=== PATIENT | male | born 1975 | race Caucasian/White ===

== ENCOUNTER 2020-01-14 08:35 | Outpatient (REF) | payer OTHER, SELFPAY ==
[2020-01-14 09:04] LABS: MANUAL DIFF FLAG NO
[2020-01-14 09:06] LABS: Basophils Absolute Auto 0.1 X10*3/uL (0.0-0.2); Basophils Percent Auto 0.6 % (0-2); Eosinophils Absolute Auto 0.1 X10*3/uL (0.0-0.4); Eosinophils Percent Auto 0.8 % (0-4); Hematocrit 46.6 % (42-52); Hemoglobin 15.7 g/dl (14.0-18.0); Imm Gran Pct Auto 0.8 % (0.0-0.4); Lymphocytes Absolute Auto 3.2 X10*3/uL (1.2-4.9); Lymphocytes Percent Auto 26.7 % (20-40); Mean Corpuscular HGB Conc 33.7 g/dl (31.0-36.0); Mean Corpuscular Hemoglobin 30.6 pg (27.0-33.0); Mean Corpuscular Volume 90.8 fL (80-98); Mean Platelet Volume 10.2 fL (9.4-12.4); Monocytes Absolute Auto 1.3 X10*3/uL (0.1-1.2); Monocytes Percent Auto 10.3 % (2-11); Neutrophils Absolute Auto 7.4 X10*3/uL (2.0-8.3); Neutrophils Percent Auto 60.8 % (45-73); Platelet Count 240 X10*3/uL (160-400); Red Blood Count 5.13 X10*6/uL (4.60-5.80); Red Cell Distribution Width 12.5 % (11.0-16.0); White Blood Count 12.1 X10*3/uL (4.8-10.8)
[2020-01-14 09:35] LABS: Alanine Aminotransferase 36 U/L (0-40); Albumin Level 4.4 g/dL (3.5-5.0); Alkaline Phosphatase 62 U/L (39-117); Anion Gap 13 (12-20); Aspartate Amino Transferase 23 U/L (5-37); Bilirubin Total 0.3 mg/dL (0.0-1.0); Blood Urea Nitrogen 17 mg/dL (9-16); C Reactive Protein 0.19 mg/dL (< or = 0.50); Calcium 9.4 mg/dL (8.4-10.2); Carbon Dioxide 29 mmol/L (22-29); Chloride 102 mmol/L (96-108); Estimated Glomerular Filt Rate > 60; Glucose Random 78 mg/dL (60-115); Potassium 3.6 mmol/l (3.3-5.1); Sodium 140 mmol/L (135-145); Total Protein 6.9 g/dL (6.5-8.0)
[2020-01-14 10:57] LABS: Erythrocyte Sedimentation Rate 2 MM/HR (0-15)
== END 2020-01-14 08:36 | disposition home or self-care (01) ==
LOC: HO.LAB 08:35
PROVIDERS: Visit Provider Internal Medicine
DX: L23.9 Allergic contact dermatitis, unspecified cause (principal); L73.9 Follicular disorder, unspecified
CPT/HCPCS: 36415; 80053; 85025; 85652; 86140

== ENCOUNTER 2020-11-22 09:45 | Outpatient (REF) | payer OTHER, SELFPAY ==
--- NOTE | ~2020-11-22 | XR_ITS ---
EXAMINATION: XR WRIST, RIGHT INDICATION: Pain. COMPARISON: 04/01/2018 TECHNIQUE: 4 images submitted including a detailed view of the wrist. FINDINGS: There are cystic changes in the carpal bones and likely at the base of the 4th metacarpal. There is irregularity also at the base of the 4th or 5th metacarpal dorsally. This may be degenerative in nature. There is no acute bony erosion. There is no acute fracture or dislocation. Alignment is within normal limits. On the lateral study, there is irregularity along the ventral surface of the carpal bones. This may indicate dystrophic calcification; of course, acute fracture cannot be excluded if there has been a history of trauma. Otherwise, likely degeneration in the carpal region with again some likely cystic degenerative changes. XR/XR hand wrist RT IMPRESSION: Findings as described above. Degenerative changes and irregularity along the ventral carpal bones may be degenerative in nature, however, I cannot exclude acute bony injury in the appropriate clinical setting. This finding is new from 2019 study. Otherwise likely ongoing Degenerative cystic formation in multiple carpal bones and base of fourth metacarpal described. If further evaluation is warranted, I would recommend MR of the wrist for full evaluation.
== END 2020-11-22 09:46 | disposition home or self-care (01) ==
LOC: HO.XRAY 09:45
PROVIDERS: PCP Internal Medicine; Visit Provider Internal Medicine
DX: M25.531 Pain in right wrist (principal)
CPT/HCPCS: 73110; 73130

== ENCOUNTER → 2020-11-27 09:46 | Outpatient (BNVA) | payer OTHER, SELFPAY | PROVIDERS: Visit Provider Orthopaedic Surgery | DX: M77.8 Other enthesopathies, not elsewhere classified (principal); M79.631 Pain in right forearm | CPT/HCPCS: 99202 ==

== ENCOUNTER → 2020-12-11 09:16 | Outpatient (BNVA) | payer OTHER, SELFPAY | PROVIDERS: PCP Internal Medicine; Visit Provider Internal Medicine Pulmonary Disease | DX: J45.40 Moderate persistent asthma, uncomplicated (principal); Z91.09 Other allergy status, other than to drugs and biological substances | CPT/HCPCS: 99202 ==

== ENCOUNTER 2020-12-21 07:53 | Outpatient (REF) | payer OTHER, SELFPAY ==
--- NOTE | 2020-12-21 10:27 | PFT_ITS ---
FLOWS: FEV1 92% of predicted at 3.61 L. FVC 97% of predicted at 4.83 L. FEV1 to FVC ratio of 0.75. No bronchodilator response except in small to medium airways. LUNG VOLUMES: Total lung capacity 109% of predicted at 7.41 L. Residual volume 147% of predicted at 2.83 L. Slow vital capacity 94% of predicted at 4.58 L. Expiratory reserve volume 31% of predicted at 0.47 L. Diffusion capacity is normal. IMPRESSION: No obstructive or restrictive ventilatory defect. No bronchodilator response except in small to medium airways. Increased residual volume suggests air trapping. MD MOLLY Kim/MODL / [id number]
== END 2020-12-21 07:54 | disposition home or self-care (01) ==
LOC: HO.RESP 07:53
PROVIDERS: PCP Internal Medicine; Visit Provider Internal Medicine Pulmonary Disease
DX: J45.40 Moderate persistent asthma, uncomplicated (principal)
CPT/HCPCS: 94060; 94727; 94729

== ENCOUNTER 2021-02-14 08:33 | Outpatient (REF) | payer OTHER, SELFPAY ==
[2021-02-14 08:57] LABS: MANUAL DIFF FLAG NO
[2021-02-14 09:16] LABS: Basophils Absolute Auto 0.1 X10*3/uL (0.0-0.2); Basophils Percent Auto 1.7 % (0-2); Eosinophils Absolute Auto 1.1 X10*3/uL (0.0-0.4); Eosinophils Percent Auto 13.9 % (0-4); Hematocrit 49.6 % (42.0-52.0); Imm Gran Abs Auto 0.02 X10*3/uL (0.00-0.03); Imm Gran Pct Auto 0.3 % (0.0-0.4); Lymphocytes Percent Auto 26.6 % (20-40); Mean Corpuscular HGB Conc 34.3 g/dl (31.0-36.0); Mean Corpuscular Hemoglobin 29.2 pg (27.0-33.0); Mean Corpuscular Volume 85.1 fL (80.0-98.0); Mean Platelet Volume 10.3 fL (9.4-12.4); Monocytes Absolute Auto 0.8 X10*3/uL (0.1-1.2); Monocytes Percent Auto 10.3 % (2-11); Neutrophils Absolute Auto 3.6 x10*3/uL (2.0-8.3); Neutrophils Percent Auto 47.2 % (45-73); Platelet Count 252 X10*3/uL (160-400); Red Blood Count 5.83 X10*6/uL (4.60-5.80); Red Cell Distribution Width 12.2 % (11.0-16.0); White Blood Count 7.6 X10*3/uL (4.8-10.8)
[2021-02-14 09:57] LABS: TSH reflex Free T4 2.07 uIU/mL (0.32-4.0)
[2021-02-18 22:12] LABS: Immunoglobulin E 670 kU/L (<OR=114)
== END 2021-02-14 08:34 | disposition home or self-care (01) ==
LOC: HO.LAB 08:33
PROVIDERS: Nurse Practitioner Family; PCP Internal Medicine; Visit Provider Internal Medicine Pulmonary Disease
DX: E03.9 Hypothyroidism, unspecified (principal); Z91.09 Other allergy status, other than to drugs and biological substances
CPT/HCPCS: 36415; 82785; 84443; 85025; 86003

== ENCOUNTER → 2021-02-26 09:41 | Outpatient (BNVA) | payer OTHER, SELFPAY | PROVIDERS: PCP Internal Medicine; Visit Provider Internal Medicine Pulmonary Disease | DX: Z91.09 Other allergy status, other than to drugs and biological substances (principal); J45.40 Moderate persistent asthma, uncomplicated | CPT/HCPCS: 99212 ==

== ENCOUNTER 2021-03-20 08:34 | Outpatient (REF) | payer OTHER, SELFPAY ==
--- NOTE | 2021-03-20 08:37 | EMG_ITS ---
This is a 45-year-old man with a 10 months history of right upper extremity pain and numbness. He has a history of hypothyroidism and is on levothyroxine. 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 Neurological examination: Cranial nerves normal. Muscle tone and strength are normal in all 4 extremities. Normal sensory examination. No Tinel or Phalen sign. IMPRESSION: Carpal tunnel syndrome. Nerve conduction EMG study: Normal electrodiagnostic study of the right upper extremity with no evidence of carpal tunnel syndrome or nerve entrapment. Normal EMG of the right C5-T1 innervated muscles. MD RAMEZ Spain/JHOAN / [id number]
== END 2021-03-20 08:35 | disposition home or self-care (01) ==
LOC: HO.NEURO 08:34
PROVIDERS: Visit Provider Nurse Practitioner Family
DX: M25.531 Pain in right wrist (principal)
CPT/HCPCS: 95885; 95910

== ENCOUNTER 2021-04-05 08:31 | Outpatient (REF) | payer OTHER, SELFPAY | END 2021-04-05 08:32 | disposition home or self-care (01) | LOC: HO.MDS 08:31 | PROVIDERS: PCP Internal Medicine; Visit Provider Internal Medicine Pulmonary Disease | DX: J45.50 Severe persistent asthma, uncomplicated (principal); Z86.73 Personal history of transient ischemic attack (TIA), and cerebral infarction without residual deficits | CPT/HCPCS: 96372; J0517 ==

== ENCOUNTER → 2021-05-02 09:18 | Outpatient (BNVA) | payer OTHER, SELFPAY | PROVIDERS: PCP Internal Medicine; Visit Provider Internal Medicine Pulmonary Disease | DX: J45.40 Moderate persistent asthma, uncomplicated (principal); Z91.09 Other allergy status, other than to drugs and biological substances | CPT/HCPCS: 99212 ==

== ENCOUNTER 2021-05-10 09:32 | Outpatient (REF) | payer OTHER, SELFPAY | END 2021-05-10 09:33 | disposition home or self-care (01) | LOC: HO.MDS 09:32 | PROVIDERS: PCP Internal Medicine; Visit Provider Internal Medicine Pulmonary Disease | DX: J45.50 Severe persistent asthma, uncomplicated (principal) | CPT/HCPCS: 96372; J0517 ==

== ENCOUNTER 2021-06-14 08:32 | Outpatient (REF) | payer OTHER, SELFPAY | END 2021-06-14 08:33 | disposition home or self-care (01) | LOC: HO.MDS 08:32 | PROVIDERS: PCP Internal Medicine; Visit Provider Internal Medicine Pulmonary Disease | DX: J45.50 Severe persistent asthma, uncomplicated (principal) | CPT/HCPCS: 96372; J0517 ==

== ENCOUNTER → 2021-07-11 08:55 | Outpatient (BNVA) | payer OTHER, SELFPAY | PROVIDERS: PCP Internal Medicine; Visit Provider Internal Medicine Pulmonary Disease | DX: J45.40 Moderate persistent asthma, uncomplicated (principal); Z91.09 Other allergy status, other than to drugs and biological substances | CPT/HCPCS: 99212 ==

== ENCOUNTER 2021-08-09 09:45 | Outpatient (REF) | payer OTHER, SELFPAY | END 2021-08-09 09:46 | disposition home or self-care (01) | LOC: HO.MDS 09:45 | PROVIDERS: PCP Internal Medicine; Visit Provider Internal Medicine Pulmonary Disease | DX: J45.50 Severe persistent asthma, uncomplicated (principal) | CPT/HCPCS: 96372; J0517 ==

== ENCOUNTER 2021-10-04 09:47 | Outpatient (REF) | payer OTHER, SELFPAY | END 2021-10-04 09:48 | disposition home or self-care (01) | LOC: HO.MDS 09:47 | PROVIDERS: Visit Provider Internal Medicine Pulmonary Disease | DX: J45.50 Severe persistent asthma, uncomplicated (principal) | CPT/HCPCS: 96372; J0517 ==

== ENCOUNTER → 2021-10-21 14:06 | Outpatient (BNVA) | payer OTHER, SELFPAY | PROVIDERS: PCP Internal Medicine; Visit Provider Internal Medicine Pulmonary Disease | DX: J45.40 Moderate persistent asthma, uncomplicated (principal); Q28.2 Arteriovenous malformation of cerebral vessels; Z91.09 Other allergy status, other than to drugs and biological substances | CPT/HCPCS: 99212 ==

== ENCOUNTER 2021-12-05 09:34 | Outpatient (REF) | payer OTHER, SELFPAY | END 2021-12-05 09:35 | disposition home or self-care (01) | LOC: HO.MDS 09:34 | PROVIDERS: Visit Provider Internal Medicine Pulmonary Disease | DX: J45.50 Severe persistent asthma, uncomplicated (principal) | CPT/HCPCS: 96372; J0517 ==

== ENCOUNTER → 2021-12-26 09:32 | Outpatient (BNVA) | payer OTHER, SELFPAY | PROVIDERS: PCP Internal Medicine; Visit Provider Internal Medicine Pulmonary Disease | DX: J45.40 Moderate persistent asthma, uncomplicated (principal); Z91.09 Other allergy status, other than to drugs and biological substances | CPT/HCPCS: 99212 ==

== ENCOUNTER 2022-01-03 09:34 | Outpatient (REF) | payer OTHER, SELFPAY | END 2022-01-03 09:35 | disposition home or self-care (01) | LOC: HO.MDS 09:34 | PROVIDERS: Visit Provider Internal Medicine Pulmonary Disease | DX: J45.50 Severe persistent asthma, uncomplicated (principal) | CPT/HCPCS: 96372; J0517 ==

== ENCOUNTER 2022-01-09 12:42 | Outpatient (REF) | payer OTHER, SELFPAY ==
[2022-01-09 13:16] LABS: Basophils Percent Auto 0.1 % (0-2); Hematocrit 52.5 % (42.0-52.0); Hemoglobin 17.3 g/dl (14.0-18.0); Imm Gran Abs Auto 0.13 X10*3/uL (0.00-0.03); Imm Gran Pct Auto 0.8 % (0.0-0.4); Lymphocytes Absolute Auto 3.4 X10*3/uL (1.2-4.9); Lymphocytes Percent Auto 19.6 % (20-40); MANUAL DIFF FLAG SCAN; Mean Corpuscular Hemoglobin 29.1 pg (27.0-33.0); Mean Corpuscular Volume 88.4 fL (80.0-98.0); Mean Platelet Volume 10.1 fL (9.4-12.4); Monocytes Absolute Auto 1.6 X10*3/uL (0.1-1.2); Monocytes Percent Auto 9.2 % (2-11); Neutrophils Absolute Auto 12.1 x10*3/uL (2.0-8.3); Neutrophils Percent Auto 70.3 % (45-73); Platelet Count 305 X10*3/uL (160-400); Red Blood Count 5.94 X10*6/uL (4.60-5.80); Red Cell Distribution Width 12.9 % (11.0-16.0); SCAN SMEAR FLAG 1; White Blood Count 17.3 X10*3/uL (4.8-10.8)
[2022-01-09 13:53] LABS: SLIDE REVIEW VERIFIED
[2022-01-09 13:59] LABS: Alanine Aminotransferase 36 U/L (0-40); Albumin Level 4.6 g/dL (3.5-5.0); Alkaline Phosphatase 70 U/L (39-117); Anion Gap 12 (12-20); Aspartate Amino Transferase 31 U/L (5-37); Bilirubin Total 0.5 mg/dL (0.0-1.0); Blood Urea Nitrogen 13 mg/dL (9-16); Carbon Dioxide 32 mmol/L (22-29); Chloride 101 mmol/L (96-108); Cholesterol 220 mg/dL; Estimated Glomerular Filt Rate > 60; Glucose Random 88 mg/dL (60-115); HDL Cholesterol 48 mg/dL; LDL Cholesterol Calculated 133 mg/dl; Potassium 4.1 mmol/L (3.3-5.1); Sodium 141 mmol/L (135-145); Total Protein 7.3 g/dL (6.5-8.0); Triglycerides 198 mg/dL
[2022-01-09 16:39] LABS: Free T4 (Free Thyroxine) 1.04 ng/dL (0.71-1.85); Prostate Specific Antigen Scr 0.58 ng/mL (<0.05-4.0); Thyroid Stimulating Hormone 1.69 uIU/mL (0.32-4.0); Vitamin D 25-OH Total 56.8 ng/mL (>30)
== END 2022-01-09 12:43 | disposition home or self-care (01) ==
LOC: HO.LAB 12:42
PROVIDERS: PCP Internal Medicine; Visit Provider Internal Medicine
DX: Z12.5 Encounter for screening for malignant neoplasm of prostate (principal); Q28.2 Arteriovenous malformation of cerebral vessels; E55.9 Vitamin D deficiency, unspecified; E03.9 Hypothyroidism, unspecified; E78.00 Pure hypercholesterolemia, unspecified; R35.0 Frequency of micturition; I10 Essential (primary) hypertension
CPT/HCPCS: 36415; 80053; 80061; 82306; 84153; 84439; 84443; 85025

== ENCOUNTER 2022-01-15 10:47 | Outpatient (REF) | payer OTHER, SELFPAY ==
[2022-01-15 10:59] LABS: Appearance Urine Clear; Color Urine Yellow; Glucose Urine UA 100 mg/dL (Negative); Leukocyte Esterase Urine Negative (Negative); Nitrite Urine Negative (Negative); PH 6.5 (5.0-9.0); Specific Gravity - Urine 1.025 (1.005-1.025); Urine Blood Negative (Negative); Urine Ketones Trace mg/dL (Negative); Urine Protein Trace mg/dL (Neg-Trace)
== END 2022-01-15 10:48 | disposition home or self-care (01) ==
LOC: HO.LNP 10:47
PROVIDERS: Visit Provider Internal Medicine
DX: Q28.2 Arteriovenous malformation of cerebral vessels (principal); R30.0 Dysuria
CPT/HCPCS: 81003

== ENCOUNTER 2022-01-27 07:40 | Outpatient (REF) | payer OTHER, SELFPAY ==
--- NOTE | ~2022-01-27 | CT_ITS ---
EXAMINATION: CT ANGIOGRAM BRAIN WITH CONTRAST CLINICAL INFORMATION: Arteriovenous malformation of cerebral vessels. COMPARISON: Brain MRI 02/11/2008. TECHNIQUE: Test bolus sequences followed by intravenous administration 75 mL of Omnipaque 350. Helical imaging was performed in the axial plane from the skull base to the skull vertex. Delayed postcontrast imaging of the head was also performed. The data was processed at the fiber technologist workstation for generation of MIP sequences. Angled MIPs and volume rendered reformatted images were also generated at an offline 3D workstation. This CT examination was performed using dose optimization techniques as appropriate, variously including the following: *Automated exposure control *Adjustment of mA and/or kV according to patient size (this includes techniques or standardized protocols for targeted exams where dose is matched to indication/reason for exam; i.e. extremities or head) *Use of iterative reconstruction technique DLP: 2497 mGy-cm FINDINGS: Brain: There is no intracranial hemorrhage, extra-axial collection, mass effect, or territorial infarction. Embolization changes are noted within the suprasellar cistern region. 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 The ventricles are normal in size without hydrocephalus. On the postcontrast images, no abnormal enhancement is seen. Mild to moderate polypoid mucosal thickening within the ethmoids. The mastoid air cells are clear. Head CTA: The intradural vertebral arteries and basilar artery appear normal. There is a right BALL MAKER. There is a small left posterior communicating artery. Both legal editor appear patent. The distal left BALL MAKER collaterals are asymmetrically enlarged compared with the right. Mildly prominent enhancement is seen within the region of the embolization changes in the supravermian cistern region. The ICAs appear normal. The ACAs and MCAs appear normal. No aneurysm is seen. The dural venous sinuses appear patent. A mildly enlarged vein is seen in the left occipital lobe draining into the inferior aspect of the superior sagittal sinus best seen on series 13 image 142/322. CT/CT angio head IMPRESSION: No acute intracranial abnormality identified. Postoperative findings related to embolization of presumed AVM seen in the supravermian cistern region. Asymmetrically prominent distal left BALL MAKER branches and prominent left occipital draining vein are demonstrated, which could represent some residual AV shunting for which neurointerventional follow-up is recommended.
[2022-01-27] MEDS: iohexoL 350 MG/ML 100 ML INFUS..BTL IV (08:17)
== END 2022-01-27 07:41 | disposition home or self-care (01) ==
LOC: HO.CT 07:40
PROVIDERS: PCP Internal Medicine; Visit Provider Internal Medicine
DX: Q28.2 Arteriovenous malformation of cerebral vessels (principal)
CPT/HCPCS: 70496; Q9967

== ENCOUNTER → 2022-02-19 09:33 | Outpatient (BNVA) | payer OTHER, SELFPAY | PROVIDERS: PCP Internal Medicine; Visit Provider Internal Medicine Pulmonary Disease | DX: J45.40 Moderate persistent asthma, uncomplicated (principal) | CPT/HCPCS: 99211 ==

== ENCOUNTER 2022-04-14 09:28 | Outpatient (REF) | payer OTHER, SELFPAY ==
[2022-04-14 09:42] LABS: MANUAL DIFF FLAG NO
[2022-04-14 09:56] LABS: Basophils Percent Auto 0.1 % (0-2); Hematocrit 49.9 % (42.0-52.0); Imm Gran Abs Auto 0.09 X10*3/uL (0.00-0.03); Lymphocytes Absolute Auto 1.9 X10*3/uL (1.2-4.9); Lymphocytes Percent Auto 20.9 % (20-40); Mean Corpuscular HGB Conc 34.1 g/dl (31.0-36.0); Mean Corpuscular Hemoglobin 29.1 pg (27.0-33.0); Mean Corpuscular Volume 85.4 fL (80.0-98.0); Monocytes Absolute Auto 1.1 X10*3/uL (0.1-1.2); Monocytes Percent Auto 12.2 % (2-11); Neutrophils Absolute Auto 5.8 x10*3/uL (2.0-8.3); Neutrophils Percent Auto 65.8 % (45-73); Platelet Count 223 X10*3/uL (160-400); Red Blood Count 5.84 X10*6/uL (4.60-5.80); Red Cell Distribution Width 13.7 % (11.0-16.0); White Blood Count 8.8 X10*3/uL (4.8-10.8)
[2022-04-14 10:19] LABS: Alanine Aminotransferase 68 U/L (0-40); Albumin Level 4.2 g/dL (3.5-5.0); Alkaline Phosphatase 65 U/L (39-117); Anion Gap 14 (12-20); Aspartate Amino Transferase 41 U/L (5-37); Bilirubin Total 0.4 mg/dL (0.0-1.0); Blood Urea Nitrogen 10 mg/dL (9-16); Calcium 9.4 mg/dL (8.4-10.2); Carbon Dioxide 29 mmol/L (22-29); Chloride 102 mmol/L (96-108); Estimated Glomerular Filt Rate > 60; Glucose Random 63 mg/dL (60-115); Potassium 4.3 mmol/L (3.3-5.1); Sodium 141 mmol/L (135-145); Total Protein 6.7 g/dL (6.5-8.0)
[2022-04-14 10:34] LABS: Erythrocyte Sedimentation Rate 8 MM/HR (0-15)
== END 2022-04-14 09:29 | disposition home or self-care (01) ==
LOC: HO.LAB 09:28
PROVIDERS: PCP Internal Medicine; Visit Provider Internal Medicine
DX: D72.829 Elevated white blood cell count, unspecified (principal); M79.7 Fibromyalgia; I10 Essential (primary) hypertension
CPT/HCPCS: 36415; 80053; 85025; 85652

== ENCOUNTER → 2022-04-29 09:47 | Outpatient (BNVA) | payer OTHER, SELFPAY | PROVIDERS: PCP Internal Medicine; Visit Provider Internal Medicine Pulmonary Disease | DX: J45.40 Moderate persistent asthma, uncomplicated (principal); Z91.09 Other allergy status, other than to drugs and biological substances; J20.8 Acute bronchitis due to other specified organisms | CPT/HCPCS: 99212 ==

== ENCOUNTER 2022-06-04 08:34 | Outpatient (REF) | payer OTHER, SELFPAY | END 2022-06-04 08:35 | disposition home or self-care (01) | LOC: HO.MDS 08:34 | PROVIDERS: Visit Provider Internal Medicine Pulmonary Disease | DX: J45.50 Severe persistent asthma, uncomplicated (principal) | CPT/HCPCS: 96372 ==

== ENCOUNTER 2022-07-02 09:49 | Outpatient (REF) | payer OTHER, SELFPAY | END 2022-07-02 09:50 | disposition home or self-care (01) | LOC: HO.MDS 09:49 | PROVIDERS: Visit Provider Internal Medicine Pulmonary Disease | DX: J45.50 Severe persistent asthma, uncomplicated (principal) | CPT/HCPCS: 96372 ==

== ENCOUNTER → 2022-07-08 09:34 | Outpatient (BNVA) | payer OTHER, SELFPAY | PROVIDERS: PCP Internal Medicine; Visit Provider Nurse Practitioner Family | DX: J45.40 Moderate persistent asthma, uncomplicated (principal); J40 Bronchitis, not specified as acute or chronic; Z91.09 Other allergy status, other than to drugs and biological substances | CPT/HCPCS: 99212 ==

== ENCOUNTER 2022-07-30 09:42 | Outpatient (REF) | payer OTHER, SELFPAY | END 2022-07-30 09:43 | disposition home or self-care (01) | LOC: HO.MDS 09:42 | PROVIDERS: Visit Provider Internal Medicine Pulmonary Disease | DX: J45.50 Severe persistent asthma, uncomplicated (principal) | CPT/HCPCS: 96372 ==

== ENCOUNTER 2022-09-10 10:04 | Outpatient (REF) | payer OTHER, SELFPAY | END 2022-09-10 10:05 | disposition home or self-care (01) | LOC: HO.MDS 10:04 | PROVIDERS: Visit Provider Internal Medicine Pulmonary Disease | DX: J45.50 Severe persistent asthma, uncomplicated (principal) | CPT/HCPCS: 96372; J0517 ==

== ENCOUNTER 2022-10-07 08:21 | Outpatient (AMB) | payer OTHER, SELFPAY ==
--- NOTE | 2022-10-07 08:23 | MHC.OFFVIS ---
Intake Vital Signs 10/07/22 08:24 Height 5 ft 9 in Weight 219 lb 5.759 oz BMI 32.4 BP 136/78 Blood Pressure Location Lt brachial Position Sitting Pulse 102 H Pulse Source Pulse Oximeter Intake Visit Reasons: Prod cough, exp wheezing Supervisor Tubing Required: No Psychologist Military Personnel: Psychologist Military Personnel offered & declined Accompanied by: Self / Same As Patient Allergies No Known Allergies Allergy (Verified 10/07/22 08:30) Medication List - Last Reconciled 10/07/22 by Sophia Danielson LPN albuterol sulfate 90 mcg/actuation 2 puffs inhalation 6XD PRN 30 days azithromycin For 250 mg dose pack: take 500 mg today (day 1), then 250 mg for 4 days (days 2-5) PO benralizumab (Fasenra) 30 mg subcut Q8W 28 days budesonide-formoterol 160-4.5 mcg/actuation (Symbicort) 2 puffs inhalation BID 30 days dextroamphetamine-amphetamine 20 mg ER (Adderall XR) 1 cap PO QAM levothyroxine 150 mcg PO QAM 90 days oxycodone 10 mg PO Q6-8H PRN 28 days prednisone 40 mg (2 x 20 mg) PO DAILY 7 days HPI Prod cough, exp wheezing HPI Details Van is a 46 year old male, former 20+pack-year smoker, quit 2018 , who is followed for moderate to severe asthma. He is moderately controlled on Fasenra, Symbicort, Zyrtec and albuterol PRN. Since the last visit, he has switched back to Fasenra, as he did not feel he had much benefit with Nucala. He has currently received two doses of Fasenra. Today he is here for a sick visit. He reports wheezing, chest tightness and increasing productive cough, with brown sputum for the last two days. Denies any fever, chills or sick contacts. [facility] [place] Medical History Acquired hypothyroidism Asthma Cerebral arteriovenous malformation (AVM) Lumbar degenerative disc disease Obesity (BMI 30-39.9) Pityriasis lichenoides Poorly controlled persistent asthma Pure hypercholesterolemia Surgical History History of lumbar discectomy Status post coil embolization of cerebral aneurysm (~11/03/12) Family History Father Diabetes Mother No problems noted. 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 Cognitive needs: No Hearing needs: No Vision needs: No Review of Systems Const Denies chills, Denies excessive sweating, Denies fever(s) and Denies night sweats Eyes Denies dry eyes ENT Reports Normal hearing present Card Denies chest pain, Denies chest pain at rest, Denies chest pain with activity, Denies claudication, Denies leg edema, Denies orthopnea and Denies paroxysmal nocturnal dyspnea Resp Reports change in phlegm color, Denies chest congestion, Reports cough, Denies excessive phlegm production, Denies pain on inspiration, Denies pain with cough, Denies stridor and Reports wheezing Neuro Reports Normal hearing present Endo Denies excessive sweating Dom/Lymph Denies lymphadenopathy Aller/Immun Reports wheezing Physical Exam Vital Signs: Last Vital Signs Pulse 102 H 10/07/22 08:24 BP 136/78 10/07/22 08:24 BMI result Body Mass Index 32.4 Const General: cooperative, healthy appearing, comfortable, no acute distress, well developed and alert Orientation/consciousness: patient oriented x3 Limitations: no limitations HEENT Head: Yes normal to inspection, Yes normocephalic and Yes atraumatic Ears: hearing grossly normal bilaterally and external ears normal Eyes General: appearance normal, both eyes and all related structures Eyelids: Yes eyelids normal Sclerae: sclerae normal EOM: EOMs intact bilaterally Neck Neck: Yes normal visual inspection and Yes no lymphadenopathy Lymphatic: no lymphadenopathy noted Chest Chest palpation & inspection: normal inspection of the chest Resp Effort & Inspection: normal respiratory effort, able to speak in complete sentences, no audible wheezes, no stridor, not tachypneic, no tripod positioning and no use of accessory muscles Auscultation: wheezes expiratory wheezes and throughout Cardio Jugular venous distension: no JVD Rate: regular rate Rhythm: regular rhythm Skin Other: warm, dry General skin exam: no rashes or lesions noted Neuro General: patient oriented x3 Cranial nerves: Yes Normal hearing present Cognition (Neuro): normal cognition Gait exam (Neuro): Normal gait present Extrem General: Yes normal to inspection, Yes capillary refill normal, Yes no clubbing, cyanosis or edema and Yes no pedal edema Psych Appearance: grossly normal and well kempt Speech and movement: Normal speech and movement present and Clear speech present Affect: normal affect Attitude: cooperative Thought process: Normal thought process present Thought content: Normal thought content present Insight: Good insight present (Psych) Judgement: Good judgement present (Psych) Assessment & Plan Assessment & Plan (1) Asthma: Code(s): J45.909 - Unspecified asthma, uncomplicated Qualifiers: Asthma severity: moderate Asthma persistence: persistent Asthma complication type: unspecified Qualified Code(s): J45.40 - Moderate persistent asthma, uncomplicated (2) Environmental allergies: Code(s): Z91.09 - Other allergy status, other than to drugs and biological substances (3) Bronchitis: Code(s): J40 - Bronchitis, not specified as acute or chronic Plan Van presents with two day history of worsening shortness of breath, wheezing and productive cough. Will treat bronchitic symptoms with azithromycin as well as prednisone. He is aware if his symptoms do not improve or worsen to contact the office. All questions were answered and patient is in agreement of plan. He will follow up for his regularly scheduled appointment at the end September with Dr. Ceballos or sooner if needed. Medications: Changed From prednisone 40 mg (2 x 20 mg) PO DAILY 7 days 14 tabs 0RF To prednisone 40 mg (2 x 20 mg) PO DAILY 5 days 10 tabs 0RF Refilled azithromycin For 250 mg dose pack: take 500 mg today (day 1), then 250 mg for 4 days (days 2-5) PO 6 tabs 0RF Coding Level of Care Code Est Pt Level 3 (54536) Diagnoses Asthma J45.40 Asthma severity: moderate Asthma persistence: persistent Asthma complication type: unspecified Environmental allergies Z91.09 Bronchitis J40
[2022-10-07 08:24] VITALS: BP 136/78; PULSE 102; BMI 32.4
== END 2022-10-07 09:05 | disposition home or self-care (01) ==
PROVIDERS: PCP Internal Medicine; Visit Provider Nurse Practitioner Family
DX: J45.40 Moderate persistent asthma, uncomplicated (principal); Z91.09 Other allergy status, other than to drugs and biological substances; J40 Bronchitis, not specified as acute or chronic
CPT/HCPCS: 99213

== ENCOUNTER → 2022-10-07 08:21 | Outpatient (BNVA) | payer OTHER, SELFPAY | PROVIDERS: PCP Internal Medicine; Visit Provider Nurse Practitioner Family | DX: J45.40 Moderate persistent asthma, uncomplicated (principal); J40 Bronchitis, not specified as acute or chronic; Z79.899 Other long term (current) drug therapy; Z91.09 Other allergy status, other than to drugs and biological substances | CPT/HCPCS: 99212 ==

== ENCOUNTER 2022-10-21 10:13 | Outpatient (AMB) | payer OTHER, SELFPAY ==
--- NOTE | 2022-10-21 10:14 | MHC.OFFVIS ---
Intake Vital Signs 10/21/22 10:15 Height 5 ft 9 in Weight 218 lb 4.122 oz BMI 32.2 BP 132/82 Blood Pressure Location Lt brachial Position Sitting Pulse 109 H Pulse Source Doppler Pulse Oximetry (%) 96 Oxygen Delivery Method Room Air Intake Visit Reasons: asthma Allergies No Known Allergies Allergy (Verified 10/21/22 10:16) HPI asthma HPI Details 47-year-old gentleman, former 20+pack-year smoker, quit 2018, followed for moderate persistent asthma.? Previously controlled on Fasenra, Symbicort, albuterol MDI/nebs. Also with several recent exacerbations, most recent only partially treated as patient has left his medication into hospital where he was stain, and thus continues to complain of an acute exacerbation at this time. [facility] Medical History Acquired hypothyroidism Asthma Cerebral arteriovenous malformation (AVM) Lumbar degenerative disc disease Obesity (BMI 30-39.9) Pityriasis lichenoides Poorly controlled persistent asthma Pure hypercholesterolemia Surgical History History of lumbar discectomy Status post coil embolization of cerebral aneurysm (~11/03/12) Family History Father Diabetes Mother No problems noted. 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 Cognitive needs: No Hearing needs: No Vision needs: No Review of Systems Const Denies daytime sleepiness, Denies excessive sweating, Denies fatigue, Denies fever(s), Denies lethargy, Denies malaise, Denies night sweats, Denies snoring and Denies weight loss Eyes Denies blurry vision and Denies itchy eyes ENT Denies nasal congestion, Denies post nasal drip, Denies sinus pain, Denies sinus pressure and Denies other ( Thrush) Card Denies chest pain, Denies pedal edema, Denies dyspnea, Denies orthopnea and Denies paroxysmal nocturnal dyspnea Resp Reports cough, Denies hemoptysis, Reports excessive phlegm production, Denies dyspnea, Denies snoring and Denies wheezing GI Denies abdominal pain and Denies heartburn Musc Denies myalgias, Denies arthralgias and Denies joint swelling Skin/Breast Denies rash Neuro Denies memory loss and Denies seizure-like activity Psych Denies abnormal sleep pattern, Denies anxiety and Denies memory loss Endo Denies excessive sweating, Denies fatigue and Denies heat intolerance Dom/Lymph Denies easy bruising Aller/Immun Denies itchy eyes, Denies seasonal rhinorrhea and Denies wheezing Physical Exam Vital Signs: Last Vital Signs Pulse 109 H 10/21/22 10:15 BP 132/82 10/21/22 10:15 Pulse Ox 96 10/21/22 10:15 Oxygen Delivery Method Room Air 10/21/22 10:15 BMI result Body Mass Index 32.2 Const General: no acute distress and alert Nutritional Appearance: not obese Orientation/consciousness: Other orientation findings ( oriented) HEENT Head: Yes atraumatic Eyes General: appearance normal, both eyes and all related structures Sclerae: sclerae normal EOM: EOMs intact bilaterally Neck Neck: Yes supple Lymphatic: no lymphadenopathy noted Resp Effort & Inspection: normal respiratory effort and no use of accessory muscles Auscultation: wheezes expiratory wheezes (Mild bilateral) Cardio Rate: regular rate Rhythm: regular rhythm Heart sounds: no gallops, no murmurs and no rubs Skin General skin exam: other ( warm) Extrem General: No clubbing, No cyanosis and No edema Assessment & Plan Assessment & Plan (1) Asthma: Code(s): J45.909 - Unspecified asthma, uncomplicated Qualifiers: Asthma severity: moderate Asthma persistence: persistent Asthma complication type: unspecified Qualified Code(s): J45.40 - Moderate persistent asthma, uncomplicated Plan: Suboptimally controlled as patient has left his medication heart all on vacation. Restart Symbicort and albuterol MDI. Continue Fasenra. Will treat acute exacerbation with a course of prednisone and azithromycin. (2) Environmental allergies: Code(s): Z91.09 - Other allergy status, other than to drugs and biological substances Plan: Concern for possible allergies to tattoo dye, will recheck RAST and CBC with differential. Patient has been advised to wear an N95 mask while at work. Orders: Orders Rast Allergen Today Z91.09 - Other allergy status, other than to drugs and biological substances Complete Blood Count Auto Diff Today Z91.09 - Other allergy status, other than to drugs and biological substances Medications: New azithromycin For 250 mg dose pack: take 500 mg today (day 1), then 250 mg for 4 days (days 2-5) PO 6 tabs 0RF Refilled albuterol sulfate 90 mcg/actuation 2 puffs inhalation 6XD PRN 1 ea 6RF shortness of breath or wheezing 30 days budesonide-formoterol 160-4.5 mcg/actuation (Symbicort) 2 puffs inhalation BID 10.2 grams 5RF 30 days prednisone 40 mg (2 x 20 mg) PO DAILY 10 tabs 0RF 5 days Coding Level of Care Code Est Pt Level 4 (00364) Diagnoses Asthma J45.40 Asthma severity: moderate Asthma persistence: persistent Asthma complication type: unspecified Environmental allergies Z91.
[2022-10-21 10:15] VITALS: BP 132/82; PULSE 109; O2SAT 96; BMI 32.2
== END 2022-10-21 10:32 | disposition home or self-care (01) ==
PROVIDERS: PCP Internal Medicine; Visit Provider Internal Medicine Pulmonary Disease
DX: J45.40 Moderate persistent asthma, uncomplicated (principal); Z91.09 Other allergy status, other than to drugs and biological substances
CPT/HCPCS: 99214

== ENCOUNTER → 2022-10-21 10:13 | Outpatient (BNVA) | payer OTHER, SELFPAY | PROVIDERS: PCP Internal Medicine; Visit Provider Internal Medicine Pulmonary Disease | DX: J45.40 Moderate persistent asthma, uncomplicated (principal); Z91.09 Other allergy status, other than to drugs and biological substances; Z79.899 Other long term (current) drug therapy | CPT/HCPCS: 99212 ==

== ENCOUNTER 2022-10-22 10:04 | Outpatient (REF) | payer OTHER, SELFPAY | END 2022-10-22 10:05 | disposition home or self-care (01) | LOC: HO.MDS 10:04 | PROVIDERS: Visit Provider Internal Medicine Pulmonary Disease | DX: J45.50 Severe persistent asthma, uncomplicated (principal) | CPT/HCPCS: 96372; J0517 ==

== ENCOUNTER 2022-10-22 10:25 | Outpatient (REF) | payer OTHER, SELFPAY ==
[2022-10-22 10:40] LABS: MANUAL DIFF FLAG NO
[2022-10-22 11:01] LABS: Basophils Percent Auto 0.1 % (0-2); Hematocrit 49.9 % (42.0-52.0); Hemoglobin 16.8 g/dl (14.0-18.0); Imm Gran Pct Auto 0.7 % (0.0-0.4); Lymphocytes Absolute Auto 2.2 X10*3/uL (1.2-4.9); Mean Corpuscular HGB Conc 33.7 g/dl (31.0-36.0); Mean Corpuscular Hemoglobin 30.2 pg (27.0-33.0); Mean Corpuscular Volume 89.6 fL (80.0-98.0); Mean Platelet Volume 10.6 fL (9.4-12.4); Monocytes Absolute Auto 1.3 X10*3/uL (0.1-1.2); Monocytes Percent Auto 9.2 % (2-11); Neutrophils Absolute Auto 10.3 x10*3/uL (2.0-8.3); Platelet Count 227 X10*3/uL (160-400); Red Blood Count 5.57 X10*6/uL (4.60-5.80); Red Cell Distribution Width 13.3 % (11.0-16.0)
== END 2022-10-22 10:26 | disposition home or self-care (01) ==
LOC: HO.LAB 10:25
PROVIDERS: PCP Internal Medicine; Visit Provider Internal Medicine Pulmonary Disease
DX: Z91.09 Other allergy status, other than to drugs and biological substances (principal)
CPT/HCPCS: 36415; 82785; 85025; 86003

== ENCOUNTER 2022-11-18 09:33 | Outpatient (AMB) | payer OTHER, SELFPAY ==
[2022-11-18 09:34] VITALS: BP 124/76; PULSE 104; O2SAT 96; BMI 32.1
--- NOTE | 2022-11-18 09:34 | MHC.OFFVIS ---
Intake Vital Signs 11/18/22 09:34 Height 5 ft 9 in Weight 217 lb 2.485 oz BMI 32.1 BP 124/76 Blood Pressure Location Lt brachial Position Sitting Pulse 104 H Pulse Source Doppler Pulse Oximetry (%) 96 Oxygen Delivery Method Room Air Intake Visit Reasons: asthma Allergies No Known Allergies Allergy (Verified 11/18/22 09:36) HPI asthma HPI Details 47-year-old gentleman, former 20+pack-year smoker, quit 2018, followed for moderate persistent asthma.? Previously controlled on Fasenra, Symbicort, albuterol MDI/nebs. Also with several recent exacerbations, and with ongoing exacerbation at this time. He has been switched from Fasenra to Xolair, however he has not started Xolair yet. He has significant allergies to cats and he does have a cat at home. [facility]END[facility] SALE TO [facility] Medical History Acquired hypothyroidism Asthma Cerebral arteriovenous malformation (AVM) Lumbar degenerative disc disease Obesity (BMI 30-39.9) Pityriasis lichenoides Poorly controlled persistent asthma Pure hypercholesterolemia Surgical History History of lumbar discectomy Status post coil embolization of cerebral aneurysm (~11/03/12) Family History Father Diabetes Mother No problems noted. 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 Cognitive needs: No Hearing needs: No Vision needs: No Review of Systems Const Denies daytime sleepiness, Denies excessive sweating, Denies fatigue, Denies fever(s), Denies lethargy, Denies malaise, Denies night sweats, Denies snoring and Denies weight loss Eyes Denies blurry vision and Denies itchy eyes ENT Denies nasal congestion, Denies post nasal drip, Denies sinus pain, Denies sinus pressure and Denies other ( Thrush) Card Denies chest pain, Denies pedal edema, Denies dyspnea, Denies orthopnea and Denies paroxysmal nocturnal dyspnea Resp Reports cough, Denies hemoptysis, Denies excessive phlegm production, Denies dyspnea, Denies snoring and Reports wheezing GI Denies abdominal pain and Denies heartburn Musc Denies myalgias, Denies arthralgias and Denies joint swelling Skin/Breast Denies rash Neuro Denies memory loss and Denies seizure-like activity Psych Denies abnormal sleep pattern, Denies anxiety and Denies memory loss Endo Denies excessive sweating, Denies fatigue and Denies heat intolerance Dom/Lymph Denies easy bruising Aller/Immun Denies itchy eyes, Denies seasonal rhinorrhea and Reports wheezing Physical Exam Vital Signs: Last Vital Signs Pulse 104 H 11/18/22 09:34 BP 124/76 11/18/22 09:34 Pulse Ox 96 11/18/22 09:34 Oxygen Delivery Method Room Air 11/18/22 09:34 BMI result Body Mass Index 32.1 Const General: no acute distress and alert Nutritional Appearance: not obese Orientation/consciousness: Other orientation findings ( oriented) HEENT Head: Yes atraumatic Eyes General: appearance normal, both eyes and all related structures Sclerae: sclerae normal EOM: EOMs intact bilaterally Neck Neck: Yes supple Lymphatic: no lymphadenopathy noted Resp Effort & Inspection: normal respiratory effort and no use of accessory muscles Auscultation: wheezes expiratory wheezes Cardio Rate: regular rate Rhythm: regular rhythm Heart sounds: no gallops, no murmurs and no rubs Skin General skin exam: other ( warm) Extrem General: No clubbing, No cyanosis and No edema Assessment & Plan Assessment & Plan (1) Asthma: Code(s): J45.909 - Unspecified asthma, uncomplicated Qualifiers: Asthma complication type: unspecified Asthma persistence: persistent Asthma severity: moderate Qualified Code(s): J45.40 - Moderate persistent asthma, uncomplicated Plan: Severe persistent with significant allergic component. Still suboptimal control on Symbicort and albuterol MDI. Now with poor response to Fasenra, being switched to Xolair. Also, with an ongoing exacerbation, will extend prednisone taper. (2) Environmental allergies: Code(s): Z91.09 - Other allergy status, other than to drugs and biological substances Plan: Expect to improve on Xolair. Medications: New Mucinex ER (guaifenesin) 1,200 mg PO BID 28 tabs 0RF 14 days NS Refilled prednisone Take four tabs daily for 7 days, then go down by 1 tab every 7 days. 10 mg PO DIRECTED 70 tabs 0RF Coding Level of Care Code Est Pt Level 4 (66817) Diagnoses Moderate persistent asthma, unspecified whether complicated J45.40 Asthma complication type: unspecified Asthma persistence: persistent Asthma severity: moderate Environmental allergies Z91.09
== END 2022-11-18 09:55 | disposition home or self-care (01) ==
PROVIDERS: PCP Internal Medicine; Visit Provider Internal Medicine Pulmonary Disease
DX: J45.40 Moderate persistent asthma, uncomplicated (principal); Z91.09 Other allergy status, other than to drugs and biological substances
CPT/HCPCS: 99214

== ENCOUNTER → 2022-11-18 09:33 | Outpatient (BNVA) | payer OTHER, SELFPAY | PROVIDERS: PCP Internal Medicine; Visit Provider Internal Medicine Pulmonary Disease | DX: J45.40 Moderate persistent asthma, uncomplicated (principal); Z91.09 Other allergy status, other than to drugs and biological substances | CPT/HCPCS: 99212 ==

== ENCOUNTER 2022-11-21 09:58 | Outpatient (AMB) | payer OTHER, SELFPAY ==
[2022-11-21 10:00] VITALS: BP 140/90; PULSE 106; O2SAT 97; BMI 31.6
--- NOTE | 2022-11-21 10:00 | A.OFFPC_ITS ---
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: No Accompanied by: Self / Same As Patient Allergies No Known Allergies Allergy (Verified 11/21/22 10:55) Medication List - Last Reconciled 11/21/22 by Rambo Qureshi MD albuterol sulfate 90 mcg/actuation 2 puffs inhalation 6XD PRN 30 days budesonide-formoterol 160-4.5 mcg/actuation (Symbicort) 2 puffs inhalation BID 30 days dextroamphetamine-amphetamine 20 mg ER (Adderall XR) 1 cap PO QAM levothyroxine 150 mcg PO QAM 90 days Mucinex ER (guaifenesin) 1,200 mg PO BID 14 days NS oxycodone 10 mg PO Q6-8H PRN 28 days prednisone 10 mg PO DIRECTED Tobacco use date assessed: 11/21/22 Dental Screening Dental Screen Date: 11/21/22 Did you have a dental visit in the last 12 months?: Yes Did you have a dental problem in the last 6 months where you did not have access to dental care?: No Was dental information given to patient?: Patient has dentist HPI 3 Month F/Up HPI Details Patient comes in today for his follow up visit States that he has been experiencing increased pain and recurrent swelling of his left knee lately, especially over the medial aspect of the knee Relates that his knee swelled up again more recently after he went to the [place] and spent a good part of the day there walking around Notes that his knee feels exactly the same as when he tore his meniscus on his other knee in the past and would like to see about getting an MRI done for further evaluation Also has a raised skin lesion just under his left eye that he's had for a while now and feels that it has gotten bigger lately and is now starting to bother him a lot - would like to know if it is something we can just cut out in the office States that his asthma seems like it is better controlled lately Relates that he had some labs and allergy testing done for Dr. Ceballos recently and he was informed that he is primarily allergic to ragweed and cat dander - states that his children has a pet cat at home that has been with them for about [address] Ceballos will be starting him on Xolair injections for his allergies next week He denies any headaches or dizziness Denies any chest pains, no increased SOB No nausea/vomiting, no abdominal pain No change in bowel habits noted States that his chronic low back pain remains adequately controlled on his current Rx and he presently does not need any Rx refilled [facility] Medical History (Updated 11/21/22 @ 11:19 by Rambo Qureshi MD) Pure hypercholesterolemia Pityriasis lichenoides Poorly controlled persistent asthma Obesity (BMI 30-39.9) Cerebral arteriovenous malformation (AVM) Lumbar degenerative disc disease Acquired hypothyroidism Asthma Surgical History Status post coil embolization of cerebral aneurysm (~11/03/12) History of lumbar discectomy Family History Father Diabetes Mother No problems noted. 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 1. Little interest or pleasure in doing things: not at all 2. Feeling down, depressed, or hopeless: not at all 3. Trouble falling or staying asleep, or sleeping too much: not at all 4. Feeling tired or having little energy: not at all 5. Poor appetite or overeating: not at all 6. Feeling bad about yourself - or that you are a failure or have let yourself or your family down: not at all 7. Trouble concentrating on things, such as reading the newspaper or watching television: not at all 8. Moving or speaking so slowly that other people could have noticed. Or the opposite - being so fidgety or restless that you have been moving around a lot more than usual: not at all 9. Thoughts that you would be better off or of hurting yourself in some way: not at all Total score: 0 Depression Screening Interpretation: Negative [id number] - PHQ-9 Billing: Yes Source: Developed by Drs. Santos Onofre, Britt Soares, Errol Manzanares and colleagues, with an educational antoinette from [employer]. Thrive Questionnaire Date Thrive assessed: 11/21/22 I am a: Patient What is your living situation today?: I have a steady place to live Within the past 12 months, did the food you bought not last and you didn't have the money to get more?: Never true Within the past 12 months, did you worry whether your food would run out before you got money to buy more?: Never true Do you have trouble paying for medicines?: No Do you have trouble getting transportation to medical appointments?: No Do you have trouble paying your heating and electricity bill?: No Do you have trouble taking care of your child, family member or friend?: No Do you have trouble with day-to-day activities such as bathing, preparing meals, shopping, managing finances, etc.?: No Are you currently unemployed and looking for a job?: No Are you interested in more education?: No Please select the resources that you would like help with: None Currently or been in a relationship where the following occur: no concerns reported AUDIT C Alcohol Use Questionnaire (AUDIT-C) 1. How often do you have a drink containing alcohol?: Never 3. How often do you have six or more drinks on one occasion?: Never Total Score: 0 Score Reviewed/Action Taken: Yes MARIA DEL CARMEN-7 AMB Questionnaire MARIA DEL CARMEN-7 Date MARIA DEL CARMEN - 7 assessed: 11/21/22 Feeling nervous, anxious, or on edge: 0 = Not at all Not being able to stop or control worryin = Not at all Worrying too much about different things: 0 = Not at all Trouble relaxin = Not at all Being so restless that it is hard to sit still: 0 = Not at all Becoming easily annoyed or irritable: 0 = Not at all Feeling afraid as if something awful might happen: 0 = Not at all Total MARIA DEL CARMEN-7 score (0-4 normal; 5-9 mild; 10-14 moderate; 15-21 severe): 0 Source: Developed by Drs. Santos Onofre, Britt Soares, Errol Manzanares and colleagues, with an educational antoinette from [employer]. Review of Systems Const Denies chills, Reports fatigue, Denies fever(s) and Denies headache(s) ENT Denies dysphagia, Denies dizziness, Denies otalgia, Denies headache(s), Reports nasal congestion (on and off), Denies neck pain, Denies odynophagia and Denies sore throat Card Denies chest pain, Denies palpitations and Reports dyspnea (on and off, depending on his asthma flare ups) Resp Reports cough (on and off, when his asthma flares up) and Reports dyspnea (on and off, depending on his asthma flare ups) GI Denies abdominal pain, Denies constipation, Denies dysphagia, Denies heartburn, Denies diarrhea, Denies nausea, Denies odynophagia and Denies vomiting Denies dysuria, Denies nocturia and Denies urinary frequency Musc Reports back pain (over the lower back - chronic), Reports arthralgias (left knee, especially over the medial aspect), Reports joint swelling (on and off over the left knee) and Denies neck pain Skin/Breast Details: (+) raised skin lesion on the left side of the face just under the left eye Reports rash (on and off) Neuro Denies dizziness and Denies headache(s) Endo Reports fatigue and Denies palpitations Physical exam (Primary Care) Vital Signs: Last Vital Signs Pulse 106 H 11/21/22 10:00 BP 140/90 H 11/21/22 10:00 Pulse Ox 97 11/21/22 10:00 Oxygen Delivery Method Room Air 11/21/22 10:00 BMI result Body Mass Index 31.6 Tobacco/Smoking Status: Tobacco use Status Tobacco use date assessed 11/21/22 11/21/22 10:13 Patient Tobacco Use Status Former Tobacco user 11/21/22 10:13 e-Cigarette/Vaping Use Never Used 11/21/22 10:13 PHQ-9: PHQ-9 Score PHQ-9: Total score 0 11/21/22 10:47 Depression Screening Interpretation: Negative Thrive Assessment: Date of Thrive Assessment Date Thrive assessed 11/21/22 11/21/22 10:13 Currently or been in a relationship where the following occur: no concerns reported Const General: no acute distress and alert HENMT Ears: TM's normal bilaterally and EAC's normal Throat: Yes posterior oropharynx normal and Yes tonsils normal (no TP congestion) Neck Neck: Yes no lymphadenopathy and Yes supple Resp Auscultation: clear to auscultation bilaterally, no rales, no wheezes and diminished lung sounds (slightly) bilateral Cardio Rate: regular rate Rhythm: regular rhythm Heart sounds: no murmurs GI Palpation (GI): Soft to palpation and nontender Auscultation: normal bowel sounds Back/Spine/Pelvis Thoracic/Lumbar Spine: lumbar spinal tenderness Skin Other: (+) scattered clusters of erythematous papular lesions/rash, more commonly over the extremities Lesions: lesion noted ((+) raised keratotic lesion under the left eye) Rashes: rashes noted (scattered clusters of erythematous papular rash/lesions) Extrem General: Yes no clubbing, cyanosis or edema Left lower extremity: knee Details: tenderness Location: of the medial joint line; no swelling (at present) Assessment and Plan Assessment & Plan (1) Pain and swelling of right knee: Code(s): M25.561 - Pain in right knee; M25.461 - Effusion, right knee Plan: Patient feels certain that he tore his right knee MCL based on how his knee feel and is requesting an MRI of the knee ordered for further evaluation Is advised that insurance will typically NOT approve an MRI to start with and per insurance protocol, he has to at least get an MRI done first even though we are aware that x-rays will not show any damage or injury to anything other than bone Advised that if his x-rays show some abnormality, then we may be able to get an MRI approved so he should try to get this done first EFREN (2) Skin lesion of face: Code(s): L98.9 - Disorder of the skin and subcutaneous tissue, unspecified Plan: Advised that because the lesion is on the face and really close to the eye (just under the left eye), it would not be advisable for us to just cut it out here in the office Will recommend he see dermatology for this especially since they should also rule out any potential skin malignancy here - referral to dermatology done (3) Asthma: Code(s): J45.909 - Unspecified asthma, uncomplicated Qualifiers: Asthma complication type: unspecified Asthma persistence: persistent Asthma severity: moderate Qualified Code(s): J45.40 - Moderate persistent asthma, uncomplicated Plan: Continue Symbicort 160-4.5 mcg 2 inhalations BID, Montelukast 10 mg QD and Albuterol HFA 2 inhalations every 6 hours PRN, as well as Fasenra injections 30 mg every 4 weeks States that he did not do as well when he was switched over to Nucala a few months ago Recently tested positive for allergies to ragweed and cat dander and states that will be starting him on Xolair injections next week Follow up with pulmonary as scheduled (4) Cerebral arteriovenous malformation (AVM): Code(s): Q28.2 - Arteriovenous malformation of cerebral vessels Plan: Repeat CT angiogram of the head done back in January 2022 came out negative - report read as No acute intracranial abnormality identified.? Postoperative findings related to embolization of presumed AVM seen in the supravermian cistern region. Asymmetrically prominent distal left PET TRAINING IN[employer]CTOR branches and prominent left occipital draining vein are demonstrated, which could represent some residual AV shunting for which neurointerventional follow-up is recommended [place]ow up with neurosurgery as scheduled (5) Pure hypercholesterolemia: Code(s): E78.00 - Pure hypercholesterolemia, unspecified Plan: Reminded that his cholesterol levels done earlier this year were still elevated Reinforced low cholesterol diet Will recheck his fasting lipids and labs in 3 months for follow up (6) Elevated blood pressure reading without diagnosis of hypertension: Code(s): R03.0 - Elevated blood-pressure reading, without diagnosis of hypertension Plan: Advised that his systolic blood pressure today in the office is still elevated - normal is systolic BP of 120 mm or less Reinforced low sodium diet; is also urged to cut back on his daily coffee consumption - admits that he drinks a lot of coffee regularly Patient is reminded to continue monitoring his BP regularly and advised that we are going to reassess whether he will need to be started on BP meds at his next appointment (7) Leukocytosis (leucocytosis): Code(s): D72.829 - Elevated white blood cell count, unspecified Qualifiers: Leukocytosis type: unspecified Qualified Code(s): D72.829 - Elevated white blood cell count, unspecified Plan: Was most likely due to the effects of oral prednisone WBC count was normal when last checked a few months ago Will have patient recheck his CBC and WBC count in 3 months for follow up (8) Lumbar degenerative disc disease: Code(s): M51.36 - Other intervertebral disc degeneration, lumbar region Plan: Reinforced activity and weight lifting restrictions States that his chronic pain has remained adequately controlled on Oxycodone 10 mg every 6 hours as needed over the years and he would like to continue on this for now and start coming down on his dosage slowly - dose was lowered from 15 to 10 mg last year (9) Acquired hypothyroidism: Code(s): E03.9 - Hypothyroidism, unspecified Plan: Continue Levothyroxine 150 mcg QD Will recheck his TFTs in 3 months for follow up (10) Allergic dermatitis: Code(s): L23.9 - Allergic contact dermatitis, unspecified cause Plan: Follow up with dermatology as scheduled (11) Primary osteoarthritis, right wrist: Code(s): M19.031 - Primary osteoarthritis, right wrist Plan: Right wrist x-rays done back in October 2020 revealed (+) degenerative changes in the carpal bones; wrist pain have subsided since Will consider referral to orthopedics if his wrist pain gets worse (12) ADD (attention deficit disorder): Code(s): F98.8 - Other specified behavioral and emotional disorders with onset usually occurring in childhood and adolescence Qualifiers: Hyperactivity presence: unspecified Qualified Code(s): F98.8 - Other specified behavioral and emotional disorders with onset usually occurring in childhood and adolescence Plan: Continue Adderall XR 20 mg QD Follow up with psychiatry as scheduled (13) Obesity (BMI 30-39.9): Code(s): E66.9 - Obesity, unspecified Plan: Reinforced diet/exercise as tolerated/lose weight Plan Follow up in 3 months Orders: Orders XR knee RT 4V Today M25.461 - Effusion, right knee, M25.561 - Pain in right knee Comprehensive [place]. Panel Fast 3 Months E78.00 - Pure hypercholesterolemia, unspecified Thyroid Stimulating Hormone 3 Months E03.9 - Hypothyroidism, unspecified Free T4 (Free Thyroxine) 3 Months E03.9 - Hypothyroidism, unspecified Complete Blood Count Auto Diff 3 Months I10 - Essential (primary) hypertension Lipid Panel 3 Months E78.00 - Pure hypercholesterolemia, unspecified Referrals Dermatology Referral L98.9 - Disorder of the skin and subcutaneous tissue, unspecified Coding Level of Care Code Est Pt Level 4 (19426) Diagnoses Pain and swelling of right knee M25.561; M25.461 Skin lesion of face L98.9 Moderate persistent asthma, unspecified whether complicated J45.40 Asthma complication type: unspecified Asthma persistence: persistent Asthma severity: moderate Cerebral arteriovenous malformation (AVM) Q28.2 Pure hypercholesterolemia E78.00 Elevated blood pressure reading without diagnosis of hypertension R03.0 Leukocytosis, unspecified type D72.829 Leukocytosis type: unspecified Lumbar degenerative disc disease M51.36 Acquired hypothyroidism E03.9 Allergic dermatitis L23.9 Primary osteoarthritis, right wrist M19.031 Attention deficit disorder, unspecified hyperactivity presence F98.8 Hyperactivity presence: unspecified Obesity (BMI 30-39.9) E66.9
== END 2022-11-21 10:48 | disposition home or self-care (01) ==
PROVIDERS: PCP Internal Medicine; Visit Provider Internal Medicine
DX: M25.561 Pain in right knee (principal); M25.461 Effusion, right knee; L98.9 Disorder of the skin and subcutaneous tissue, unspecified; E78.00 Pure hypercholesterolemia, unspecified
CPT/HCPCS: 99214

== ENCOUNTER 2022-11-27 08:09 | Outpatient (REF) | payer OTHER, SELFPAY | END 2022-11-27 08:10 | disposition home or self-care (01) | LOC: HO.MDS 08:09 | PROVIDERS: Visit Provider Internal Medicine Pulmonary Disease | DX: J45.50 Severe persistent asthma, uncomplicated (principal) | CPT/HCPCS: 96372 ==

== ENCOUNTER 2022-12-10 09:52 | Outpatient (REF) | payer OTHER, SELFPAY | END 2022-12-10 09:53 | disposition home or self-care (01) | LOC: HO.MDS 09:52 | PROVIDERS: Visit Provider Internal Medicine Pulmonary Disease | DX: J45.50 Severe persistent asthma, uncomplicated (principal) | CPT/HCPCS: 96372; J2357 ==

== ENCOUNTER 2022-12-24 10:03 | Outpatient (REF) | payer OTHER, SELFPAY | END 2022-12-24 10:04 | disposition home or self-care (01) | LOC: HO.MDS 10:03 | PROVIDERS: Visit Provider Internal Medicine Pulmonary Disease | DX: J45.50 Severe persistent asthma, uncomplicated (principal) | CPT/HCPCS: 96372 ==

== ENCOUNTER 2023-01-02 09:32 | Outpatient (AMB) | payer OTHER, SELFPAY ==
[2023-01-02 09:35] VITALS: BP 138/82; PULSE 120; O2SAT 96; BMI 32.2
--- NOTE | 2023-01-02 09:35 | A.OFFVIS_ITS ---
Intake Vital Signs 01/02/23 09:35 Height 5 ft 9 in Weight 218 lb 4.122 oz BMI 32.2 BP 138/82 Blood Pressure Location Rt brachial Position Sitting Pulse 120 H Pulse Source Doppler Pulse Oximetry (%) 96 Oxygen Delivery Method Room Air Intake Visit Reasons: asthma Allergies No Known Allergies Allergy (Verified 01/02/23 09:36) HPI asthma HPI Details 47-year-old gentleman, former 20+pack-ye ar smoker, quit 2018, followed for moderate persistent asthma.? After the last office visit Fasenra has been switched to Xolair with improvement in symptom control. However the last 2 weeks he has developed bronchitic symptoms symptomatic with cough productive of yellowish sputum. He continues to use Symbicort and albuterol MDI. [facility] Medical History (Updated 11/21/22 @ 11:19 by Rambo Qureshi MD) Pure hypercholesterolemia Pityriasis lichenoides Poorly controlled persistent asthma Obesity (BMI 30-39.9) Cerebral arteriovenous malformation (AVM) Lumbar degenerative disc disease Acquired hypothyroidism Asthma Surgical History Status post coil embolization of cerebral aneurysm (~11/03/12) History of lumbar discectomy Family History Father Diabetes Mother No problems noted. 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 Cognitive needs: No Hearing needs: No Vision needs: No Review of Systems Const Denies daytime sleepiness, Denies excessive sweating, Denies fatigue, Denies fever(s), Denies lethargy, Denies malaise, Denies night sweats, Denies snoring and Denies weight loss Eyes Denies blurry vision and Denies itchy eyes ENT Denies nasal congestion, Denies post nasal drip, Denies sinus pain, Denies sinus pressure and Denies other ( Thrush) Card Denies chest pain, Denies pedal edema, Denies dyspnea, Denies orthopnea and Denies paroxysmal nocturnal dyspnea Resp Reports cough, Denies hemoptysis, Reports excessive phlegm production, Denies dyspnea, Denies snoring and Denies wheezing GI Denies abdominal pain and Denies heartburn Musc Denies myalgias, Denies arthralgias and Denies joint swelling Skin/Breast Denies rash Neuro Denies memory loss and Denies seizure-like activity Psych Denies abnormal sleep pattern, Denies anxiety and Denies memory loss Endo Denies excessive sweating, Denies fatigue and Denies heat intolerance Dom/Lymph Denies easy bruising Aller/Immun Denies itchy eyes, Denies seasonal rhinorrhea and Denies wheezing Physical Exam Vital Signs: Last Vital Signs Pulse 120 H 01/02/23 09:35 BP 138/82 01/02/23 09:35 Pulse Ox 96 01/02/23 09:35 Oxygen Delivery Method Room Air 01/02/23 09:35 BMI result Body Mass Index 32.2 Const General: no acute distress and alert Nutritional Appearance: not obese Orientation/consciousness: Other orientation findings ( oriented) HEENT Head: Yes atraumatic Eyes General: appearance normal, both eyes and all related structures Sclerae: sclerae normal EOM: EOMs intact bilaterally Neck Neck: Yes supple Lymphatic: no lymphadenopathy noted Resp Effort & Inspection: normal respiratory effort and no use of accessory muscles Auscultation: clear to auscultation bilaterally Cardio Rate: regular rate Rhythm: regular rhythm Heart sounds: no gallops, no murmurs and no rubs Skin General skin exam: other ( warm) Extrem General: No clubbing, No cyanosis and No edema Assessment & Plan Assessment & Plan (1) Asthma: Code(s): J45.909 - Unspecified asthma, uncomplicated Qualifiers: Asthma severity: moderate Asthma persistence: persistent Asthma complication type: unspecified Qualified Code(s): J45.40 - Moderate persistent asthma, uncomplicated Plan: Improving control on Xolair. Continue Xolair, Symbicort, and albuterol MDI. Now with bronchitic symptoms, will treat course of Levaquin. (2) Environmental allergies: Code(s): Z91.09 - Other allergy status, other than to drugs and biological substances Plan: Improving after switching from Fasenra to Xolair. Continue current regimen. Medications: New ProAir RespiClick 90 mcg/actuation (albuterol sulfate) 2 inhalations inhalation Q4-6H PRN 1 ea 6RF shortness of breath or wheezing 30 days NS levofloxacin 750 mg PO DAILY 7 tabs 0RF Discontinued albuterol sulfate 90 mcg/actuation Discontinued Reason: Doctor's Order 2 puffs inhalation 6XD 30 days PRN 1 ea 6RF shortness of breath or wheezing Coding Level of Care Code Est Pt Level 4 (38234) Diagnoses Moderate persistent asthma, unspecified whether complicated J45.40 Asthma severity: moderate Asthma persistence: persistent Asthma complication type: unspecified Environmental allergies Z91.09
== END 2023-01-02 09:50 | disposition home or self-care (01) ==
PROVIDERS: PCP Internal Medicine; Visit Provider Internal Medicine Pulmonary Disease
DX: J45.40 Moderate persistent asthma, uncomplicated (principal); Z91.09 Other allergy status, other than to drugs and biological substances
CPT/HCPCS: 99214

== ENCOUNTER → 2023-01-02 09:32 | Outpatient (BNVA) | payer OTHER, SELFPAY | PROVIDERS: PCP Internal Medicine; Visit Provider Internal Medicine Pulmonary Disease | DX: J45.40 Moderate persistent asthma, uncomplicated (principal); Z91.09 Other allergy status, other than to drugs and biological substances | CPT/HCPCS: 99212 ==

== ENCOUNTER 2023-01-08 10:07 | Outpatient (REF) | payer OTHER, SELFPAY | END 2023-01-08 10:08 | disposition home or self-care (01) | LOC: HO.MDS 10:07 | PROVIDERS: Visit Provider Internal Medicine Pulmonary Disease | DX: J45.50 Severe persistent asthma, uncomplicated (principal) | CPT/HCPCS: 96372 ==

== ENCOUNTER 2023-01-26 10:06 | Outpatient (REF) | payer OTHER, SELFPAY | END 2023-01-26 10:07 | disposition home or self-care (01) | LOC: HO.MDS 10:06 | PROVIDERS: PCP Internal Medicine; Visit Provider Internal Medicine Pulmonary Disease | DX: J45.50 Severe persistent asthma, uncomplicated (principal) | CPT/HCPCS: 96372 ==

== ENCOUNTER 2023-02-10 10:04 | Outpatient (REF) | payer OTHER, SELFPAY | END 2023-02-10 10:05 | disposition home or self-care (01) | LOC: HO.MDS 10:04 | PROVIDERS: Visit Provider Internal Medicine Pulmonary Disease | DX: J45.50 Severe persistent asthma, uncomplicated (principal) | CPT/HCPCS: 96372; J2357 ==

== ENCOUNTER 2023-03-05 10:11 | Outpatient (REF) | payer OTHER, SELFPAY | END 2023-03-05 10:12 | disposition home or self-care (01) | LOC: HO.MDS 10:11 | PROVIDERS: PCP Internal Medicine; Visit Provider Internal Medicine Pulmonary Disease | DX: J45.50 Severe persistent asthma, uncomplicated (principal) | CPT/HCPCS: 96372 ==

== ENCOUNTER 2023-03-06 09:56 | Outpatient (AMB) | payer OTHER, SELFPAY ==
[2023-03-06 09:58] VITALS: BP 126/87; PULSE 116; O2SAT 96; BMI 32.9
--- NOTE | 2023-03-06 09:58 | A.OFFVIS_ITS ---
Intake Vital Signs 03/06/23 09:58 Height 5 ft 9 in Weight 222 lb 10.67 oz BMI 32.9 BP 126/87 Blood Pressure Location Rt brachial Position Sitting Pulse 116 H Pulse Source Doppler Pulse Oximetry (%) 96 Oxygen Delivery Method Room Air Intake Visit Reasons: asthma Allergies No Known Allergies Allergy (Verified 01/02/23 09:36) HPI asthma HPI Details 47-year-old gentleman, former 20+pack-ye ar smoker, quit 2018, followed for moderate persistent asthma.? He continues on Xolair, Symbicort, and albuterol MDI with reasonable control of his symptoms. He does complain of cough productive of chunky sputum. [facility] Medical History (Updated 11/21/22 @ 11:19 by Rambo Qureshi MD) Pure hypercholesterolemia Pityriasis lichenoides Poorly controlled persistent asthma Obesity (BMI 30-39.9) Cerebral arteriovenous malformation (AVM) Lumbar degenerative disc disease Acquired hypothyroidism Asthma Surgical History Status post coil embolization of cerebral aneurysm (~11/03/12) History of lumbar discectomy Family History Father Diabetes Mother No problems noted. 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 Cognitive needs: No Hearing needs: No Vision needs: No Review of Systems Const Denies daytime sleepiness, Denies excessive sweating, Denies fatigue, Denies fever(s), Denies lethargy, Denies malaise, Denies night sweats, Denies snoring and Denies weight loss Eyes Denies blurry vision and Denies itchy eyes ENT Denies nasal congestion, Denies post nasal drip, Denies sinus pain, Denies sinus pressure and Denies other ( Thrush) Card Denies chest pain, Denies pedal edema, Denies dyspnea, Denies orthopnea and Denies paroxysmal nocturnal dyspnea Resp Reports cough, Denies hemoptysis, Reports excessive phlegm production, Denies dyspnea, Denies snoring and Denies wheezing GI Denies abdominal pain and Denies heartburn Musc Denies myalgias, Denies arthralgias and Denies joint swelling Neuro Denies memory loss and Denies seizure-like activity Psych Denies abnormal sleep pattern, Denies anxiety and Denies memory loss Endo Denies excessive sweating, Denies fatigue and Denies heat intolerance Dom/Lymph Denies easy bruising Aller/Immun Denies itchy eyes, Denies seasonal rhinorrhea and Denies wheezing Physical Exam Vital Signs: Last Vital Signs Pulse 116 H 03/06/23 09:58 BP 126/87 03/06/23 09:58 Pulse Ox 96 03/06/23 09:58 Oxygen Delivery Method Room Air 03/06/23 09:58 BMI result Body Mass Index 32.9 Const General: no acute distress and alert Nutritional Appearance: not obese Orientation/consciousness: Other orientation findings ( oriented) HEENT Head: Yes atraumatic Eyes General: appearance normal, both eyes and all related structures Sclerae: sclerae normal EOM: EOMs intact bilaterally Neck Neck: Yes supple Lymphatic: no lymphadenopathy noted Resp Effort & Inspection: normal respiratory effort and no use of accessory muscles Auscultation: clear to auscultation bilaterally Cardio Rate: regular rate Rhythm: regular rhythm Heart sounds: no gallops, no murmurs and no rubs Skin General skin exam: other ( warm) Extrem General: No clubbing, No cyanosis and No edema Assessment & Plan Assessment & Plan (1) Asthma: Code(s): J45.909 - Unspecified asthma, uncomplicated Qualifiers: Asthma severity: moderate Asthma persistence: persistent Asthma complication type: unspecified Qualified Code(s): J45.40 - Moderate persistent asthma, uncomplicated Plan: Well controlled on Xolair, Symbicort, and albuterol MDI. Continue current regimen. (2) Bronchitis: Code(s): J40 - Bronchitis, not specified as acute or chronic Plan: Recurrent. Will obtain sputum sample (3) Environmental allergies: Code(s): Z91.09 - Other allergy status, other than to drugs and biological substances Plan: Well controlled on Xolair. Continue current regimen. Orders: Orders Sputum Cult + Gram stain Today J40 - Bronchitis, not specified as acute or chronic Coding Level of Care Code Est Pt Level 4 (39480) Diagnoses Moderate persistent asthma, unspecified whether complicated J45.40 Asthma severity: moderate Asthma persistence: persistent Asthma complication type: unspecified Bronchitis J40 Environmental allergies Z91.09
== END 2023-03-06 10:11 | disposition home or self-care (01) ==
PROVIDERS: PCP Internal Medicine; Visit Provider Internal Medicine Pulmonary Disease
DX: J45.40 Moderate persistent asthma, uncomplicated (principal); J40 Bronchitis, not specified as acute or chronic; Z91.09 Other allergy status, other than to drugs and biological substances
CPT/HCPCS: 99214

== ENCOUNTER → 2023-03-06 09:56 | Outpatient (BNVA) | payer OTHER, SELFPAY | PROVIDERS: PCP Internal Medicine; Visit Provider Internal Medicine Pulmonary Disease | DX: J45.40 Moderate persistent asthma, uncomplicated (principal); J40 Bronchitis, not specified as acute or chronic; Z79.899 Other long term (current) drug therapy; Z91.09 Other allergy status, other than to drugs and biological substances | CPT/HCPCS: 99212 ==

== ENCOUNTER 2023-03-25 11:36 | Outpatient (REF) | payer OTHER, SELFPAY | END 2023-03-25 11:37 | disposition home or self-care (01) | LOC: HO.MDS 11:36 | PROVIDERS: Visit Provider Internal Medicine Pulmonary Disease | DX: J45.50 Severe persistent asthma, uncomplicated (principal) | CPT/HCPCS: 96372; J2357 ==

== ENCOUNTER 2023-03-27 | Outpatient (REF) | payer OTHER, SELFPAY | END 2023-03-27 00:01 | disposition home or self-care (01) | LOC: HO.LNP | PROVIDERS: Visit Provider Internal Medicine Pulmonary Disease | DX: Z13.89 Encounter for screening for other disorder (principal) ==

== ENCOUNTER 2023-03-30 09:38 | Outpatient (REF) | payer OTHER, SELFPAY ==
[2023-03-30 10:12] LABS: MANUAL DIFF FLAG NO
[2023-03-30 10:34] LABS: Appearance Urine Clear; Color Urine Yellow; Glucose Urine UA 100 mg/dL (Negative); Leukocyte Esterase Urine Negative (Negative); Nitrite Urine Negative (Negative); PH 6.5 (5.0-9.0); Urine Blood Negative (Negative); Urine Ketones Negative (Negative); Urine Protein Negative (Neg-Trace)
[2023-03-30 10:36] LABS: Basophils Absolute Auto 0.1 X10*3/uL (0.0-0.2); Basophils Percent Auto 0.7 % (0-2); Eosinophils Absolute Auto 0.1 X10*3/uL (0.0-0.4); Eosinophils Percent Auto 0.6 % (0-4); Hematocrit 45.7 % (42.0-52.0); Hemoglobin 15.6 g/dl (14.0-18.0); Imm Gran Abs Auto 0.09 X10*3/uL (0.00-0.03); Imm Gran Pct Auto 0.7 % (0.0-0.4); Lymphocytes Absolute Auto 2.1 X10*3/uL (1.2-4.9); Lymphocytes Percent Auto 16.8 % (20-40); Mean Corpuscular HGB Conc 34.1 g/dl (31.0-36.0); Mean Corpuscular Hemoglobin 30.2 pg (27.0-33.0); Mean Corpuscular Volume 88.6 fL (80.0-98.0); Mean Platelet Volume 9.9 fL (9.4-12.4); Monocytes Percent Auto 8.1 % (2-11); Neutrophils Absolute Auto 9.2 x10*3/uL (2.0-8.3); Neutrophils Percent Auto 73.1 % (45-73); Platelet Count 225 X10*3/uL (160-400); Red Blood Count 5.16 X10*6/uL (4.60-5.80); Red Cell Distribution Width 12.4 % (11.0-16.0); White Blood Count 12.5 X10*3/uL (4.8-10.8)
[2023-03-30 11:09] LABS: Estimated Average Glucose 134 mg/dL; Hemoglobin A1c % 6.3 % (<6.0)
[2023-03-30 11:19] LABS: Alanine Aminotransferase 58 U/L (0-40); Albumin Level 4.2 g/dL (3.5-5.0); Alkaline Phosphatase 64 U/L (39-117); Anion Gap 16 (12-20); Aspartate Amino Transferase 28 U/L (5-37); Bilirubin Total 0.3 mg/dL (0.0-1.0); Blood Urea Nitrogen 15 mg/dL (9-16); Calcium 9.8 mg/dL (8.4-10.2); Carbon Dioxide 28 mmol/L (22-29); Chloride 103 mmol/L (96-108); Cholesterol 222 mg/dL (<200); Estimated Glomerular Filt Rate 59; Glucose Fasting 135 mg/dL (60-99); HDL Cholesterol 66 mg/dL (>40); LDL Cholesterol Calculated 140 mg/dL (<100); Potassium 3.9 mmol/L (3.3-5.1); Sodium 143 mmol/L (135-145); Total Protein 7.1 g/dL (6.5-8.0); Triglycerides 80 mg/dL (<150)
[2023-03-30 11:39] LABS: Free T4 (Free Thyroxine) 0.99 ng/dL (0.71-1.85); Thyroid Stimulating Hormone 0.71 uIU/mL (0.32-4.0); Vitamin D 25-OH Total 55.5 ng/mL (>30)
== END 2023-03-30 09:39 | disposition home or self-care (01) ==
LOC: HO.LAB 09:38
PROVIDERS: PCP Internal Medicine; Visit Provider Internal Medicine
DX: Z13.89 Encounter for screening for other disorder (principal)
CPT/HCPCS: 36415; 80053; 80061; 81003; 82306; 83036; 84439; 84443; 85025

== ENCOUNTER 2023-04-08 10:08 | Outpatient (REF) | payer OTHER, SELFPAY | END 2023-04-08 10:09 | disposition home or self-care (01) | LOC: HO.MDS 10:08 | PROVIDERS: Visit Provider Internal Medicine Pulmonary Disease | DX: J45.50 Severe persistent asthma, uncomplicated (principal); J40 Bronchitis, not specified as acute or chronic | CPT/HCPCS: 87070; 87205; 96372 ==

== ENCOUNTER 2023-07-03 11:06 | Outpatient (REF) | payer OTHER, SELFPAY ==
[2023-07-03 12:03] LABS: Appearance Urine Clear; Color Urine Yellow; Glucose Urine UA Negative (Negative); Leukocyte Esterase Urine Negative (Negative); Nitrite Urine Negative (Negative); PH 6.5 (5.0-9.0); Urine Blood Negative (Negative); Urine Ketones Negative (Negative); Urine Protein Negative (Neg-Trace)
[2023-07-03 12:20] LABS: Estimated Average Glucose 131 mg/dL; Hemoglobin A1c % 6.2 % (<6.0)
[2023-07-03 12:55] LABS: Alanine Aminotransferase 78 U/L (0-40); Albumin Level 4.3 g/dL (3.5-5.0); Alkaline Phosphatase 65 U/L (39-117); Anion Gap 14 (12-20); Aspartate Amino Transferase 38 U/L (5-37); Bilirubin Total 0.4 mg/dL (0.0-1.0); Blood Urea Nitrogen 10 mg/dL (9-16); Calcium 9.9 mg/dL (8.4-10.2); Carbon Dioxide 29 mmol/L (22-29); Chloride 103 mmol/L (96-108); Cholesterol 211 mg/dL (<200); Estimated Glomerular Filt Rate 57; Free T4 (Free Thyroxine) 1.19 ng/dL (0.71-1.85); Glucose Fasting 128 mg/dL (60-99); HDL Cholesterol 46 mg/dL (>40); LDL Cholesterol Calculated 136 mg/dL (<100); Sodium 142 mmol/L (135-145); Thyroid Stimulating Hormone 0.38 uIU/mL (0.32-4.0); Total Protein 7.4 g/dL (6.5-8.0); Triglycerides 145 mg/dL (<150)
[2023-07-03 13:16] LABS: Creatinine Urine 206.34 mg/dL; Microalbum/Creatinine Ratio Ur 6.3 ug/mg cr (<30)
[2023-07-06 13:54] LABS: IgA 277 mg/dL (47-310); IgG 942 mg/dL (600-1640); IgM 63 mg/dL (50-300)
[2023-07-06 15:48] LABS: Immunoglobulin G Subclass 1 363 mg/dL (382-929); Immunoglobulin G Subclass 2 326 mg/dL (241-700); Immunoglobulin G Subclass 3 63 mg/dL (22-178); Immunoglobulin G Subclass 4 76.8 mg/dL (4-86); Immunoglobulin G Total 888 mg/dL (600-1640)
== END 2023-07-03 11:07 | disposition home or self-care (01) ==
LOC: HO.LAB 11:06
PROVIDERS: PCP Internal Medicine; Visit Provider Internal Medicine Pulmonary Disease
DX: E11.9 Type 2 diabetes mellitus without complications (principal); E55.9 Vitamin D deficiency, unspecified; R30.0 Dysuria; E03.9 Hypothyroidism, unspecified; E78.00 Pure hypercholesterolemia, unspecified; J40 Bronchitis, not specified as acute or chronic; J45.41 Moderate persistent asthma with (acute) exacerbation
CPT/HCPCS: 36415; 80053; 80061; 81003; 82043; 82306; 82570; 82784; 83036; 84439; 84443; 87070; 87205

== ENCOUNTER 2023-07-10 10:23 | Outpatient (AMB) | payer OTHER, SELFPAY ==
[2023-07-10 10:32] VITALS: BP 158/86; PULSE 109; O2SAT 97; BMI 33.0
--- NOTE | 2023-07-10 10:32 | A.OFFVIS_ITS ---
Vital Signs 07/10/23 10:32 Height 5 ft 9 in Weight 223 lb 12.307 oz BMI 33.0 BP 158/86 H Blood Pressure Location Lt brachial Position Sitting Pulse 109 H Pulse Source Doppler Pulse Oximetry (%) 97 Oxygen Delivery Method Room Air Intake Visit Reasons: Asthma Allergies No Known Allergies Allergy (Verified 03/30/23 18:20) HPI HPI Asthma: Details: 47-year-old gentleman, former 20+pack-year smoker, quit 2018, followed for moderate persistent asthma.? He was tried on Xolair with some, but still suboptimal improvement of his asthma symptoms. He continues on Symbicort albuterol MDI. He does have an ongoing exacerbation currently being treated with prednisone taper. He also continues to complain of intermittently productive cough, but so far was not able to provide a good sputum sample. [facility] Medical History (Updated 07/10/23 @ 11:08 by Bello Ceballos MD) Impaired fasting glucose Pure hypercholesterolemia Pityriasis lichenoides Poorly controlled persistent asthma Obesity (BMI 30-39.9) Cerebral arteriovenous malformation (AVM) Lumbar degenerative disc disease Acquired hypothyroidism Asthma Surgical History Status post coil embolization of cerebral aneurysm (~11/03/12) History of lumbar discectomy Family History Father Diabetes Mother No problems noted. 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 Cognitive needs: No Hearing needs: No Vision needs: No Review of Systems Const Denies daytime sleepiness, Denies excessive sweating, Denies fatigue, Denies fever(s), Denies lethargy, Denies malaise, Denies night sweats, Denies snoring and Denies weight loss Eyes Denies blurry vision and Denies itchy eyes ENT Denies nasal congestion, Denies post nasal drip, Denies sinus pain, Denies sinus pressure and Denies other ( Thrush) Card Denies chest pain, Denies pedal edema, Denies dyspnea, Denies orthopnea and Denies paroxysmal nocturnal dyspnea Resp Reports cough, Denies hemoptysis, Reports excessive phlegm production, Denies dyspnea, Denies snoring and Denies wheezing GI Denies abdominal pain and Denies heartburn Musc Denies myalgias, Denies arthralgias and Denies joint swelling Skin/Breast Denies rash Neuro Denies memory loss and Denies seizure-like activity Psych Denies abnormal sleep pattern, Denies anxiety and Denies memory loss Endo Denies excessive sweating, Denies fatigue and Denies heat intolerance Dom/Lymph Denies easy bruising Aller/Immun Denies itchy eyes, Denies seasonal rhinorrhea and Denies wheezing Physical Exam Vital Signs: Last Vital Signs Pulse 109 H 07/10/23 10:32 BP 158/86 H 07/10/23 10:32 Pulse Ox 97 07/10/23 10:32 Oxygen Delivery Method Room Air 07/10/23 10:32 BMI result Body Mass Index 33.0 Const General: no acute distress and alert Nutritional Appearance: not obese Orientation/consciousness: Other orientation findings ( oriented) HEENT Head: Yes atraumatic Eyes General: appearance normal, both eyes and all related structures Sclerae: sclerae normal EOM: EOMs intact bilaterally Neck Neck: Yes supple Lymphatic: no lymphadenopathy noted Resp Effort & Inspection: normal respiratory effort and no use of accessory muscles Auscultation: clear to auscultation bilaterally Cardio Rate: regular rate Rhythm: regular rhythm Heart sounds: no gallops, no murmurs and no rubs Skin General skin exam: other ( warm) Extrem General: No clubbing, No cyanosis and No edema Assessment & Plan Assessment & Plan (1) Cough: Code(s): R05.9 - Cough, unspecified Category: Medical Plan: Will attempt to obtain another sputum culture, if unsuccessful, will consider bronchoscopic approach. (2) Environmental allergies: Code(s): Z91.09 - Other allergy status, other than to drugs and biological substances Category: Medical Plan: Suboptimal control on Xolair, expect to improve on Tezspire. (3) Severe persistent asthma: Code(s): J45.50 - Severe persistent asthma, uncomplicated Category: Medical Plan: Improved, but still suboptimal control on Xolair, Symbicort, and albuterol MDI. Expect to improve after switching Xolair to Tezspire. Orders: Orders Sputum Cult + Gram stain Today R05.9 - Cough, unspecified Coding Level of Care Code Est Pt Level 4 (87480) Diagnoses Cough R05.9 Environmental allergies Z91.09 Severe persistent asthma J45.50
== END 2023-07-10 11:00 | disposition home or self-care (01) ==
PROVIDERS: PCP Internal Medicine; Visit Provider Internal Medicine Pulmonary Disease
DX: R05.9 Cough, unspecified (principal); Z91.09 Other allergy status, other than to drugs and biological substances; J45.50 Severe persistent asthma, uncomplicated
CPT/HCPCS: 99214

== ENCOUNTER → 2023-07-10 10:23 | Outpatient (BNVA) | payer OTHER, SELFPAY | PROVIDERS: PCP Internal Medicine; Visit Provider Internal Medicine Pulmonary Disease | DX: J45.50 Severe persistent asthma, uncomplicated (principal); R05.9 Cough, unspecified; Z91.09 Other allergy status, other than to drugs and biological substances | CPT/HCPCS: 99212 ==

== ENCOUNTER 2023-11-02 12:46 | Outpatient (AMB) | payer OTHER, SELFPAY ==
--- NOTE | 2023-11-02 12:48 | MHC.OFFWIV ---
Intake Vital Signs 11/02/23 12:49 Height 5 ft 9 in Weight 224 lb BMI 33.1 BP 158/102 H Blood Pressure Location Rt brachial Position Sitting Pulse 108 H Pulse Source Pulse Oximeter Temp 98.3 F Temp Source Oral Pulse Oximetry (%) 97 Oxygen Delivery Method Room Air Intake Visit Reasons: EP Pain in lower back/lt leg numb Intake Note: pt c/o lower back pain/ numbness in LT leg. Started 4 days ago Patient Tobacco Use Status: Former Tobacco user Allergies No Known Allergies Allergy (Verified 11/02/23 12:48) Do you need a note to return to daycare/school/sports/work: No HPI HPI Comments History of Present Illness Details Patient is a 48-year-old male complaining of left leg numbness and tingling that starts in his left buttock and goes down the front/side of his leg for the past 4 days. He has not tried any medication to make it better. He denies any loss of control of his bladder or bowels. [facility] Medical History (Updated 11/02/23 @ 13:22 by Farida Farrell PA-C) Impaired fasting glucose Pure hypercholesterolemia Pityriasis lichenoides Poorly controlled persistent asthma Obesity (BMI 30-39.9) Cerebral arteriovenous malformation (AVM) Lumbar degenerative disc disease Acquired hypothyroidism Asthma Surgical History Status post coil embolization of cerebral aneurysm (~11/03/12) History of lumbar discectomy Family History Father Diabetes Mother No problems noted. 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 Cognitive needs: No Hearing needs: No Vision needs: No Review of Systems Const All systems reviewed & are unremarkable except as noted in HPI and below Physical Exam Vital Signs: Last Vital Signs Temp 98.3 F 11/02/23 12:49 Pulse 108 H 11/02/23 12:49 BP 158/102 H 11/02/23 12:49 Pulse Ox 97 11/02/23 12:49 Oxygen Delivery Method Room Air 11/02/23 12:49 BMI result Body Mass Index 33.1 Const General: cooperative, healthy appearing and comfortable Orientation/consciousness: patient oriented x3 HEENT Head: Yes normal to inspection and Yes normocephalic General nose exam: Normal external nose present Face and sinus: Yes normal facial exam Eyes General: appearance normal, both eyes and all related structures Resp Effort & Inspection: normal respiratory effort and able to speak in complete sentences Back/Spine/Pelvis Cervical Spine: cervical ROM normal and No Cervical spine tenderness Thoracic/Lumbar Spine: thoracic and lumbar spine normal to inspection, thoraco-lumbar ROM limited, thoraco-lumbar spasm on the left, No thoracic spinal tenderness and No lumbar spinal tenderness Neuro General: patient oriented x3 Extrem Other: Straight leg raise test negative on right; Straight leg raise test negative on left; Reflexes normal ankle and knee bilaterally; motor strength normal bilaterally Assessment & Plan Assessment & Plan (1) Lumbar back pain with radiculopathy affecting left lower extremity: Code(s): M54.16 - Radiculopathy, lumbar region Plan: Sent prednisone to pharmacy, gave red flag warning signs and when to go to the emergency department (2) Muscle spasm: Code(s): M62.838 - Other muscle spasm Plan: Sent muscle relaxer to pharmacy also explained how to break up the muscle spasm by pushing on it or using a lacrosse ball. Also can use heat. Did give patient instructions on not drinking alcohol, driving a car or operating heavy machinery while using this medication. Plan See above Medications: New prednisone 40 mg (2 x 20 mg) PO DAILY 10 tabs 0RF cyclobenzaprine 5 mg PO TID PRN 10 tabs 0RF muscle spasm Coding Level of Care Code Est Pt Level 3 (00832) Diagnoses Lumbar back pain with radiculopathy affecting left lower extremity M54.16 Muscle spasm M62.838
[2023-11-02 12:49] VITALS: BP 158/102; PULSE 108; TEMP 36.8; O2SAT 97; BMI 33.1
== END 2023-11-02 13:28 | disposition home or self-care (01) ==
PROVIDERS: PCP Internal Medicine; Visit Provider Physician Assistant
DX: M54.16 Radiculopathy, lumbar region (principal); M62.838 Other muscle spasm
CPT/HCPCS: 99213

== ENCOUNTER 2023-11-17 08:44 | Outpatient (AMB) | payer OTHER, SELFPAY ==
--- NOTE | 2023-11-17 09:02 | MHC.OFFWIV ---
Intake Vital Signs 11/17/23 09:04 Height 5 ft 9 in Weight 222 lb BMI 32.8 BP 170/98 H Blood Pressure Location Rt brachial Position Sitting Pulse 113 H Pulse Source Pulse Oximeter Temp 98.2 F Temp Source Oral Pulse Oximetry (%) 98 Oxygen Delivery Method Room Air Intake Visit Reasons: Back injury Intake Note: pt c/o back pain. Started about 3 weeks ago Patient Tobacco Use Status: Former Tobacco user Allergies No Known Allergies Allergy (Verified 11/17/23 09:24) Medication List - Last Reconciled 11/17/23 by Judah Elmore MD albuterol sulfate 90 mcg/actuation 2 puffs inhalation 6XD PRN 30 days budesonide-formoterol 160-4.5 mcg/actuation (Symbicort) 2 puffs inhalation BID 30 days dextroamphetamine-amphetamine 15 mg (Adderall) 15 mg PO DAILY inhalational spacing device (Space Chamber) As directed levothyroxine 150 mcg PO QAM 90 days oxycodone 10 mg PO Q6-8H PRN 28 days Do you need a note to return to daycare/school/sports/work: No HPI Back injury HPI Details Patient presents to the office for a sick visit. Complaining of lower back pain for the past week. No history of fall or trauma prior to the onset of symptoms. No urinary incontinence. No fevers or chills. Pain is worse on bending forwards or sideways. Relieve done sitting down. Pain is radiating into the gluteal area. [facility] Medical History (Updated 11/02/23 @ 13:22 by Farida Farrell PA-C) Impaired fasting glucose Pure hypercholesterolemia Pityriasis lichenoides Poorly controlled persistent asthma Obesity (BMI 30-39.9) Cerebral arteriovenous malformation (AVM) Lumbar degenerative disc disease Acquired hypothyroidism Asthma Surgical History Status post coil embolization of cerebral aneurysm (~11/03/12) History of lumbar discectomy Family History Father Diabetes Mother No problems noted. 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 Patient does not want that to be treated today. Assessment & Plan Assessment & Plan (1) Lumbar back pain with radiculopathy affecting left lower extremity: Code(s): M54.16 - Radiculopathy, lumbar region Plan: Meloxicam and cyclobenzaprine called in. . Patient was advised rest. . Once pain symptoms subside, patient should start physical therapy. If symptoms worsen to follow-up here. Coding Level of Care Code Est Pt Level 3 (61660) Diagnoses Lumbar back pain with radiculopathy affecting left lower extremity M54.16
[2023-11-17 09:04] VITALS: BP 170/98; PULSE 113; TEMP 36.8; O2SAT 98; BMI 32.8
== END 2023-11-17 11:34 | disposition home or self-care (01) ==
PROVIDERS: PCP Internal Medicine; Visit Provider Internal Medicine
DX: M54.16 Radiculopathy, lumbar region (principal)

== ENCOUNTER → 2023-11-17 08:44 | Outpatient (BNVA) | payer OTHER, SELFPAY | PROVIDERS: PCP Internal Medicine | DX: M54.16 Radiculopathy, lumbar region (principal) | CPT/HCPCS: 99212 ==

== ENCOUNTER 2023-11-19 14:30 | Outpatient (AMB) | payer OTHER, SELFPAY ==
[2023-11-19 14:33] VITALS: BP 162/92; PULSE 115; O2SAT 99; BMI 33.1
--- NOTE | 2023-11-19 14:33 | A.OFFVIS_ITS ---
Vital Signs 11/19/23 14:33 Height 5 ft 9 in Weight 224 lb BMI 33.1 BP 162/92 H Blood Pressure Location Lt brachial Position Sitting Pulse 115 H Pulse Source Doppler Pulse Oximetry (%) 99 Oxygen Delivery Method Room Air Intake Visit Reasons: asthma Allergies No Known Allergies Allergy (Verified 11/17/23 09:24) HPI HPI asthma: Details: 47-year-old gentleman, former 20+pack-year smoker, quit 2018, followed for moderate persistent asthma.? He was tried on Xolair with some, but still suboptimal improvement of his asthma symptoms. He continues on Symbicort albuterol MDI. He does have an ongoing exacerbation currently being treated with prednisone taper. He also continues to complain of intermittently productive cough, but so far was not able to provide a good sputum sample and is interested in bronchoscopic procedure to obtain the sample. He was started on test prior, but he is not sure how much benefit he derives from it. [facility] Medical History (Updated 11/20/23 @ 08:56 by Bello Ceballos MD) Impaired fasting glucose Pure hypercholesterolemia Pityriasis lichenoides Poorly controlled persistent asthma Obesity (BMI 30-39.9) Cerebral arteriovenous malformation (AVM) Lumbar degenerative disc disease Acquired hypothyroidism Asthma Surgical History Status post coil embolization of cerebral aneurysm (~11/03/12) History of lumbar discectomy Family History Father Diabetes Mother No problems noted. 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 Cognitive needs: No Hearing needs: No Vision needs: No Review of Systems Const Denies daytime sleepiness, Denies excessive sweating, Denies fatigue, Denies fever(s), Denies lethargy, Denies malaise, Denies night sweats, Denies snoring a nd Denies weight loss Eyes Denies blurry vision and Denies itchy eyes ENT Denies nasal congestion, Denies post nasal drip, Denies sinus pain, Denies sinus pressure and Denies other ( Thrush) Card Denies chest pain, Denies pedal edema, Denies dyspnea, Denies orthopnea and Denies paroxysmal nocturnal dyspnea Resp Denies cough, Denies hemoptysis, Denies excessive phlegm production, Denies dyspnea, Denies snoring and Reports wheezing GI Denies abdominal pain and Denies heartburn Neuro Denies memory loss and Denies seizure-like activity Psych Denies abnormal sleep pattern, Denies anxiety and Denies memory loss Endo Denies excessive sweating, Denies fatigue and Denies heat intolerance Dom/Lymph Denies easy bruising Aller/Immun Denies itchy eyes, Denies seasonal rhinorrhea and Reports wheezing Physical Exam Vital Signs: Last Vital Signs Pulse 115 H 11/19/23 14:33 BP 162/92 H 11/19/23 14:33 Pulse Ox 99 11/19/23 14:33 Oxygen Delivery Method Room Air 11/19/23 14:33 BMI result Body Mass Index 33.1 Const General: no acute distress and alert Nutritional Appearance: not obese Orientation/consciousness: Other orientation findings ( oriented) HEENT Head: Yes atraumatic Eyes General: appearance normal, both eyes and all related structures Sclerae: sclerae normal EOM: EOMs intact bilaterally Neck Neck: Yes supple Lymphatic: no lymphadenopathy noted Resp Effort & Inspection: normal respiratory effort and no use of accessory muscles Auscultation: clear to auscultation bilaterally Cardio Rate: regular rate Rhythm: regular rhythm Heart sounds: no gallops, no murmurs and no rubs Skin General skin exam: other ( warm) Extrem General: No clubbing, No cyanosis and No edema Assessment & Plan Assessment & Plan (1) Severe persistent asthma: Code(s): J45.50 - Severe persistent asthma, uncomplicated Category: Medical Plan: Improved control on Tezspire, Symbicort, and albuterol MDI. Continue current regimen. (2) Environmental allergies: Code(s): Z91.09 - Other allergy status, other than to drugs and biological substances Category: Medical Plan: Improved, but still suboptimal control on Tezspire. Patient wants to reassess his symptoms over the next few months and decide if he wants to continue with current regimen. (3) Chronic bronchitis: Code(s): J42 - Unspecified chronic bronchitis Category: Medical Plan: Unable to obtain entry level account representative sputum culture, will plan for bronchoscopic lavage. Coding Level of Care Code Est Pt Level 4 (73640) Complex EM visit Add On G2211 Diagnoses Severe persistent asthma J45.50 Environmental allergies Z91.09 Chronic bronchitis J42
== END 2023-11-19 14:57 | disposition home or self-care (01) ==
PROVIDERS: PCP Internal Medicine; Visit Provider Internal Medicine Pulmonary Disease
DX: J45.50 Severe persistent asthma, uncomplicated (principal); Z91.09 Other allergy status, other than to drugs and biological substances; J42 Unspecified chronic bronchitis
CPT/HCPCS: 99214; G2211

== ENCOUNTER → 2023-11-19 14:30 | Outpatient (BNVA) | payer OTHER, SELFPAY | PROVIDERS: PCP Internal Medicine; Visit Provider Internal Medicine Pulmonary Disease | DX: J45.50 Severe persistent asthma, uncomplicated (principal); J42 Unspecified chronic bronchitis; Z91.09 Other allergy status, other than to drugs and biological substances | CPT/HCPCS: 99212 ==

== ENCOUNTER 2023-12-18 12:08 | Outpatient (REF) | payer OTHER, SELFPAY ==
[2023-12-18 14:13] LABS: Basophils Absolute Auto 0.1 X10*3/uL (0.0-0.2); Basophils Percent Auto 0.7 % (0-2); Eosinophils Absolute Auto 0.2 X10*3/uL (0.0-0.4); Hematocrit 47.1 % (42.0-52.0); Hemoglobin 15.8 g/dl (14.0-18.0); Imm Gran Abs Auto 0.22 X10*3/uL (0.00-0.03); Imm Gran Pct Auto 1.4 % (0.0-0.4); Lymphocytes Absolute Auto 2.1 X10*3/uL (1.2-4.9); Lymphocytes Percent Auto 13.7 % (20-40); MANUAL DIFF FLAG NO; Mean Corpuscular HGB Conc 33.5 g/dl (31.0-36.0); Mean Corpuscular Hemoglobin 30.4 pg (27.0-33.0); Mean Corpuscular Volume 90.6 fL (80.0-98.0); Mean Platelet Volume 10.1 fL (9.4-12.4); Monocytes Absolute Auto 1.2 X10*3/uL (0.1-1.2); Monocytes Percent Auto 8.1 % (2-11); Neutrophils Absolute Auto 11.5 x10*3/uL (2.0-8.3); Neutrophils Percent Auto 75.1 % (45-73); Platelet Count 250 X10*3/uL (160-400); Red Cell Distribution Width 13.2 % (11.0-16.0); White Blood Count 15.3 X10*3/uL (4.8-10.8)
[2023-12-18 14:38] LABS: Estimated Average Glucose 146 mg/dL; Hemoglobin A1C 203.4753 umol/L; Hemoglobin A1c % 6.7 % (<6.0); Total Hemoglobin (HGBA1C) 4080.0774 umol/L
[2023-12-18 15:19] LABS: Alanine Aminotransferase 53 U/L (0-40); Albumin Level 3.9 g/dL (3.5-5.0); Alkaline Phosphatase 70 U/L (39-117); Anion Gap 11 (12-20); Aspartate Amino Transferase 35 U/L (5-37); Bilirubin Total 0.6 mg/dL (0.0-1.0); Blood Urea Nitrogen 15 mg/dL (9-16); Carbon Dioxide 31 mmol/L (22-29); Chloride 103 mmol/L (96-108); Cholesterol 217 mg/dL (<200); Estimated Glomerular Filt Rate > 60; Glucose Fasting 105 mg/dL (60-99); HDL Cholesterol 57 mg/dL (>40); LDL Cholesterol Calculated 143 mg/dL (<100); Potassium 3.5 mmol/L (3.3-5.1); Sodium 141 mmol/L (135-145); Total Protein 6.8 g/dL (6.5-8.0); Triglycerides 88 mg/dL (<150)
[2023-12-18 15:24] LABS: Free T4 (Free Thyroxine) 0.98 ng/dL (0.71-1.85); Thyroid Stimulating Hormone 1.26 uIU/mL (0.32-4.0)
== END 2023-12-18 12:09 | disposition home or self-care (01) ==
LOC: HO.LAB 12:08
PROVIDERS: PCP Internal Medicine; Visit Provider Internal Medicine
DX: E03.9 Hypothyroidism, unspecified (principal); E55.9 Vitamin D deficiency, unspecified; R73.9 Hyperglycemia, unspecified; D64.9 Anemia, unspecified; E78.00 Pure hypercholesterolemia, unspecified
CPT/HCPCS: 36415; 80053; 80061; 82306; 83036; 84439; 84443; 85025

== ENCOUNTER 2023-12-18 12:30 | Day surgery (SDC) | payer OTHER, SELFPAY ==
[2023-12-03 15:15] VITALS: BMI 33.1
--- NOTE | 2023-12-17 12:03 | P.CONAN_ITS ---
Documented by User: June Bruno NP 12/17/23 12:08 HPI - Anesthesia Eval Consult details Narrative: 48yo M for Bronchoscopy Fiberoptic Cerebral AVM s/p coil emoblization 2012 [facility] Active Problems Active Problems: All Active Problems Chronic bronchitis (Acute) Muscle spasm (Acute) Lumbar back pain with radiculopathy affecting left lower extremity (Acute) Severe persistent asthma (Acute) Impaired fasting glucose (Acute) Elevated blood pressure reading without diagnosis of hypertension (Acute) Pain and swelling of right knee (Acute) Right medial knee pain (Acute) Skin lesion of face (Acute) Primary osteoarthritis, right wrist (Acute) Hyperglycemia (Acute) Bronchitis (Acute) Pure hypercholesterolemia (Acute) Asthma exacerbation (Acute) Viral bronchitis (Acute) Leukocytosis (leucocytosis) (Acute) Cerebral arteriovenous malformation (AVM) (Acute) Rash and nonspecific skin eruption (Acute) Folliculitis (Acute) Allergic dermatitis (Acute) Asthma (Acute) Acquired hypothyroidism (Acute) Lumbar degenerative disc disease (Acute) Obesity (BMI 30-39.9) (Acute) ADD (attention deficit disorder) (Acute) Poorly controlled persistent asthma (Acute) Right wrist pain (Acute) Pityriasis lichenoides (Acute) Right wrist tendinitis (Acute) Right forearm pain (Acute) Environmental allergies (Acute) Cough (Acute) Past Medical History Medical History Stroke Impaired fasting glucose Pure hypercholesterolemia Pityriasis lichenoides Poorly controlled persistent asthma Obesity (BMI 30-39.9) Cerebral arteriovenous malformation (AVM) Lumbar degenerative disc disease Acquired hypothyroidism Asthma Family History Family History Father Diabetes Mother No problems noted. Paternal Grandmother Lung cancer Surgical History Surgical History Status post coil embolization of cerebral aneurysm (~11/03/12) History of lumbar discectomy Social History Social History Housing: Apartment Are you a primary critical care clinical nurse specialist to a significant other at home: No Do you presently have visiting nurse or other home services: No Alcohol intake: current Alcohol intake frequency: a few times a month Alcohol type: beer Patient Tobacco Use Status: Current everyday Tobacco user Tobacco use type: Cigarette Cigarettes Per Day: 3 Years Smoked: 5 Smoked in Last 30 Days: Yes e-Cigarette/Vaping Use: Never Used Second Hand Smoke Exposure: Yes Use of substances other than those prescribed or required for medical reasons: No Have you been hit, kicked, punched, or otherwise hurt by someone within the past year? 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 Cognitive needs: No Hearing needs: No Vision needs: No Meds Allergies Allergy/AdvReac Type Severity Reaction Status Date / Time No Known Allergies Allergy Verified 12/18/23 12:56 Home Medications ?Medication ?Instructions ?Recorded ?Confirmed ?Last Taken ?Type dextroamphetamine-amphetamine 15 15 mg PO DAILY 11/02/23 12/18/23 12/18/23 History mg tablet (Adderall) Exam Height,Weight and Vital Signs: Height 5 ft 9 in Weight 101.605 kg Pertinent Lab Results Pertinent Lab Results: Laboratory Tests 03/30/23 07/03/23 10:10 11:16 WBC 12.5 H Hgb 15.6 Hct 45.7 Plt Count 225 Sodium 142 Potassium 4.0 Chloride 103 Carbon Dioxide 29 BUN 10 Creatinine 1.33 Assessment and Plan Assessment Anesthesia Assessment: Chart Reviewed Documented by User: Rosey Gómez MD 12/18/23 13:42 PMFSH Past Medical History Medical History Stroke Impaired fasting glucose Pure hypercholesterolemia Pityriasis lichenoides Poorly controlled persistent asthma Obesity (BMI 30-39.9) Cerebral arteriovenous malformation (AVM) Lumbar degenerative disc disease Acquired hypothyroidism Asthma Family History Family History Father Diabetes Mother No problems noted. Paternal Grandmother Lung cancer Family history of problems with anesthesia: No Surgical History Surgical History Status post coil embolization of cerebral aneurysm (~11/03/12) History of lumbar discectomy History of Problems with Anesthesia: No Social History Social History Housing: Apartment Are you a primary critical care clinical nurse specialist to a significant other at home: No Do you presently have visiting nurse or other home services: No Alcohol intake: current Alcohol intake frequency: a few times a month Alcohol type: beer Patient Tobacco Use Status: Current everyday Tobacco user Tobacco use type: Cigarette Cigarettes Per Day: 3 Years Smoked: 5 Smoked in Last 30 Days: Yes e-Cigarette/Vaping Use: Never Used Second Hand Smoke Exposure: Yes Use of substances other than those prescribed or required for medical reasons: No Have you been hit, kicked, punched, or otherwise hurt by someone within the past year? 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 Cognitive needs: No Hearing needs: No Vision needs: No Meds Allergies Allergy/AdvReac Type Severity Reaction Status Date / Time No Known Allergies Allergy Verified 12/18/23 12:56 Home Medications ?Medication ?Instructions ?Recorded ?Confirmed ?Last Taken ?Type dextroamphetamine-amphetamine 15 15 mg PO DAILY 11/02/23 12/18/23 12/18/23 History mg tablet (Adderall) Exam Airway Mallampati Class: III TM Dist: <=3cm Neck ROM: Limited Heart: rrr Lungs: cta Assessment and Plan Assessment Anesthesia Assessment: Anesthesia Plan Discussed Final Anesthetic Review Family History of Problems with Anesthesia: No History of Problems with Anesthesia: No NPO: Yes ASA Class: III (b.p diastolic 107) Final Preanesthetic Review: No Changes in Pt Med Stat, Meds/Allgs Chart Reviewed, Consent Obtained/Reviewed and Anes Risks/Benef Reviewed Patient Risk: Intermediate Procedure Risk: Intermediate Anesthetic Plan Anesthetic Plan: GA Disposition: Standard PACU
[2023-12-18] VITALS (8 sets, daily range): BP systolic 110–180; BP diastolic 59–108; PULSE 86–95; RESP 16–20; TEMP 36.4–36.9; O2SAT 96–100; BMI 33.6
--- NOTE | 2023-12-18 12:55 | MHC.SHP ---
Pre-Procedural Eval Section A - 24 Hr Update-Section A only Date of Service: 12/18/23 The patient is an INPATIENT: No Changes since office visit: Yes Patient answered all questions; No Cold of Flu in the past 2 weeks, No New Medical Problems and No Changes in Medication The patient has been examined within 24 hours of the surgical procedure. The History & Physical has been completed within 30 days and I have reviewed it.: Yes Section B - Complete if H&P > 30 days Chief Complaint: Severe persistent asthma, uncomplicated Allergies: Allergies Allergy/AdvReac Type Severity Reaction Status Date / Time No Known Allergies Allergy Verified 11/17/23 09:24 Exam Surgical H&P Exam: Normal: HEENT, Normal: Heart, Normal: Lungs, Normal: Extremities, Normal: Abdomen, Normal: Skin and Normal: Neurological Plan Diagnosis/Plan: Unchanged I have reviewed the history and physical and performed a pertinent physical examination on my patient. No changes have occurred unless specified. Time Spent With Patient Time: Total time managing care of this patient today ____ minutes.
[2023-12-18] MEDS: Albuterol Sulfate (0.083%) 2.5 MG/3 ML VIAL.NEB INHALE (13:47)
--- NOTE | 2023-12-18 13:58 | PC.NURSE ---
Patient drank a little under a full bottle of water this morning at about 0830. Dr. Gómez made aware. Okay to proceed, no new orders at this time.
[2023-12-18] MEDS: Lactated Ringers 1,000 ML 100 ML IVCONT (14:00)
--- NOTE | 2023-12-18 14:02 | PC.NURSE ---
Addendum entered by Raven Wiseman RN 12/18/23 14:22: Patient educated and aware of the risks associated with elevated BPs. Original Note: Patients BP very elevated in preop. Anesthesia made aware. Dr. Gómez at bedside. Medication administered by ROXY Paul. BP rechecked and cleared for surgery. See vital signs.
--- NOTE | 2023-12-18 14:38 | P.BOP_ITS ---
Brief Operative Note Date of Service: 12/18/23 Pre-op diagnosis: Chronic cough Post-op diagnosis: same Procedure: Flexible bronchoscope advanced through the ET tube with patient intubated for the procedure and through the tracheobronchial tree. Moderate amount of sick whitish mucus noted throughout and suctioned out with normal bronchial mucosa noted underneath. Bronchoalveolar lavage performed in the right middle lobe with sample sent for microbiologic testing. Patient tolerated procedure well and was returned to PACU in stable condition. Surgeon: Bello Ceballos MD Anesthesia: GETA Was an Medical Coordinator Pesticide Use used for this Procedure?: No Estimated blood loss (mL): 0 Condition: stable Disposition: PACU
== END 2023-12-18 15:27 | disposition home or self-care (01) ==
PROVIDERS: PCP Internal Medicine; Visit Provider Internal Medicine Pulmonary Disease
PROC: 0BJ08ZZ Inspection of Tracheobronchial Tree, Via Natural or Artificial Opening Endoscopic (ICD-10-PCS; CPT 31622; principal; 2023-12-18 14:00)
DX: J45.50 Severe persistent asthma, uncomplicated (principal); J42 Unspecified chronic bronchitis; R73.01 Impaired fasting glucose; E78.00 Pure hypercholesterolemia, unspecified; L41.0 Pityriasis lichenoides et varioliformis acuta; E03.9 Hypothyroidism, unspecified; Z79.51 Long term (current) use of inhaled steroids; E66.9 Obesity, unspecified; Z68.30 Body mass index [BMI] 30.0-30.9, adult; Z98.890 Other specified postprocedural states; Q28.2 Arteriovenous malformation of cerebral vessels; Z79.899 Other long term (current) drug therapy; Z91.09 Other allergy status, other than to drugs and biological substances; Z87.891 Personal history of nicotine dependence
CPT/HCPCS: 31624; 87070; 87102; 87107; 87116; 87205; 87206; 88112; 88305; J0171; J1100; J2003; J2250; J2405; J2704; J3010

== ENCOUNTER → 2023-12-18 12:30 | Outpatient (BNV) | payer OTHER, SELFPAY | PROVIDERS: PCP Internal Medicine; Visit Provider Internal Medicine Pulmonary Disease | DX: J45.50 Severe persistent asthma, uncomplicated (principal) | CPT/HCPCS: 31624 ==

== ENCOUNTER 2024-01-14 10:17 | Outpatient (AMB) | payer OTHER, SELFPAY ==
--- NOTE | 2024-01-14 10:19 | MHC.OFFVIS ---
Vital Signs 01/14/24 10:20 Height 5 ft 9 in Weight 218 lb BMI 32.2 BP 154/88 H Blood Pressure Location Lt brachial Position Sitting Pulse 108 H Pulse Source Doppler Pulse Oximetry (%) 98 Oxygen Delivery Method Room Air Intake Visit Reasons: Asthma Allergies No Known Allergies Allergy (Verified 12/18/23 12:56) HPI HPI Asthma: Details: 48-year-old gentleman, former 20+pack-year smoker, quit 2018, followed for moderate persistent asthma.? He was tried on Xolair with some, but still suboptimal improvement of his asthma symptoms, he was switched to Tezspire. He continues on Symbicort albuterol MDI. He does have an ongoing exacerbation currently being treated with prednisone taper. After the last office visit he had bronchoscopy with lavage that is growing fungal elements with identification still pending. [facility] Medical History Stroke Impaired fasting glucose Pure hypercholesterolemia Pityriasis lichenoides Poorly controlled persistent asthma Obesity (BMI 30-39.9) Cerebral arteriovenous malformation (AVM) Lumbar degenerative disc disease Acquired hypothyroidism Asthma Surgical History Status post coil embolization of cerebral aneurysm (~11/03/12) History of lumbar discectomy Family History Father Diabetes Mother No problems noted. 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 Cognitive needs: No Hearing needs: No Vision needs: No Review of Systems Const Denies daytime sleepiness, Denies excessive sweating, Denies fatigue, Denies fever(s), Denies lethargy, Denies malaise, Denies night sweats, Denies snoring and Denies weight loss Eyes Denies blurry vision and Denies itchy eyes ENT Denies nasal congestion, Denies post nasal drip, Denies sinus pain, Denies sinus pressure and Denies other ( Thrush) Card Denies chest pain, Denies pedal edema, Denies dyspnea, Denies orthopnea and Denies paroxysmal nocturnal dyspnea Resp Reports cough, Denies hemoptysis, Denies excessive phlegm production, Denies dyspnea, Denies snoring and Reports wheezing GI Denies abdominal pain and Denies heartburn Musc Denies myalgias, Denies arthralgias and Denies joint swelling Neuro Denies memory loss and Denies seizure-like activity Psych Denies abnormal sleep pattern, Denies anxiety and Denies memory loss Endo Denies excessive sweating, Denies fatigue and Denies heat intolerance Dom/Lymph Denies easy bruising Aller/Immun Denies itchy eyes, Denies seasonal rhinorrhea and Reports wheezing Physical Exam Vital Signs: Last Vital Signs Pulse 108 H 01/14/24 10:20 BP 154/88 H 01/14/24 10:20 Pulse Ox 98 01/14/24 10:20 Oxygen Delivery Method Room Air 01/14/24 10:20 BMI result Body Mass Index 32.2 Const General: no acute distress and alert Nutritional Appearance: not obese Orientation/consciousness: Other orientation findings ( oriented) HEENT Head: Yes atraumatic Eyes General: appearance normal, both eyes and all related structures Sclerae: sclerae normal EOM: EOMs intact bilaterally Neck Neck: Yes supple Lymphatic: no lymphadenopathy noted Resp Effort & Inspection: normal respiratory effort and no use of accessory muscles Auscultation: clear to auscultation bilaterally Cardio Rate: regular rate Rhythm: regular rhythm Heart sounds: no gallops, no murmurs and no rubs Skin General skin exam: other ( warm) Extrem General: No clubbing, No cyanosis and No edema Assessment & Plan Assessment & Plan (1) Environmental allergies: Code(s): Z91.09 - Other allergy status, other than to drugs and biological substances Category: Medical Plan: Now on Tezspire, but with possible arthralgia side effects. Patient advised on pausing therapy for several months and reassessing his symptoms. (2) Asthma: Code(s): J45.909 - Unspecified asthma, uncomplicated Category: Medical Qualifiers: Asthma severity: moderate Asthma persistence: persistent Asthma complication type: unspecified Qualified Code(s): J45.40 - Moderate persistent asthma, uncomplicated Plan: Now with an acute exacerbation. Patient is finishing prednisone taper. Continue baseline regimen of Symbicort and albuterol MDI. (3) Cough: Code(s): R05.9 - Cough, unspecified Category: Medical Plan: Status post bronchoscopy with bronchoalveolar lavage growing fungal elements identification is pending. Will start on antifungal when identification is available. Coding Level of Care Code Est Pt Level 4 (85232) Complex EM visit Add On G2211 Diagnoses Environmental allergies Z91.09 Moderate persistent asthma, unspecified whether complicated J45.40 Asthma severity: moderate Asthma persistence: persistent Asthma complication type: unspecified Cough R05.9
[2024-01-14 10:20] VITALS: BP 154/88; PULSE 108; O2SAT 98; BMI 32.2
== END 2024-01-14 10:43 | disposition home or self-care (01) ==
PROVIDERS: PCP Internal Medicine; Visit Provider Internal Medicine Pulmonary Disease
DX: Z91.09 Other allergy status, other than to drugs and biological substances (principal); J45.40 Moderate persistent asthma, uncomplicated; R05.9 Cough, unspecified
CPT/HCPCS: 99214; G2211

== ENCOUNTER → 2024-01-14 10:17 | Outpatient (BNVA) | payer OTHER, SELFPAY | PROVIDERS: PCP Internal Medicine; Visit Provider Internal Medicine Pulmonary Disease | DX: J45.40 Moderate persistent asthma, uncomplicated (principal); R05.9 Cough, unspecified; Z91.09 Other allergy status, other than to drugs and biological substances | CPT/HCPCS: 99212 ==

== ENCOUNTER 2024-01-19 14:42 | Outpatient (AMB) | payer OTHER, SELFPAY ==
[2024-01-19 14:44] VITALS: BP 136/88; PULSE 78; O2SAT 97; BMI 32.2
--- NOTE | 2024-01-19 14:44 | A.OFFPC_ITS ---
Vital Signs 01/19/24 14:44 Height 5 ft 9 in Weight 218 lb 4 oz BMI 32.2 BP 136/88 Blood Pressure Location Lt brachial Position Sitting Pulse 78 Pulse Source Pulse Oximeter Pulse Oximetry (%) 97 Oxygen Delivery Method Room Air Intake Visit Reasons: hyperlipidemia, asthma, IFG, elevated BP, Woods Overseer Required: No Accompanied by: Self / Same As Patient Allergies tezepelumab-ekko [From Tezspire] Adverse Reaction (Severe, Verified 01/19/24 15:24) severe joint pains and weakness Medication List - Last Reconciled 01/19/24 by Rambo Qureshi MD albuterol sulfate 90 mcg/actuation 2 puffs inhalation 6XD PRN 30 days budesonide-formoterol 160-4.5 mcg/actuation (Symbicort) 2 puffs inhalation BID 30 days dextroamphetamine-amphetamine 15 mg (Adderall) 15 mg PO DAILY levothyroxine 150 mcg PO QAM 90 days oxycodone 10 mg PO Q6-8H PRN 28 days prednisone 10 mg PO DIRECTED Tobacco use date assessed: 01/19/24 Dental Screening Dental Screen Date: 01/19/24 Did you have a dental visit in the last 12 months?: Yes Did you have a dental problem in the last 6 months where you did not have access to dental care?: No Was dental information given to patient?: Patient has dentist HPI hyperlipidemia, asthma, IFG, elevated BP, HPI Details Patient comes in today for his follow up visit States that he still experiences recurrent/frequent cough and congestion that require the use of oral Prednisone taper often to help control his symptoms He has been tried on biologics by Pulmonary, first with Xolair and more recently with Tezspire, but he could not tolerate these due to significant side effects, especially severe joint pains and weakness with Tezspire He also underwent bronchoscopy with lavage last month His specimen was supposedly growing fungal elements but identification is still pending at this time He is also now wondering if the recurrent rash that he has had over the past year or two is related to the fungal infection that he supposedly has at present He denies any headaches or dizziness; denies any fever Denies any chest pain; currently has no increased shortness of breath or chest congestion No nausea/vomiting, no abdominal pain No change in bowel habits noted States that he continues to experience increased low back pain and still takes his Oxycodone for pain He is hoping that once his asthma that is under better control and he can start working out regularly at the gym and lose some weight, he can start coming off his pain med as he states that he really wants to come off his meds as much as he can He had his follow-up labs done last month - to discuss his results [facility] Medical History Stroke Impaired fasting glucose Pure hypercholesterolemia Pityriasis lichenoides Poorly controlled persistent asthma Obesity (BMI 30-39.9) Cerebral arteriovenous malformation (AVM) Lumbar degenerative disc disease Acquired hypothyroidism Asthma Surgical History Status post coil embolization of cerebral aneurysm (~11/03/12) History of lumbar discectomy Family History Father Diabetes Mother No problems noted. 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 1. Little interest or pleasure in doing things: not at all 2. Feeling down, depressed, or hopeless: not at all 3. Trouble falling or staying asleep, or sleeping too much: not at all 4. Feeling tired or having little energy: not at all 5. Poor appetite or overeating: not at all 6. Feeling bad about yourself - or that you are a failure or have let yourself or your family down: not at all 7. Trouble concentrating on things, such as reading the newspaper or watching television: not at all 8. Moving or speaking so slowly that other people could have noticed. Or the opposite - being so fidgety or restless that you have been moving around a lot more than usual: not at all 9. Thoughts that you would be better off or of hurting yourself in some way: not at all Total score: 0 Depression Screening Interpretation: Negative Depression Screening Done: Yes 76309 - PHQ-9 Billing: Yes Source: Developed by Drs. Santos Onofre, Britt Soares, Errol Manzanares and colleagues, with an educational antoinette from [employer]. Thrive Questionnaire Date Thrive assessed: 01/19/24 I am a: Patient What is your living situation today?: I have a steady place to live Within the past 12 months, did the food you bought not last and you didn't have the money to get more?: Never true Within the past 12 months, did you worry whether your food would run out before you got money to buy more?: Never true Do you have trouble paying for medicines?: No Do you have trouble getting transportation to medical appointments?: No Do you have trouble paying your heating and electricity bill?: No Do you have trouble taking care of your child, family member or friend?: No Do you have trouble with day-to-day activities such as bathing, preparing meals, shopping, managing finances, etc.?: No Are you currently unemployed and looking for a job?: No Are you interested in more education?: No Please select the resources that you would like help with: None Currently or been in a relationship where the following occur: No concerns reported THRIVE Score: 0 AUDIT C Alcohol Use Questionnaire (AUDIT-C) 1. How often do you have a drink containing alcohol?: Never 3. How often do you have six or more drinks on one occasion?: Never Total Score: 0 Score Reviewed/Action Taken: Yes MARIA DEL CARMEN-7 AMB Questionnaire MARIA DEL CARMEN-7 Date MARIA DEL CARMEN - 7 assessed: 01/19/24 Feeling nervous, anxious, or on edge: 0 = Not at all Not being able to stop or control worryin = Not at all Worrying too much about different things: 0 = Not at all Trouble relaxin = Not at all Being so restless that it is hard to sit still: 0 = Not at all Becoming easily annoyed or irritable: 0 = Not at all Feeling afraid as if something awful might happen: 0 = Not at all Total MARIA DEL CARMEN-7 score (0-4 normal; 5-9 mild; 10-14 moderate; 15-21 severe): 0 Source: Developed by Drs. Santos Onofre, Britt Soares, Errol Manzanares and colleagues, with an educational antoinette from [employer]. Review of Systems Const Denies chills, Reports fatigue, Denies fever(s) and Denies headache(s) ENT Denies dysphagia, Denies dizziness, Denies otalgia, Denies headache(s), Reports nasal congestion (on and off), Denies neck pain, Denies odynophagia and Denies sore throat Card Denies chest pain, Denies palpitations and Reports dyspnea (recurrent, often during asthma flare ups) Resp Reports chest congestion (chest feels tight at times), Reports cough (on and off, during asthma flares up), Reports dyspnea (recurrent, often during asthma flare ups) and Reports wheezing (occasionally) GI Denies abdominal pain, Denies constipation, Denies dysphagia, Denies heartburn, Denies diarrhea, Denies nausea, Denies odynophagia and Denies vomiting Denies dysuria, Denies nocturia and Denies urinary frequency Musc Reports back pain (over the lower back - chronic), Reports arthralgias (left knee, especially over the medial aspect, on and off), Denies joint swelling and Denies neck pain Skin/Breast Reports rash (on and off) Neuro Denies dizziness and Denies headache(s) Endo Reports fatigue and Denies palpitations Aller/Immun Reports wheezing (occasionally) Physical exam (Primary Care) Vital Signs: Last Vital Signs Pulse 78 01/19/24 14:44 BP 136/88 01/19/24 14:44 Pulse Ox 97 01/19/24 14:44 Oxygen Delivery Method Room Air 01/19/24 14:44 BMI result Body Mass Index 32.2 Tobacco/Smoking Status: Tobacco use Status Tobacco use date assessed 01/19/24 01/19/24 14:50 Patient Tobacco Use Status Current everyday Tobacco 01/19/24 14:50 Tobacco use type Cigarette 01/19/24 14:50 e-Cigarette/Vaping Use Never Used 01/19/24 14:50 PHQ-9: PHQ-9 Score PHQ-9: Total score 0 01/19/24 15:36 Depression Screening Interpretation: Negative Thrive Assessment: Date of Thrive Assessment Date Thrive assessed 04/29/23 01/19/24 14:50 Currently or been in a relationship where the following occur: No concerns reported Const General: no acute distress and alert HENMT Ears: TM's normal bilaterally and EAC's normal Throat: Yes posterior oropharynx normal and Yes tonsils normal (no TP congestion) Neck Neck: Yes no lymphadenopathy and Yes supple Thyroid: Thyroid normal Resp Auscultation: clear to auscultation bilaterally, no crackles, no rales, no wheezes and diminished lung sounds (slightly) bilateral Cardio Rate: regular rate Rhythm: regular rhythm Heart sounds: no murmurs GI Palpation (GI): Soft to palpation and nontender Auscultation: normal bowel sounds General: Yes no CVA tenderness Back/Spine/Pelvis Back: no CVA tenderness Thoracic/Lumbar Spine: lumbar spinal tenderness Skin Other: (+) scattered clusters of erythematous papular lesions/rash, more commonly over the extremities Rashes: rashes noted (scattered clusters of erythematous papular rash/lesions) Extrem General: Yes no clubbing, cyanosis or edema Left lower extremity: knee Details: tenderness Location: of the medial joint line; no swelling (at present) Results Reviewed Results Reviewed: Laboratory Tests 12/18/23 12:13 WBC 15.3 H Hgb 15.8 Hct 47.1 Plt Count 250 Sodium 141 Potassium 3.5 Creatinine 1.15 Estimated GFR > 60 Fasting Glucose 105 H Hemoglobin A1c % 6.7 H Calcium 9.0 D AST 35 ALT 53 H Triglycerides 88 Cholesterol 217 H LDL Cholesterol, Calc 143 H HDL Cholesterol 57 25-OH Vitamin D Total 75.0 TSH 1.26 Free T4 0.98 Coding Level of Care Code Est Pt Level 4 (40434) Diagnoses Moderate persistent asthma, unspecified whether complicated J45.40 Asthma severity: moderate Asthma persistence: persistent Asthma complication type: unspecified Leukocytosis, unspecified type D72.829 Leukocytosis type: unspecified Cerebral arteriovenous malformation (AVM) Q28.2 Pure hypercholesterolemia E78.00 Impaired fasting glucose R73.01 Elevated blood pressure reading without diagnosis of hypertension R03.0 Acquired hypothyroidism E03.9 Degeneration of intervertebral disc of lumbar region with discogenic back pain M51.360 Disc-related pain type: discogenic back pain only Allergic dermatitis L23.9 Primary osteoarthritis, right wrist M19.031 Attention deficit disorder, unspecified hyperactivity presence F98.8 Hyperactivity presence: unspecified Obesity (BMI 30-39.9) E66.9 Additional Codes PHQ-9 - 59979 - PHQ-9 Billing: Yes ([id number]) Assessment & Plan Assessment & Plan (1) Asthma: Code(s): J45.909 - Unspecified asthma, uncomplicated Category: Medical Qualifiers: Asthma severity: moderate Asthma persistence: persistent Asthma complication type: unspecified Qualified Code(s): J45.40 - Moderate persistent asthma, uncomplicated Plan: His asthma has been proving difficult to control and he continues to require frequent oral Prednisone taper for recurrent flare ups He tested positive for allergies to ragweed and cat dander on allergy testing He has so far failed to respond to biologic treatments with Xolair, Nucala and Fasenra and could not tolerate Tezspire Continue Symbicort 160-4.5 mcg 2 inhalations BID, Montelukast 10 mg QD and Albuterol HFA 2 inhalations every 6 hours PRN Follow up with pulmonary as scheduled (2) Leukocytosis (leucocytosis): Code(s): D72.829 - Elevated white blood cell count, unspecified Category: Medical Qualifiers: Leukocytosis type: unspecified Qualified Code(s): D72.829 - Elevated white blood cell count, unspecified Plan: Patient's WBC count was elevated on his recent labs done last month - he recalls that he was still on oral prednisone taper at the time when he went for his labs, so his leukocytosis is likely due to the effects of oral prednisone Will recheck his CBC in a few months for follow-up (3) Cerebral arteriovenous malformation (AVM): Code(s): Q28.2 - Arteriovenous malformation of cerebral vessels Category: Medical Plan: Repeat CT angiogram of the head done back in January 2022 came out negative - report read as No acute intracranial abnormality identified.? Postoperative findings related to embolization of presumed AVM seen in the supravermian cistern region. Asymmetrically prominent distal left SENIOR PLANNER branches and prominent left occipital draining vein are demonstrated, which could represent some residual AV shunting for which neurointerventional follow-up is recommended [place] up with neurosurgery as scheduled (4) Pure hypercholesterolemia: Code(s): E78.00 - Pure hypercholesterolemia, unspecified Category: Medical Plan: Results of his labs done last month reviewed and discussed with patient - he is advised that his cholesterol levels are still elevated Reinforce low-cholesterol diet He continues to decline starting on Rx for his cholesterol and would like to continue with diet modification for now Will have him recheck his labs and fasting lipids in 4 months for follow up (5) Impaired fasting glucose: Code(s): R73.01 - Impaired fasting glucose Category: Medical Plan: His FBS was elevated at 105 mg/dl and his HgbA1c was at 6.7% when checked last month - he is advised that this puts him in the diabetic category and he is no longer just a borderline diabetic He declines offer to start him on diabetic medications at this time as he feels that his numbers have gone up mostly because of his frequent need to take Prednisone lately and will try working on getting his blood sugar readings i mproved without Rx for now Will recheck his labs and HgbA1c and FBS in a few months for follow up (6) Elevated blood pressure reading without diagnosis of hypertension: Code(s): R03.0 - Elevated blood-pressure reading, without diagnosis of hypertension Category: Medical Plan: He is advised that his blood pressure is still elevated but is better than it was previously - normal is systolic BP of 120 mm or less Reinforced low sodium diet; he is again urged to cut back on his daily coffee consumption, as he admits to drinking a lot of coffee regularly Patient is reminded to continue monitoring his BP regularly (7) Acquired hypothyroidism: Code(s): E03.9 - Hypothyroidism, unspecified Category: Medical Plan: Continue Levothyroxine 150 mcg QD Will recheck his TFTs in 4 months for follow up (8) Lumbar degenerative disc disease: Code(s): M51.36 - Other intervertebral disc degeneration, lumbar region Category: Medical Qualifiers: Disc-related pain type: discogenic back pain only Qualified Code(s): M51.360 - Other intervertebral disc degeneration, lumbar region with discogenic back pain only Plan: Reinforced activity and weight lifting restrictions States that his chronic pain has remained adequately controlled on Oxycodone 10 mg every 6 hours as needed over the years and he would like to continue on this for now and start coming down on his dosage slowly - dose was lowered from 15 to 10 mg last year (9) Allergic dermatitis: Code(s): L23.9 - Allergic contact dermatitis, unspecified cause Category: Medical Plan: Follow up with dermatology as scheduled He is now wondering if the recurrent rash that he has had over the past couple of years may actually be related to his fungal infection, which is still pending identification (10) Primary osteoarthritis, right wrist: Code(s): M19.031 - Primary osteoarthritis, right wrist Category: Medical Plan: Right wrist x-rays done back in October 2020 revealed (+) degenerative changes in the carpal bones; wrist pain have subsided since Will consider referral to orthopedics if his wrist pain gets worse (11) ADD (attention deficit disorder): Code(s): F98.8 - Other specified behavioral and emotional disorders with onset usually occurring in childhood and adolescence Category: Medical Qualifiers: Hyperactivity presence: unspecified Qualified Code(s): F98.8 - Other specified behavioral and emotional disorders with onset usually occurring in childhood and adolescence Plan: Continue Adderall XR 20 mg QD Follow up with psychiatry as scheduled Have discussed with patient that he should start considering alternative options for his ADD as staying on stimulant Rx as he gets older can raise his CV risks (12) Obesity (BMI 30-39.9): Code(s): E66.9 - Obesity, unspecified Category: Medical Plan: Reinforced diet/exercise as tolerated/lose weight Plan Follow up in 4 months Orders: Orders Comprehensive [place]. Panel Fast 4 Months E78.00 - Pure hypercholesterolemia, unspecified Hemoglobin A1c 4 Months E11.9 - Type 2 diabetes mellitus without complications Complete Blood Count Auto Diff 4 Months D64.9 - Anemia, unspecified Lipid Panel 4 Months E78.00 - Pure hypercholesterolemia, unspecified UA CC w/rflx Micro + Cult 4 Months R30.0 - Dysuria
== END 2024-01-19 15:41 | disposition home or self-care (01) ==
PROVIDERS: PCP Internal Medicine; Visit Provider Internal Medicine
DX: J45.40 Moderate persistent asthma, uncomplicated (principal); D72.829 Elevated white blood cell count, unspecified; E66.9 Obesity, unspecified; Z68.32 Body mass index [BMI] 32.0-32.9, adult; Q28.2 Arteriovenous malformation of cerebral vessels; E78.00 Pure hypercholesterolemia, unspecified; R73.01 Impaired fasting glucose; R03.0 Elevated blood-pressure reading, without diagnosis of hypertension; E03.9 Hypothyroidism, unspecified; M51.360 Other intervertebral disc degeneration, lumbar region with discogenic back pain only; L23.9 Allergic contact dermatitis, unspecified cause; M19.031 Primary osteoarthritis, right wrist

== ENCOUNTER → 2024-01-19 14:42 | Outpatient (BNVA) | payer OTHER, SELFPAY | PROVIDERS: PCP Internal Medicine; Visit Provider Internal Medicine | DX: J45.40 Moderate persistent asthma, uncomplicated (principal); D72.829 Elevated white blood cell count, unspecified; Q28.2 Arteriovenous malformation of cerebral vessels; E78.00 Pure hypercholesterolemia, unspecified; R73.01 Impaired fasting glucose; R03.0 Elevated blood-pressure reading, without diagnosis of hypertension; E03.9 Hypothyroidism, unspecified; L23.9 Allergic contact dermatitis, unspecified cause; M19.031 Primary osteoarthritis, right wrist; F98.8 Other specified behavioral and emotional disorders with onset usually occurring in childhood and adolescence; E66.9 Obesity, unspecified | CPT/HCPCS: 96127; 99212 ==

== ENCOUNTER 2024-03-24 11:16 | Outpatient (AMB) | payer OTHER, SELFPAY ==
--- NOTE | 2024-03-24 11:19 | A.OFFVIS_ITS ---
Vital Signs 03/24/24 11:20 Height 5 ft 9 in Weight 213 lb 13.574 oz BMI 31.6 BP 162/98 H Blood Pressure Location Rt brachial Position Sitting Pulse 111 H Pulse Source Pulse Oximeter Pulse Oximetry (%) 96 Oxygen Delivery Method Room Air Intake Visit Reasons: Asthma Allergies tezepelumab-ekko [From Tezspire] Adverse Reaction (Severe, Verified 03/24/24 11:22) severe joint pains and weakness HPI HPI Asthma: Details: 48-year-old gentleman, former 20+pack-year smoker, quit 2018, followed for mod erate persistent asthma.? He was tried on Xolair with some, but still suboptimal improvement of his asthma symptoms, he was switched to Tezspire. He continues on Symbicort albuterol MDI. He does have an ongoing exacerbation currently being treated with prednisone taper. After the last office visit he had bronchoscopy with lavage growing sporotrichos. He was started on itraconazole with slow improvement in his symptoms. [facility] Medical History Stroke Impaired fasting glucose Pure hypercholesterolemia Pityriasis lichenoides Poorly controlled persistent asthma Obesity (BMI 30-39.9) Cerebral arteriovenous malformation (AVM) Lumbar degenerative disc disease Acquired hypothyroidism Asthma Surgical History Status post coil embolization of cerebral aneurysm (~11/03/12) History of lumbar discectomy Family History Father Diabetes Mother No problems noted. 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 Cognitive needs: No Hearing needs: No Vision needs: No Review of Systems Const Denies daytime sleepiness, Denies excessive sweating, Denies fatigue, Denies fever(s), Denies lethargy, Denies malaise, Denies night sweats, Denies snoring and Denies weight loss Eyes Denies blurry vision and Denies itchy eyes ENT Denies nasal congestion, Denies post nasal drip, Denies sinus pain, Denies sinus pressure and Denies other ( Thrush) Card Denies chest pain, Denies pedal edema, Denies dyspnea, Denies orthopnea and Denies paroxysmal nocturnal dyspnea Resp Denies cough, Denies hemoptysis, Denies excessive phlegm production, Denies dyspnea, Denies snoring and Denies wheezing GI Denies abdominal pain and Denies heartburn Musc Denies myalgias, Denies arthralgias and Denies joint swelling Skin/Breast Denies rash Neuro Denies memory loss and Denies seizure-like activity Psych Denies abnormal sleep pattern, Denies anxiety and Denies memory loss Endo Denies excessive sweating, Denies fatigue and Denies heat intolerance Dom/Lymph Denies easy bruising Aller/Immun Denies itchy eyes, Denies seasonal rhinorrhea and Denies wheezing Physical Exam Vital Signs: Last Vital Signs Pulse 111 H 03/24/24 11:20 BP 162/98 H 03/24/24 11:20 Pulse Ox 96 03/24/24 11:20 Oxygen Delivery Method Room Air 03/24/24 11:20 BMI result Body Mass Index 31.6 Const General: no acute distress and alert Nutritional Appearance: not obese Orientation/consciousness: Other orientation findings ( oriented) HEENT Head: Yes atraumatic Eyes General: appearance normal, both eyes and all related structures Sclerae: sclerae normal EOM: EOMs intact bilaterally Neck Neck: Yes supple Lymphatic: no lymphadenopathy noted Resp Effort & Inspection: normal respiratory effort and no use of accessory muscles Auscultation: clear to auscultation bilaterally Cardio Rate: regular rate Rhythm: regular rhythm Heart sounds: no gallops, no murmurs and no rubs Skin General skin exam: other ( warm) Extrem General: No clubbing, No cyanosis and No edema Assessment & Plan Assessment & Plan (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 Will check CMP. (2) Severe persistent asthma: Code(s): J45.50 - Severe persistent asthma, uncomplicated Category: Medical Plan: Continue baseline regimen of Symbicort albuterol MDI. Orders: Orders Basic Metabolic Panel Today B49 - Unspecified mycosis, J16.8 - Pneumonia due to other specified infectious organisms Liver Panel Today B49 - Unspecified mycosis, J16.8 - Pneumonia due to other spe cified infectious organisms Medications: Refilled prednisone take 4 tabs daily for 7 days, then go down by 1 tab every 7 days 10 mg PO DIRECTED 70 tabs 0RF Coding Level of Care Code Est Pt Level 4 (56014) Diagnoses 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 Severe persistent asthma J45.50
[2024-03-24 11:20] VITALS: BP 162/98; PULSE 111; O2SAT 96; BMI 31.6
== END 2024-03-24 11:52 | disposition home or self-care (01) ==
PROVIDERS: PCP Internal Medicine; Visit Provider Internal Medicine Pulmonary Disease
DX: A00-B99 Certain infectious and parasitic diseases (principal); J45.50 Severe persistent asthma, uncomplicated
CPT/HCPCS: 99214

== ENCOUNTER → 2024-03-24 11:16 | Outpatient (BNVA) | payer OTHER, SELFPAY | PROVIDERS: PCP Internal Medicine; Visit Provider Internal Medicine Pulmonary Disease | DX: J45.50 Severe persistent asthma, uncomplicated (principal); J16.8 Pneumonia due to other specified infectious organisms; A00-B99 Certain infectious and parasitic diseases; B49 Unspecified mycosis; F17.210 Nicotine dependence, cigarettes, uncomplicated | CPT/HCPCS: 99212 ==

== ENCOUNTER 2024-05-18 09:45 | Outpatient (AMB) | payer OTHER, SELFPAY ==
[2024-05-18 09:52] VITALS: BP 154/90; PULSE 103; O2SAT 96; BMI 30.6
--- NOTE | 2024-05-18 09:52 | MHC.PC.OV ---
Vital Signs 05/18/24 09:52 Height 5 ft 9 in Weight 207 lb 6 oz BMI 30.6 BP 154/90 H Blood Pressure Location Lt brachial Position Sitting Pulse 103 H Pulse Source Pulse Oximeter Pulse Oximetry (%) 96 Oxygen Delivery Method Room Air Intake Visit Reasons: [facility] Blockers Skiver Required: No Accompanied by: Self / Same As Patient Allergies tezepelumab-ekko [From Tezspire] Adverse Reaction (Severe, Verified 05/18/24 10:14) severe joint pains and weakness Medication List - Last Reconciled 05/18/24 by Rambo Qureshi MD albuterol sulfate 90 mcg/actuation 2 puffs inhalation 6XD PRN 30 days budesonide-formoterol 160-4.5 mcg/actuation (Symbicort) 2 puffs inhalation BID 30 days dextroamphetamine-amphetamine 15 mg (Adderall) 15 mg PO DAILY inhalational spacing device ([employer] Laura C spacer) USE DIRECTED itraconazole (Sporanox) 200 mg (2 x 100 mg) PO BID 30 days levothyroxine 150 mcg PO QAM 90 days oxycodone 10 mg PO Q6-8H PRN 28 days prednisone 10 mg PO DIRECTED Tobacco use date assessed: 05/18/24 Dental Screening Dental Screen Date: 05/18/24 Did you have a dental visit in the last 12 months?: Yes Did you have a dental problem in the last 6 months where you did not have access to dental care?: No Was dental information given to patient?: Patient has dentist HPI [facility] HPI Details Patient comes in today for his follow up visit States that he is currently dealing with a lot of issues and was was not able to get his follow up labs done prior to his appointment today He presently has a torn meniscus supposedly in his right knee and still has a few other joint issues - has appt with [facility] later this afternoon He was also diagnosed with pulmonary sporotrichosis by Dr. Ceballos a couple of months ago and was supposedly started on an antifungal Rx that he is supposed to take for a whole year but his insurance initially declined to continue covering his Rx after a month of Tx States that Dr. Ceballos was finally able to get his Rx approved by his insurance company but they will approve the branded Rx and not the generic version (?) and he now has to start back on the Rx from the beginning Adds that he is also still working on cutting back on his Oxycodone and is hoping to be able to get off this medication soon States that he feels okay otherwise and that his asthma appears to be a lot better controlled now (with Tx of his pulmonary sporotrichosis) compared to last year He denies any headaches sor dizziness Denies any chest pains, no increased SOB No nausea/vomiting, no abdominal pain No change in bowel habits noted Adds that he went to a local urgent care center about a week or so ago for increased swelling and pain of his left hand He was diagnosed supposedly with cellulitis of the hand and started on some oral Abx, which he just finished and states that the swelling and pain in his hand has gotten a lot better and he can now at least make a fist with his hand (he could not even make a fist or close his hand last week) [facility] Medical History Stroke Impaired fasting glucose Pure hypercholesterolemia Pityriasis lichenoides Poorly controlled persistent asthma Obesity (BMI 30-39.9) Cerebral arteriovenous malformation (AVM) Lumbar degenerative disc disease Acquired hypothyroidism Asthma Surgical History Status post coil embolization of cerebral aneurysm (~11/03/12) History of lumbar discectomy Family History Father Diabetes Mother No problems noted. 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 1. Little interest or pleasure in doing things: not at all 2. Feeling down, depressed, or hopeless: not at all 3. Trouble falling or staying asleep, or sleeping too much: not at all 4. Feeling tired or having little energy: not at all 5. Poor appetite or overeating: not at all 6. Feeling bad about yourself - or that you are a failure or have let yourself or your family down: not at all 7. Trouble concentrating on things, such as reading the newspaper or watching television: not at all 8. Moving or speaking so slowly that other people could have noticed. Or the opposite - being so fidgety or restless that you have been moving around a lot more than usual: not at all 9. Thoughts that you would be better off or of hurting yourself in some way: not at all Total score: 0 Depression Screening Interpretation: Negative Depression Screening Done: Yes 58870 - PHQ-9 Billing: Yes Source: Developed by Drs. Santos Onofre, Britt Soares, Errol Manzanares and colleagues, with an educational antoinette from [employer]. Thrive Questionnaire Date Thrive assessed: 05/18/24 I am a: Patient What is your living situation today?: I have a steady place to live Within the past 12 months, did the food you bought not last and you didn't have the money to get more?: Never true Within the past 12 months, did you worry whether your food would run out before you got money to buy more?: Never true Do you have trouble paying for medicines?: No Do you have trouble getting transportation to medical appointments?: No Do you have trouble paying your heating and electricity bill?: No Do you have trouble taking care of your child, family member or friend?: No Do you have trouble with day-to-day activities such as bathing, preparing meals, shopping, managing finances, etc.?: No Are you currently unemployed and looking for a job?: No Are you interested in more education?: No Please select the resources that you would like help with: None Currently or been in a relationship where the following occur: No concerns reported THRIVE Score: 0 AUDIT C Alcohol Use Questionnaire (AUDIT-C) 1. How often do you have a drink containing alcohol?: Never 3. How often do you have six or more drinks on one occasion?: Never Total Score: 0 Score Reviewed/Action Taken: Yes MARIA DEL CARMEN-7 AMB Questionnaire MARIA DEL CARMEN-7 Date MARIA DEL CARMEN - 7 assessed: 05/18/24 Feeling nervous, anxious, or on edge: 0 = Not at all Not being able to stop or control worryin = Not at all Worrying too much about different things: 0 = Not at all Trouble relaxin = Not at all Being so restless that it is hard to sit still: 0 = Not at all Becoming easily annoyed or irritable: 0 = Not at all Feeling afraid as if something awful might happen: 0 = Not at all Total MARIA DEL CARMEN-7 score (0-4 normal; 5-9 mild; 10-14 moderate; 15-21 severe): 0 Source: Developed by Drs. Santos Onofre, Britt Soares, Errol Manzanares and colleagues, with an educational antoinette from [employer]. Review of Systems Const Denies chills, Reports fatigue, Denies fever(s) and Denies headache(s) ENT Denies dysphagia, Denies dizziness, Denies otalgia, Denies headache(s), Denies neck pain, Denies odynophagia and Denies sore throat Card Denies chest pain, Denies palpitations and Reports dyspnea on exertion (mild) Resp Denies chest congestion, Denies cough, Reports dyspnea on exertion (mild) and Denies wheezing GI Denies abdominal pain, Denies constipation, Denies dysphagia, Denies heartburn, Denies diarrhea, Denies nausea, Denies odynophagia and Denies vomiting Denies difficulty urinating, Denies dysuria, Denies nocturia and Denies urinary frequency Musc Reports back pain (over the lower back - chronic), Reports arthralgias (left knee, more recently on right knee (has torn meniscus)), Denies joint swelling and Denies neck pain Skin/Breast Details: (+) mild swelling of the left hand Denies rash Neuro Denies dizziness and Denies headache(s) Endo Reports fatigue and Denies palpitations Aller/Immun Denies wheezing Physical exam (Primary Care) Vital Signs: Last Vital Signs Pulse 103 H 05/18/24 09:52 BP 154/90 H 05/18/24 09:52 Pulse Ox 96 05/18/24 09:52 Oxygen Delivery Method Room Air 05/18/24 09:52 BMI result Body Mass Index 30.6 Tobacco/Smoking Status: Tobacco use Status Tobacco use date assessed 05/18/24 05/18/24 09:58 Patient Tobacco Use Status Current someday Tobacco 05/18/24 09:58 Tobacco use type Cigarette 05/18/24 09:58 e-Cigarette/Vaping Use Never Used 05/18/24 09:58 PHQ-9: PHQ-9 Score PHQ-9: Total score 0 05/18/24 12:36 Depression Screening Interpretation: Negative Thrive Assessment: Date of Thrive Assessment Date Thrive assessed 05/18/24 05/18/24 09:58 Currently or been in a relationship where the following occur: No concerns reported Const General: no acute distress and alert HENMT Ears: TM's normal bilaterally and EAC's normal Throat: Yes posterior oropharynx normal and Yes tonsils normal (no TP congestion) Neck Neck: Yes supple and No lymphadenopathy Thyroid: Thyroid normal Resp Auscultation: clear to auscultation bilaterally, no crackles, no rales and no wheezes Cardio Rate: regular rate Rhythm: regular rhythm Heart sounds: no murmurs GI Palpation (GI): Soft to palpation and nontender Auscultation: normal bowel sounds General: Yes no CVA tenderness Back/Spine/Pelvis Back: no CVA tenderness Thoracic/Lumbar Spine: lumbar spinal tenderness Skin Rashes: no rashes Extrem General: Yes no clubbing, cyanosis or edema Right lower extremity: knee Details: tenderness Location: of the medial joint line; no swelling Left lower extremity: knee Details: tenderness Location: of the medial joint line; no swelling (at present) Coding Level of Care Code Est Pt Level 4 (47722) Complex EM visit Add On G2211 Diagnoses Moderate persistent asthma, unspecified whether complicated J45.40 Asthma complication type: unspecified Asthma persistence: persistent Asthma severity: moderate 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 Leukocytosis, unspecified type D72.829 Leukocytosis type: unspecified Cerebral arteriovenous malformation (AVM) Q28.2 Pure hypercholesterolemia E78.00 Impaired fasting glucose R73.01 Elevated blood pressure reading without diagnosis of hypertension R03.0 Acquired hypothyroidism E03.9 Degeneration of intervertebral disc of lumbar region with discogenic back pain M51.360 Disc-related pain type: discogenic back pain only Allergic dermatitis L23.9 Swelling of left hand M79.89 Primary osteoarthritis, right wrist M19.031 Attention deficit disorder, unspecified hyperactivity presence F98.8 Hyperactivity presence: unspecified Obesity (BMI 30-39.9) E66.9 Additional Codes PHQ-9 - 06061 - PHQ-9 Billing: Yes ([id number]) Assessment & Plan Assessment & Plan (1) Asthma: Code(s): J45.909 - Unspecified asthma, uncomplicated Category: Medical Qualifiers: Asthma complication type: unspecified Asthma persistence: persistent Asthma severity: moderate Qualified Code(s): J45.40 - Moderate persistent asthma, uncomplicated Plan: His asthma has been difficult to control for the past couple of years, requiring frequent oral Prednisone tapers for recurrent flare ups although this appears much better controlled now with the ongoing treatment of his recently diagnosed pulmonary sporotrichosis He also tested positive for allergies to ragweed and cat dander on allergy testing previously He has failed to respond to biologic treatments with Xolair, Nucala and Fasenra and he could not tolerate Tezspire Continue Symbicort 160-4.5 mcg 2 inhalations BID, Montelukast 10 mg QD and Albuterol HFA 2 inhalations every 6 hours PRN Follow up with pulmonary as scheduled (2) Pulmonary sporotrichosis: Code(s): B42.0 - Pulmonary sporotrichosis Category: Medical Plan: Continue Itraconazole 200 mg BID - will need to continue for 12 months total therapy Follow up with pulmonary as scheduled (3) Leukocytosis (leucocytosis): Code(s): D72.829 - Elevated white blood cell count, unspecified Category: Medical Qualifiers: Leukocytosis type: unspecified Qualified Code(s): D72.829 - Elevated white blood cell count, unspecified Plan: Patient's WBC count was elevated on his most recent labs done back in November 2023 He recalls that he was still on oral prednisone taper at the time when he went for his labs, so his leukocytosis is likely due to the effects of oral prednisone Will recheck his CBC now for follow-up (4) Cerebral arteriovenous malformation (AVM): Code(s): Q28.2 - Arteriovenous malformation of cerebral vessels Category: Medical Plan: Repeat CT angiogram of the head done back in January 2022 came out negative - report read as No acute intracranial abnormality identified.? Postoperative findings related to embolization of presumed AVM seen in the supravermian cistern region. Asymmetrically prominent distal left [employer] branches and prominent left occipital draining vein are demonstrated, which could represent some residual AV shunting for which neurointerventional follow-up is recommended [place]ow up with neurosurgery as scheduled (5) Pure hypercholesterolemia: Code(s): E78.00 - Pure hypercholesterolemia, unspecified Category: Medical Plan: Patient was not able to get his follow up labs done prior to his appointment today He is reminded that his cholesterol levels are still elevated so he should go and get his follow up labs done EFREN Reinforced low-cholesterol diet He continues to decline starting on Rx for his cholesterol and would like to continue with diet modification for now Will have him recheck his labs and fasting lipids again in 4 months for follow up (6) Impaired fasting glucose: Code(s): R73.01 - Impaired fasting glucose Category: Medical Plan: His FBS was elevated at 105 mg/dl and his HgbA1c was at 6.7% when they were last checked a few months ago in November 2023 - he has been advised that this places him in the diabetic category and he is no longer just a borderline diabetic He declined offer then to start him on diabetic medications as he felt that his numbers have gone up mostly because of his frequent need to take Prednisone over the past year and will try working on getting his blood sugar readings improved without Rx for now Will recheck his labs and HgbA1c and FBS EFREN for follow up (7) Elevated blood pressure reading without diagnosis of hypertension: Code(s): R03.0 - Elevated blood-pressure reading, without diagnosis of hypertension Category: Medical Plan: He is advised that his blood pressure is still presently elevated - normal is systolic BP of 120 mm or less Reinforced low sodium diet; he is again urged to cut back on his daily coffee consumption, as he admits to drinking a lot of coffee regularly Patient is reminded to continue monitoring his BP regularly (8) Acquired hypothyroidism: Code(s): E03.9 - Hypothyroidism, unspecified Category: Medical Plan: Continue Levothyroxine 150 mcg QD Will recheck his TFTs for follow up (9) Lumbar degenerative disc disease: Code(s): M51.36 - Other intervertebral disc degeneration, lumbar region Category: Medical Qualifiers: Disc-related pain type: discogenic back pain only Qualified Code(s): M51.360 - Other intervertebral disc degeneration, lumbar region with discogenic back pain only Plan: Reinforced activity and weight lifting restrictions States that his chronic pain has remained adequately controlled on Oxycodone 10 mg every 6 hours as needed over the years and he is now looking to try to start cutting back further gradually on his dose - states that he will call with updates and requests for new dosing when needed (10) Allergic dermatitis: Code(s): L23.9 - Allergic contact dermatitis, unspecified cause Category: Medical Plan: In hindsight, we are now wondering if the recurrent rash that he has had over the past couple of years may actually have been related to his pulmonary sporotrichosis Follow up with dermatology and with pulmonary as scheduled (11) Swelling of left hand: Code(s): M79.89 - Other specified soft tissue disorders Category: Medical Plan: Patient states that his left hand swelling and pain have improved with his recent Abx Tx but there is still some swelling noted on his hand Will send him for x-rays of the left hand EFREN for further evaluation (12) Primary osteoarthritis, right wrist: Code(s): M19.031 - Primary osteoarthritis, right wrist Category: Medical Plan: Right wrist x-rays done back in October 2020 revealed (+) degenerative changes in the carpal bones; wrist pain have subsided since Will consider referral to orthopedics if his wrist pain gets worse (13) ADD (attention deficit disorder): Code(s): F98.8 - Other specified behavioral and emotional disorders with onset usually occurring in childhood and adolescence Category: Medical Qualifiers: Hyperactivity presence: unspecified Qualified Code(s): F98.8 - Other specified behavioral and emotional disorders with onset usually occurring in childhood and adolescence Plan: Continue Adderall XR 20 mg QD Follow up with psychiatry as scheduled Have discussed again with patient that he should start considering alternative options for his ADD as staying on stimulant Rx as he gets older can raise his CV risks (14) Obesity (BMI 30-39.9): Code(s): E66.9 - Obesity, unspecified Category: Medical Plan: Reinforced diet/exercise as tolerated/lose weight Plan Follow up in 4 months Orders: Orders XR hand LT min 3V Today M79.642 - Pain in left hand, M79.89 - Other specified soft tissue disorders Lipid Panel 4 Months E78.00 - Pure hypercholesterolemia, unspecified UA CC w/rflx Micro + Cult 4 Months R30.0 - Dysuria Vitamin D 25-OH Total 4 Months E55.9 - Vitamin D deficiency, unspecified Complete Blood Count Auto Diff 4 Months D64.9 - Anemia, unspecified Comprehensive Rodney. Panel Fast 4 Months E78.00 - Pure hypercholesterolemia, unspecified Thyroid Stimulating Hormone 4 Months E03.9 - Hypothyroidism, unspecified Free T4 (Free Thyroxine) 4 Months E03.9 - Hypothyroidism, unspecified Microalbumin, Random (w Creat) 4 Months E11.9 - Type 2 diabetes mellitus without complications Hemoglobin A1c 4 Months E11.9 - Type 2 diabetes mellitus without complications
== END 2024-05-18 10:31 | disposition home or self-care (01) ==
LOC: HO.HMCH 09:46
PROVIDERS: PCP Internal Medicine; Visit Provider Internal Medicine
DX: J45.40 Moderate persistent asthma, uncomplicated (principal); A00-B99 Certain infectious and parasitic diseases; D72.829 Elevated white blood cell count, unspecified; Q28.2 Arteriovenous malformation of cerebral vessels; E78.00 Pure hypercholesterolemia, unspecified; R73.01 Impaired fasting glucose; R03.0 Elevated blood-pressure reading, without diagnosis of hypertension; E03.9 Hypothyroidism, unspecified; M51.360 Other intervertebral disc degeneration, lumbar region with discogenic back pain only; L23.9 Allergic contact dermatitis, unspecified cause; M79.89 Other specified soft tissue disorders; M19.031 Primary osteoarthritis, right wrist

== ENCOUNTER → 2024-05-18 09:45 | Outpatient (BNVA) | payer OTHER, SELFPAY | PROVIDERS: PCP Internal Medicine; Visit Provider Internal Medicine | DX: J45.40 Moderate persistent asthma, uncomplicated (principal); A00-B99 Certain infectious and parasitic diseases; D72.829 Elevated white blood cell count, unspecified; Q28.2 Arteriovenous malformation of cerebral vessels; E78.00 Pure hypercholesterolemia, unspecified; R73.01 Impaired fasting glucose; R03.0 Elevated blood-pressure reading, without diagnosis of hypertension; E03.9 Hypothyroidism, unspecified; M51.360 Other intervertebral disc degeneration, lumbar region with discogenic back pain only; L23.9 Allergic contact dermatitis, unspecified cause; M79.89 Other specified soft tissue disorders; M19.031 Primary osteoarthritis, right wrist; F98.8 Other specified behavioral and emotional disorders with onset usually occurring in childhood and adolescence; E66.9 Obesity, unspecified | CPT/HCPCS: 96127; 99212 ==

== ENCOUNTER 2024-09-09 11:05 | Emergency (ER) | payer OTHER, SELFPAY ==
[2024-09-09] VITALS (7 sets, daily range): BP systolic 144–176; BP diastolic 86–105; PULSE 94–106; RESP 16–20; TEMP 36.3–36.8; O2SAT 96–98; BMI 30.4
--- NOTE | ~2024-09-09 | CT_ITS ---
EXAMINATION: CT ANGIOGRAM CHEST CLINICAL INFORMATION: SOB, leg swelling, recent road trip DLP: 182 mGY*cm COMPARISON: None available. TECHNIQUE: Multiple axial images were obtained through the chest after the administration of 50 mL of Omnipaque 350 intravenous contrast. Extensive vascular post-processing including two-dimensional and three-dimensional reformatted images were created and reviewed on an independent workstation. This CT examination was performed using dose optimization techniques as appropriate, variously including the following: *Automated exposure control *Adjustment of mA and/or kV according to patient size (this includes techniques or standardized protocols for targeted exams where dose is matched to indication/reason for exam; i.e. extremities or head) *Use of iterative reconstruction technique FINDINGS: QUALITY OF STUDY/CONTRAST BOLUS: Adequate PULMONARY ARTERIES: No filling defects were evident. THORACIC AORTA: Within normal limits LUNGS AND PLEURA: Lungs are clear. There is no pleural effusion. MEDIASTINUM: Unremarkable CORONARY ARTERY CALCIFICATION: Not well-demonstrated CHEST WALL/AXILLA: No axillary or internal mammary lymphadenopathy. UPPER ABDOMEN: The spleen measures 14 cm anterior to posterior. BONES: Anterior osteophytes are present in the thoracic spine CT/CT angio chest PE protocol IMPRESSION: No pulmonary embolus is identified. Borderline splenomegaly. Fleischner guidelines were followed. Electronically signed by: Artem De Los Santos MD 09/09/2024 02:56 PM EDT
--- NOTE | ~2024-09-09 | US_ITS ---
EXAMINATION: US TRIPLEX LOWER EXTREMITY, BILATERAL CLINICAL INFORMATION: Bilateral calf swelling, recent road trip. COMPARISON: None available. TECHNIQUE: Color-flow triplex imaging with spectral analysis and compression Doppler were performed on the bilateral lower extremities. FINDINGS: Respiratory variation, normal compression and augmented flow are noted throughout the bilateral lower extremities. The visualized common femoral vein, superficial femoral vein, profunda femoral vein, popliteal vein and midcalf peroneal and posterior tibial venous segments show no evidence of deep venous thrombosis bilaterally. There is no Benitez's cyst. Reactive appearing lymph node in the right groin with large fatty hilum measuring 3.0 x 0.6 x 1.4 cm. US/US venous duplex LE BI IMPRESSION: No evidence of deep venous thrombosis involving the bilateral lower extremities. Electronically signed by: Vance Shi MD 09/09/2024 01:39 PM EDT
--- NOTE | 2024-09-09 11:23 | ED.EXTPRO ---
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 Patient reports he has been in [place] over the last week, was at a baseball game Thursday (09/02) and began noticing swelling of his right calf and foot. Went to urgent care in [place] and was given 7 day course of Keflex for suspected cellulitis. Patient does have a total-body sunburn from being out on the [place] in [place]. Patient states he has not seen any improvement in the swelling or redness, now has noticed swelling and weakness of the left leg. Patient states yesterday he was walking up the stairs and felt his left leg was heavy, tripped and fell up the stairs. Patient reports drinks a progressive weakness of his legs and increased shortness of breath over the last 2 months. Patient also reports increased urinary frequency, and excessive thirst over the past ?few months?. Patient smokes approximately half a pack of cigarettes daily. Recent road trip from [place]. Denies chest pain, recent alcohol use, recent drug use, nausea, vomiting, black/tarry stool, dysuria. Related Data Home Medications ?Medication ?Instructions ?Recorded ?Confirmed dextroamphetamine-amphetamine 15 15 mg PO DAILY 11/02/23 05/18/24 mg tablet (Adderall) Previous Rx's ?Medication ?Instructions ?Recorded albuterol sulfate 90 mcg/actuation 2 puff inhalation 6XD PRN 05/01/23 aerosol inhaler shortness of breath or wheezing 30 days #1 ea levothyroxine 150 mcg tablet 150 mcg PO QAM 90 days #90 tabs 10/12/23 itraconazole 100 mg capsule 200 mg (2 x 100 mg) PO BID 30 days 04/19/24 (Sporanox) #120 caps budesonide-formoterol HFA 160 2 puff inhalation BID 30 days 04/27/24 mcg-4.5 mcg/actuation aerosol #10.2 grams inhaler (Symbicort) inhalational spacing device #1 ea 05/09/24 (Kaylynn Sanchez [facility] spacer) oxycodone 10 mg tablet 10 mg PO Q6-8H PRN pain 28 days 08/23/24 #112 tabs prednisone 10 mg tablet 10 mg PO DIRECTED #70 tabs 09/08/24 cephalexin 500 mg capsule 500 mg PO BID 7 days #14 caps 09/09/24 doxycycline hyclate 100 mg capsule 100 mg PO BID 7 days #14 caps 09/09/24 Allergies Allergy/AdvReac Type Severity Reaction Status Date / Time tezepelumab-ekko (From AdvReac Severe severe Verified 09/09/24 11:36 Tezspire) joint pains and weakness Review of Systems Review of Systems: CONST: Negative for fever, body aches and chills. HENT: Negative for neck pain/stiffness, headache, congestion, sore throat, swelling. EYES: Negative for discharge/pain or vision changes. RESP: Negative for cough/hemoptysis. POS SOB CV: Negative chest pain, difficulty breathing, palpitations. ABD: Negative pain, nausea, vomiting. : Negative increase frequency, dysuria, blood in urine or stool. MUSC: POS B/L LE edema, LE heaviness SKIN: Negative rash, lesions/sores. POS sunburn NEURO: Negative headache, dizziness, weakness. Yes all other systems are reviewed and are negative [facility] Past Medical History Attestation statement: The following information was validated with the patient. Source: old records reviewed and nursing notes reviewed Medical History Stroke Impaired fasting glucose Pure hypercholesterolemia Pityriasis lichenoides Poorly controlled persistent asthma Obesity (BMI 30-39.9) Cerebral arteriovenous malformation (AVM) Lumbar degenerative disc disease Acquired hypothyroidism Asthma Surgical History Status post coil embolization of cerebral aneurysm (~11/03/12) History of lumbar discectomy Family History Family History Father Diabetes Mother No problems noted. 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 HEENT: ?NC, AT. MMM. EOMI, clear conjunctiva, oropharynx clear. NECK: ?Supple without lymphadenopathy.? No stiffness or restricted ROM. HEART:? Tachycardic rate and regular rhythm, normal S1/S2, no m/r/g LUNGS:? CTAB, moving air well. No crackles or wheezes are heard. ABDOMEN: ?Soft, nontender, nondistended with good bowel sounds heard. BACK: No CVAT, no obvious deformity. EXTREMITIES: B/L 2+ pitting edema of feet and anterior tibialis. Mild TTP of B/L calves. Approximately 4 second capillary refill time of B/L feet. DP pulses 2+ bilaterally intact NEUROLOGICAL: ?Grossly nonfocal. Alert and oriented, moving all 4 extremities. Observed to ambulate with normal gait. Skin: ?Warm and dry without any rash. Total body sunburn noted, no blistering or weeping. See attached photos Vital Signs: Vital Signs: Last Vital Signs Temp 98.3 F 09/09/24 16:27 Pulse 94 09/09/24 16:27 Resp 20 09/09/24 16:27 BP 153/86 H 09/09/24 16:27 Pulse Ox 97 09/09/24 16:27 O2 Del Method Room Air 09/09/24 16:27 BMI result Body Mass Index 30.4 Medications Administered Discontinued Medications Generic Name Dose Route Start Last Admin Trade Name Freq PRN Reason Stop Dose Admin Ceftriaxone Sodium 1 gm 09/09/24 12:28 09/09/24 12:53 Ceftriaxone Sodium 1 Gm Vial IVPUSH 09/09/24 12:29 1 gm ONCE ONE Administration Lactated Ringer's 1,000 mls @ 999 mls/hr 09/09/24 12:18 09/09/24 14:23 Lr IV 09/09/24 13:18 Infused .Q1H1M ONE Infusion Sodium Chloride 1,000 mls @ 999 mls/hr 09/09/24 14:38 09/09/24 15:46 Ns IV 09/09/24 15:38 Infused .Q1H1M ONE Infusion Iohexol 65 ml 09/09/24 14:39 09/09/24 14:40 Iohexol 350 Mg/Ml 100 Ml Infus..Btl IV 09/09/24 14:40 65 ml ONCE ONE Administration Medical Decision Making Medical Decision Making MDM Narrative: 48-year-old male with medical history of HLD, asthma, AVM, hypothyroidism, 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 Patient reports he has been in [place] over the last week, was at a baseball game Thursday (09/02) and began noticing swelling of his right calf and foot. Went to urgent care in [place] and was given 7 day course of Keflex for suspected cellulitis. Patient does have a total-body sunburn from being out on the [place] in [place]. Patient states he has not seen any improvement in the swelling or redness, now has noticed swelling and weakness of the left leg. Patient states yesterday he was walking up the stairs and felt his left leg was heavy, tripped and fell up the stairs. Patient reports drinks a progressive weakness of his legs and increased shortness of breath over the last 2 months. Patient also reports increased urinary frequency, and excessive thirst over the past ?few months?. Patient smokes approximately half a pack of cigarettes daily. Vital signs reveal the patient is hypertensive 175/96, tachycardic rate at 105 beats per minute, 18 breaths per minute, afebrile with oral temperature of 98.1?, 98% on room air. Physical exam reveals total body sunburn, otherwise benign. EKG with normal sinus rhythm, no ST elevation/depression/T-wave abnormalities to suggest ischemia. Initial troponin 18.4 we will obtain 2nd to evaluate for delta changes. Labs revealed leukocytosis at 14.3, lactic acid 2.6, random glucose 621, hemoglobin A1c greater than 14- 2L IV fluids for correction, 1g ceftriaxone for cellulitis. ESR,CRP elevated at 38/2.2. No evidence of anion gap. U/S venous duplex of bilateral lower extremities without evidence of DVT. We will further evaluate with CTA chest due to recent travel, cigarette smoking status, symptomatic with shortness of breath, bilateral lower extremity swelling. Patient currently receiving 2 L of fluid, we will reassess CMP after administration of fluids. Course 16:07- U/S venous duplex of bilateral lower extremities without evidence of DVT. CTA chest without evidence of pulmonary embolism. Reassessment of CMP reveals glucose at 455, this has decreased from 621. At this time I believe that patient should stay inpatient for further treatment with IV antibiotics, possible insulin, and more IV fluids. Patient is adamant about leaving, as he has family arrangements that need to be made. He states he is planning to present again to the ED tomorrow for treatment. I discussed with the patient that this means possible or losing his legs if he does not come back and get treatment. Patient is aware and understanding, still wants to leave AMA. I counseled patient on his needs, and strict return precautions to the ED. he isn't understanding. Differential Diagnosis Differential Diagnoses: The differential diagnosis associated with the presentation includes Cellulitis CHF Electrolyte abnormality DKA Elevated glucose Dependent edema Admission/Observation Consideration of admission/observation: Escalation of care including admission/observation considered Considered admission for management of possible cellulitis needing IV antibiotics, insulin, fluids, patient wants to leave AMA Lab Data MDM Lab Attestation statement: I reviewed the patient's lab results. 09/09/24 12:34 09/09/24 14:57 Labs: Lab Results 09/09/24 09/09/24 09/09/24 Range/Units 12:34 12:46 12:47 WBC 14.3 H (4.8-10.8) X10*3/uL RBC 5.36 (4.60-5.80) X10*6/uL Hgb 15.9 (14.0-18.0) g/dl Hct 45.8 (42.0-52.0) % MCV 85.4 (80.0-98.0) fL MCH 29.7 (27.0-33.0) pg MCHC 34.7 (31.0-36.0) g/dl RDW 13.3 (11.0-16.0) % Plt Count 268 (160-400) X10*3/uL MPV 9.8 (9.4-12.4) fL Immature Gran % (Auto) 4.5 H (0.0-0.4) % Neut % (Auto) 82.2 H (45-73) % Lymph % (Auto) 6.6 L (20-40) % [place] % (Auto) 6.0 (2-11) % Eos % (Auto) 0.1 (0-4) % Baso % (Auto) 0.6 (0-2) % Lymph # (Auto) 0.9 L (1.2-4.9) X10*3/uL [place] # (Auto) 0.9 (0.1-1.2) X10*3/uL Eos # (Auto) 0.0 (0.0-0.4) X10*3/uL Baso # (Auto) 0.1 (0.0-0.2) X10*3/uL Abs Immat Gran (auto) 0.64 H (0.00-0.03) X10*3/uL Absolute Neuts (auto) 11.8 H (2.0-8.3) x10*3/uL Absolute Nucleated RBC 0.000 (0.0-0.012) X10*3/uL Nucleated RBC % (auto) 0.0 (0.0-0.2) /100WBC ESR 38 H (0-15) MM/HR PT 10.2 L (10.9-12.4) SEC INR 0.9 (0.9-1.1) VBG pH 7.38 (7.32-7.43) VBG pCO2 59 mmHg VBG pO2 26 mmHg VBG HCO3 35 H (22-26) mmol/L VBG O2 Saturation 36.0 % VBG Base Excess 8.2 mmol/L Sodium 135 (135-145) mmol/L Potassium 4.1 (3.3-5.1) mmol/L Chloride 95 L (96-108) mmol/L Carbon Dioxide 30 H (22-29) mmol/L Anion Gap 14 (12-20) BUN 14 (9-16) mg/dL Creatinine 1.04 (0.5-1.4) mg/dL Estim Creat Clear Calc 92.8 Estimated GFR > 60 Random Glucose 621 H* (60-115) mg/dL Estimat Average Glucose TNP Hemoglobin A1c % > 14.0 H (<6.0) % Lactic Acid 2.6 H* (0.5-2.0) mmol/L Lactic Acid F/U @ 2Hr (0.5-2.0) mmol/L Calcium 9.4 (8.4-10.2) mg/dL Magnesium 2.1 (1.6-2.6) mg/dL Total Bilirubin 0.3 (0.0-1.0) mg/dL AST 30 (5-37) U/L ALT 57 H (0-40) U/L Alkaline Phosphatase 166 H (39-117) U/L Total Creatine Kinase 40 (38-174) U/L Troponin I High Sens 18.4 (<3.5-35.0) ng/L C-Reactive Protein 2.20 H (< or = 0.50) mg/dL B-Natriuretic Peptide 46 (<100) pg/mL Total Protein 7.5 (6.5-8.0) g/dL Albumin 4.3 (3.5-5.0) g/dL Beta-Hydroxybutyrate 0.12 (0.02-0.27) mmol/L Urine Color Urine Appearance Urine pH (5.0-9.0) Ur Specific [place] (1.005-1.025) Urine Protein (Neg-Trace) mg/dL Urine Glucose (UA) (Negative) mg/dL Urine Ketones (Negative) mg/dL Urine Blood (Negative) Urine Nitrite (Negative) Ur Leukocyte Esterase (Negative) Urine RBC (0-2) /HPF Urine WBC (0-5) /HPF Ur Squamous Epith Cells (0-2) /HPF Urine Bacteria (None Seen) Hyaline Casts (0-2) /LPF 09/09/24 09/09/24 Range/Units 14:36 14:57 WBC (4.8-10.8) X10*3/uL RBC (4.60-5.80) X10*6/uL Hgb (14.0-18.0) g/dl Hct (42.0-52.0) % MCV (80.0-98.0) fL MCH (27.0-33.0) pg MCHC (31.0-36.0) g/dl RDW (11.0-16.0) % Plt Count (160-400) X10*3/uL MPV (9.4-12.4) fL Immature Gran % (Auto) (0.0-0.4) % Neut % (Auto) (45-73) % Lymph % (Auto) (20-40) % [place] % (Auto) (2-11) % Eos % (Auto) (0-4) % Baso % (Auto) (0-2) % Lymph # (Auto) (1.2-4.9) X10*3/uL [place] # (Auto) (0.1-1.2) X10*3/uL Eos # (Auto) (0.0-0.4) X10*3/uL Baso # (Auto) (0.0-0.2) X10*3/uL Abs Immat Gran (auto) (0.00-0.03) X10*3/uL Absolute Neuts (auto) (2.0-8.3) x10*3/uL Absolute Nucleated RBC (0.0-0.012) X10*3/uL Nucleated RBC % (auto) (0.0-0.2) /100WBC ESR (0-15) MM/HR PT (10.9-12.4) SEC INR (0.9-1.1) VBG pH (7.32-7.43) VBG pCO2 mmHg VBG pO2 mmHg VBG HCO3 (22-26) mmol/L VBG O2 Saturation % VBG Base Excess mmol/L Sodium 137 (135-145) mmol/L Potassium 4.3 (3.3-5.1) mmol/L Chloride 100 (96-108) mmol/L Carbon Dioxide 30 H (22-29) mmol/L Anion Gap 11 L (12-20) BUN 13 (9-16) mg/dL Creatinine 0.95 (0.5-1.4) mg/dL Estim Creat Clear Calc 101.6 Estimated GFR > 60 Random Glucose 455 H* (60-115) mg/dL Estimat Average Glucose Hemoglobin A1c % (<6.0) % Lactic Acid (0.5-2.0) mmol/L Lactic Acid F/U @ 2Hr 1.1 (0.5-2.0) mmol/L Calcium 8.6 D (8.4-10.2) mg/dL Magnesium (1.6-2.6) mg/dL Total Bilirubin 0.2 (0.0-1.0) mg/dL AST 24 (5-37) U/L ALT 43 H (0-40) U/L Alkaline Phosphatase 135 H (39-117) U/L Total Creatine Kinase (38-174) U/L Troponin I High Sens 17.1 (<3.5-35.0) ng/L C-Reactive Protein (< or = 0.50) mg/dL B-Natriuretic Peptide (<100) pg/mL Total Protein 6.0 L (6.5-8.0) g/dL Albumin 3.4 L (3.5-5.0) g/dL Beta-Hydroxybutyrate (0.02-0.27) mmol/L Urine Color Yellow Urine Appearance Clear Urine pH 7.5 (5.0-9.0) Ur Specific [place] 1.025 (1.005-1.025) Urine Protein Negative (Neg-Trace) mg/dL Urine Glucose (UA) >=1000 H (Negative) mg/dL Urine Ketones Negative (Negative) mg/dL Urine Blood Negative (Negative) Urine Nitrite Negative (Negative) Ur Leukocyte Esterase Negative (Negative) Urine RBC 0-2 (0-2) /HPF Urine WBC 0-5 (0-5) /HPF Ur Squamous Epith Cells 0-2 (0-2) /HPF Urine Bacteria None Seen (None Seen) Hyaline Casts 0-2 (0-2) /LPF Independent Interpretation I performed an independent interpretation of an: EKG and Ultrasound Interpretation: I personally interpreted the EKG: Normal sinus rhythm, No ST elevation/depression Vent. Rate : 99 BPM Atrial Rate : 99 BPM P-R Int : 130 ms QRS Dur : 86 ms QT Int : 358 ms P-R-T Axes : 33 -22 21 degrees QTcB Int : 459 ms Normal sinus rhythm Minimal voltage criteria for LVH, may be normal variant ( R in aVL ) Borderline ECG I independently interpreted the ultrasound of bilateral lower extremities, no evidence of DVT, I agree with the radiologist's impression. Radiology Impression Discussion of test interpretation with radiology: I have reviewed the radiologist's reading. Radiologist Impression: US ultrasound B/L LE FINDINGS: Respiratory variation, normal compression and augmented flow are noted throughout the bilateral lower extremities. The visualized common femoral vein, superficial femoral vein, profunda femoral vein, popliteal vein and midcalf peroneal and posterior tibial venous segments show no evidence of deep venous thrombosis bilaterally. There is no Benitez's cyst. Reactive appearing lymph node in the right groin with large fatty hilum measuring 3.0 x 0.6 x 1.4 cm. US/US venous duplex LE BI IMPRESSION: No evidence of deep venous thrombosis involving the bilateral lower extremities. Electronically signed by: Vance Shi MD 09/09/2024 01:39 PM EDT RP Dictated By: Vance Shi MD Signed By: <Electronically signed by Vance Shi MD in [place]> 09/09/24 1339 CTA chest PE protocol FINDINGS: QUALITY OF STUDY/CONTRAST BOLUS: Adequate PULMONARY ARTERIES: No filling defects were evident. THORACIC AORTA: Within normal limits LUNGS AND PLEURA: Lungs are clear. There is no pleural effusion. MEDIASTINUM: Unremarkable CORONARY ARTERY CALCIFICATION: Not well-demonstrated CHEST WALL/AXILLA: No axillary or internal mammary lymphadenopathy. UPPER ABDOMEN: The spleen measures 14 cm anterior to posterior. BONES: Anterior osteophytes are present in the thoracic spine CT/CT angio chest PE protocol IMPRESSION: No pulmonary embolus is identified. Borderline splenomegaly. Fleischner guidelines were followed. Electronically signed by: Artem De Los Santos MD 09/09/2024 02:56 PM EDT RP Dictated By: Artem De Los Santos MD Signed By: <Electronically signed by Artem De Los Santos MD in [place]> 09/09/24 2885 External Record Review External record reviewed: Inpatient record, Office record and Outpatient record Prescription Management I considered prescription management with: Antibiotic (Patient prescribed antibiotics for possible cellulitis infection, will give 7 days of doxy and Keflex) Critical Care Time Critical Care Time Critical Care Time: Yes Total Critical Care Time: 48 Attestation: I personally provided critical care services for 48 minutes exclusive of separately billable procedures, for the evaluation management of this critically ill patient. Including IV antibiotics, IV fluids. The patient had conditions requiring continuous attention, high complexity decision making and interventions department further clinical deterioration. Discharge Plan Discharge Clinical Impression: Cellulitis, Blood glucose elevated, Lower extremity edema Patient Disposition: Left Against Medical Advice Instructions: Cellulitis (ED), Diabetic Hyperglycemia (ED), Edema (ED) Additional Instructions: You were evaluated in the ED today due to lower extremity swelling, redness, and pain. Your an elevated white blood cell count of 14.3, elevated inflammatory markers called ESR/CRP- 38/2.2, this indicates that you were fighting an infection. Your random glucose was 621, with a hemoglobin A1c of greater than 14 which is extremely elevated and indicative of type 2 diabetes. Your vital signs indicated that you have a possible septic infection. You were treated with 2 L IV fluids, IV ceftriaxone which is an antibiotic to cover you for possible infection. Your CT chest did not show evidence of pulmonary embolism, the ultrasound of your legs did not show indication of any clot. However because of your lab findings indicative of infection and needing additional IV antibiotics and fluids, possible insulin due to your elevated glucose, you were urged to stay and be admitted as inpatient to the medicine floor. You declined to this, and signed out of the hospital against medical advice. I discussed with you the importance of staying in the hospital and receiving care as this could lead to possible . I do believe that you needed to be admitted inpatient for monitoring, IV fluids, insulin, and additional antibiotics, but you declined and left AMA. I prescribed you an additional 7 days of an antibiotic Keflex, and doxycycline to cover for your possible cellulitic infection. Please return to the emergency department, you need additional treatment. Prescriptions: New doxycycline hyclate 100 mg capsule 100 mg PO BID 7 Days Qty: 14 0RF cephalexin 500 mg capsule 500 mg PO BID 7 Days Qty: 14 0RF No Action albuterol sulfate 90 mcg/actuation HFA aerosol inhaler 2 puff inhalation 6XD PRN (Reason: shortness of breath or wheezing) 30 Days Qty: 1 6RF levothyroxine 150 mcg tablet 150 mcg PO QAM 90 Days Qty: 90 3RF itraconazole [Sporanox] 100 mg capsule 200 mg PO BID 30 Days Qty: 120 12RF Rx Instructions: must administer with a meal/food budesonide-formoterol [Symbicort] 160-4.5 mcg/actuation HFA aerosol inhaler 2 puff inhalation BID 30 Days Qty: 10.2 5RF (DME) Kaylynn Laura [facility] Spacer See Rx Instructions .ROUTE .COMPLEX Qty: 1 0RF Dose Instruction: USE DIRECTED Rx Instructions: USE DIRECTED oxycodone 10 mg tablet 10 mg PO Q6-8H PRN (Reason: pain) 28 Days Qty: 112 0RF Rx Instructions: Partial Fill upon patient request prednisone 10 mg tablet 10 mg PO DIRECTED Qty: 70 0RF Rx Instructions: take 4 tabs daily for 7 days, then go down by 1 tab every 7 days dextroamphetamine-amphetamine [Adderall] 15 mg tablet 15 mg PO DAILY Interventions: ED Discharge Assessment Last Done: 09/09/24 16:27 Discharge Date/Time: 09/09/24 16:27 Print Language: Portuguese
--- OUTSIDE RECORDS SUMMARY | 2024-09-09 12:07 | XMS_ITS | Data Portability ---
Author Organization [facility], [facility] [address] [place] [address] Care Team Providers Care Still Runner Name Role Phone IRMA PEPPER Primary Care Provider Assessment No assessment recorded. Plan of Treatment Reminders Order Date Submit Date Provider Last Modified By Organization Details Last Modified Time Details Appointments None recorded . Lab None recorded . Referral None recorded . Procedures None recorded . Surgeries repair tricep/b icep muscle/t endon (SURG) 2024 025 [email or web address] [facility], [address], [place], [address], 5 13:24:55 Imaging XR, knee, 4 or more view - 217 2024 025 [email or web address] [facility], [address], [place], [address], 5 10:18:24 XR, elbow, 3 or more view - RM 111 3V L ELBOW 2024 025 [email or web address] [facility], [address], [place], [address], 5 14:23:43 Medication Orders None recorded . Patient TargetsNo targets recorded. Patient InstructionsNo instructions recorded. Reason for Referral None Reported. Results Created Date Observation Date Name Description Value Unit Range Abnormal Flag Note LastModifiedBy Organization Detail LastModifiedTime 05/05/19 25 05/04/2024 XR, elbow , 3 or more view [email or web address]:/ [email or web address] ?Encry pted=s hAaTro YD8dLq bEUv6g %2BXZw aYqtaq 0bqfl% 2Fg9IQ a4ajBk vP9nXo QUaueC m3YtLR FvZlgJ JJ8mAn HZtai3 8d7814 AC0KqY nyHUaK lKiQtr MwF INTERFACE [facility] [address], [place], [address], 05/04/2024 14:14:40 05/05/19 25 05/04/2024 XR, elbow , 3 or more view http:/ [email or web address] ?Encry pted=s hAaTro YD8dLq bEUv6g %2BXZw aYqtaq 0bqfl% 2Fg9IQ a4ajBk vP9nXo QUaueC m3YtLR FvZlgJ JJ8mAn HZtai3 8t6824 AC0KqY nyHUaK lKiQtr MwF INTERFACE [facility] [address], [place], [address], 05/04/2024 14:14:42 05/14/19 25 05/13/2024 MRI, elbow , w/o contr ast No observ ation record ed. [email or web address] [facility] [place] [address] [facility] [address], [place], [address], 05/13/2024 14:10:11 05/24/19 25 05/23/2024 XR, knee, 4 or more view http:/ [email or web address] ?Encry pted=s hAaTro YD8dLq bEUv6g %2BXZw aYqtaq 0bqfl% 2Fg9IQ a4ajBk vP9nXo QUaueC m3YtLR FvZlgJ JJ8mAn HZtai3 8z6402 AC0KqY nSNUKG lKiQtr MwF INTERFACE [facility] [address], [place], [address], 05/23/2024 14:54:39 05/24/19 25 05/23/2024 XR, knee, 4 or more view http:/ [email or web address] ?Encry pted=s hAaTro YD8dLq bEUv6g %2BXZw aYqtaq 0bqfl% 2Fg9IQ a4ajBk vP9nXo QUaueC m3YtLR FvZlgJ JJ8mAn HZtai3 7x4744 AC0KqY nSNUKG lKiQtr MwF INTERFACE [facility] [address] [facility] [address], [place], [address], 05/23/2024 14:54:41 Result Notes Documentation Provider Name and Address Organization Details Recorded Time Xr, Elbow, 3 Or More View : [email or web address]? Encrypted=gmEgGiqXF4gZsqH Uv6g%0ESOkaFczuc4mxib%2Fg 4ZWc6pzTpiT8lXwYNqefXq4Xd BSUuEoqKQK2kStGNaql52p195 2ZC9LoCkyIVpQdVvPogVnJ Not Available [facility] 05/04/2024 14:14: 40 Xr, Elbow, 3 Or More View : [email or web address]? Encrypted=scPcFdiXZ3dWnjQ Uv6g%9BRXqkLnizl3uqzq%2Fg 3VVm2ctImfJ8mPsOIjirOj4Lr WTRgHodPJM2zUfCSumh48y449 1SK3JiOtxEOrOnEaLrkHlR Not Available [facility] 05/04/2024 14:14: 42 Xr, Knee, 4 Or More View : [email or web address]? Encrypted=mwFcPfpUY9uRjaE Uv6g%0UKMguFfgim6heti%2Fg 1GQw7fbSitJ1tNvGIcabIr8Uz MOEkBomNIV5kOaPVfqu29g186 7CE4LcLcZSUDUvVaUprZpQ Not Available [facility] 05/23/2024 14:54: 40 Xr, Knee, 4 Or More View : [email or web address] Encrypted=qhZpDduBA3gEyuS Uv6g%3PNBaiHgzfo4cxpw%2Fg 5VWw6xpAwqK6gTjIJdtgPt6Tq KRStPisZWC2wVcLPoii14v125 8SQ8HiIvXKCFKjBfCkvKfJ Not Available [facility] 05/23/2024 14:54: 42 Problems Name Problem SNOMED Code Status Onset Date Resolution Date Notes Provider Name and Address Organization Details Recorded Time Pain of right knee joint 8642609722638 00 Active 2024 Edgar Wharton PA-C [address], [place], [address], [facility] 14:38:41 Osteoarthri tis of right knee joint 6406983338796 00 Active 2024 Edgar Wharton PA-C [address], [place], [address], [facility] 15:35:01 Problem Notes None recorded. Procedures Surgical History Date Name Laterality Status Provider Name and Address Organization Details Recorded Time 5 Sports Knee 4&1 completed Edgar Wharton PA-C [address], [place], [address], [facility] 08/16/2024 06:13:00 5 Sports Knee 4&1 completed Edgar Wharton PA-C [address], [place], [address], [facility] 05/23/2024 15:34:50 5 Head or Neck Surgery completed JOVAN PEDROZA [facility] 06/29/2024 15:01:52 5 Knee Surgery completed [facility] 06/29/2024 15:01:51 Imaging Results None recorded. Procedure Notes None recorded. Medical Equipment None Reported. Allergies No known drug allergies Medications Name Sig Start Date Stop Date Status Note LastModified by Organization Details LastModified Time prednisone 10 mg tablet TAKE 4 TABLETS ONCE DAILY FOR 7 DAYS. DECREASE BY 1 TABLET EVERY 7 DAYS active Not Available Not Available No t Available doxycycline hyclate 100 mg capsule PLEASE SEE ATTACHED FOR DETAILED DIRECTION S active Not Available Not Available No t Available meloxicam 15 mg tablet TAKE 1 TABLET BY MOUTH EVERY DAY 05/04 completed Not Available Not Available Not Available prednisone 20 mg tablet TAKE 2 TABLETS BY MOUTH EVERY DAY 05/04 completed Not Available Not Available Not Available Sporanox 100 mg capsule TAKE 2 CAPSULES BY MOUTH TWICE DAILY WITH FOOD active Not Available Not Available No t Available doxycycline monohydrate 100 mg capsule TAKE 1 CAPSULE BY MOUTH TWICE A DAY FOR 10 DAYS active Not Available Not Available No t Available levothyroxi ne 150 mcg tablet TAKE 1 TABLET BY MOUTH EVERY MORNING active Not Available Not Available No t Available amoxicillin 875 mg-potassiu m clavulanate 125 mg tablet TAKE 1 TABLET BY MOUTH TWICE A DAY 05/04 completed Not Available Not Available Not Available Ventolin HFA 90 mcg/actuati on aerosol inhaler INHALE 2 PUFFS 6 TIMES A DAY NEEDED FOR SHORTNESS OF BREATH OR WHEEZING 05/04 completed Not Available Not Available Not Available Adderall XR 15 mg capsule,ext ended release TAKE 1 CAPSULE BY MOUTH TWICE A DAY (MORNING AND AFTERNOON ) active Not Available Not Available No t Available cyclobenzap rine 5 mg tablet TAKE 1 TABLET BY MOUTH 3 TIMES A DAY NEEDED FOR MUSCLE SPASM 05/04 completed Not Available Not Available Not Available varenicline tartrate 0.5 mg (11)-1 mg (42) tablets in a dose pack TAKE 0.5MG BY MOUTH DAILY ON DAYS 1-3, THEN 0.5MG TWICE A DAY ON DAYS 4-7, THEN 1MG TWICE A DAY 05/04 completed Not Available Not Available Not Available Symbicort 160 mcg-4.5 mcg/actuati on HFA aerosol inhaler INHALE 2 PUFFS BY MOUTH TWICE A DAY active Not Available Not Available No t Available oxycodone 10 mg tablet TAKE 1 TABLET BY MOUTH EVERY 6 TO 8 HOURS NEEDED FOR PAIN active Not Available Not Available No t Available [facility] spacer USE DIRECTED active Not Available Not Available No t Available Vitals Date Recorded Body height Body mass index (BMI) Body weight Provider Name and Address Organization Details Last Updated DateTime 05/04/2024 172.72 cm 32.4 kg/m2 77380.17 santosh WILSON [facility] 05/04/2024 14:09:03 Date Recorded Body height Body mass index (BMI) Body weight Provider Name and Address Organization Details Last Updated DateTime 05/18/2024 172.72 cm 31.6 kg/m2 27646.21 santosh WILSON [facility] 05/18/2024 13:51:22 Date Recorded Body height Body mass index (BMI) Body weight Provider Name and Address Organization Details Last Updated DateTime 05/23/2024 172.72 cm 31.5 kg/m2 62577.62 g Edgar Wharton PA-C [address] [facility], [place], [address], [facility] 05/23/2024 14:37:50 Date Recorded Body height Body mass index (BMI) Body weight Provider Name and Address Organization Details Last Updated DateTime 06/29/2024 172.72 cm 31.5 kg/m2 07403.62 g JOVAN PEDROZA [facility] 06/29/2024 15:01:58 Date Recorded Body height Body mass index (BMI) Body weight Provider Name and Address Organization Details Last Updated DateTime 08/16/2024 172.72 cm 31.5 kg/m2 06818.62 g Edgar Wharton PA-C [address], [place], [address], [facility] 08/16/2024 10:41:03 Social History Question Answer Notes LastModified by Organizat ion Details LastModified Time Tobacco Smoking Status Never Smoker Edgar Wharton PA-C [address], [place], [address], [facility] 08/16/2024 10:41:46 What Is Your Relationship Status? Single [place] [address] Information not available 08/16/2024 Sex: Unknown Functional Status Question Answer Note LastModified by Organizat ion Details LastModified Time Do you use any illicit or recreational drugs? No [place] [address] Information not available 08/16/2024 What is your level of alcohol consumption? None [place] [address] Information not available 08/16/2024 Mental Status None recorded. Family History Nothing Reported. Medical History Condition Response Stroke Y Thyroid Problems Y Asthma Y Past Encounters Encounter ID Performer Location Encounter Start Date Encounter Closed Date Diagnosis/Indication Diagnosis SNOMED-CT Code Diagnosis ICD10 Code Diagnosis Note [id number] ZACHARY Juarez [address] [place] [address] 05/04/2024 13:49:28 05/12/2024 16:03:35 Pain of elbow region 40054691 M25.206 [id number] ZACHARY Juarez [address] [place] [address] 05/18/2024 13:47:31 06/05/2024 13:52:04 [id number] ZACHARY Galo [address] [place] [address] 05/23/2024 14:29:27 06/03/2024 10:18:24 Pain of right knee joint 5156640000 63900 M25.561 Osteoarthr itis of right knee joint 0835327279 61308 M17.11 [id number] MD MARILYNN Cantrell [address] [place] [address] 06/29/2024 14:55:52 07/12/2024 12:27:08 Left triceps tendon tear 0941206472 1816669 S46.312D [id number] ZACHARY Galo [facility] [place] [address] 08/16/2024 10:25:02 08/19/2024 08:28:48 Pain of right knee joint 8216215394 62950 M25.561 Osteoarthr itis of right knee joint 2177061954 33787 M17.11 Health Concerns Section Related Observation LastModified by Organization Detai ls LastModified Time None Recorded Concern Status LastModified by Organization Details LastModified Time None Recorded Advance Directives Directive None Recorded Payers Insurance Date Sequence Insurance Name Policy Number Policy Hines Covered Member ID Hines Member ID Guarantor Name 09/08/2024 1 [facility] (MEDICAID HMO) LEDY [id number] Van Ashia Notes Date Note Type Note Provider Name and Address Organization Details Recorded Time 05/04/2024 text/html I am seeing the patient today under the supervision of dr Heaton who was available but who did not see the patient. DX: Rule out left tricep tendon injury HPI: 48-year-old male here for orthopedic consultation. He reports approximately 1 month ago he was lifting weights and felt a pop to the posterior left elbow. Pain has gradually improved. No numbness tingling. He still has weakness with tricep extension. Past family, medical, social history and review of systems has been reviewed, updated and is located in the patient s chart. Examination: Alert and oriented 3. No acute distress. Nonantalgic gait. Examination left elbow reveals no soft tissue swelling edema ecchymosis. No obvious defect to the posterior elbow however the body the tricep muscle is not as pronounced as the contralateral side. Mild tenderness over the olecranon process. No tenderness over the medial lateral epicondyles. Radial median and ulnar motor and sensory function are intact. Right elbow reveals no soft tissue swelling, erythema, or ecchymosis. Range of motion is full. Neurovascular intact. X-rays ordered, obtained and reviewed at [facility] 3 views left elbow reveals no fracture or dislocation. Impression/Plan:Find ings and situation discussed. I am concerned that he may have a partial versus complete tricep tendon. Will obtain an MRI. He will follow-up after the study. Moises Cross PA-C [address] [facility] [address], [place], [address], [facility] 05/04/2024 14:23:39 05/18/2024 text/html I am seeing the patient today under the supervision of dr Heaton who was available but who did not see the patient. DX: left tricep tendon injury HPI: 48-year-old male here for reevaluation. His follow-up MRI scan a high-grade tear. Tendon is retracted 2.8 cm. He continues to have weakness with resisted extension. No numbness or tingling. Past family, medical, social history and review of systems has been reviewed, updated and is located in the patient s chart. Examination: Alert and oriented 3. No acute distress. Nonantalgic gait. Examination left elbow reveals no soft tissue swelling edema ecchymosis.. Now appears to have a mild defect at the insertion of the tricep. Still has some weakness with resisted elbow extension. No tenderness over the medial lateral epicondyles. Radial median and ulnar motor and sensory function are intact. Right elbow reveals no soft tissue swelling, erythema, or ecchymosis. Range of motion is full. Neurovascular intact. MRI of the left elbow was reviewed with Dr. Heaton. This confirms retraction of the tricep tendon Impression/Plan:Find ings and situation discussed. Recommended operative management. Risks benefits complication of the procedure were discussed including but not limited to infection injury of blood vessels tendons nerves incomplete relief of symptoms and stiffness patient would like to think about his options. He will call Dr. Heaton's office secretary if he decides to proceed with surgery. Patient examined discussed with Dr. Sudarshan Cross PA-C [address] [place] [address] [address] [facility], [place], [address], [facility] 05/18/2024 14:30:58 05/23/2024 text/html I am seeing the patient today under the supervision of Dr. Gee who was available but who did not see the patient. HPI: Patient is a 48-year-old male who comes as a for evaluation chief complaint of right knee pain. He reports 30 years ago underwent knee arthroscopy in both knees. He reports intermittent pain and discomfort in the right knee which is exacerbated with prolonged standing. Within the last 3 months he is reported progressive difficulty in that right knee, symptoms are exacerbated with stairs or exercising walking on the treadmill. Frustrated by this he comes in today for orthopedic evaluation. PMH/PSH/MEDS/ALL/FMH /SOC HX/ ROS: All reviewed in detail per my medical intake sheet General Exam: Vitals signs as noted below, antalgic gait noted. Mental Status: Alert and oriented x3. Normal insight, affect, and grooming. 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 No spasticity or clonus noted. Extremities: Calves are soft and nontender. Skin on lower extremities is intact. Palpable pedal pulses bilaterally. Orthopedic Exam: Examination of the right knee demonstrates restricted range of motion good anterior-posterior stability no laxity valgus or varus stressing. Exquisite medial and the lateral joint line tenderness with patellofemoral crepitus noted, 1+ effusion, 4/5 strength. X-rays report: 4 views ordered and independently reviewed previously at [facility] of the 4 views of the right knee demonstrate advanced medial apartment osteoarthritis with varus deformity, patellofemoral joint lateral compartment otherwise well-preserved. 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 The patient is interested in receiving an injection with corticosteroid, reviewed safety risks of temporary elevation of glycemic control, cortisol flushing, small risk of elevated blood pressure as potential side effects after an injection today. Additionally reemphasized the benefits of physical therapy, stressed the importance of compliance regarding home exercises moving forward. [facility] speech recognition patient navigator software was used to create portions of this document. An attempt at proofreading has been made to minimize errors. Please call for corrections Edgar Wharton PA-C [address] [place] [address] [address] [facility], [place], [address], [facility] 05/23/2024 15:35:21 06/29/2024 text/html Diagnosis: Left distal triceps rupture The patient presents at his request. He would like to proceed with surgical repair of his triceps. Past family, medical, social history and review of systems has been reviewed, updated and is located in the patient s chart. Examination: Healthy appearing patient in no apparent distress. Alert and oriented. HEENT: Normocephalic and atraumatic. Heart: Regular rate and rhythm. Lungs: Clear to auscultation bilaterally. Abdomen: Soft and nontender. Neurovascular exam: Intact bilateral upper extremities Extremities: Palpable defect at the insertion site of left triceps. Very weak in elbow extension strength. No atrophy in either upper extremity. Brisk capillary refill in all digits Plan: I reviewed with the patient the nature of the surgery and its potential risks including infection, injury to blood vessels, tendons, nerves, failure of the procedure and stiffness of his elbow. All his questions were answered. He has consented to the procedure. Gurwinder Heaton MD [address], [place], [address], [facility] 06/30/2024 10:16:59 08/16/2024 text/html I am seeing the patient today under the supervision of Dr. Gee who was available but who did not see the patient. HPI: Patient is a 48-year-old male who comes as a for evaluation chief complaint of right knee pain. He reports 30 years ago underwent knee arthroscopy in both knees. He reports intermittent pain and discomfort in the right knee which is exacerbated with prolonged standing. Within the last 3 months he is reported progressive difficulty in that right knee, symptoms are exacerbated with stairs or exercising walking on the treadmill. Frustrated by this he comes in today for orthopedic evaluation. Examination of the right knee demonstrates restricted range of motion good anterior-posterior stability no laxity valgus or varus stressing. Exquisite medial and the lateral joint line tenderness with patellofemoral crepitus noted, 1+ effusion, 4/5 strength. X-rays report: 4 views ordered and independently reviewed previously at [facility] of the 4 views of the right knee demonstrate advanced medial apartment osteoarthritis with varus deformity, patellofemoral joint lateral compartment otherwise well-preserved. 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 The patient is interested in receiving an injection with corticosteroid, reviewed safety risks of temporary elevation of glycemic control, cortisol flushing, small risk of elevated blood pressure as potential side effects after an injection today. Additionally reemphasized the benefits of physical therapy, stressed the importance of compliance regarding home exercises moving forward. [employer] speech recognition patient navigator software was used to create portions of this document. An attempt at proofreading has been made to minimize errors. Please call for corrections Edgar Wharton PA-C [address], [place], [address], [facility] 08/16/2024 11:04:17
--- NOTE | 2024-09-09 12:17 | ECG_ITS ---
Test Reason : TACHY Blood Pressure : */* mmHG Vent. Rate : 99 BPM Atrial Rate : 99 BPM P-R Int : 130 ms QRS Dur : 86 ms QT Int : 358 ms P-R-T Axes : 33 -22 21 degrees QTcB Int : 459 ms Normal sinus rhythm Minimal voltage criteria for LVH, may be normal variant ( R in aVL ) Borderline ECG No previous ECGs available Referred By: Best Arnold Electronically Signed By: SHERICE NOEL
[2024-09-09 12:42] LABS: MANUAL DIFF FLAG NO
[2024-09-09 12:48] LABS: Hematocrit 45.8 % (42.0-52.0); Hemoglobin 15.9 g/dl (14.0-18.0); Imm Gran Abs Auto 0.64 X10*3/uL (0.00-0.03); Imm Gran Pct Auto 4.5 % (0.0-0.4); Lymphocytes Absolute Auto 0.9 X10*3/uL (1.2-4.9); Mean Corpuscular HGB Conc 34.7 g/dl (31.0-36.0); Mean Corpuscular Hemoglobin 29.7 pg (27.0-33.0); Mean Corpuscular Volume 85.4 fL (80.0-98.0); NRBC Abs Auto 0.000 X10*3/uL (0.0-0.012); NRBC Pct Auto 0.0 /100WBC (0.0-0.2); Platelet Count 268 X10*3/uL (160-400); Red Blood Count 5.36 X10*6/uL (4.60-5.80); White Blood Count 14.3 X10*3/uL (4.8-10.8)
[2024-09-09] MEDS: Lactated Ringers 1,000 ML 999 ML IV (13:00)
[2024-09-09 13:02] LABS: INTERNATIONAL NORM RATIO 0.9 (0.9-1.1); Prothrombin Time 10.2 SEC (10.9-12.4)
[2024-09-09 13:06] LABS: B Type Natriuretic Peptide 46 pg/mL (<100)
[2024-09-09 13:13] LABS: Alanine Aminotransferase 57 U/L (0-40); Albumin Level 4.3 g/dL (3.5-5.0); Alkaline Phosphatase 166 U/L (39-117); Anion Gap 14 (12-20); Aspartate Amino Transferase 30 U/L (5-37); Blood Urea Nitrogen 14 mg/dL (9-16); Calcium 9.4 mg/dL (8.4-10.2); Carbon Dioxide 30 mmol/L (22-29); Chloride 95 mmol/L (96-108); Creatinine Clr Calc Pharmacy 92.8; Estimated Glomerular Filt Rate > 60; Magnesium 2.1 mg/dL (1.6-2.6); Potassium 4.1 mmol/L (3.3-5.1); Sodium 135 mmol/L (135-145); Total Protein 7.5 g/dL (6.5-8.0)
[2024-09-09 13:16] LABS: Troponin-I High Sensitivity 18.4 ng/L (<3.5-35.0)
[2024-09-09 13:18] LABS: VBG HCO3 35 mmol/L (22-26); VBG O2 % Saturation 36.0 %
[2024-09-09 13:19] LABS: Venous Blood Gas Refer to POC result
[2024-09-09 14:09] LABS: Hemoglobin A1C 582.5149 umol/L; Total Hemoglobin (HGBA1C) 4038.5018 umol/L
[2024-09-09] MEDS: iohexoL 350 MG/ML 100 ML INFUS..BTL 65 ML IV (14:40)
[2024-09-09 14:41] LABS: Reflex Lactate? Lactic Acid Added
[2024-09-09 14:42] LABS: Appearance Urine Clear; Glucose Urine UA >=1000 mg/dL (Negative); PH 7.5 (5.0-9.0); Specific Gravity - Urine 1.025 (1.005-1.025); UMIC TRIGGER UACC YES
[2024-09-09 15:18] LABS: ~Lactic Acid-LAB USE ONLY 1.1 mmol/L (0.5-2.0)
[2024-09-09 15:24] LABS: Troponin-I High Sensitivity 17.1 ng/L (<3.5-35.0)
[2024-09-09 15:53] LABS: Alanine Aminotransferase 43 U/L (0-40); Albumin Level 3.4 g/dL (3.5-5.0); Alkaline Phosphatase 135 U/L (39-117); Anion Gap 11 (12-20); Aspartate Amino Transferase 24 U/L (5-37); Blood Urea Nitrogen 13 mg/dL (9-16); Calcium 8.6 mg/dL (8.4-10.2); Carbon Dioxide 30 mmol/L (22-29); Chloride 100 mmol/L (96-108); Creatinine Clr Calc Pharmacy 101.6; Estimated Glomerular Filt Rate > 60; Potassium 4.3 mmol/L (3.3-5.1); Sodium 137 mmol/L (135-145); Total Protein 6.0 g/dL (6.5-8.0)
== END 2024-09-09 16:27 | disposition left against medical advice (07) ==
PROVIDERS: Emergency Provider Emergency Medicine; PCP Internal Medicine
DX: L03.115 Cellulitis of right lower limb (principal); L03.116 Cellulitis of left lower limb; R60.0 Localized edema; R73.09 Other abnormal glucose; L56.8 Other specified acute skin changes due to ultraviolet radiation; X32.XXXA Exposure to sunlight, initial encounter; R00.0 Tachycardia, unspecified; I10 Essential (primary) hypertension; E78.00 Pure hypercholesterolemia, unspecified; R06.02 Shortness of breath; J45.909 Unspecified asthma, uncomplicated; F17.210 Nicotine dependence, cigarettes, uncomplicated; Y93.19 Activity, other involving water and watercraft; Y92.838 Other recreation area as the place of occurrence of the external cause; Y99.9 Unspecified external cause status
CPT/HCPCS: 36415; 71275; 80053; 81001; 82010; 82550; 82803; 83036; 83605; 83735; 83880; 84484; 85025; 85610; 85652; 86140; 87040; 93005; 93970; 96361; 96374; 99284; 99291; J0696; J7120; Q9967

== ENCOUNTER → 2024-09-09 12:17 | Outpatient (BNV) | payer OTHER, SELFPAY | PROVIDERS: Emergency Provider Emergency Medicine; PCP Internal Medicine; Visit Provider Internal Medicine | DX: R00.0 Tachycardia, unspecified (principal) | CPT/HCPCS: 93010 ==

== ENCOUNTER → 2024-09-09 12:18 | Outpatient (BNV) | payer OTHER, SELFPAY | PROVIDERS: Emergency Provider Emergency Medicine; PCP Internal Medicine; Visit Provider Radiology Diagnostic Radiology | DX: R06.02 Shortness of breath (principal); R22.43 Localized swelling, mass and lump, lower limb, bilateral | CPT/HCPCS: 93970 ==

== ENCOUNTER 2024-09-19 10:02 | Outpatient (REF) | payer OTHER, SELFPAY ==
[2024-09-19 10:35] LABS: MANUAL DIFF FLAG NO
[2024-09-19 10:46] LABS: Hematocrit 46.9 % (42.0-52.0); Hemoglobin 15.8 g/dl (14.0-18.0); Imm Gran Abs Auto 0.39 X10*3/uL (0.00-0.03); Imm Gran Pct Auto 2.8 % (0.0-0.4); Lymphocytes Absolute Auto 1.9 X10*3/uL (1.2-4.9); Mean Corpuscular HGB Conc 33.7 g/dl (31.0-36.0); Mean Corpuscular Hemoglobin 29.3 pg (27.0-33.0); Mean Corpuscular Volume 87.0 fL (80.0-98.0); NRBC Abs Auto 0.000 X10*3/uL (0.0-0.012); NRBC Pct Auto 0.0 /100WBC (0.0-0.2); Platelet Count 276 X10*3/uL (160-400); Red Blood Count 5.39 X10*6/uL (4.60-5.80); White Blood Count 14.0 X10*3/uL (4.8-10.8)
--- OUTSIDE RECORDS SUMMARY | 2024-09-19 11:03 | XMS_ITS | Data Portability ---
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 Plan of Treatment Reminders Order Date Submit Date Provider Last Modified By Organization Details Last Modified Time Details Appointments None recorded . Lab None recorded . Referral None recorded . Procedures None recorded . Surgeries repair tricep/b icep muscle/t endon (SURG) 2024 025 [email or web address] [facility], [address], [place], [address], 5 13:24:55 Imaging XR, knee, 4 or more view - 217 2024 025 [email or web address] [facility], [address], [place], [address], 5 10:18:24 XR, elbow, 3 or more view - RM 111 3V L ELBOW 2024 025 [email or web address] [facility], [address], [place], [address], 5 14:23:43 Medication Orders None recorded . [...] a4ajBk vP9nXo QUaueC m3YtLR FvZlgJ JJ8mAn HZtai3 3p9627 AC0KqY nyHUaK lKiQtr MwF INTERFACE [facility] [address], [place], [address], 05/04/2024 14:14:40 05/05/19 25 05/04/2024 XR, elbow , 3 or more view http:/ [email or web address] ?Encry pted=s hAaTro YD8dLq bEUv6g %2BXZw aYqtaq 0bqfl% 2Fg9IQ a4ajBk vP9nXo QUaueC m3YtLR FvZlgJ JJ8mAn HZtai3 0r3141 AC0KqY nyHUaK lKiQtr MwF INTERFACE [facility] [address], [place], [address], 05/04/2024 14:14:42 05/14/19 25 05/13/2024 MRI, elbow , w/o contr ast No observ ation record ed. [email or web address] [facility] [place] [address] [facility] [address], [place], [address], 05/13/2024 14:10:11 05/24/19 25 05/23/2024 XR, knee, 4 or more view http:/ [email or web address] ?Encry pted=s hAaTro YD8dLq bEUv6g %2BXZw aYqtaq 0bqfl% 2Fg9IQ a4ajBk vP9nXo QUaueC m3YtLR FvZlgJ JJ8mAn HZtai3 7x1672 AC0KqY nSNUKG lKiQtr MwF INTERFACE [facility] [address], [place], [address], 05/23/2024 14:54:39 05/24/19 25 05/23/2024 XR, knee, 4 or more view http:/ [email or web address] ?Encry pted=s hAaTro YD8dLq bEUv6g %2BXZw aYqtaq 0bqfl% 2Fg9IQ a4ajBk vP9nXo QUaueC m3YtLR FvZlgJ JJ8mAn HZtai3 5o7327 AC0KqY nSNUKG lKiQtr MwF INTERFACE [facility] [address] [facility] [address], [place], [address], 05/23/2024 14:54:41 Result Notes Documentation Provider Name and Address Organization Details Recorded Time Xr, Elbow, 3 Or More View : [email or web address]? Encrypted=xiZfIswAJ6qXxrA Uv6g%5PAQowLcjqr2ufbn%2Fg 8LDa4snTqiG8oGsFZmzeUa2Fz MUCwDnoVZQ0zHiCXqyu53r660 1DW9KhEsjTStBsIgOiiWpQ Not Available [facility] 05/04/2024 14:14: 40 Xr, Elbow, 3 Or More View : [email or web address]? Encrypted=tqNqJydHH7vLkpK Uv6g%0LYYzhEymba0zhrv%2Fg 2GAo1irXbuL0aHsNXenvBt1Wf RJFwDpiTVK4nAgKPdej83v579 9PE2GcTylNXcUhSfChaYlK Not Available [facility] 05/04/2024 14:14: 42 Xr, Knee, 4 Or More View : [email or web address]? Encrypted=qwEvZgoQF1tYsxD Uv6g%6IRFbaIgyek2kurc%2Fg 8XOj9rxJffT3uCnCPmicLs0Ca UMDzBjeARD5nUoHWuxh67o723 9HB1UrIjAROSMiEnArrAtK Not Available [facility] 05/23/2024 14:54: 40 Xr, Knee, 4 Or More View : [email or web address]? Encrypted=ogHgNlvCT3qJjeD Uv6g%6OPFtqTfjdl4nbje%2Fg 5MBs4trSfxT9yNfBKnjuFx5Fu DPPtOkrQPG9qIgRWdim45e067 5FK9HuCtTRCLJuRfRtvCzU Not Available [facility] 05/23/2024 14:54: 42 Problems Name Problem SNOMED Code Status Onset Date Resolution Date Notes Provider Name and Address Organization Details Recorded Time Pain of right knee joint 6814436509084 00 Active 2024 Edgar Wharton PA-C [address], [place], [address], [facility] 14:38:41 Osteoarthri tis of right knee joint 2688175457800 00 Active 2024 Edgar Wharton PA-C [address], [place], [address], [facility] 15:35:01 Problem Notes None recorded. Procedures Surgical History Date Name Laterality Status Provider Name and Address Organization Details Recorded Time 5 Sports Knee 4&1 completed Edgar Wharton PA-C [address], [place], [address], [facility] 08/16/2024 06:13:00 5 Sports Knee 4&1 completed Edgar Wharton PA-C [address], [place], [address], [facility] 05/23/2024 15:34:50 5 Head or Neck Surgery completed JOVAN PEDROZA [facility] 06/29/2024 15:01:52 5 Knee [...] Not Available Not Available No t Available [facility] spacer USE DIRECTED active Not Available Not Available No t Available Vitals Date Recorded Body height Body mass index (BMI) Body weight Provider Name and Address Organization Details Last Updated DateTime 05/04/2024 172.72 cm 32.4 kg/m2 87008.17 santosh WILSON [facility] 05/04/2024 14:09:03 Date Recorded Body height Body mass index (BMI) Body weight Provider Name and Address Organization Details Last Updated DateTime 05/18/2024 172.72 cm 31.6 kg/m2 43515.21 santosh WILSON [facility] 05/18/2024 13:51:22 Date Recorded Body height Body mass index (BMI) Body weight Provider Name and Address Organization Details Last Updated DateTime 05/23/2024 172.72 cm 31.5 kg/m2 00342.62 g Edgar Wharton PA-C [address] [facility], [place], [address], [facility] 05/23/2024 14:37:50 Date Recorded Body height Body mass index (BMI) Body weight Provider Name and Address Organization Details Last Updated DateTime 06/29/2024 172.72 cm 31.5 kg/m2 45632.62 g JOVAN PEDROZA [facility] 06/29/2024 15:01:58 Date Recorded Body height Body mass index (BMI) Body weight Provider Name and Address Organization Details Last Updated DateTime 08/16/2024 172.72 cm 31.5 kg/m2 15760.62 g Edgar Wharton PA-C [address], [place], [address], [facility] 08/16/2024 10:41:03 Social History Question Answer Notes LastModified by Organizat ion Details LastModified Time Tobacco Smoking Status Never Smoker Edgar Wharton PA-C [address], [place], [address], [facility] 08/16/2024 10:41:46 What Is Your Relationship Status? Single [place] [address] Information not available 08/16/2024 Sex: Unknown Functional Status Question Answer Note LastModified by Organizat ion Details LastModified Time Do you use any illicit or recreational drugs? No [place] [address] Information not available 08/16/2024 What is your level of alcohol consumption? None [place] [address] Information not available 08/16/2024 Mental Status None recorded. Family History Nothing Reported. Medical History Condition Response Thyroid Problems Y Stroke Y Asthma Y Past Encounters Encounter ID Performer Location Encounter Start Date Encounter Closed Date Diagnosis/Indication Diagnosis SNOMED-CT Code Diagnosis ICD10 Code Diagnosis Note [id number] ZACHARY Juarez [address] [place] [address] 05/04/2024 13:49:28 05/12/2024 16:03:35 Pain of elbow region 07580987 M25.223 [id number] ZACHARY Juarez [address] [place] [address] 05/18/2024 13:47:31 06/05/2024 13:52:04 [id number] ZACHARY Galo [address] [place] [address] 05/23/2024 14:29:27 06/03/2024 10:18:24 Pain of right knee joint 8756471371 67791 M25.561 Osteoarthr itis of right knee joint 4045657496 73933 M17.11 [id number] MD MARILYNN Cantrell [address] [place] [address] 06/29/2024 14:55:52 07/12/2024 12:27:08 Left triceps tendon tear 0296916048 6577869 S46.312D [id number] [place] [address] 08/16/2024 10:25:02 08/19/2024 08:28:48 Pain of right knee joint 8921072080 99656 M25.561 Osteoarthr itis of right knee joint 5029123613 25862 M17.11 Health Concerns Section Related Observation LastModified by Organization Detai ls LastModified Time None Recorded Concern Status LastModified by Organization Details LastModified Time None Recorded Advance Directives Directive None Recorded Payers Insurance Date Sequence Insurance Name Policy Number Policy Hines Covered Member ID Hines Member ID Guarantor Name 09/08/2024 1 [facility] NET PLAN (MEDICAID HMO) [facility] [place] [id number] [place]
[2024-09-19 11:08] LABS: Hemoglobin A1C 576.2225 umol/L; Total Hemoglobin (HGBA1C) 4172.6598 umol/L
[2024-09-19 11:16] LABS: Appearance Urine Clear; Glucose Urine UA >=1000 mg/dL (Negative); PH 7.0 (5.0-9.0); Specific Gravity - Urine >= 1.030 (1.005-1.025); UMIC TRIGGER UACC YES
[2024-09-19 11:54] LABS: Alanine Aminotransferase 49 U/L (0-40); Albumin Level 4.2 g/dL (3.5-5.0); Alkaline Phosphatase 112 U/L (39-117); Anion Gap 10 (12-20); Aspartate Amino Transferase 33 U/L (5-37); Blood Urea Nitrogen 15 mg/dL (9-16); Calcium 9.0 mg/dL (8.4-10.2); Carbon Dioxide 31 mmol/L (22-29); Chloride 101 mmol/L (96-108); Cholesterol 219 mg/dL (<200); Estimated Glomerular Filt Rate > 60; HDL Cholesterol 56 mg/dL (>40); Potassium 4.0 mmol/L (3.3-5.1); Sodium 138 mmol/L (135-145); Total Protein 7.0 g/dL (6.5-8.0); Triglycerides 131 mg/dL (<150)
[2024-09-19 12:10] LABS: Free T4 (Free Thyroxine) 1.14 ng/dL (0.71-1.85); Thyroid Stimulating Hormone 1.03 uIU/mL (0.32-4.0)
[2024-09-19 12:43] LABS: Microalbum/Creatinine Ratio Ur 20.8 ug/mg cr (<30)
== END 2024-09-19 10:03 | disposition home or self-care (01) ==
LOC: HO.LAB 10:02
PROVIDERS: PCP Internal Medicine; Visit Provider Internal Medicine
DX: E78.00 Pure hypercholesterolemia, unspecified (principal); D64.9 Anemia, unspecified; E03.9 Hypothyroidism, unspecified; E55.9 Vitamin D deficiency, unspecified; E11.65 Type 2 diabetes mellitus with hyperglycemia; R03.0 Elevated blood-pressure reading, without diagnosis of hypertension; J45.40 Moderate persistent asthma, uncomplicated; A00-B99 Certain infectious and parasitic diseases; Q28.2 Arteriovenous malformation of cerebral vessels; M51.360 Other intervertebral disc degeneration, lumbar region with discogenic back pain only; M19.031 Primary osteoarthritis, right wrist; F98.8 Other specified behavioral and emotional disorders with onset usually occurring in childhood and adolescence; E66.3 Overweight
CPT/HCPCS: 36415; 80053; 80061; 81001; 81003; 82043; 82306; 82570; 83036; 84439; 84443; 85025; 96127; 99212

== ENCOUNTER 2024-09-19 16:40 | Outpatient (AMB) | payer OTHER, SELFPAY ==
--- NOTE | 2024-09-19 17:00 | MHC.PC.OV ---
Vital Signs 09/19/24 17:06 Height 5 ft 9 in Weight 190 lb BMI 28.1 BP 140/76 H Blood Pressure Location Lt brachial Position Sitting Respiration 18 Pulse 100 Pulse Source Pulse Oximeter Temp 97.7 F Temp Source Temporal Artery Scan Pulse Oximetry (%) 98 Oxygen Delivery Method Room Air Intake Visit Reasons: 4mth f/u Director Of Program Management Required: No Accompanied by: Self / Same As Patient Allergies [facility] Adverse Reaction (Severe, Verified 09/20/24 03:29) severe joint pains and weakness Medication List - Last Reconciled 09/20/24 by Rambo Qureshi MD albuterol sulfate 90 mcg/actuation 2 puffs inhalation 6XD PRN 30 days budesonide-formoterol 160-4.5 mcg/actuation (Symbicort) 2 puffs inhalation BID 30 days dextroamphetamine-amphetamine 15 mg (Adderall) 15 mg PO DAILY doxycycline hyclate 100 mg PO BID 7 days inhalational spacing device [facility] spacer) USE DIRECTED insulin glargine (Lantus Solostar U-100 Insulin) 10 units (0.1 mL) subcut QPM 30 days insulin lispro protamin-lispro 100 unit/mL (75-25) (Humalog Mix 75-25 KwikPen) 10 units (0.1 mL) subcut BID 30 days itraconazole (Sporanox) 200 mg (2 x 100 mg) PO BID 30 days levothyroxine 150 mcg PO QAM 90 days oxycodone 10 mg PO Q6-8H PRN 28 days pen needle, diabetic As directed 3 times a day Tobacco use date assessed: 09/19/24 Dental Screening Dental Screen Date: 09/19/24 Did you have a dental visit in the last 12 months?: No Did you have a dental problem in the last 6 months where you did not have access to dental care?: No Was dental information given to patient?: No HPI 4mth f/u HPI Details Patient comes in today for his follow-up visit 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 He recently went to the ER a couple of weeks ago for redness, swelling and some pain in his right calf He underwent a venous doppler of the lower extremity, which ruled out DVT He also had a chest CTA done to help rule out pulmonary embolism He was eventually started on cephalexin and doxycycline for 7 days for presumptive cellulitis of the right leg Patient states that he recently finished both of his antibiotics and has noticed some improvement in his leg symptoms although he does not think that they have cleared up completely He also reports experiencing increased fatigued often over the past few weeks and has noticed some weight loss even though he is not intentionally trying to lose weight He also reports feeling thirsty often and tries to drink a lot of water to stay hydrated He denies any headaches or dizziness Denies any chest pains, no increased shortness of breath No nausea/vomiting, no abdominal pain No change in bowel habits noted He had his follow-up labs done earlier today - to discuss his results [facility] Medical History (Updated 09/20/24 @ 04:30 by Rambo Qureshi MD) Overweight (BMI 25.0-29.9) Stroke Impaired fasting glucose Pure hypercholesterolemia Pityriasis lichenoides Poorly controlled persistent asthma Obesity (BMI 30-39.9) Cerebral arteriovenous malformation (AVM) Lumbar degenerative disc disease Acquired hypothyroidism Asthma Surgical History Status post coil embolization of cerebral aneurysm (~11/03/12) History of lumbar discectomy Family History Father Diabetes Mother No problems noted. 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 1. Little interest or pleasure in doing things: not at all 2. Feeling down, depressed, or hopeless: not at all 3. Trouble falling or staying asleep, or sleeping too much: not at all 4. Feeling tired or having little energy: not at all 5. Poor appetite or overeating: not at all 6. Feeling bad about yourself - or that you are a failure or have let yourself or your family down: not at all 7. Trouble concentrating on things, such as reading the newspaper or watching television: not at all 8. Moving or speaking so slowly that other people could have noticed. Or the opposite - being so fidgety or restless that you have been moving around a lot more than usual: not at all 9. Thoughts that you would be better off or of hurting yourself in some way: not at all Total score: 0 Depression Screening Interpretation: Negative Depression Screening Done: Yes 16136 - PHQ-9 Billing: Yes Source: Developed by Drs. Santos Onofre, Britt Soares, Errol Manzanares and colleagues, with an educational antoinette from [employer]. Thrive Questionnaire Date Thrive assessed: 09/19/24 I am a: Patient What is your living situation today?: I have a steady place to live Within the past 12 months, did the food you bought not last and you didn't have the money to get more?: Sometimes True Within the past 12 months, did you worry whether your food would run out before you got money to buy more?: Never true Do you have trouble paying for medicines?: No Do you have trouble getting transportation to medical appointments?: No Do you have trouble paying your heating and electricity bill?: No Do you have trouble taking care of your child, family member or friend?: No Do you have trouble with day-to-day activities such as bathing, preparing meals, shopping, managing finances, etc.?: No Are you currently unemployed and looking for a job?: No Are you interested in more education?: No Please select the resources that you would like help with: None Currently or been in a relationship where the following occur: No concerns reported THRIVE Score: 1 AUDIT C Alcohol Use Questionnaire (AUDIT-C) 1. How often do you have a drink containing alcohol?: Monthly or less 2. How many drinks containing alcohol do you have on a typical day when you are drinking?: 1 or 2 3. How often do you have six or more drinks on one occasion?: Never Total Score: 1 Score Reviewed/Action Taken: Yes MARIA DEL CARMEN-7 AMB Questionnaire MARIA DEL CARMEN-7 Date MARIA DEL CARMEN - 7 assessed: 09/19/24 Feeling nervous, anxious, or on edge: 0 = Not at all Not being able to stop or control worryin = Not at all Worrying too much about different things: 0 = Not at all Trouble relaxin = Several days Being so restless that it is hard to sit still: 0 = Not at all Becoming easily annoyed or irritable: 1 = Several days Feeling afraid as if something awful might happen: 0 = Not at all Total MARIA DEL CARMEN-7 score (0-4 normal; 5-9 mild; 10-14 moderate; 15-21 severe): 2 Source: Developed by Drs. Santos Onofre, Britt Soares, Errol Manzanares and colleagues, with an educational antoinette from [employer]. MARIA DEL CARMEN-7 Assessment Billing MARIA DEL CARMEN-7 Assessment Tool: MARIA DEL CARMEN-7 Assessment 88059 Review of Systems Const Denies chills, Reports fatigue, Denies fever(s), Denies headache(s) and Reports weight loss ENT Denies dysphagia, Denies dizziness, Reports dry mouth, Denies otalgia, Denies headache(s), Denies neck pain, Denies odynophagia and Denies sore throat Card Denies chest pain, Denies palpitations and Reports dyspnea on exertion (mild) Resp Denies chest congestion, Denies cough, Reports dyspnea on exertion (mild) and Denies wheezing GI Denies abdominal pain, Denies constipation, Denies dysphagia, Denies heartburn, Denies diarrhea, Denies nausea, Denies odynophagia and Denies vomiting Denies difficulty urinating, Denies dysuria, Reports nocturia and Reports urinary frequency Musc Reports back pain (over the lower back - chronic), Reports arthralgias (left knee, more recently on right knee (has torn meniscus)) and Denies neck pain Skin/Breast Details: (+) mild swelling and redness of the right lower leg Denies rash Neuro Denies dizziness and Denies headache(s) Endo Reports fatigue, Reports polyphagia, Reports polydipsia and Denies palpitations Aller/Immun Denies wheezing Physical exam (Primary Care) Vital Signs: Last Vital Signs Temp 97.7 F 09/19/24 17:06 Pulse 100 09/19/24 17:06 Resp 18 09/19/24 17:06 BP 140/76 H 09/19/24 17:06 Pulse Ox 98 09/19/24 17:06 Oxygen Delivery Method Room Air 09/19/24 17:06 BMI result Body Mass Index 28.1 Tobacco/Smoking Status: Tobacco use Status Tobacco use date assessed 09/19/24 09/19/24 17:05 Patient Tobacco Use Status Former Tobacco user 09/19/24 17:15 Tobacco use type Cigarette 09/19/24 17:05 e-Cigarette/Vaping Use Never Used 09/19/24 17:05 PHQ-9: PHQ-9 Score PHQ-9: Total score 0 09/19/24 17:36 Depression Screening Interpretation: Negative Thrive Assessment: Date of Thrive Assessment Date Thrive assessed 09/19/24 09/19/24 17:05 Currently or been in a relationship where the following occur: No concerns reported Const General: no acute distress and alert HENMT Throat: Yes posterior oropharynx normal and Yes tonsils normal (no TP congestion) Neck Neck: Yes supple and No lymphadenopathy Thyroid: Thyroid normal Resp Auscultation: clear to auscultation bilaterally, no crackles, no rales and no wheezes Cardio Rate: regular rate Rhythm: regular rhythm Heart sounds: no murmurs GI Palpation (GI): Soft to palpation and nontender Auscultation: normal bowel sounds General: Yes no CVA tenderness Back/Spine/Pelvis Back: no CVA tenderness Thoracic/Lumbar Spine: lumbar spinal tenderness Extrem Other: (+) erythema with 2+ edema noted over the right lower extremity Right lower extremity: knee Details: tenderness Location: of the medial joint line; no swelling Left lower extremity: knee Details: tenderness Location: of the medial joint line; no swelling (at present) Results Reviewed Results Reviewed: Laboratory Tests 09/09/24 09/19/24 09/19/24 12:34 10:25 10:35 WBC 14.0 H Hgb 15.8 Hct 46.9 Plt Count 276 ESR 38 H Sodium 138 Potassium 4.0 Creatinine 0.98 Estimated GFR > 60 Fasting Glucose 272 H Hemoglobin A1c % > 14.0 H Calcium 9.0 Magnesium 2.1 AST 33 ALT 49 H B-Natriuretic Peptide 46 Triglycerides 131 Cholesterol 219 H LDL Cholesterol, Calc 137 H HDL Cholesterol 56 25-OH Vitamin D Total 57.9 TSH 1.03 Free T4 1.14 Ur Specific [place] >= 1.030 H Urine Protein Negative Urine Glucose (UA) >=1000 H Urine Blood Negative Urine Nitrite Negative Ur Leukocyte Esterase Negative Microalb/Creat Ratio 20.8 Coding Level of Care Code Est Pt Level 4 (12772) Complex EM visit Add On G2211 Diagnoses Uncontrolled type 2 diabetes mellitus with hyperglycemia E11.65 Diabetes mellitus type: type 2 Elevated blood pressure reading without diagnosis of hypertension R03.0 Pure hypercholesterolemia E78.00 Moderate persistent asthma, unspecified whether complicated J45.40 Asthma severity: moderate Asthma persistence: persistent Asthma complication type: unspecified 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 Cerebral arteriovenous malformation (AVM) Q28.2 Acquired hypothyroidism E03.9 Degeneration of intervertebral disc of lumbar region with discogenic back pain M51.360 Disc-related pain type: discogenic back pain only Primary osteoarthritis, right wrist M19.031 Attention deficit disorder, unspecified hyperactivity presence F98.8 Hyperactivity presence: unspecified Overweight (BMI 25.0-29.9) E66.3 Additional Codes MARIA DEL CARMEN-7 Assessment Billing - MARIA DEL CARMEN-7 Assessment Tool: MARIA DEL CARMEN-7 Assessment 15183 ([id number]) PHQ-9 - 29088 - PHQ-9 Billing: Yes ([id number]) Assessment & Plan Assessment & Plan (1) Uncontrolled diabetes mellitus with hyperglycemia: Code(s): E11.65 - Type 2 diabetes mellitus with hyperglycemia Category: Medical Qualifiers: Diabetes mellitus type: type 2 Qualified Code(s): E11.65 - Type 2 diabetes mellitus with hyperglycemia Plan: His HgbA1c done earlier today is >14.0% Have advised patient that his having to take oral Prednisone so often over the past couple of years or so for his asthma flare ups as well as his recurrent pruritic skin rash has likely finally taken its toll on him, as he is now presenting with uncontrolled diabetes, and that his recent symptoms of frequent fatigue, increased thirst, polydipsia, polyphagia and unintentional weight loss, are all symptoms of uncontrolled DM Discussed diabetic diet Will send patient for some additional labs EFREN for further evaluation, including C-peptide level and MARIA DEL CARMEN Ab, which can help determine his treatment options, although he most likely is a type 2 diabetic Will start him for now on Lantus 10 units Q HS and Humalog Mix 75/25 10 units BID Will refer him as well to endocrinology for further evaluation and management (2) Elevated blood pressure reading without diagnosis of hypertension: Code(s): R03.0 - Elevated blood-pressure reading, without diagnosis of hypertension Category: Medical Plan: His blood pressure is still presently elevated Reinforced low sodium diet Patient is reminded to continue monitoring his BP regularly but advised that we will likely start him on an meghna inhibitor or ARB for his blood pressure soon as he is a diabetic (3) Pure hypercholesterolemia: Code(s): E78.00 - Pure hypercholesterolemia, unspecified Category: Medical Plan: Results of his labs done earlier today reviewed and discussed with patient - he is advised that his cholesterol levels are still elevated on his recent labs Reinforced low-cholesterol diet Patient has declined offer to start him on Rx for his cholesterol in the past Have advised him that current guidelines recommend statin therapy for diabetics regardless of cholesterol levels so we will likely also start him on a statin Rx soon (4) Asthma: Code(s): J45.909 - Unspecified asthma, uncomplicated Category: Medical Qualifiers: Asthma severity: moderate Asthma persistence: persistent Asthma complication type: unspecified Qualified Code(s): J45.40 - Moderate persistent asthma, uncomplicated Plan: His asthma has been difficult to control for the past couple of years, requiring frequent oral Prednisone tapers for recurrent flare ups although this appears much better controlled now with the ongoing treatment of his recently diagnosed pulmonary sporotrichosis He also tested positive for allergies to ragweed and cat dander on allergy testing previously He has failed to respond to biologic treatments with Xolair, Nucala and Fasenra and he could not tolerate Tezspire Continue Symbicort 160-4.5 mcg 2 inhalations BID, Montelukast 10 mg QD and Albuterol HFA 2 inhalations every 6 hours PRN Follow up with pulmonary as scheduled (5) Pulmonary sporotrichosis: Code(s): B42.0 - Pulmonary sporotrichosis Category: Medical Plan: Continue Itraconazole 200 mg BID - will need to continue for 12 months total therapy Follow up with pulmonary as scheduled (6) Cerebral arteriovenous malformation (AVM): Code(s): Q28.2 - Arteriovenous malformation of cerebral vessels Category: Medical Plan: Repeat CT angiogram of the head done back in January 2022 came out negative - report read as no acute intracranial abnormality identified.? Postoperative findings related to embolization of presumed AVM seen in the supravermian cistern region. Asymmetrically prominent distal left [employer] branches and prominent left occipital draining vein are demonstrated, which could represent some residual AV shunting for which neurointerventional follow-up is recommended [place] up with neurosurgery as scheduled (7) Acquired hypothyroidism: Code(s): E03.9 - Hypothyroidism, unspecified Category: Medical Plan: His TFTs were normal on his labs done earlier today Continue Levothyroxine 150 mcg QD (8) Lumbar degenerative disc disease: Code(s): M51.36 - Other intervertebral disc degeneration, lumbar region Category: Medical Qualifiers: Disc-related pain type: discogenic back pain only Qualified Code(s): M51.360 - Other intervertebral disc degeneration, lumbar region with discogenic back pain only Plan: Reinforced activity and weight lifting restrictions Patient states that his chronic pain has remained adequately controlled on Oxycodone 10 mg every 6 hours as needed over the years and he is now looking to try to start cutting back further gradually on his dose - states that he will call with updates and requests for new dosing when needed (9) Primary osteoarthritis, right wrist: Code(s): M19.031 - Primary osteoarthritis, right wrist Category: Medical Plan: Right wrist x-rays done back in October 2020 revealed (+) degenerative changes in the carpal bones; wrist pain have subsided since Will consider referral to orthopedics if his wrist pain gets worse (10) ADD (attention deficit disorder): Code(s): F98.8 - Other specified behavioral and emotional disorders with onset usually occurring in childhood and adolescence Category: Medical Qualifiers: Hyperactivity presence: unspecified Qualified Code(s): F98.8 - Other specified behavioral and emotional disorders with onset usually occurring in childhood and adolescence Plan: Continue Adderall XR 20 mg QD Follow up with psychiatry as scheduled Have discussed again with patient that he should start considering alternative options for his ADD as staying on stimulant Rx as he gets older can raise his CV risks (11) Overweight (BMI 25.0-29.9): Code(s): E66.3 - Overweight Category: Medical Plan: Reinforced diet/exercise as tolerated/lose weight - he has lost a lot of weight lately, likely due to his uncontrolled diabetes Plan Follow up in 1 month Orders: Orders Glutamic acid decarboxylase Ab 09/19/24 E11.9 - Type 2 diabetes mellitus without complications C Peptide 09/19/24 E11.9 - Type 2 diabetes mellitus without complications Microalbumin, Random (w Creat) 09/19/24 E11.9 - Type 2 diabetes mellitus without complications Referrals Endocrinology Referral E11.65 - Type 2 diabetes mellitus with hyperglycemia Medications: New insulin glargine (Lantus Solostar U-100 Insulin) 10 units (0.1 mL) subcut QPM 3 mL 1RF 30 days insulin lispro protamin-lispro 100 unit/mL (75-25) (Humalog Mix 75-25 KwikPen) 10 units (0.1 mL) subcut BID 6 mL 1RF 30 days pen needle, diabetic As directed 3 times a day 100 ea 5RF E11.9 - Type 2 diabetes mellitus without complications doxycycline hyclate 100 mg PO BID 14 caps 0RF 7 days
[2024-09-19 17:06] VITALS: BP 140/76; PULSE 100; RESP 18; TEMP 36.5; O2SAT 98; BMI 28.1
== END 2024-09-19 17:41 | disposition home or self-care (01) ==
LOC: HO.HMCH 16:41
PROVIDERS: PCP Internal Medicine; Visit Provider Internal Medicine
DX: E11.65 Type 2 diabetes mellitus with hyperglycemia (principal); R03.0 Elevated blood-pressure reading, without diagnosis of hypertension; E78.00 Pure hypercholesterolemia, unspecified; J45.40 Moderate persistent asthma, uncomplicated; A00-B99 Certain infectious and parasitic diseases; Q28.2 Arteriovenous malformation of cerebral vessels; E03.9 Hypothyroidism, unspecified; M51.360 Other intervertebral disc degeneration, lumbar region with discogenic back pain only; M19.031 Primary osteoarthritis, right wrist; F98.8 Other specified behavioral and emotional disorders with onset usually occurring in childhood and adolescence; E66.3 Overweight

== ENCOUNTER 2024-09-30 08:49 | Outpatient (REF) | payer OTHER, SELFPAY ==
[2024-09-30 09:39] LABS: Alanine Aminotransferase 78 U/L (0-40); Albumin Level 4.0 g/dL (3.5-5.0); Alkaline Phosphatase 95 U/L (39-117); Anion Gap 13 (12-20); Aspartate Amino Transferase 40 U/L (5-37); Blood Urea Nitrogen 14 mg/dL (9-16); Calcium 9.0 mg/dL (8.4-10.2); Carbon Dioxide 33 mmol/L (22-29); Chloride 99 mmol/L (96-108); Estimated Glomerular Filt Rate > 60; Potassium 4.5 mmol/L (3.3-5.1); Sodium 140 mmol/L (135-145); Total Protein 6.3 g/dL (6.5-8.0)
[2024-09-30 09:53] LABS: Appearance Urine Clear; Glucose Urine UA >=1000 mg/dL (Negative); PH 7.5 (5.0-9.0); Specific Gravity - Urine 1.020 (1.005-1.025); UMIC TRIGGER UACC YES
== END 2024-09-30 08:50 | disposition home or self-care (01) ==
LOC: HO.LAB 08:49
PROVIDERS: Internal Medicine Pulmonary Disease; PCP Internal Medicine; Visit Provider Internal Medicine
DX: Z01.84 Encounter for antibody response examination (principal); E11.9 Type 2 diabetes mellitus without complications; J16.8 Pneumonia due to other specified infectious organisms; B49 Unspecified mycosis; R30.0 Dysuria
CPT/HCPCS: 36415; 80048; 80076; 81001; 82043; 82570; 84681; 86341

== ENCOUNTER 2024-10-21 14:15 | Outpatient (AMB) | payer OTHER, SELFPAY ==
[2024-10-21 14:23] VITALS: BP 180/94; PULSE 94; O2SAT 98; BMI 30.3
--- NOTE | 2024-10-21 14:23 | A.OFFVIS_ITS ---
Vital Signs 10/21/24 14:23 Height 5 ft 9 in Weight 205 lb BMI 30.3 BP 180/94 H Blood Pressure Location Lt brachial Position Sitting Pulse 94 Pulse Source Pulse Oximeter Pulse Oximetry (%) 98 Oxygen Delivery Method Room Air Intake Visit Reasons: Asthma Allergies tezepelumab-ekko (From [facility]) Adverse Reaction (Severe, Verified 10/21/24 14:27) severe joint pains and weakness HPI HPI Asthma: Details: 49-year-old gentleman, former 20+pack-year smoker, quit 2017, followed for moderate persistent asthma.? He was tried on Xolair with some, but still suboptimal improvement of his asthma symptoms, he was switched to Tezspire with no significant changes. He continues on Symbicort albuterol MDI. Patient had bronchoscopy with lavage growing sporotrichos. He continues itraconazole with slow improvement in his symptoms. [facility] Medical History (Updated 09/20/24 @ 04:30 by Rambo Qureshi MD) Overweight (BMI 25.0-29.9) Stroke Impaired fasting glucose Pure hypercholesterolemia Pityriasis lichenoides Poorly controlled persistent asthma Obesity (BMI 30-39.9) Cerebral arteriovenous malformation (AVM) Lumbar degenerative disc disease Acquired hypothyroidism Asthma Surgical History Status post coil embolization of cerebral aneurysm (~11/03/12) History of lumbar discectomy Family History Father Diabetes Mother No problems noted. 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 Cognitive needs: No Hearing needs: No Vision needs: No Review of Systems Const Denies daytime sleepiness, Denies excessive sweating, Denies fatigue, Denies fever(s), Denies lethargy, Denies malaise, Denies night sweats, Denies snoring and Denies weight loss Eyes Denies blurry vision and Denies itchy eyes ENT Denies nasal congestion, Denies post nasal drip, Denies sinus pain, Denies sinus pressure and Denies other ( Thrush) Card Denies chest pain, Denies pedal edema, Denies dyspnea, Denies orthopnea and Denies paroxysmal nocturnal dyspnea Resp Reports cough, Denies hemoptysis, Reports excessive phlegm production, Denies dyspnea, Denies snoring and Denies wheezing GI Denies abdominal pain and Denies heartburn Musc Denies myalgias, Denies arthralgias and Denies joint swelling Skin/Breast Denies rash Neuro Denies memory loss and Denies seizure-like activity Psych Denies abnormal sleep pattern, Denies anxiety and Denies memory loss Endo Denies excessive sweating, Denies fatigue and Denies heat intolerance Dom/Lymph Denies easy bruising Aller/Immun Denies itchy eyes, Denies seasonal rhinorrhea and Denies wheezing Physical Exam Vital Signs: Last Vital Signs Pulse 94 10/21/24 14:23 BP 180/94 H 10/21/24 14:23 Pulse Ox 98 10/21/24 14:23 Oxygen Delivery Method Room Air 10/21/24 14:23 BMI result Body Mass Index 30.3 Const General: no acute distress and alert Nutritional Appearance: not obese Orientation/consciousness: Other orientation findings ( oriented) HEENT Head: Yes atraumatic Eyes General: appearance normal, both eyes and all related structures Sclerae: sclerae normal EOM: EOMs intact bilaterally Neck Neck: Yes supple Lymphatic: no lymphadenopathy noted Resp Effort & Inspection: normal respiratory effort and no use of accessory muscles Auscultation: clear to auscultation bilaterally Cardio Rate: regular rate Rhythm: regular rhythm Heart sounds: no gallops, no murmurs and no rubs Skin General skin exam: other ( warm) Extrem General: No clubbing, No cyanosis and No edema Assessment & Plan Assessment & Plan (1) Pulmonary sporotrichosis: Code(s): B42.0 - Pulmonary sporotrichosis Category: Medical Plan: Slowly improving, continue on itraconazole for total of 15 month therapy. Will repeat sputum culture. (2) Severe persistent asthma: Code(s): J45.50 - Severe persistent asthma, uncomplicated Category: Medical Plan: Continue on current regimen of Symbicort and albuterol MDI. 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
== END 2024-10-21 14:54 | disposition home or self-care (01) ==
LOC: HO.HPS 14:16
PROVIDERS: PCP Internal Medicine; Visit Provider Internal Medicine Pulmonary Disease
DX: A00-B99 Certain infectious and parasitic diseases (principal); J45.50 Severe persistent asthma, uncomplicated
CPT/HCPCS: 99214

== ENCOUNTER → 2024-10-21 14:15 | Outpatient (BNVA) | payer OTHER, SELFPAY | PROVIDERS: PCP Internal Medicine; Visit Provider Internal Medicine Pulmonary Disease | DX: A00-B99 Certain infectious and parasitic diseases (principal); J45.40 Moderate persistent asthma, uncomplicated | CPT/HCPCS: 99212 ==

== ENCOUNTER 2024-10-27 11:55 | Outpatient (AMB) | payer OTHER, SELFPAY ==
[2024-10-27 11:58] VITALS: BP 126/80; PULSE 100; O2SAT 95
--- NOTE | 2024-10-27 11:58 | A.OFFPC_ITS ---
Vital Signs 10/27/24 11:58 Height 5 ft 9 in Weight 203 lb BMI 30.0 BP 126/80 Blood Pressure Location Lt brachial Position Sitting Pulse 100 Pulse Source Pulse Oximeter Pulse Oximetry (%) 95 Oxygen Delivery Method Room Air Intake Visit Reasons: 3 month f/u Automobile Rental Agent Required: No Accompanied by: Self / Same As Patient Allergies tezepelumab-ekko (From Tezspire) Adverse Reaction (Severe, Verified 10/27/24 12:16) severe joint pains and weakness Medication List - Last Reconciled 10/27/24 by Rambo Qureshi MD albuterol sulfate 90 mcg/actuation 2 puffs inhalation 6XD PRN 30 days budesonide-formoterol 160-4.5 mcg/actuation (Symbicort) 2 puffs inhalation BID 30 days dextroamphetamine-amphetamine 15 mg (Adderall) 15 mg PO DAILY inhalational spacing device ([employer] [facility] spacer) USE DIRECTED insulin glargine (Lantus Solostar U-100 Insulin) 10 units (0.1 mL) subcut QPM 30 days insulin lispro protamin-lispro 100 unit/mL (75-25) (Humalog Mix 75-25 KwikPen) 10 units (0.1 mL) subcut BID 30 days itraconazole (Sporanox) 200 mg (2 x 100 mg) PO BID 30 days levothyroxine 150 mcg PO QAM 90 days oxycodone 10 mg PO Q6-8H PRN 28 days pen needle, diabetic As directed 3 times a day prednisone 10 mg PO DIRECTED Tobacco use date assessed: 10/27/24 Dental Screening Dental Screen Date: 10/27/24 Did you have a dental visit in the last 12 months?: Yes Did you have a dental problem in the last 6 months where you did not have access to dental care?: No Was dental information given to patient?: Patient has dentist HPI 3 month f/u HPI Details Patient comes in today for his follow up visit States that he feels okay and that his blood sugar seems to be getting under much better control lately on his current Rx He denies any headaches or dizziness Denies any chest pains, no SOB No nausea/vomiting, no abdominal pain No change in bowel habits noted Adds that he has a small open sore on his right lower leg for at least a couple of weeks now and that seems to be draining slightly on and off States that he has an appointment scheduled now with endocrinology but it is not until the end of the month [facility] Medical History Overweight (BMI 25.0-29.9) Stroke Impaired fasting glucose Pure hypercholesterolemia Pityriasis lichenoides Poorly controlled persistent asthma Obesity (BMI 30-39.9) Cerebral arteriovenous malformation (AVM) Lumbar degenerative disc disease Acquired hypothyroidism Asthma Surgical History Status post coil embolization of cerebral aneurysm (~11/03/12) History of lumbar discectomy Family History Father Diabetes Mother No problems noted. 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 1. Little interest or pleasure in doing things: not at all 2. Feeling down, depressed, or hopeless: not at all 3. Trouble falling or staying asleep, or sleeping too much: not at all 4. Feeling tired or having little energy: not at all 5. Poor appetite or overeating: not at all 6. Feeling bad about yourself - or that you are a failure or have let yourself or your family down: not at all 7. Trouble concentrating on things, such as reading the newspaper or watching television: not at all 8. Moving or speaking so slowly that other people could have noticed. Or the opposite - being so fidgety or restless that you have been moving around a lot more than usual: not at all 9. Thoughts that you would be better off or of hurting yourself in some way: not at all Total score: 0 Depression Screening Interpretation: Negative Depression Screening Done: Yes 54117 - PHQ-9 Billing: Yes Source: Developed by Drs. Santos Onofre, Britt Soares, Errol Manzanares and colleagues, with an educational antoinette from [employer]. Thrive Questionnaire Date Thrive assessed: 10/27/24 I am a: Patient What is your living situation today?: I have a steady place to live Within the past 12 months, did the food you bought not last and you didn't have the money to get more?: Sometimes True Within the past 12 months, did you worry whether your food would run out before you got money to buy more?: Never true Do you have trouble paying for medicines?: No Do you have trouble getting transportation to medical appointments?: No Do you have trouble paying your heating and electricity bill?: No Do you have trouble taking care of your child, family member or friend?: No Do you have trouble with day-to-day activities such as bathing, preparing meals, shopping, managing finances, etc.?: No Are you currently unemployed and looking for a job?: No Are you interested in more education?: No Please select the resources that you would like help with: None Currently or been in a relationship where the following occur: No concerns reported THRIVE Score: 1 AUDIT C Alcohol Use Questionnaire (AUDIT-C) 1. How often do you have a drink containing alcohol?: Monthly or less 2. How many drinks containing alcohol do you have on a typical day when you are drinking?: 1 or 2 3. How often do you have six or more drinks on one occasion?: Never Total Score: 1 Score Reviewed/Action Taken: Yes MARIA DEL CARMEN-7 AMB Questionnaire MARIA DEL CARMEN-7 Date MARIA DEL CARMEN - 7 assessed: 10/27/24 Feeling nervous, anxious, or on edge: 0 = Not at all Not being able to stop or control worryin = Not at all Worrying too much about different things: 0 = Not at all Trouble relaxin = Several days Being so restless that it is hard to sit still: 0 = Not at all Becoming easily annoyed or irritable: 1 = Several days Feeling afraid as if something awful might happen: 0 = Not at all Total MARIA DEL CARMEN-7 score (0-4 normal; 5-9 mild; 10-14 moderate; 15-21 severe): 2 Source: Developed by Drs. Santos Onofre, Britt Soares, Errol Manzanares and colleagues, with an educational antoinette from [employer]. MARIA DEL CARMEN-7 Assessment Billing MARIA DEL CARMEN-7 Assessment Tool: MARIA DEL CARMEN-7 Assessment 75945 Review of Systems Const Denies chills, Reports fatigue, Denies fever(s) and Denies headache(s) ENT Denies dysphagia, Denies dizziness, Denies otalgia, Denies headache(s), Denies neck pain, Denies odynophagia and Denies sore throat Card Denies chest pain, Denies palpitations and Reports dyspnea on exertion (mild) Resp Denies chest congestion, Denies cough, Reports dyspnea on exertion (mild) and Denies wheezing GI Denies abdominal pain, Denies constipation, Denies dysphagia, Denies heartburn, Denies diarrhea, Denies nausea, Denies odynophagia and Denies vomiting Denies difficulty urinating, Denies dysuria, Reports nocturia and Reports urinary frequency Musc Reports back pain (over the lower back - chronic), Reports arthralgias (left knee, more recently on right knee (has torn meniscus)) and Denies neck pain Skin/Breast Details: (+) small open wound on the right lower leg - drains slightly off and on Denies rash Neuro Denies dizziness and Denies headache(s) Endo Reports fatigue and Denies palpitations Aller/Immun Denies wheezing Physical exam (Primary Care) Vital Signs: Last Vital Signs Pulse 100 10/27/24 11:58 BP 126/80 10/27/24 11:58 Pulse Ox 95 10/27/24 11:58 Oxygen Delivery Method Room Air 10/27/24 11:58 BMI result Body Mass Index 30.0 Tobacco/Smoking Status: Tobacco use Status Tobacco use date assessed 10/27/24 10/27/24 12:02 Patient Tobacco Use Status Former Tobacco user 10/27/24 12:02 Tobacco use type Cigarette 10/27/24 12:02 e-Cigarette/Vaping Use Never Used 10/27/24 12:02 PHQ-9: PHQ-9 Score PHQ-9: Total score 0 10/27/24 12:31 Depression Screening Interpretation: Negative Thrive Assessment: Date of Thrive Assessment Date Thrive assessed 10/27/24 10/27/24 12:02 Currently or been in a relationship where the following occur: No concerns reported Const General: no acute distress and alert HENMT Throat: Yes posterior oropharynx normal and Yes tonsils normal (no TP congestion) Neck Neck: Yes supple and No lymphadenopathy Thyroid: Thyroid normal Resp Auscultation: clear to auscultation bilaterally, no crackles, no rales and no wheezes Cardio Rate: regular rate Rhythm: regular rhythm Heart sounds: no murmurs GI Palpation (GI): Soft to palpation and nontender Auscultation: normal bowel sounds General: Yes no CVA tenderness Back/Spine/Pelvis Back: no CVA tenderness Thoracic/Lumbar Spine: lumbar spinal tenderness Skin Other: (+) small open sore on the right lower leg, with minimal clear drainage noted from the sore Extrem Other: (+) erythema with 2+ edema noted over the right lower extremity Right lower extremity: knee Details: tenderness Location: of the medial joint line; no swelling Left lower extremity: knee Details: tenderness Location: of the medial joint line; no swelling (at present) Results AMB Hemoglobin A1c AMB Hemoglobin A1c 9.2 % Last Edit by Maggie Carrero CMA on 10/27/24 12 :28 Results Reviewed Results Reviewed: Laboratory Last Values Hgb A1c (Clinic) 9.2 % (4.0-6.0) H 10/27/24 12:27 Coding Level of Care Code Est Pt Level 4 (48271) Diagnoses Uncontrolled type 2 diabetes mellitus with hyperglycemia E11.65 Diabetes mellitus type: type 2 Elevated blood pressure reading without diagnosis of hypertension R03.0 Pure hypercholesterolemia E78.00 Moderate persistent asthma, unspecified whether complicated J45.40 Asthma severity: moderate Asthma persistence: persistent Asthma complication type: unspecified 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 Cerebral arteriovenous malformation (AVM) Q28.2 Acquired hypothyroidism E03.9 Degeneration of intervertebral disc of lumbar region with discogenic back pain M51.360 Disc-related pain type: discogenic back pain only Primary osteoarthritis, right wrist M19.031 Attention deficit disorder, unspecified hyperactivity presence F98.8 Hyperactivity presence: unspecified Overweight (BMI 25.0-29.9) E66.3 Additional Codes MARIA DEL CARMEN-7 Assessment Billing - MARIA DEL CARMEN-7 Assessment Tool: MARIA DEL CARMEN-7 Assessment 75054 ([id number]) PHQ-9 - 17651 - PHQ-9 Billing: Yes ([id number]) Assessment & Plan Assessment & Plan (1) Uncontrolled diabetes mellitus with hyperglycemia: Code(s): E11.65 - Type 2 diabetes mellitus with hyperglycemia Category: Medical Qualifiers: Diabetes mellitus type: type 2 Qualified Code(s): E11.65 - Type 2 diabetes mellitus with hyperglycemia Plan: His in-office HgbA1c today is at 9.2% - this has improved significantly from >14.0% in just about 5 weeks Reinforced diabetic diet His C-peptide level and MARIA DEL CARMEN Ab done recently were both normal Continue Lantus 10 units Q HS and Humalog Mix 75/25 10 units BID He was referred to endocrinology for further evaluation and management and he is now scheduled to be seen by Dr. Rodarte at the end of the month on 11/20/2024 (2) Elevated blood pressure reading without diagnosis of hypertension: Code(s): R03.0 - Elevated blood-pressure reading, without diagnosis of hypertension Category: Medical Plan: His blood pressure is still presently elevated Reinforced low sodium diet Patient is reminded to continue monitoring his BP regularly but advised that we will likely start him on an meghna inhibitor or ARB for his blood pressure soon as he is a diabetic (3) Pure hypercholesterolemia: Code(s): E78.00 - Pure hypercholesterolemia, unspecified Category: Medical Plan: Patient reminded that his cholesterol levels were high when they were last checked a couple of months ago Reinforced low-cholesterol diet Patient has declined offer to start him on Rx for his cholesterol in the past Have advised him that current guidelines recommend statin therapy for diabetics regardless of cholesterol levels so we will likely also start him on a statin Rx soon (4) Asthma: Code(s): J45.909 - Unspecified asthma, uncomplicated Category: Medical Qualifiers: Asthma severity: moderate Asthma persistence: persistent Asthma complication type: unspecified Qualified Code(s): J45.40 - Moderate persistent asthma, uncomplicated Plan: His asthma has been difficult to control for the past couple of years, requiring frequent oral Prednisone tapers for recurrent flare ups although this appears much better controlled now with the ongoing treatment of his recently diagnosed pulmonary sporotrichosis He also tested positive for allergies to ragweed and cat dander on allergy testing previously He has failed to respond to biologic treatments with Xolair, Nucala and Fasenra and he could not tolerate Tezspire Continue Symbicort 160-4.5 mcg 2 inhalations BID, Montelukast 10 mg QD and Albuterol HFA 2 inhalations every 6 hours PRN Follow up with pulmonary as scheduled (5) Pulmonary sporotrichosis: Code(s): B42.0 - Pulmonary sporotrichosis Category: Medical Plan: Continue Itraconazole 200 mg BID - will need to continue for 12 months total therapy Follow up with pulmonary as scheduled (6) Cerebral arteriovenous malformation (AVM): Code(s): Q28.2 - Arteriovenous malformation of cerebral vessels Category: Medical Plan: Repeat CT angiogram of the head done back in January 2022 came out negative - report read as no acute intracranial abnormality identified.? Postoperative findings related to embolization of presumed AVM seen in the supravermian cistern region. Asymmetrically prominent distal left FRUIT PEELER branches and prominent left occipital draining vein are demonstrated, which could represent some residual AV shunting for which neurointerventional follow-up is recommended [place]ow up with neurosurgery as scheduled (7) Acquired hypothyroidism: Code(s): E03.9 - Hypothyroidism, unspecified Category: Medical Plan: His TFTs were normal on his labs done earlier today Continue Levothyroxine 150 mcg QD (8) Lumbar degenerative disc disease: Code(s): M51.36 - Other intervertebral disc degeneration, lumbar region Category: Medical Qualifiers: Disc-related pain type: discogenic back pain only Qualified Code(s): M51.360 - Other intervertebral disc degeneration, lumbar region with discogenic back pain only Plan: Reinforced activity and weight lifting restrictions Patient states that his chronic pain has remained adequately controlled on Oxycodone 10 mg every 6 hours as needed over the years and he is now looking to try to start cutting back further gradually on his dose - states that he will call with updates and requests for new dosing when needed (9) Primary osteoarthritis, right wrist: Code(s): M19.031 - Primary osteoarthritis, right wrist Category: Medical Plan: Right wrist x-rays done back in October 2020 revealed (+) degenerative changes in the carpal bones; wrist pain have subsided since Will consider referral to orthopedics if his wrist pain gets worse (10) ADD (attention deficit disorder): Code(s): F98.8 - Other specified behavioral and emotional disorders with onset usually occurring in childhood and adolescence Category: Medical Qualifiers: Hyperactivity presence: unspecified Qualified Code(s): F98.8 - Other specified behavioral and emotional disorders with onset usually occurring in childhood and adolescence Plan: Continue Adderall XR 20 mg QD Follow up with psychiatry as scheduled Have discussed again with patient that he should start considering alternative options for his ADD as staying on stimulant Rx as he gets older can raise his CV risks (11) Overweight (BMI 25.0-29.9): Code(s): E66.3 - Overweight Category: Medical Plan: Reinforced diet/exercise as tolerated/lose weight - he has lost a lot of weight lately, likely due to his uncontrolled diabetes Plan Follow up in 3 months Orders: Orders AMB Hemoglobin A1c Today Z13.9 - Encounter for screening, unspecified Complete Blood Count Auto Diff 3 Months D64.9 - Anemia, unspecified Lipid Panel 3 Months E78.00 - Pure hypercholesterolemia, unspecified Hemoglobin A1c 3 Months E11.9 - Type 2 diabetes mellitus without complications Comprehensive [place]. Panel Fast 3 Months E78.00 - Pure hypercholesterolemia, unspecified Microalbumin, Random (w Creat) 3 Months E11.9 - Type 2 diabetes mellitus without complications Free T4 (Free Thyroxine) 3 Months E03.9 - Hypothyroidism, unspecified Thyroid Stimulating Hormone 3 Months E03.9 - Hypothyroidism, unspecified UA CC w/rflx Micro + Cult 3 Months R30.0 - Dysuria Vitamin D 25-OH Total 3 Months E55.9 - Vitamin D deficiency, unspecified Vitamin B12 and Folate 3 Months E53.8 - Deficiency of other specified B group vitamins
== END 2024-10-27 12:49 | disposition home or self-care (01) ==
LOC: HO.HMCH 11:56
PROVIDERS: PCP Internal Medicine; Visit Provider Internal Medicine
DX: Z13.9 Encounter for screening, unspecified (principal)

== ENCOUNTER → 2024-10-27 11:55 | Outpatient (BNVA) | payer OTHER, SELFPAY | PROVIDERS: PCP Internal Medicine; Visit Provider Internal Medicine | DX: E11.65 Type 2 diabetes mellitus with hyperglycemia (principal); R03.0 Elevated blood-pressure reading, without diagnosis of hypertension; E78.00 Pure hypercholesterolemia, unspecified; J45.40 Moderate persistent asthma, uncomplicated; A00-B99 Certain infectious and parasitic diseases; Q28.2 Arteriovenous malformation of cerebral vessels; M51.360 Other intervertebral disc degeneration, lumbar region with discogenic back pain only; M19.031 Primary osteoarthritis, right wrist; F98.8 Other specified behavioral and emotional disorders with onset usually occurring in childhood and adolescence; E66.3 Overweight; D64.9 Anemia, unspecified; E03.9 Hypothyroidism, unspecified; R30.0 Dysuria; E55.9 Vitamin D deficiency, unspecified; E53.8 Deficiency of other specified B group vitamins; Z68.30 Body mass index [BMI] 30.0-30.9, adult | CPT/HCPCS: 83036; 96127; 99212 ==

== ENCOUNTER 2024-11-21 08:33 | Outpatient (AMB) | payer OTHER, SELFPAY ==
--- NOTE | 2024-11-21 08:37 | A.OFFVIS_ITS ---
Vital Signs 11/21/24 08:40 Height 5 ft 9 in Weight 211 lb 6.773 oz BMI 31.2 BP 168/100 H Blood Pressure Location Rt brachial Position Sitting Pulse 115 H Pulse Source Pulse Oximeter Pulse Oximetry (%) 94 Oxygen Delivery Method Room Air Intake Visit Reasons: Type 2 diabetes mellitus with hyperglycemia Intake Note: New patient internally referred by PCP for T2DM management. Patient states he does not have any diabetes supply. Last Diabetic Eye exam: Less than 1 year, [facility] Last Podiatry Visit: Does not see a Ad Clerk Random Glucose: 244 mg/dl Hgb A1C: 9.2% 10/27/2024 Natural Science Curator Required: No Accompanied by: Self / Same As Patient Allergies [facility]epelumab[facility]ekko [facility] Adverse Reaction (Severe, Verified 11/21/24 08:42) severe joint pains and weakness Medication List - Last Reconciled 11/21/24 by Santos Rodarte MD albuterol sulfate 90 mcg/actuation 2 puffs inhalation 6XD PRN 30 days budesonide-formoterol 160-4.5 mcg/actuation (Symbicort) 2 puffs inhalation BID 30 days dextroamphetamine-amphetamine 15 mg (Adderall) 15 mg PO DAILY inhalational spacing device ([facility] spacer) USE DIRECTED insulin glargine (Lantus Solostar U-100 Insulin) 10 units (0.1 mL) subcut QPM 30 days insulin lispro protamin-lispro 100 unit/mL (75-25) (Humalog Mix 75-25 KwikPen) 10 units (0.1 mL) subcut BID 30 days itraconazole (Sporanox) 200 mg (2 x 100 mg) PO BID 30 days levothyroxine 150 mcg PO QAM 90 days oxycodone 10 mg PO Q6-8H PRN 28 days pen needle, diabetic As directed 3 times a day prednisone 10 mg PO DIRECTED HPI Comments Details: 49 YO M who is seen in consultation for T2DM at the request of PCP. Initially diagnosed with T2DM in 1 mo . Never saw specialist before Was initially started on treatment with insulin . Current regimen Lantus 10 units . Humalog 10 units BID started 1 mo ago Not Checks sugars Unfortunately, patient not bring log book, glucometer or sensor to visit No Reports low sugars . Most recent A1C 9.2 on 10/27/2024, Family history of T2DM in father . Grandfather had Type 2 DM Has eyes checked yearly, last eye exam less than yr ago , denies retinopathy. Denies neuropathy, , Not sees podiatry. Denies nephropathy,Not on SAMSON/ARB. UAC [] as measured on []. Not Has HLD,Not on statin. Denies CAD. Not Had diabetes education. [facility], [facility] Medical History Overweight (BMI 25.0-29.9) Stroke Impaired fasting glucose Pure hypercholesterolemia Pityriasis lichenoides Poorly controlled persistent asthma Obesity (BMI 30-39.9) Cerebral arteriovenous malformation (AVM) Lumbar degenerative disc disease Acquired hypothyroidism Asthma Surgical History Status post coil embolization of cerebral aneurysm (~11/03/12) History of lumbar discectomy Family History Father Diabetes Mother No problems noted. 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 Absence of acromegalic features. Neck exam reveals nl size thyroid about 15 gms. No thyroid nodules palpable. No carotid bruits present. Lungs CTA. Heart S1 S2, Reg R/R. No M/R/ G. Skin exam reveals absence of vitiligo or acanthosis nigricans. Abdominal exam reveals Soft NT/ND with NA BS. No organomegaly present. Neck Other: . Extrem Other: Visual exam of foot performed.Tense edema present. Several circular ulcerated areas on LLE on e is oozing exudate No onchomycosis, no callouses.Pulses 2 + distally Sensation intact to monofilament exam. Vibratory sensation sensed is decreased with 128 Hz tuning fork Results Reviewed Results Reviewed: Laboratory Last Values Glucose (Clinic) 244 mg/dL (60-115) H 11/21/24 08:48 Assessment & Plan Assessment & Plan (1) Uncontrolled diabetes mellitus with hyperglycemia: Code(s): E11.65 - Type 2 diabetes mellitus with hyperglycemia Category: Medical Qualifiers: Diabetes mellitus type: type 2 Qualified Code(s): E11.65 - Type 2 diabetes mellitus with hyperglycemia Plan: This is a 49-year-old white male with a history of type 2 diabetes being treated with basal-bolus insulin with poor glycemic control and no known microvascular or macrovascular complication. Plan is to have the patient check his point of cares pre and post meals and to talk to the patient about initiating a sensor namely Rosalind 3+. Could not make any adjustments in the insulin regimen because of lack of data. We will have patient see in service educator and frame table operator. Once we obtain more data, could either adjust insulin we will consider initiating G LP 1 agonist and /or metformin. Also made referral to Wound Care regarding the left lower extremity ulcer as well as to Podiatry. Lastly, we will start atorvastatin 10 mg q.d. and recheck lipid profile in 2 months. Went over the correlation of poor glycemic control to development of progression of complications. We will have patient follow up with primary care diabetes team in 5 weeks Orders: Referrals Diabetes Education Referral E11.65 - Type 2 diabetes mellitus with hyperglycemia Wound Care Referral E11.65 - Type 2 diabetes mellitus with hyperglycemia Nutrition/Dietitian Referral E11.65 - Type 2 diabetes mellitus with hyperglycemia Podiatry Referral E11.65 - Type 2 diabetes mellitus with hyperglycemia Medications: New atorvastatin (Lipitor) 10 mg PO BEDTIME 30 tabs 5RF FreeStyle Rosalind 3 Plus Sensor (blood-glucose sensor) As directed change every 15 days 2 ea 4RF NS Coding Level of Care Code New Pt Level 5 (59977) Diagnoses Uncontrolled type 2 diabetes mellitus with hyperglycemia E11.65 Diabetes mellitus type: type 2
[2024-11-21 08:40] VITALS: BP 168/100; PULSE 115; O2SAT 94; BMI 31.2
[2024-11-21 08:52] LABS: Glucose, Whole Blood 244 mg/dL (60-115)
--- OUTSIDE RECORDS SUMMARY | 2024-11-21 08:59 | XMS_ITS | Patient Health Record ---
Author Organization [facility] Address [address] [address] Care Team Providers Care Furnace Combination Analyst Name Role Phone Jeanette Casillas Unavailable [phone] Allergies No Known Allergies Reason For Referral No Information Medications Medication SIG (Take, Route, Fr equency, Duration) Notes Start Date End Date Status Levothyroxine Sodium Active Adderall Active Encounters Encounter Location Date Provider Diagnosis [facility] [address] [address] 09/03/2024 Jeanette Casillas Cellulitis of right leg L03.115 Assessments Encounter Date Diagnosis (ICD Code) Assessment Notes Treatment Notes Treatment Clinical Notes Section Notes 09/03/2024 Cellulitis of right leg (ICD-10 - L03.115) Advised patient to take antibiotic as prescribed. Advised patient that he was seen virtually and if symptoms worsen or persist > 72 hours, he eneds to be seen in person. If your condition worsens we recommend that you receive another evaluation at the emergency room immediately or contact your primary physician to discuss your concerns. You must understand that you've received an Urgent care treatment only and that you may be released before all of your medical problems are known or treated. You, the patient, will arrange for follow up care as instructed. Plan Of Treatment No Information Medical (General) History Medical History History ICD Code Hypothyroidism attention deficit hyperactivity disorder
== END 2024-11-21 09:28 | disposition home or self-care (01) ==
LOC: HO.ENCR 08:34
PROVIDERS: PCP Internal Medicine; Visit Provider Internal Medicine Endocrinology, Diabetes & Metabolism
DX: E11.65 Type 2 diabetes mellitus with hyperglycemia (principal)
CPT/HCPCS: 99204

== ENCOUNTER → 2024-11-21 08:33 | Outpatient (BNVA) | payer OTHER, SELFPAY | PROVIDERS: PCP Internal Medicine; Visit Provider Internal Medicine Endocrinology, Diabetes & Metabolism | DX: E11.65 Type 2 diabetes mellitus with hyperglycemia (principal) | CPT/HCPCS: 82947; 99202 ==

== ENCOUNTER 2024-12-07 08:53 | Outpatient (REF) | payer OTHER, SELFPAY | END 2024-12-07 08:54 | disposition home or self-care (01) | LOC: HO.LAB 08:53 | PROVIDERS: PCP Internal Medicine; Visit Provider Student in an Organized Health Care Education/Training Program | DX: E11.622 Type 2 diabetes mellitus with other skin ulcer (principal); L97.322 Non-pressure chronic ulcer of left ankle with fat layer exposed; E11.65 Type 2 diabetes mellitus with hyperglycemia; E03.9 Hypothyroidism, unspecified; L03.116 Cellulitis of left lower limb; I83.893 Varicose veins of bilateral lower extremities with other complications; S80.822A Blister (nonthermal), left lower leg, initial encounter; Z79.899 Other long term (current) drug therapy; Z79.4 Long term (current) use of insulin | CPT/HCPCS: 29581; 87070; 87077; 87186; 87205; 97597; 99202 ==

== ENCOUNTER 2024-12-07 08:53 | Outpatient (AMB) | payer OTHER, SELFPAY ==
[2024-12-07 09:01] VITALS: BMI 31.2
--- NOTE | 2024-12-07 09:01 | MHC.OFFVIS ---
Vital Signs 12/07/24 09:01 Height 5 ft 9 in Weight 211 lb BMI 31.2 Intake Visit Reasons: Type 2 diabetes mellitus with hyperglycemia Intake Note: Van is a 49 year old male who presents to the office today as a new patient referred by Dr. Rodarte for Type 2 diabetes mellitus with hyperglycemia. Pt currently has a left lower extremity ulcer. Pt states his ulcer is being treated by wound care in [place]. Patient Glucose was 137 last night before bed and his last reported A1c was 9.2. He denies and numbness, tingling or burning in the feet he also has no history of wounds or amputation to the feet. Allergies tezepelumab-ekko (From Tezspire) Adverse Reaction (Severe, Verified 12/07/24 09:01) severe joint pains and weakness Medication List - Last Reconciled 12/07/24 by Sheela Segundo DPM albuterol sulfate 90 mcg/actuation 2 puffs inhalation 6XD PRN 30 days blood sugar diagnostic (FreeStyle Lite Strips) As directed checks once a day blood-glucose meter (FreeStyle Lite Meter kit) As directed budesonide-formoterol 160-4.5 mcg/actuation (Symbicort) 2 puffs inhalation BID 30 days dextroamphetamine-amphetamine 15 mg (Adderall) 15 mg PO DAILY FreeStyle Rosalind 3 Plus Sensor (blood-glucose sensor) As directed change every 15 days NS inhalational spacing device (OptiChamber Laura VHC spacer) USE DIRECTED insulin glargine (Lantus Solostar U-100 Insulin) 10 units (0.1 mL) subcut QPM 30 days insulin lispro protamin-lispro 100 unit/mL (75-25) (Humalog Mix 75-25 KwikPen) 10 units (0.1 mL) subcut BID 30 days itraconazole (Sporanox) 200 mg (2 x 100 mg) PO BID 30 days lancets (FreeStyle Lancets) As directed checks once a day levothyroxine 150 mcg PO QAM 90 days oxycodone 10 mg PO Q6-8H PRN 28 days pen needle, diabetic As directed 4 times a day prednisone 10 mg PO DIRECTED HPI Comments Details: The patient is a 49-year-old male with a PMH as seen below presenting for a diabetic foot exam and ulcers to the left lower extremity. The wounds have been present for approximately two to three weeks, with no prior history of similar issues. The patient reports that the wounds are not deep and there is no pus, only clear fluid leakage. The patient has been attending wound care for two weeks and goes weekly, with regular self at-home dressing changes every other day. The patient states he is currently not taking any antibiotics. He denies any pain, and also denies numbness or tingling in the feet. He denies any recent pedal injuries. Patient states his blood glucose last night was 137 mg/dL. He denies any other pedal concerns. [facility] Medical History (Updated 12/07/24 @ 10:04 by Sheela Segundo DPM) Blister of left lower extremity Varicose veins of bilateral lower extremities with other complications Left leg cellulitis Diabetic ulcer of ankle associated with diabetes mellitus due to underlying condition Ulcer of left ankle Overweight (BMI 25.0-29.9) Stroke Impaired fasting glucose Pure hypercholesterolemia Pityriasis lichenoides Poorly controlled persistent asthma Obesity (BMI 30-39.9) Cerebral arteriovenous malformation (AVM) Lumbar degenerative disc disease Acquired hypothyroidism Asthma Surgical History Status post coil embolization of cerebral aneurysm (~11/03/12) History of lumbar discectomy Family History Father Diabetes Mother No problems noted. 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 LLE - various blisters and ulcers measuring approximately 0.5 x 0.5 cm and less noted diffusely to the left leg extending to the ankle. No ulcers noted to the foot. Mottling of skin noted. Mild edema noted. Serous drainage noted. No purulence noted. No probing to bone, undermining, or tunneling noted. Fibrogranular wound beds noted. Vasc: DP/PT pulses palpable. CFT < 3 secs. Temp gradient warm to warm. Varicosities noted. Pedal hair absent. Neuro: Protective sensations grossly intact to light touch and slightly diminished to monofilament testing. MSK: No pain on palpation to ulcerative sites. Mild fluctuance noted to areas of blisters. No crepitus noted. MMT 5/5. ROM of the forefoot, hindfoot, and ankle WNL. Office Procedures AMB Debridement/Avulsion Podia Details: Cleansed the LLE with saline and performed Mechanical debridement of LLE extremity ulcers. No purulence noted. Serous drainage noted. Obtained a wound culture to be sent for microbiology. Applied silvadene, adaptic, 4x4 gauze, kerlix, and a stockinet to the LLE. [id number] of active wound <20cm Procedure code (CPT) selection complete AMB Podiatry Dressing Details of Procedure: Applied silvadene, adaptic, 4x4 gauze, kerlix, and a stockinet to the LLE. 54529 - Multi-layer compressive dressing Procedure code (CPT) selection complete Results Reviewed Results Reviewed: Laboratory Tests 10/27/24 11/21/24 12:27 08:48 Glucose (Clinic) 244 H Hgb A1c (Clinic) 9.2 H Assessment & Plan Assessment & Plan (1) Ulcer of left ankle: Code(s): L97.329 - Non-pressure chronic ulcer of left ankle with unspecified severity Category: Medical Qualifiers: Non-pressure ulcer stage: with fat layer exposed Qualified Code(s): L97.322 - Non-pressure chronic ulcer of left ankle with fat layer exposed (2) Diabetic ulcer of ankle associated with diabetes mellitus due to underlying condition: Code(s): E08.622 - Diabetes mellitus due to underlying condition with other skin ulcer; L97.309 - Non-pressure chronic ulcer of unspecified ankle with unspecified severity Category: Medical (3) Acquired hypothyroidism: Code(s): E03.9 - Hypothyroidism, unspecified Category: Medical (4) Left leg cellulitis: Code(s): L03.116 - Cellulitis of left lower limb Category: Medical (5) Varicose veins of bilateral lower extremities with other complications: Code(s): I83.893 - Varicose veins of bilateral lower extremities with other complications Category: Medical (6) Blister of left lower extremity: Code(s): S80.822A - Blister (nonthermal), left lower leg, initial encounter Category: Medical Qualifiers: Encounter type: initial encounter Qualified Code(s): S80.822A - Blister (nonthermal), left lower leg, initial encounter Plan Patient was informed and verbally consented to the use of an ambient scribe for clinic note documentation during this visit. I discussed with the patient the importance of continuing wound care and the plan to perform a wound culture to assess for infection. We talked about the use of Silvadene to aid in wound healing and blister formation. I emphasized the need to monitor blood pressure and diabetes closely and manage hypertension effectively. Educated patient on diabetes and the adverse effects that can take place if glucose is not controlled. - Continue attending wound care for regular dressing changes and monitoring. - Performed wound culture to determine the need for antibiotics. - Prescribed Silvadine for at-home application on the wound to aid healing and prevent blister formation. - Encourage continued monitoring of blood pressure and blood glucose and management as per PCP. - Advised patient if there are any worsening signs of infection to call our office or go to the ED. - Advised patient to monitor his feet daily and to avoid barefoot walking. RTC in 1 month for re-evaluation. Orders: Orders AMB Podiatry Dressing Today E03.9 - Hypothyroidism, unspecified, E08.622 - Diabetes mellitus due to underlying condition with other skin ulcer, I83.893 - Varicose veins of bilateral lower extremities with other complications, L97.309 - Non-pressure chronic ulcer of unspecified ankle with unspecified severity, L97.329 - Non-pressure chronic ulcer of left ankle with unspecified severity, S80.822A - Blister (nonthermal), left lower leg, initial encounter AMB Diabetic Foot Exam Today E03.9 - Hypothyroidism, unspecified, E08.622 - Diabetes mellitus due to underlying condition with other skin ulcer, I83.893 - Varicose veins of bilateral lower extremities with other complications, L97.309 - Non-pressure chronic ulcer of unspecified ankle with unspecified severity, L97.322 - Non-pressure chronic ulcer of left ankle with fat layer exposed, S80.822A - Blister (nonthermal), left lower leg, initial encounter Routine Culture w Gram Stain Today E08.622 - Diabetes mellitus due to underlying condition with other skin ulcer, L97.309 - Non-pressure chronic ulcer of unspecified ankle with unspecified severity, L97.329 - Non-pressure chronic ulcer of left ankle with unspecified severity AMB Debridement/Avulsion Podiatry Today E03.9 - Hypothyroidism, unspecified, E08.622 - Diabetes mellitus due to underlying condition with other skin ulcer, I83.893 - Varicose veins of bilateral lower extremities with other complications, L03.116 - Cellulitis of left lower limb, L97.309 - Non-pressure chronic ulcer of unspecified ankle with unspecified severity, L97.329 - Non-pressure chronic ulcer of left ankle with unspecified severity, S80.822A - Blister (nonthermal), left lower leg, initial encounter Medications: New silver sulfadiazine 1% (Silvadene) apply a 1.5 mm thickness 1 appl topical DAILY 25 grams 1RF Left lower extremity ulcers E03.9 - Hypothyroidism, unspecified, E08.622 - Diabetes mellitus due to underlying condition with other skin ulcer, L03.116 - Cellulitis of left lower limb, L97.309 - Non-pressure chronic ulcer of unspecified ankle with unspecified severity Coding Level of Care Code New Pt Level 4 (29135) Diagnoses Skin ulcer of left ankle with fat layer exposed L97.322 Non-pressure ulcer stage: with fat layer exposed Diabetic ulcer of ankle associated with diabetes mellitus due to underlying condition E08.622; L97.309 Acquired hypothyroidism E03.9 Left leg cellulitis L03.116 Varicose veins of bilateral lower extremities with other complications I83.893 Blister of left lower extremity, initial encounter S80.822A Encounter type: initial encounter CPT Codes Skin Debridement - CPT: 97865-Knhakjpyjmg of active wound <20cm ([id number]) Podiatry Dressing - CPT: 11013 - Multi-layer compressive dressing ([id number]) Time Spent (min) 60
--- OUTSIDE RECORDS SUMMARY | 2024-12-07 09:31 | XMS_ITS | Data Portability ---
Author Organization [facility] [address] [place] [address] Care Team Providers Care Stone Mason Name Role Phone IRMA PEPPER Primary Care Provider [phone] Assessment No assessment recorded. Plan of Treatment Reminders Order Date Submit Date Provider Last Modified By Organization Details Last Modified Time Details Appointments RECHECK 10 2024 03:30P M Edgar Wharton PA-C Not available Not available Not available Lab None recorded . Referral None recorded . Procedures None recorded . Surgeries repair tricep/b icep muscle/t endon (SURG) 2024 025 [email or web address] [place], [address], [place], [address], 10/12/2024 09:32:10 Imaging XR, knee, 4 or more view - 217 2024 025 [email or web address], [address], [place], [address], 06/03/2024 10:18:24 XR, elbow, 3 or more view - RM 111 3V L ELBOW 2024 025 [email or web address] [facility], [address], [place], [address], 05/04/2024 14:23:43 Medication Orders None recorded . Patient TargetsNo targets recorded. Patient InstructionsNo instructions recorded. Reason for Referral None Reported. Results Created Date Observation Date Name Description Value Unit Range Abnormal Flag Note LastModifiedBy Organization Detail LastModifiedTime 05/05/19 25 05/04/2024 XR, elbow , 3 or more view http:/ [email or web address] ?Encry pted=s hAaTro YD8dLq bEUv6g %2BXZw aYqtaq 0bqfl% 2Fg9IQ a4ajBk vP9nXo QUaueC m3YtLR FvZlgJ JJ8mAn HZtai3 7b8221 AC0KqY nyHUaK lKiQtr Mw INTERFACE [facility] Office [address], [place], [address], 05/04/2024 14:14:40 05/05/19 25 05/04/2024 XR, elbow , 3 or more view http:/ [email or web address] ?Encry pted=s hAaTro YD8dLq bEUv6g %2BXZw aYqtaq 0bqfl% 2Fg9IQ a4ajBk vP9nXo QUaueC m3YtLR FvZlJ JJ8mAn HZtai3 5f6894 AC0KqY nyHUaK lKiQtr [facility] INTERFACE [facility] Office [address], [place], [address], 05/04/2024 14:14:42 05/14/19 25 05/13/2024 MRI, elbow , w/o contr ast No observ ation record ed. [email or web address] [facility] [address] [facility] [address], [place], [address], 05/13/2024 14:10:11 05/24/19 25 05/23/2024 XR, knee, 4 or more view http:/ [email or web address] ?Encry pted=s hAaTro YD8dLq bEUv6g %2BXZw aYqtaq 0bqfl% 2Fg9IQ a4ajBk vP9nXo QUaueC m3YtLR FvZlgJ JJ8mAn HZtai3 8x6059 AC0KqY nSNUKG lKiQtr MwF INTERFACE [facility] [address], [place], [address], 05/23/2024 14:54:39 05/24/19 25 05/23/2024 XR, knee, 4 or more view http:/ [email or web address] ?Encry pted=s hAaTro YD8dLq bEUv6g %2BXZw aYqtaq 0bqfl% 2Fg9IQ a4ajBk vP9nXo QUaueC m3YtLR FvZlgJ JJ8mAn HZtai3 2z1140 AC0KqY nSNUKG lKiQtr MwF INTERFACE [facility] [address], [place], [address], 05/23/2024 14:54:41 Result Notes Documentation Provider Name and Address Organization Details Recorded Time Xr, Elbow, 3 Or More View : [email or web address]? Encrypted=vcJwFlvHP9cUijE Uv6g%7ZMOazOsvuk7auxe%2Fg 1OSv8hlHisR0zZxCPtdkYh8Ii KWUkOuyZLA3kJcXRmft28r235 7RC6LmRyqIAfZtQaSgkSjO Not Available [facility] 05/04/2024 14:14: 40 Xr, Elbow, 3 Or More View : [email or web address]? Encrypted=bhFmVgjHX3iFheP Uv6g%5LTCszZlyyq4kktg%2Fg 8YDm4ymUgzQ0dCxHQtxwUp3Sx LIOvHduXYD8nBgUPqfs88l872 6LX1RjWvpJEiCcDlEvxNjL Not Available [facility] 05/04/2024 14:14: 42 Xr, Knee, 4 Or More View : [email or web address]? Encrypted=frWdMzuZF7lWuxI Uv6g%4WHVprEhpdk3pbwp%2Fg 9SJe4rjEtrC4zOlKIrffIf5As YSFtQebUFO7jDoQAmzl54o790 5GJ5VpVrGCMVGeDiYpvUsH Not Available [facility] 05/23/2024 14:54: 40 Xr, Knee, 4 Or More View : [email or web address]? Encrypted=eaEqWcxQC9zThzG Uv6g%6TUIrhJhswo7hcmc%2Fg 1ZLs2xjMctO5vQvHFinqGk8Em IWJmWfmIPW1vCtWSdow67f971 2HM3EiRcHPRGTfNdZoyAqH Not Available [facility] 05/23/2024 14:54: 42 Problems Name Problem SNOMED Code Status Onset Date Resolution Date Notes Provider Name and Address Organization Details Recorded Time Pain of right knee joint 1849040922837 00 Active 2024 Edgar Wharton PA-C [address], [place], [address], [facility] 14:38:41 Osteoarthri tis of right knee joint 2453962152552 00 Active 2024 Edgar Wharton PA-C [address], [place], [address], [facility] 15:35:01 Problem Notes None recorded. Procedures Surgical History Date Name Laterality Status Provider Name and Address Organization Details Recorded Time 5 Sports Knee 4&1 completed Edgar Wharton PA-C [address], [place], [address], [facility] 08/16/2024 06:13:00 5 Sports Knee 4&1 completed Edgar Wharton PA-C [address], [place], [address], [facility] 05/23/2024 15:34:50 5 Head or Neck Surgery completed JOVAN PEDROZA [place] [facility] 06/29/2024 15:01:52 5 Knee Surgery completed JOVAN PEDROZA [place] [facility] 06/29/2024 15:01:51 Imaging Results [...] Not Available Not Available No t Available Kaylynn Sanchez [facility] spacer USE DIRECTED active Not Available Not Available No t Available Vitals Date Recorded Body height Body mass index (BMI) Body weight Provider Name and Address Organization Details Last Updated DateTime 05/04/2024 172.72 cm 32.4 kg/m2 72693.17 santosh WILSON [facility] 05/04/2024 14:09:03 Date Recorded Body height Body mass index (BMI) Body weight Provider Name and Address Organization Details Last Updated DateTime 05/18/2024 172.72 cm 31.6 kg/m2 12514.21 santosh WILSON [facility] 05/18/2024 13:51:22 Date Recorded Body height Body mass index (BMI) Body weight Provider Name and Address Organization Details Last Updated DateTime 05/23/2024 172.72 cm 31.5 kg/m2 42752.62 g Edgar Wharton PA-C [address] [facility], [place], [address], [facility] 05/23/2024 14:37:50 Date Recorded Body height Body mass index (BMI) Body weight Provider Name and Address Organization Details Last Updated DateTime 06/29/2024 172.72 cm 31.5 kg/m2 62469.62 g JOVAN PEDROZA [facility] 06/29/2024 15:01:58 Date Recorded Body height Body mass index (BMI) Body weight Provider Name and Address Organization Details Last Updated DateTime 08/16/2024 172.72 cm 31.5 kg/m2 05141.62 g Edgar Wharton PA-C [address] [facility], [place], [address], [facility] 08/16/2024 10:41:03 Social History Question Answer Notes LastModified by Organizat ion Details LastModified Time Tobacco Smoking Status Never Smoker Edgar Wharton PA-C [address], [place], [address], [facility] 08/16/2024 10:41:46 What Is Your Relationship Status? Single [place] [address] Information not available 08/16/2024 Sex: Unknown Functional Status Question Answer Note LastModified by Organizat ion Details LastModified Time Do you use any illicit or recreational drugs? No [place] [address] Information not available 08/16/2024 What is your level of alcohol consumption? None [place] [address] Information not available 08/16/2024 Mental Status None recorded. Family History Nothing Reported. Medical History Condition Response Thyroid Problems Y Stroke Y Asthma Y Past Encounters Encounter ID Performer Location Encounter Start Date Encounter Closed Date Diagnosis/Indication Diagnosis SNOMED-CT Code Diagnosis ICD10 Code Diagnosis IMO Codes Diagnosis Note [id number] ZACHARY Juarez [address] [place] [address] 05/04/2024 13:49:28 05/12/2024 16:03:35 Pain of elbow region 95759653 M25.522 [id number] ZACHARY Juarez [address] [place] [address] 05/18/2024 13:47:31 06/05/2024 13:52:04 [id number] ZACHARY Galo [address] [place] [address] 05/23/2024 14:29:27 06/03/2024 10:18:24 Pain of right knee joint 1887492103 17360 M25.561 349966 Osteoarthr itis of right knee joint 1644282953 67162 M17.11 [id number] MD MARILYNN Cantrell [address] [place] [address] 06/29/2024 14:55:52 07/12/2024 12:27:08 Left triceps tendon tear 4980585607 6251076 S46.312D [id number] ZACHARY Galo [facility] [place] [address] 08/16/2024 10:25:02 08/19/2024 08:28:48 Pain of right knee joint 2920138390 91681 M25.561 025828 Osteoarthr itis of right knee joint 6343212422 59119 M17.11 [id number] Health Concerns Section Related Observation LastModified by Organization Detai ls LastModified Time None Recorded Concern Status LastModified by Organization Details LastModified Time None Recorded Advance Directives Directive None Recorded Payers Insurance Date Sequence Insurance Name Policy Number Policy Hines Covered Member ID Hines Member ID Guarantor Name 09/08/2024 1 [facility] PLAN (MEDICAID HMO) LEDY Van Ang [id number] Van Ang Notes Date Note Type Note Provider Name [...] intact. X-rays ordered, obtained and reviewed at [facility] 3 views left elbow reveals no fracture or dislocation. Impression/Plan:Find ings and situation discussed. I am concerned that he may have a partial versus complete tricep tendon. Will obtain an MRI. He will follow-up after the study. Moises Cross PA-C [address] [facility] [address], [place], [address], [place] [facility] 05/04/2024 14:23:39 05/18/2024 text/html [...] his options. He will call Dr. Heaton's department secretary if he decides to proceed with surgery. Patient examined discussed with Dr. Sudarshan Cross PA-C [address] [place] [address] [address], [place], [address], [facility] 05/18/2024 14:30:58 05/23/2024 text/html I am seeing [...] oriented x3. Normal insight, affect, and grooming. TRAVEL NURSE: Gross motor coordination is intact. No spasticity [...] views ordered and independently reviewed previously at [facility] of the 4 views of the right [...] of compliance regarding home exercises moving forward. \[facility] speech recognition operations specialists software was used to create portions of this document. An attempt at proofreading has been made to minimize errors. Please call for corrections Edgar Wharton PA-C [address] [place] [address] [address], [place], [address], [facility] 05/23/2024 15:35:21 06/29/2024 text/html ROS as noted in the HPI Diagnosis: Left distal triceps rupture The patient [...] consented to the procedure. Gurwinder Heaton MD [address] [place] [address] [address], [place], [address], [facility] 06/30/2024 10:16:59 08/16/2024 text/html I am [...] views ordered and independently reviewed previously at [facility] of the 4 views of the right [...] of compliance regarding home exercises moving forward. [employer] speech recognition operations specialists software was used to create portions of this document. An attempt at proofreading has been made to minimize errors. Please call for corrections Edgar Wharton PA-C [address] [place], [place] [address] [address], [place], [address], [facility] 08/16/2024 11:04:17
--- OUTSIDE RECORDS SUMMARY | 2024-12-07 09:31 | XMS_ITS | Patient Health Record ---
Author Organization [facility] & [facility] Address [address] [address] Care Team Providers Care Conditioning Coach Name Role Phone Jeanette Casillas Unavailable [phone] Allergies No Known Allergies Reason For Referral No Information Medications Medication SIG (Take, Route, Fr equency, Duration) Notes Start Date End Date Status Levothyroxine Sodium Active Adderall Active Encounters Encounter Location Date Provider Diagnosis [facility] [address] [address] 09/03/2024 Jeanette Casillas Cellulitis of right leg [...]
== END 2024-12-07 09:40 | disposition home or self-care (01) ==
LOC: HO.HPODS 08:54
PROVIDERS: PCP Internal Medicine; Visit Provider Student in an Organized Health Care Education/Training Program
DX: L97.322 Non-pressure chronic ulcer of left ankle with fat layer exposed (principal); L97.309 Non-pressure chronic ulcer of unspecified ankle with unspecified severity; L03.116 Cellulitis of left lower limb; S80.822A Blister (nonthermal), left lower leg, initial encounter; I83.893 Varicose veins of bilateral lower extremities with other complications; E03.9 Hypothyroidism, unspecified
CPT/HCPCS: 29581; 97597; 99204

== ENCOUNTER 2024-12-08 08:07 | Outpatient (AMB) | payer OTHER, SELFPAY ==
--- OUTSIDE RECORDS SUMMARY | 2024-12-08 08:14 | XMS_ITS | Patient Health Record ---
Author Organization [facility] & [facility] Address [address] [address] Care Team Providers Care Major Case Detective Name Role Phone Jeanette Casillas Unavailable [phone] Allergies No Known Allergies Reason For Referral No Information Medications Medication SIG (Take, Route, Fr equency, Duration) Notes Start Date End Date Status Levothyroxine Sodium Active Adderall Active Encounters Encounter Location Date Provider Diagnosis [facility] [address] [address] 09/03/2024 Jeanette Casillas Cellulitis of right leg [...]
--- NOTE | 2024-12-08 09:00 | A.OFFVIS_ITS ---
Intake Intake Visit Reasons: 60 mins Casing Mixer Required: No Accompanied by: Self / Same As Patient Allergies tezepelumab-ekko (From [facility]) Adverse Reaction (Severe, Verified 12/07/24 09:01) severe joint pains and weakness HPI Comprehensive Diabetes Asmnt Most Recent Diabetes Results: 2 Microalb/Creat Ratio TNP 09/30/24 Creatinine, (0.5-1.4) 1.02 mg/dL 09/30/24 BUN, (9-16) 14 mg/dL 09/30/24 Sodium, (135-145) 140 mmol/L 09/30/24 Potassium, (3.3-5.1) 4.5 mmol/L 09/30/24 Chloride, (96-108) 99 mmol/L 09/30/24 Carbon Dioxide, (22-29) 33 mmol/L H 09/30/24 Calcium, (8.4-10.2) 9.0 mg/dL 09/30/24 AST, (5-37) 40 U/L H 09/30/24 ALT, (0-40) 78 U/L H 09/30/24 Total Protein, (6.5-8.0) 6.3 g/dL L 09/30/24 Albumin, (3.5-5.0) 4.0 g/dL 09/30/24 [facility] Medical History (Updated 12/07/24 @ 10:04 by Sheela Segundo DPM) Blister of left lower extremity Varicose veins of bilateral lower extremities with other complications Left leg cellulitis Diabetic ulcer of ankle associated with diabetes mellitus due to underlying condition Ulcer of left ankle Overweight (BMI 25.0-29.9) Stroke Impaired fasting glucose Pure hypercholesterolemia Pityriasis lichenoides Poorly controlled persistent asthma Obesity (BMI 30-39.9) Cerebral arteriovenous malformation (AVM) Lumbar degenerative disc disease Acquired hypothyroidism Asthma Surgical History Status post coil embolization of cerebral aneurysm (~11/03/12) History of lumbar discectomy Family History Father Diabetes Mother No problems noted. 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 The patient met all learning objectives and was able to verbalize understanding and provide teach back of education topics discussed . The patient was provided with the opportunity to ask questions and all questions were answered. Patient Assessment Assess patient education level/literacy/barriers, patient newly diagnosed type 2 diabetes. A1c on 10/25/2024 9.2% patient is currently taking Lantus 10 units daily a Humalog 75/25 10 units b.i.d. Patient questions/concerns, reviewed with patient how to use [employer]style Rosalind Lite glucometer. how to administer mixed insulin Insulin/Incretin?Mimetic Education visit Patient Education: Patient was instructed and provided with demonstration of the following: Insulin action and Incretin Mimetics medication storage how to set up medication pen/or syringe and vial Handwashing insulin injection site rotation Site rotation Testing blood glucose Removing and disposing needle from insulin pen Safe disposal of sharps Target blood sugar Signs/ symptoms/treatment of hypoglycemia/hyperglycemia expiration of open insulin pen What is Diabetes? Pathophysiology How the body produces and uses insulin Identify type of DM Risk factors Signs of Diabetes Brief overview of Diabetes Management Monitoring blood sugar Following a meal plan Regular exercise Maintaining a healthy weight Taking medication as needed Members of the care team (PCP, RN, MA, RD, CDE, scale technician) Blood glucose monitoring When/how often to test Target blood sugar ranges patient's current sensor has been reading patient has been hypoglycemic frequently in the last 2 days. Patient has verified glucose with fingerstick multiple times. Fingerstick are within normal limits. recommended to patient to remove current glucose sensor, contact [facility] for replacement sensor and insert new sensor Introduction to Nutrition Importance of healthy diet in managing DM Diet is personalized to individual preference Review patient?s regular diet/food preferences Who prepares meals/does food shopping/ Dining out?/ Barriers? How diet effects glucose Eating 3 balanced meals a day with small, healthy snacks between meals Review food groups Carbohydrates: What is a carbohydrate/Which food/food groups are considered carbohydrates Effect of carbohydrates on blood glucose Portion sizes Reading food labels Basic carb counting (if applicable per nursing assessment) Plate method Meal planning Recommendations: Follow plate method, consistent carbs and read nutritional labels. Smart Goal: patient will identify foods in current meal plan that contain carbohydrates Educational Materials: The patient was provided with the following written educational materials: Planning Healthy Meals Handout Patient Response to instructions: Comprehension of Instructions: Fair Readiness to make changes: Contemplation How confident they feel about making changes: Positive patient will follow-up with diabetes education nurse on 01/02/[address] Rodarte Portions of this note were created using voice recognition software, please excuse any words or phrases that may have been misinterpreted. Patient Instructions: Include regular daily activity. ADA recommends 30 minutes of exercise 5 days a week. Weight loss talk to PCP or Edge Molder before starting new plan. Test blood sugar as directed; Fasting and 2hpp largest meal. Watch trends in results. Utilize results and to assess how food, physical activity and medications affect blood sugar results. Bring glucometer or CGM to next visit. Be knowledgeable about diabetes medication, its action, side effects, efficacy, toxicity, prescribed dosage, appropriate timing and frequency of administration, effect of missed and delayed doses and instructions for storage, travel and safety. Problem solving techniques to monitor hypo/hyperglycemia episodes and treatments. Reduce risk reduction behaviors, smoking cessation, regular eye, foot and dental examinations. Coding Level of Care Code Est Pt Level 1 (22243) Diagnoses Uncontrolled type 2 diabetes mellitus with hyperglycemia E11.65 Diabetes mellitus type: type 2
== END 2024-12-08 09:08 | disposition home or self-care (01) ==
LOC: HO.ENCR 08:08
PROVIDERS: PCP Internal Medicine; Visit Provider Registered Nurse Diabetes Educator
DX: E11.65 Type 2 diabetes mellitus with hyperglycemia (principal)

== ENCOUNTER → 2024-12-08 08:07 | Outpatient (BNVA) | payer OTHER, SELFPAY | PROVIDERS: PCP Internal Medicine; Visit Provider Registered Nurse Diabetes Educator | DX: E11.65 Type 2 diabetes mellitus with hyperglycemia (principal); Z79.4 Long term (current) use of insulin | CPT/HCPCS: 99211 ==

== ENCOUNTER 2024-12-10 21:21 | Inpatient (IN) | payer OTHER, SELFPAY ==
--- NOTE | ~2024-12-10 | XR_ITS ---
CLINICAL HISTORY: gasous organism 5 view left knee Comparison: None provided Findings: Bones intact. No dislocations. There is joint space narrowing of the medial joint compartment with chondrocalcinosis of the menisci. Findings are consistent with mild degenerative changes. No acute fracture deformity. No joint effusion. No radiopaque foreign body. Extensive soft tissue swelling in the suprapatellar soft tissues. No definite subcutaneous gas seen. IMPRESSION: Extensive soft tissue swelling of the suprapatellar soft tissues. This document has been electronically signed by: Jose M Ivan MD on 12/11/2024 00:52:59
--- NOTE | ~2024-12-10 | CT_ITS ---
CLINICAL HISTORY: swelling left knee CT knee left with IV contrast Comparison: CR - XR KNEE LT 3V - 12/11/24 00:00 EDT Findings: Small joint effusion. Diffuse subcutaneous stranding around the knee and overlying skin thickening. No abscess or drainable fluid collection seen.. No subcutaneous gas seen. No fracture deformity. There is chondrocalcinosis of the medial meniscus in the bilateral tibial articular surfaces. Joint space narrowing of the medial joint compartment is present with small marginal osteophytes. IMPRESSION: 1. Extensive subcutaneous stranding and fluid and skin thickening suggesting cellulitis. No subcutaneous gas to suggest gas-forming organism. No abscess. 2. Small joint effusion. This document has been electronically signed by: Jose M Ivan MD on 12/11/2024 02:52:21
[2024-12-10 21:30] VITALS: BP 199/91; PULSE 100; RESP 18; TEMP 36.5; O2SAT 98; BMI 31.0
--- NOTE | 2024-12-10 21:57 | ECG_ITS ---
Test Reason : HTN Blood Pressure : */* mmHG Vent. Rate : 99 BPM Atrial Rate : 99 BPM P-R Int : 126 ms QRS Dur : 84 ms QT Int : 364 ms P-R-T Axes : 47 -18 40 degrees QTcB Int : 467 ms Normal sinus rhythm Cannot rule out Anterior infarct , age undetermined Abnormal ECG When compared with ECG of 09-Sep-2024 12:27, No significant change was found Referred By: Generic ED Physician Electronically Signed By: Ming Robledo
[2024-12-10 22:04] LABS: MANUAL DIFF FLAG NO
[2024-12-10 22:05] LABS: Hematocrit 50.0 % (42.0-52.0); Hemoglobin 16.6 g/dl (14.0-18.0); Imm Gran Abs Auto 0.23 X10*3/uL (0.00-0.03); Imm Gran Pct Auto 1.3 % (0.0-0.4); Lymphocytes Absolute Auto 0.9 X10*3/uL (1.2-4.9); Mean Corpuscular HGB Conc 33.2 g/dl (31.0-36.0); Mean Corpuscular Hemoglobin 28.6 pg (27.0-33.0); Mean Corpuscular Volume 86.2 fL (80.0-98.0); NRBC Abs Auto 0.000 X10*3/uL (0.0-0.012); NRBC Pct Auto 0.0 /100WBC (0.0-0.2); Platelet Count 229 X10*3/uL (160-400); Red Blood Count 5.80 X10*6/uL (4.60-5.80); White Blood Count 17.3 X10*3/uL (4.8-10.8)
[2024-12-10 22:13] VITALS: BP 199/91; PULSE 100; RESP 18; TEMP 36.5; O2SAT 98
--- OUTSIDE RECORDS SUMMARY | 2024-12-10 22:16 | XMS_ITS | Patient Health Record ---
Author Organization [facility] Address [address] [address] Care Team Providers Care Liaison Inspection Laboratory Assistant Name Role Phone Jeanette Casillas Unavailable [phone] Allergies No Known Allergies Reason For Referral No Information Medications Medication SIG (Take, Route, Fr equency, Duration) Notes Start Date End Date Status Levothyroxine Sodium Active Adderall Active Encounters Encounter Location Date Provider Diagnosis [facility] [address] [address] 09/03/2024 Jeanette Casillas Cellulitis of right leg [...]
--- OUTSIDE RECORDS SUMMARY | 2024-12-10 22:16 | XMS_ITS | Data Portability ---
Author Organization [facility] Address [address] [place] [address] Care Team Providers Care Yarn Texturing Machine Operator Name Role Phone IRMA PEPPER Primary Care [...] tricep/b icep muscle/t endon (SURG) 2024 025 [email or web address] [place], [address], [place], [address], 10/12/2024 09:32:10 Imaging XR, knee, 4 or more view - 217 2024 025 [email or web address] [facility], [address], [place], [address], 06/03/2024 10:18:24 XR, elbow, 3 or more view - RM 111 3V L ELBOW 2024 025 [email or web address] [facility] [address], [place], [address], 05/04/2024 14:23:43 Medication Orders None recorded . [...] a4ajBk vP9nXo QUaueC m3YtLR FvZlgJ JJ8mAn HZtai3 4n9709 AC0KqY nyHUaK lKiQtr Mw INTERFACE [facility] Office [address], [place], [address], 05/04/2024 14:14:40 05/05/19 25 05/04/2024 XR, elbow , 3 or more view http:/ [email or web address] ?Encry pted=s hAaTro YD8dLq bEUv6g %2BXZw aYqtaq 0bqfl% 2Fg9IQ a4ajBk vP9nXo QUaueC m3YtLR FvZlJ JJ8mAn HZtai3 5c7703 AC0KqY nyHUaK lKiQtr [facility] INTERFACE [facility] Office [address], [place], [address], 05/04/2024 14:14:42 05/14/19 25 05/13/2024 MRI, elbow , w/o contr ast No observ ation record ed. [email or web address] [facility] [address] [facility] [address], [place], [address], 05/13/2024 14:10:11 05/24/19 25 05/23/2024 XR, knee, 4 or more view http:/ [email or web address] ?Encry pted=s hAaTro YD8dLq bEUv6g %2BXZw aYqtaq 0bqfl% 2Fg9IQ a4ajBk vP9nXo QUaueC m3YtLR FvZlgJ JJ8mAn HZtai3 7m2027 AC0KqY nSNUKG lKiQtr MwF INTERFACE [facility] [address], [place], [address], 05/23/2024 14:54:39 05/24/19 25 05/23/2024 XR, knee, 4 or more view http:/ [email or web address] ?Encry pted=s hAaTro YD8dLq bEUv6g %2BXZw aYqtaq 0bqfl% 2Fg9IQ a4ajBk vP9nXo QUaueC m3YtLR FvZlgJ JJ8mAn HZtai3 5g7996 AC0KqY nSNUKG lKiQtr MwF INTERFACE [facility] [address], [place], [address], 05/23/2024 14:54:41 Result Notes Documentation Provider Name and Address Organization Details Recorded Time Xr, Elbow, 3 Or More View : [email or web address]? Encrypted=krLfKcdML5bBdyZ Uv6g%8OONahAkpig0jymd%2Fg 8ULt7lnYhoJ7rWqPIobgMi5Cf KVFpKzdKIU2rOuXZcps34t341 3CU7YeImoSObHvZiIhjTbF Not Available [facility] 05/04/2024 14:14: 40 Xr, Elbow, 3 Or More View : [email or web address]? Encrypted=zkHwRwgGM0lDwzZ Uv6g%8BPNmqMjnxq9lyva%2Fg 1GUd0vyMhaU6xOnHOxvwPq9Rw VDJbVoqRRY7nNpZXtne81n467 2EO6AvKltAEmEhYtZazLfG Not Available [facility] 05/04/2024 14:14: 42 Xr, Knee, 4 Or More View : [email or web address]? Encrypted=iyGmCbuYO9tHetM Uv6g%0NHAflAhbzf1mkvl%2Fg 2DHz3vzTgnI4fUnKVfxzFu2Dp TAHmNmkDUH4tOnHHewe80a182 8RP1UlOqSQPMQqOyVtcRaO Not Available [facility] 05/23/2024 14:54: 40 Xr, Knee, 4 Or More View : [email or web address]? Encrypted=ibLiDbvWM4aLpoK Uv6g%4GYLtoHubry8wyaf%2Fg 8LKe4twWzsO0wPjITlatTa7Dw BIDxJpgBGX1mXiCIaqr18w128 2VB3YaBfZRHYDmSbYvqXuZ Not Available [facility] 05/23/2024 14:54: 42 Problems Name Problem SNOMED Code Status Onset Date Resolution Date Notes Provider Name and Address Organization Details Recorded Time Pain of right knee joint 6974582748904 00 Active 2024 Edgar Wharton PA-C [address], [place], [address], [facility] 14:38:41 Osteoarthri tis of right knee joint 4257883552297 00 Active 2024 Edgar Wharton PA-C [address], [place], [address], [facility] 15:35:01 Problem Notes None recorded. Procedures Surgical History Date Name Laterality Status Provider Name and Address Organization Details Recorded Time 5 Sports Knee 4&1 completed Edgar Wharton PA-C [address], [place], [address], [facility] 08/16/2024 06:13:00 5 Sports Knee 4&1 completed Edgar Wharton PA-C [address], [place], [address], [facility] 05/23/2024 15:34:50 5 Head or Neck Surgery completed JOVAN PEDROZA [place] [facility] 06/29/2024 15:01:52 5 Knee Surgery completed JOVAN PEDROZA [place] [facility] 06/29/2024 15:01:51 Imaging [...] Not Available No t Available Kaylynn Sanchez [facility] spacer USE DIRECTED active Not Available Not Available No t Available Vitals Date Recorded Body height Body mass index (BMI) Body weight Provider Name and Address Organization Details Last Updated DateTime 05/04/2024 172.72 cm 32.4 kg/m2 13923.17 santosh WILSON [facility] 05/04/2024 14:09:03 Date Recorded Body height Body mass index (BMI) Body weight Provider Name and Address Organization Details Last Updated DateTime 05/18/2024 172.72 cm 31.6 kg/m2 70302.21 santosh WILSON [facility] 05/18/2024 13:51:22 Date Recorded Body height Body mass index (BMI) Body weight Provider Name and Address Organization Details Last Updated DateTime 05/23/2024 172.72 cm 31.5 kg/m2 20229.62 g Edgar Wharton PA-C [address] [facility], [place], [address], [facility] 05/23/2024 14:37:50 Date Recorded Body height Body mass index (BMI) Body weight Provider Name and Address Organization Details Last Updated DateTime 06/29/2024 172.72 cm 31.5 kg/m2 87817.62 g JOVAN PEDROZA [facility] 06/29/2024 15:01:58 Date Recorded Body height Body mass index (BMI) Body weight Provider Name and Address Organization Details Last Updated DateTime 08/16/2024 172.72 cm 31.5 kg/m2 06921.62 g Edgar Wharton PA-C [address] [facility], [place], [address], [facility] 08/16/2024 10:41:03 Social History Question Answer Notes LastModified by Organizat ion Details LastModified Time Tobacco Smoking Status Never Smoker Edgar Wharton PA-C [address], [place], [address], [facility] 08/16/2024 10:41:46 What Is Your Relationship Status? [place] [address] Information not available 08/16/2024 Sex: Unknown Functional Status Question Answer Note LastModified by Organizat ion Details LastModified Time Do you use any illicit or recreational drugs? No [place] [address] Information not available 08/16/2024 What is your level of alcohol consumption? None [place] [address] Information not available 08/16/2024 Mental Status None recorded. Family History Nothing Reported. Medical History Condition Response Stroke Y Thyroid Problems Y Asthma Y Past Encounters Encounter ID Performer Location Encounter Start Date Encounter Closed Date Diagnosis/Indication Diagnosis SNOMED-CT Code Diagnosis ICD10 Code Diagnosis IMO Codes Diagnosis Note [id number] ZACHARY Juarez [address] [place] [address] 05/04/2024 13:49:28 05/12/2024 16:03:35 Pain of elbow region 02562466 M25.522 [id number] ZACHARY Juarez [address] [place] [address] 05/18/2024 13:47:31 06/05/2024 13:52:04 [id number] ZACHARY Galo [address] [place] [address] 05/23/2024 14:29:27 06/03/2024 10:18:24 Pain of right knee joint 5680526351 22236 M25.561 899155 Osteoarthr itis of right knee joint 6125815123 79446 M17.11 [id number] MD MARILYNN Cantrell [address] [place] [address] 06/29/2024 14:55:52 07/12/2024 12:27:08 Left triceps tendon tear 0393878645 5172707 S46.312D [id number] ZACHARY Galo [facility] [place] [address] 08/16/2024 10:25:02 08/19/2024 08:28:48 Pain of right knee joint 5126716462 37111 M25.561 492604 Osteoarthr itis of right knee joint 7709981648 29511 M17.11 [id number] Health Concerns Section Related Observation LastModified by Organization Detai ls LastModified Time None Recorded Concern Status LastModified by Organization Details LastModified Time None Recorded Advance Directives Directive None Recorded Payers Insurance Date Sequence Insurance Name Policy Number Policy Hines Covered Member ID Hines Member ID Guarantor Name 09/08/2024 1 [facility] NET PLAN (MEDICAID HMO) LEDY Van Ang [id number] Van Ang Notes Date Note Type Note [...] intact. X-rays ordered, obtained and reviewed at [facility] 3 views left elbow reveals no fracture or dislocation. Impression/Plan:Find ings and situation discussed. I am concerned that he may have a partial versus complete tricep tendon. Will obtain an MRI. He will follow-up after the study. Moises Cross PA-C [address] [address], [place], [address], [place] [facility] 05/04/2024 14:23:39 05/18/2024 [...] his options. He will call Dr. Heaton's medical secretary if he decides to proceed with surgery. Patient examined discussed with Dr. Sudarshan Cross PA-C [address] [place] [address] [address], [place], [address], [facility] 05/18/2024 14:30:58 05/23/2024 text/html I am [...] oriented x3. Normal insight, affect, and grooming. 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 No spasticity [...] views ordered and independently reviewed previously at [facility] of the 4 views of [...] of compliance regarding home exercises moving forward. \[employer] speech recognition classified advertising supervisor software was used to create portions of this document. An attempt at proofreading has been made to minimize errors. Please call for corrections Edgar Wharton PA-C [address] [place] [address] [address], [place], [address], [facility] 05/23/2024 15:35:21 06/29/2024 text/html [...] consented to the procedure. Gurwinder Heaton MD [address] [place] [address] [address], [place], [address], [facility] 06/30/2024 10:16:59 08/16/2024 text/html I am [...] views ordered and independently reviewed previously at [facility] of the 4 views of [...] of compliance regarding home exercises moving forward. [employer] speech recognition classified advertising supervisor software was used to create portions of this document. An attempt at proofreading has been made to minimize errors. Please call for corrections Edgar Wharton PA-C [address] [place], [place] [address] [address], [place], [address], [facility] 08/16/2024 11:04:17
[2024-12-10 22:17] VITALS: BP 153/79
[2024-12-10 22:18] LABS: Alanine Aminotransferase 70 U/L (0-40); Albumin Level 4.6 g/dL (3.5-5.0); Alkaline Phosphatase 95 U/L (39-117); Anion Gap 18 (12-20); Aspartate Amino Transferase 38 U/L (5-37); Blood Urea Nitrogen 21 mg/dL (9-16); Calcium 9.7 mg/dL (8.4-10.2); Carbon Dioxide 27 mmol/L (22-29); Chloride 99 mmol/L (96-108); Creatinine Clr Calc Pharmacy 89.6; Estimated Glomerular Filt Rate > 60; Magnesium 2.2 mg/dL (1.6-2.6); Potassium 3.6 mmol/L (3.3-5.1); Sodium 140 mmol/L (135-145); Total Protein 7.6 g/dL (6.5-8.0)
--- NOTE | 2024-12-10 22:47 | ED.GENADULT ---
HPI - General Adult General Chief complaint: Wound/Laceration Stated complaint: left leg wound/spreading up the leg Time Seen by Provider: 12/10/24 22:47 Source: patient Mode of arrival: ambulatory Limitations: no limitations History of Present Illness ED Provider: Dr. Norton HPI narrative: 49-year-old male history of diabetes and wound in his left lower extremity presented hospital today for increased redness in his left leg. Patient's stated that he does follow up with the wound clinic for his weeping wounds in his left lower extremities. However noticed that the redness has been expanding today. Therefore he presents to the ER for evaluation he did have subjective fever at home. Related Data Home Medications ?Medication ?Instructions ?Recorded ?Confirmed dextroamphetamine-amphetamine 15 15 mg PO DAILY 11/02/23 12/07/24 mg tablet (Adderall) Previous Rx's ?Medication ?Instructions ?Recorded albuterol sulfate 90 mcg/actuation 2 puff inhalation 6XD PRN 05/01/23 aerosol inhaler shortness of breath or wheezing 30 days #1 ea itraconazole 100 mg capsule 200 mg (2 x 100 mg) PO BID 30 days 04/19/24 (Sporanox) #120 caps budesonide-formoterol HFA 160 2 puff inhalation BID 30 days 04/27/24 mcg-4.5 mcg/actuation aerosol #10.2 grams inhaler (Symbicort) inhalational spacing device #1 ea 05/09/24 (Kaylynn Sanchez [facility] spacer) insulin glargine 100 unit/mL (3 10 unit (0.1 mL) subcut QPM 30 09/19/24 mL) subcutaneous pen (Lantus days #3 mL Solostar U-100 Insulin) insulin lispro protamine-lispro 10 unit (0.1 mL) subcut BID 30 09/19/24 100 unit/mL (75-25) subcutaneous days #6 mL pen (Humalog Mix 75-25 KwikPen) levothyroxine 150 mcg tablet 150 mcg PO QAM 90 days #90 tabs 11/06/24 FreeStyle Rosalind 3 Plus Sensor #2 ea 11/21/24 (blood-glucose sensor) prednisone 10 mg tablet 10 mg PO DIRECTED #70 tabs 11/22/24 blood sugar diagnostic (FreeStyle #50 ea 11/30/24 Lite Strips) blood-glucose meter (FreeStyle #1 ea 11/30/24 Lite Meter kit) lancets 28 gauge (FreeStyle #50 ea 11/30/24 Lancets) oxycodone 10 mg tablet 10 mg PO Q6-8H PRN pain 28 days 11/30/24 #112 tabs pen needle, diabetic 32 gauge x #150 ea 12/01/24 silver sulfadiazine 1 % topical 1 appl topical DAILY Left lower 12/07/24 cream (Silvadene) extremity ulcers #25 grams Allergies Allergy/AdvReac Type Severity Reaction Status Date / Time tezepelumab-ekko (From AdvReac Severe severe Verified 12/10/24 21:37 Tezspire) joint pains and weakness Review of Systems Review of Systems: Pertinent review of systems as mentioned in HPI. All other system otherwise negative. [facility] Past Medical History Medical History (Updated 12/11/24 @ 03:13 by Elizabeth Norton DO) Blister of left lower extremity Varicose veins of bilateral lower extremities with other complications Left leg cellulitis Diabetic ulcer of ankle associated with diabetes mellitus due to underlying condition Ulcer of left ankle Overweight (BMI 25.0-29.9) Stroke Impaired fasting glucose Pure hypercholesterolemia Pityriasis lichenoides Poorly controlled persistent asthma Obesity (BMI 30-39.9) Cerebral arteriovenous malformation (AVM) Lumbar degenerative disc disease Acquired hypothyroidism Asthma Surgical History Status post coil embolization of cerebral aneurysm (~11/03/12) History of lumbar discectomy Family History Family History Father Diabetes Mother No problems noted. Paternal Grandmother Lung cancer Social History Social History Housing: Apartment Are you a primary critical care nurse practitioner to a significant other at home: No Do you presently have visiting nurse or other home services: No Alcohol intake: current Alcohol intake frequency: a few times a month Alcohol type: beer Patient Tobacco Use Status: Former Tobacco user Tobacco use type: Cigarette Cigarettes Per Day: 3 Years Smoked: 5 Smoked in Last 30 Days: No e-Cigarette/Vaping Use: Never Used Second Hand Smoke Exposure: Yes Use of substances other than those prescribed or required for medical reasons: No Advance Directives: No Advance Directives Information Provided: No Do you have a plan to hurt others: No Plan service: No Current occupational status: employed 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 He does have some pitting edema in the lower extremities on the left side. He has small ulceration wounds around his tibia. Neurological: Awake and alert, no facial droop noted Skin: Warm and dry Psychiatric: Appropriate mood and thoughts Vital Signs: Vital Signs - 24 hr 12/10/24 21:30 12/10/24 22:13 12/10/24 22:17 Temperature 97.7 F 97.7 F Pulse Rate 100 100 Respiratory Rate 18 18 Blood Pressure 199/91 H 199/91 H 153/79 H Pulse Oximetry 98 98 Oxygen Delivery Method Room Air Room Air 12/10/24 23:44 12/11/24 01:26 Temperature 98.0 F 98.3 F Pulse Rate 95 98 Respiratory Rate 18 12 Blood Pressure 160/80 H 152/79 H Pulse Oximetry 94 97 Oxygen Delivery Method Room Air Room Air BMI result Body Mass Index 31.0 Medications Administered Discontinued Medications Generic Name Dose Route Start Last Admin Trade Name Freq PRN Reason Stop Dose Admin Vancomycin HCl 2,000 mg in 500 mls @ 250 mls/hr 12/10/24 23:56 12/11/24 02:37 Vancomycin/Ns IV 12/11/24 01:55 250 mls/hr ONCE ONE Administration Piperacillin Sod/Tazobactam 100 mls @ 200 mls/hr 12/10/24 23:56 12/11/24 02:01 Sod 4.5 gm/ Sodium Chloride IV 12/11/24 00:25 Infused ONCE ONE Infusion Clindamycin Phosphate 600 mg in 50 mls @ 100 mls/hr 12/10/24 23:56 12/11/24 02:39 Cleocin IV 12/11/24 00:25 Infused ONCE ONE Infusion Lactated Ringer's 1,000 mls @ 999 mls/hr 12/10/24 23:45 12/11/24 01:23 Lr IV 12/11/24 00:45 999 mls/hr .Q1H1M NAOMIE Administration Iohexol 100 ml 12/11/24 01:46 12/11/24 01:51 Iohexol 350 Mg/Ml 100 Ml Infus..Btl IV 12/11/24 01:47 85 ml ONCE ONE Administration Medical Decision Making Medical Decision Making [facility] Narrative: 49-year-old male history of diabetes presented hospital today for redness in his left foot. Suspect patient likely has cellulitis. However he does have some swelling around his left knee. There is no obvious drainage. We will obtain a CT imaging of his left knee to examine for any signs of gas forming organism. Patient's cellulitis is extensive. Patient does have a white count of 17. No elevation of lactic acid. We will plan to start patient on broad-spectrum antibiotics including vancomycin and Zosyn. Patient has a higher risk for Pseudomonas infection as well. We will also start clindamycin to cover for possible necrotizing fasciitis. I did review patient's CT imaging no sign of gas forming organism. No signs of abscess. Patient will be admitted to the hospital for cellulitis. Differential Diagnosis Differential Diagnoses: The differential diagnosis associated with the presentation includes Cellulitis, abscess, necrotizing fasciitis, sepsis Consult Healthcare Provider Management of the patient was discussed with: Hospitalist Lab Data [facility] Lab Attestation statement: I reviewed the patient's lab results. 12/10/24 21:56 12/10/24 21:56 Labs: Lab Results 12/10/24 Range/Units 21:56 WBC 17.3 H (4.8-10.8) X10*3/uL RBC 5.80 (4.60-5.80) X10*6/uL Hgb 16.6 (14.0-18.0) g/dl Hct 50.0 (42.0-52.0) % MCV 86.2 (80.0-98.0) fL MCH 28.6 (27.0-33.0) pg MCHC 33.2 (31.0-36.0) g/dl RDW 13.6 (11.0-16.0) % Plt Count 229 (160-400) X10*3/uL MPV 9.9 (9.4-12.4) fL Immature Gran % (Auto) 1.3 H (0.0-0.4) % Neut % (Auto) 88.5 H (45-73) % Lymph % (Auto) 5.4 L (20-40) % [place] % (Auto) 4.3 (2-11) % Eos % (Auto) 0.2 (0-4) % Baso % (Auto) 0.3 (0-2) % Lymph # (Auto) 0.9 L (1.2-4.9) X10*3/uL [place] # (Auto) 0.8 (0.1-1.2) X10*3/uL Eos # (Auto) 0.0 (0.0-0.4) X10*3/uL Baso # (Auto) 0.1 (0.0-0.2) X10*3/uL Abs Immat Gran (auto) 0.23 H (0.00-0.03) X10*3/uL Absolute Neuts (auto) 15.3 H (2.0-8.3) x10*3/uL Absolute Nucleated RBC 0.000 (0.0-0.012) X10*3/uL Nucleated RBC % (auto) 0.0 (0.0-0.2) /100WBC Sodium 140 (135-145) mmol/L Potassium 3.6 (3.3-5.1) mmol/L Chloride 99 (96-108) mmol/L Carbon Dioxide 27 (22-29) mmol/L Anion Gap 18 (12-20) BUN 21 H (9-16) mg/dL Creatinine 1.11 (0.5-1.4) mg/dL Estim Creat Clear Calc 89.6 Estimated GFR > 60 Random Glucose 169 H (60-115) mg/dL Lactic Acid 1.6 (0.5-2.0) mmol/L Calcium 9.7 D (8.4-10.2) mg/dL Magnesium 2.2 (1.6-2.6) mg/dL Total Bilirubin 0.6 (0.0-1.0) mg/dL AST 38 H (5-37) U/L ALT 70 H (0-40) U/L Alkaline Phosphatase 95 (39-117) U/L Total Protein 7.6 (6.5-8.0) g/dL Albumin 4.6 (3.5-5.0) g/dL Independent Interpretation I performed an independent interpretation of an: Plain X-Ray, Ultrasound and CT Scan Radiology Impression Discussion of test interpretation with radiology: I have reviewed the radiologist's reading. Critical Care Time Critical Care Time Critical Care Time: Yes Total Critical Care Time: 38 Attestation: Time is exclusive of separately billable procedures. Time includes: direct patient care, patient reassessment, coordination of patient care, interpretation of data (laboratory data, pulse oximetry, arterial blood gases and chest xrays), review of patient's medical records, medical consultation and documentation of patient care. Procedures excluded from critical care time: central intravenous line placement and electrocardiography. Discharge Plan Discharge Clinical Impression: Cellulitis, Sepsis Patient Disposition: Admitted As Inpatient
[2024-12-10 23:44] VITALS: BP 160/80; PULSE 95; RESP 18; TEMP 36.7; O2SAT 94
[2024-12-11] MEDS: Lactated Ringers 1,000 ML 999 ML IV (01:23)
[2024-12-11 01:26] VITALS: BP 152/79; PULSE 98; RESP 12; TEMP 36.8; O2SAT 97
[2024-12-11] MEDS: iohexoL 350 MG/ML 100 ML INFUS..BTL IV (01:51)
--- NOTE | 2024-12-11 02:22 | P.HPHOSP_ITS ---
History of Present Illness Date of Service: 12/11/24 Attending physician on admission: Torie Arteaga Chief Complaint: swelling left leg Patient is a 49-year-old male with past medical history IDDM II, hypothyroidism, brain aneurysm/ AVM with coil embolization at [facility] 2014 resulting in coma and stroke, peripheral vascular disease has upcoming appointment with vascular for 1st time, pulmonary sporotricosis, severe persistent asthma, previous tobacco user quit 2017, hyperlipidemia, Pityriasis lichenoides, lumbar degenerative disc disease, uses tanning beds presents to the emergency department with complaints of redness worsening in the left lower extremity. Patient initially states that he was using a tanning bed approximately 2 days ago and may have over stayed his time resulting in severe redness of both legs. Patient developed a fever today of 100.9 with chills and patient decided to be seen. Patient's leg changes in the lower left leg are chronic and he follows of wound care clinic once a week. Patient denies any chest pain, shortness of breath at rest or with exertion, nausea, vomiting, diarrhea or constipation. Patient is not having abdominal pain. What is new about his left leg is now it radiates above the knee to the left gluteus. Patient can bear weight but it is painful to walk. Patient is having moderate pain at rest. Patient does have cats at home but denies any cat scratches or obvious trauma or injury to the left lower extremity. The bluish purple color changes to the right leg are common and not new. Patient reports that often his leg will swell and he will experienced blisters which explain the current openings in the left leg. Workup in the ED included CT scan of the affected extremity which showed no signs of gas or necrotizing fasciitis. CT suggest cellulitis. No abscess present. There is a small joint effusion. Patient was started on vancomycin, Zosyn and clindamycin prior to CT scan results. Patient will continue on vanco and Zosyn. Patient does have a leukocytosis of 17.3 with no evidence of blood loss. LFTs mildly elevated. Review of Systems 2 Review of Systems: Patient currently denies any chest pain, nausea, vomiting, abdominal pain. Patient is not having any shortness of breath. Patient is reporting pain in the left leg extending from the knee up into the left gluteus. Patient denies any loss of sensation into either lower extremity. Patient denies any headache or visual changes. Yes all other systems are reviewed and are negative [facility] Medical History Blister of left lower extremity Varicose veins of bilateral lower extremities with other complications Left leg cellulitis Diabetic ulcer of ankle associated with diabetes mellitus due to underlying condition Ulcer of left ankle Overweight (BMI 25.0-29.9) Stroke Impaired fasting glucose Pure hypercholesterolemia Pityriasis lichenoides Poorly controlled persistent asthma Obesity (BMI 30-39.9) Cerebral arteriovenous malformation (AVM) Lumbar degenerative disc disease Acquired hypothyroidism Asthma Cognitive capacity: Alert and orientated x3 Functional capacity: independent ambulation Family History Father Diabetes Mother No problems noted. Paternal Grandmother Lung cancer Surgical History Status post coil embolization of cerebral aneurysm (~11/03/12) History of lumbar discectomy Social History Housing: Apartment Are you a primary home health care case manager to a significant other at home: No Do you presently have visiting nurse or other home services: No Alcohol intake: current Alcohol intake frequency: a few times a month Alcohol type: beer Patient Tobacco Use Status: Former Tobacco user Tobacco use type: Cigarette Cigarettes Per Day: 3 Years Smoked: 5 Smoked in Last 30 Days: No e-Cigarette/Vaping Use: Never Used Second Hand Smoke Exposure: Yes Use of substances other than those prescribed or required for medical reasons: No Advance Directives: No Advance Directives Information Provided: No Do you have a plan to hurt others: No Plan service: No Current occupational status: employed 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 Cognitive needs: No Hearing needs: No Vision needs: No Ebola Risk: Travel/Contact With Anyone From Affected Area/s: No Has Patient Experienced Ebola Symptoms: No Meds Allergies Allergy/AdvReac Type Severity Reaction Status Date / Time tezepelumab-ekko (From AdvReac Severe severe Verified 12/10/24 21:37 [facility]) joint pains and weakness Active Medications: Current Medications Pharmacy Consult (Consult Rx Vancomycin Dosing) 1 each MISCELLANE DAILY PRN PRN Reason: Consult order Home Medications ?Medication ?Instructions ?Recorded ?Confirmed ?Last Taken ?Type dextroamphetamine-amphetamine 15 15 mg PO DAILY 12/07/24 12/18/23 History mg tablet (Adderall) Physical Exam 2 Vital Signs and Narrative: Vital Signs: Last Vital Signs Temp 98.3 F 12/11/24 01:26 Pulse 98 12/11/24 01:26 Resp 12 12/11/24 01:26 BP 152/79 H 12/11/24 01:26 Pulse Ox 97 12/11/24 01:26 O2 Del Method Room Air 12/11/24 01:26 BMI result Body Mass Index 31.0 Alert and orientated X3, able to give good history. Neuro: CN II-X11 intact, no deficits, visual acuity intact EYES: PERRLA, EOM intact, sclerae nonicteric ENT: hearing intact, no issues with swallowing, uvula midline, lips moist, nares patent no epistaxis Cardiac: S1 S2 RRR, no murmur, no JVD, mild edema in Lower ext Pulmonary: lungs clear to auscultation B Abdominal: BS active in all 4 quadrants, no guarding, tenderness, rebounding MSK: strength 5/5 upper and lower extremities : no CVA tenderness no bladder distension Extremities: Mild to moderate edema in lower extremities, PT and DP pulses palpable +2m left leg bright red, small openings in the lower leg only, chronic ecchymotic changes to the right knee area only, both feet cool to the touch pulses palpable Psych: mood stable, judgement and insight good Skin: Cellulitis left lower extremity Results Labs 12/10/24 21:56 12/10/24 21:56 Labs: Laboratory Results - last 24 hr 12/10/24 21:56 MCV 86.2 MCH 28.6 MCHC 33.2 RDW 13.6 Plt Count 229 MPV 9.9 Immature Gran % (Auto) 1.3 H Neut % (Auto) 88.5 H Lymph % (Auto) 5.4 L Mclean % (Auto) 4.3 Eos % (Auto) 0.2 Baso % (Auto) 0.3 Lymph # (Auto) 0.9 L Mclean # (Auto) 0.8 Eos # (Auto) 0.0 Baso # (Auto) 0.1 Abs Immat Gran (auto) 0.23 H Absolute Neuts (auto) 15.3 H Absolute Nucleated RBC 0.000 Nucleated RBC % (auto) 0.0 Anion Gap 18 Estim Creat Clear Calc 89.6 Estimated GFR > 60 Random Glucose 169 H Lactic Acid 1.6 Calcium 9.7 D Magnesium 2.2 Total Bilirubin 0.6 AST 38 H ALT 70 H Alkaline Phosphatase 95 Total Protein 7.6 Albumin 4.6 ECG Prior ECG tracings: not available for review Imaging Radiologist's Impressions: CT SCAN L Leg Findings: Small joint effusion. Diffuse subcutaneous stranding around the knee and overlying skin thickening. No abscess or drainable fluid collection seen.. No subcutaneous gas seen. No fracture deformity. There is chondrocalcinosis of the medial meniscus in the bilateral tibial articular surfaces. Joint space narrowing of the medial joint compartment is present with small marginal osteophytes. IMPRESSION: 1. Extensive subcutaneous stranding and fluid and skin thickening suggesting cellulitis. No subcutaneous gas to suggest gas-forming organism. No abscess. 2. Small joint effusion. Assessment and Plan (1) Left leg cellulitis: Status: Acute Plan Patient is a 49-year-old male with past medical history IDDM II, hypothyroidism, brain aneurysm/ AVM with coil embolization at [facility] 2014 resulting in coma and stroke, peripheral vascular disease has upcoming appointment with vascular for 1st time, pulmonary sporotricosis, severe persistent asthma, previous tobacco user quit 2017, hyperlipidemia, Pityriasis lichenoides, lumbar degenerative disc disease, uses tanning beds presents to the emergency department with complaints of redness worsening in the left lower extremity. Patient has chronic wound issues in the left lower extremity and follows with wound care clinic once a week. Patient was in the tanning bed longer than usual approximately 2 days prior which may have caused increased redness to the area. Patient being admitted for cellulitis without evidence of necrotizing fasciitis or abscess. Patient does not meet criteria for sepsis on admission. Cellulitis left lower leg, history of chronic wound involving left lower leg follows with Wound Care Clinic Patient is started on vanco and Zosyn, received 1 dose of clindamycin. As there is no subcutaneous gas on CT scan, holding clindamycin for now Infectious disease consulted Blood cultures pending Hemodynamics stable Oxycodone prn for pain Small joint effusion Orthopedics consulted for evaluation and need for aspiration Patient is not on blood thinners IDDM Sliding scale insulin a.c. and HS Diabetic diet COPD/asthma Patient stopped smoking 2017 Gopio susies p.r.n. Patient not requiring oxygen at this time DVT prophylaxis: Lovenox Med rec pending Full code status Quality Stroke Does the patient have a stroke diagnosis?: No Reason for No Anti-thrombotic by Day Two: N/A - Med Ordered VTE Prior VTE?: No VTE Risk Level:: Medical - moderate - high VTE Device Contraindication: Procedure Contraindicated VTE Drug Contraindication: N/A - Med Ordered
[2024-12-11] MEDS: vancomycin/NS 2,000 MG/500 ML PLAST..BAG 250 MG IV (02:37)
[2024-12-11] MEDS: Lactated Ringers 1,000 ML 100 ML IVCONT ×3 (03:37→23:38)
[2024-12-11] MEDS: oxyCODONE HCl Immed Release 5 MG TABLET PO (04:10)
[2024-12-11 07:00] LABS: MANUAL DIFF FLAG NO
[2024-12-11 07:08] LABS: Hematocrit 43.6 % (42.0-52.0); Hemoglobin 14.3 g/dl (14.0-18.0); Imm Gran Abs Auto 0.27 X10*3/uL (0.00-0.03); Imm Gran Pct Auto 1.8 % (0.0-0.4); Lymphocytes Absolute Auto 1.5 X10*3/uL (1.2-4.9); Mean Corpuscular HGB Conc 32.8 g/dl (31.0-36.0); Mean Corpuscular Hemoglobin 29.0 pg (27.0-33.0); Mean Corpuscular Volume 88.4 fL (80.0-98.0); NRBC Abs Auto 0.000 X10*3/uL (0.0-0.012); NRBC Pct Auto 0.0 /100WBC (0.0-0.2); Platelet Count 144 X10*3/uL (160-400); Red Blood Count 4.93 X10*6/uL (4.60-5.80); White Blood Count 15.0 X10*3/uL (4.8-10.8)
[2024-12-11 07:33] LABS: Alanine Aminotransferase 44 U/L (0-40); Albumin Level 3.5 g/dL (3.5-5.0); Alkaline Phosphatase 79 U/L (39-117); Anion Gap 12 (12-20); Aspartate Amino Transferase 32 U/L (5-37); Blood Urea Nitrogen 16 mg/dL (9-16); Carbon Dioxide 25 mmol/L (22-29); Chloride 104 mmol/L (96-108); Creatinine Clr Calc Pharmacy 111.8; Estimated Glomerular Filt Rate > 60; Potassium 3.9 mmol/L (3.3-5.1); Sodium 137 mmol/L (135-145); Total Protein 6.0 g/dL (6.5-8.0)
[2024-12-11 07:40] LABS: Glucose, Whole Blood 139 mg/dL (60-115)
--- NOTE | 2024-12-11 07:43 | PC.NURSE ---
Assumed care of patient. Pt is A+OX4, calm, cooperative. Abx started. bilat legs are red but show signs of perfusion, cellulitis to left leg. No visible s/s of distress.
[2024-12-11 08:01] VITALS: BMI 32.9
--- NOTE | 2024-12-11 08:11 | PM.EVENT ---
Event Note Date of Service: 12/11/24 Event Note: Patient seen and examined by hospitalist team this morning. Seen and examined again leg area looks the same, has some range of motion restriction difficult to bend the knee. rest of physical exam and assessment and plan per H&P note Time Spent With Patient Time: Total time managing care of this patient today ____ minutes.
[2024-12-11 08:13] LABS: Calcium 8.5 mg/dL (8.4-10.2)
[2024-12-11] MEDS: Albuterol/Iprat 2.5/0.5MG 3 ML AMPUL.NEB INHALE (08:48)
--- NOTE | 2024-12-11 09:09 | PM.CNOR ---
History of Present Illness HPI Consult date: 12/11/24 Chief complaint: cellulitis LLE Narrative: Patient is a 49-year-old male who is admitted to the hospital for bilateral lower extremity cellulitis, worse in the left Patient reports that approximately 3 days ago, he was using a tanning bed, noticed significant redness and swelling of the bilateral lower extremities Patient noticed this worsening and extending up into the upper of his legs, so he came to the hospital X-rays taken in the emergency department revealed arthritis and CPPD arthropathy, CT revealed small joint effusion in the left knee Patient reports that he does experience significant discomfort in the skin of the left lower extremity Patient reports that he is able to ambulate on the left lower extremity, but this does cause him some discomfort Patient denies any pain in the knee joint itself, states that his pain is primarily because the ?skin feels tight? Denies numbness or tingling in the left lower extremity No other acute complaints or concerns at this time Review of Systems Review of Systems: Yes all other systems are reviewed and are negative [facility] Past Medical History Medical History Blister of left lower extremity Varicose veins of bilateral lower extremities with other complications Left leg cellulitis Diabetic ulcer of ankle associated with diabetes mellitus due to underlying condition Ulcer of left ankle Overweight (BMI 25.0-29.9) Stroke Impaired fasting glucose Pure hypercholesterolemia Pityriasis lichenoides Poorly controlled persistent asthma Obesity (BMI 30-39.9) Cerebral arteriovenous malformation (AVM) Lumbar degenerative disc disease Acquired hypothyroidism Asthma Family History Family History Father Diabetes Mother No problems noted. Paternal Grandmother Lung cancer Surgical History Surgical History Status post coil embolization of cerebral aneurysm (~11/03/12) History of lumbar discectomy Social History Social History Household Members: Children Housing: Apartment Are you a primary care administrative tech to a significant other at home: No Do you presently have visiting nurse or other home services: No Alcohol intake: current Alcohol intake frequency: a few times a month Alcohol type: beer Patient Tobacco Use Status: Former Tobacco user Tobacco use type: Cigarette Cigarettes Per Day: 3 Years Smoked: 5 Smoked in Last 30 Days: No e-Cigarette/Vaping Use: Never Used Patient Interested in Nicotine Replacement: No Patient Given Instructions on How to Stop Smoking: No Second Hand Smoke Exposure: No Use of substances other than those prescribed or required for medical reasons: No Have you been hit, kicked, punched, or otherwise hurt by someone within the past year? 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 Cognitive needs: No Hearing needs: No Vision needs: No Travel History Ebola Risk: Travel/Contact With Anyone From Affected Area/s: No Has Patient Experienced Ebola Symptoms: No Meds Allergies Allergy/AdvReac Type Severity Reaction Status Date / Time tezepelumab-ekko (From AdvReac Severe severe Verified 12/10/24 21:37 [facility]) joint pains and weakness Active Medications: Current Medications Acetaminophen (Acetaminophen 325 Mg Tablet) 650 mg PO Q6H PRN PRN Reason: Pain, Mild 1-3,fever,headache Albuterol/Ipratropium (Albuterol/Iprat 2.5/0.5mg 3 Ml Ampul.Neb) 3 ml INHALE Q4H PRN PRN Reason: Shortness of Breath/Wheezing Last Admin: 12/11/24 08:48 Dose: 3 ml Calcium Carbonate (Calcium Carbonate 750 Mg Tab.Chew) 750 mg PO Q4H PRN PRN Reason: Heartburn Dextrose (Dextrose 50 % 25 Gm/50 Ml Syringe) 25 gm IVPUSH Q15M PRN; Protocol PRN Reason: per Hypoglycemia Standing Ord. Enoxaparin Sodium (Enoxaparin Sodium 40 Mg/0.4 Ml Syringe) 40 mg SUBCUT Q24H [facility] Last Admin: 12/11/24 03:37 Dose: Not Given Glucose (Glucose Gel 15 Gm Gel..Gram.) 15 gm PO Q15M PRN; Protocol PRN Reason: per Hypoglycemia Standing Ord. Lactated Ringer's (Lr) 1,000 mls @ 100 mls/hr IVCONT .Q10H [facility] Last Admin: 12/11/24 03:37 Dose: 100 mls/hr Piperacillin Sod/Tazobactam (Sod 4.5 gm/ Sodium Chloride) 100 mls @ 200 mls/hr IV Q6H [facility] Last Infusion: 12/11/24 08:26 Dose: Infused Insulin Human Lispro (Insulin Lispro 100 Unit/Ml 3 Ml Vial) 0 unit SUBCUT QIDACHS [facility]; Protocol Last Admin: 12/11/24 07:42 Dose: Not Given Magnesium Hydroxide (Milk Of Magnesia 30 Ml Oral.Susp) 30 ml PO DAILY PRN PRN Reason: Constipation Melatonin (Melatonin 3 Mg Tablet) 6 mg PO BEDTIME PRN PRN Reason: Insomnia Ondansetron HCl (Ondansetron Hcl 4 Mg/2 Ml Vial) 4 mg IVPUSH Q8H PRN PRN Reason: Nausea and Vomiting Oxycodone HCl (Oxycodone Hcl Immed Release 5 Mg Tablet) 5 mg PO Q4H PRN PRN Reason: Pain, Moderate(Pain Scale 4-6) Last Admin: 12/11/24 04:10 Dose: 5 mg Polyethylene Glycol (Polyethylene Glycol 3350 17 Gm Powd.Pack) 17 gm PO DAILY PRN PRN Reason: Constipation Senna (Sennosides 8.6 Mg Tablet) 17.2 mg PO BEDTIME [facility] Sodium Chloride (0.9 % Sodium Chloride Flush 3 Ml Syringe) 3 ml IVFLUSH QSHIFT [facility] Last Admin: 12/11/24 08:27 Dose: Not Given Home Medications ?Medication ?Instructions ?Recorded ?Confirmed ?Last Taken ?Type dextroamphetamine-amphetamine ER 1 cap PO BID 12/11/24 12/11/24 Unknown History 15 mg 24hr capsule,extend release (Adderall XR) insulin glargine 100 unit/mL (3 10 unit subcut BEDTIME 12/11/24 12/11/24 Unknown History mL) subcutaneous pen (Lantus Solostar U-100 Insulin) insulin lispro protamine-lispro 10 unit subcut BIDWM 12/11/24 12/11/24 Unknown History 100 unit/mL (75-25) subcutaneous pen (Humalog Mix 75-25 KwikPen) itraconazole 100 mg capsule 200 mg PO BIDWM 12/11/24 12/11/24 12/10/24 08:00 History (Sporanox) levothyroxine 150 mcg tablet 150 mcg PO DAILY@0600 12/11/24 12/11/24 12/10/24 History prednisone 10 mg tablet 10 mg PO BID 12/11/24 12/11/24 Unknown History Physical Exam Vital Signs: Vital Signs: Last Vital Signs Temp 98.3 F 12/11/24 01:26 Pulse 98 12/11/24 01:26 Resp 12 12/11/24 01:26 BP 152/79 H 12/11/24 01:26 Pulse Ox 97 12/11/24 01:26 O2 Del Method Room Air 12/11/24 01:26 BMI result Body Mass Index 32.9 Extrem: Other: Patient's left knee and left lower extremity erythematous and edematous to inspection Does have chronic ecchymotic changes of bilateral knees No lacerations, abrasions, open areas on the left knee, there are chronic open, weeping wounds on the distal left lower extremity Patient reports some tenderness to palpation of the diffuse left knee Patient is able to flex the left knee to approximately 50 degrees and able to extend fully, reports that he can not flex beyond this due to the skin feeling tight and painful Denies any pain in the knee joint itself when flexing the left knee No pain with axial loading of the left knee Distal sensation intact Capillary refill brisk Results Labs 12/11/24 05:39 12/11/24 05:39 Labs: Abnormal lab results 12/10/24 12/11/24 12/11/24 Range/Units 21:56 05:39 07:36 WBC 17.3 H 15.0 H (4.8-10.8) X10*3/uL Plt Count 144 L D (160-400) X10*3/uL Immature Gran % (Auto) 1.3 H 1.8 H (0.0-0.4) % Neut % (Auto) 88.5 H 81.6 H (45-73) % Lymph % (Auto) 5.4 L 9.8 L (20-40) % Lymph # (Auto) 0.9 L (1.2-4.9) X10*3/uL Abs Immat Gran (auto) 0.23 H 0.27 H (0.00-0.03) X10*3/uL Absolute Neuts (auto) 15.3 H 12.2 H (2.0-8.3) x10*3/uL BUN 21 H (9-16) mg/dL POC Glucose 139 H (60-115) mg/dL Random Glucose 169 H 173 H (60-115) mg/dL AST 38 H (5-37) U/L ALT 70 H 44 H (0-40) U/L Total Protein 6.0 L (6.5-8.0) g/dL H & H 12/10/24 12/11/24 Range/Units 21:56 05:39 Hgb 16.6 14.3 (14.0-18.0) g/dl Hct 50.0 43.6 (42.0-52.0) % All other labs normal. Diagnostic results Knee x-ray: report reviewed and image reviewed Knee CT: report reviewed and image reviewed Assessment and Plan (1) Left leg cellulitis: Status: Acute Plan 1. Left lower extremity cellulitis With small joint effusion noted on CT No evidence of septic joint on physical exam, patient reports no pain in the knee joint with range of motion No pain with axial loading of the left knee Continue antibiotics for treatment of cellulitis No aspiration indicated at this time Weight-bearing as tolerated on left lower extremity Encourage range of motion of the left knee If patient does begin to experience significant pain in the left knee joint, or becomes unable to ambulate on the left lower extremity due to pain, please notify Orthopedics Procedures Date of Service Date of Service: 12/11/24
--- NOTE | 2024-12-11 09:10 | PHA.MEDREC ---
Pharmacy Consult ? Medication Reconciliation Pharmacy has completed the medication reconciliation.Med rec complete, patient states he is not currently using the silver sulfadiazine cream or the symbicort inhaler. I asked if he could bring in the sporanox medication
[2024-12-11 10:57] VITALS: BP 147/64; PULSE 80; TEMP 37; O2SAT 97
[2024-12-11 11:52] LABS: Glucose, Whole Blood 154 mg/dL (60-115)
--- NOTE | 2024-12-11 12:03 | PM.CNGS ---
History of Present Illness Consult details Consult date: 12/11/24 Requesting physician: Bibiana Muñiz Narrative: 49-year-old male patient presenting with pain and swelling of the left leg. He reports an open wound in the back of the left calf caused by an injury for which he has been seeing the wound care center. They have been applying Hydrofera blue dressings to the wound followed by compression dressings. He began to note redness surrounding the wound which has now extended up to above the knee. He began to have tightness in the skin and difficulty bending the knee. He was evaluated by Orthopedics for possible knee effusion. Surgical consultation was requested to evaluate for compartment syndrome. Patient reports normal sensation in the foot with no weakness with extension or flexion. He denies any pain or numbness. Laboratories revealed an elevated WBC of [address] of the knee revealed extensive subcutaneous stranding and fluid and skin thickening suggesting cellulitis. No subcutaneous gas is noted to suggest gas forming organisms or abscess. A small joint effusion was identified. 2. Small joint effusion Review of Systems Review of Systems: Yes all other systems are reviewed and are negative [facility] Past Medical History Medical History Blister of left lower extremity Varicose veins of bilateral lower extremities with other complications Left leg cellulitis Diabetic ulcer of ankle associated with diabetes mellitus due to underlying condition Ulcer of left ankle Overweight (BMI 25.0-29.9) Stroke Impaired fasting glucose Pure hypercholesterolemia Pityriasis lichenoides Poorly controlled persistent asthma Obesity (BMI 30-39.9) Cerebral arteriovenous malformation (AVM) Lumbar degenerative disc disease Acquired hypothyroidism Asthma Family History Family History Father Diabetes Mother No problems noted. Paternal Grandmother Lung cancer Surgical History Surgical History Status post coil embolization of cerebral aneurysm (~11/03/12) History of lumbar discectomy Social History Social History Household Members: Children Housing: Apartment Are you a primary medication care manager to a significant other at home: No Do you presently have visiting nurse or other home services: No Alcohol intake: current Alcohol intake frequency: a few times a month Alcohol type: beer Patient Tobacco Use Status: Former Tobacco user Tobacco use type: Cigarette Cigarettes Per Day: 3 Years Smoked: 5 Smoked in Last 30 Days: No e-Cigarette/Vaping Use: Never Used Patient Interested in Nicotine Replacement: No Patient Given Instructions on How to Stop Smoking: No Second Hand Smoke Exposure: No Use of substances other than those prescribed or required for medical reasons: No Have you been hit, kicked, punched, or otherwise hurt by someone within the past year? 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 Cognitive needs: No Hearing needs: No Vision needs: No Travel History Ebola Risk: Travel/Contact With Anyone From Affected Area/s: No Has Patient Experienced Ebola Symptoms: No Meds Allergies Allergy/AdvReac Type Severity Reaction Status Date / Time [id number] (From AdvReac Severe severe Verified 12/10/24 21:37 Tezspire) joint pains and weakness Active Medications: Current Medications Acetaminophen (Acetaminophen 325 Mg Tablet) 650 mg PO Q6H PRN PRN Reason: Pain, Mild 1-3,fever,headache Albuterol/Ipratropium (Albuterol/Iprat 2.5/0.5mg 3 Ml Ampul.Neb) 3 ml INHALE Q4H PRN PRN Reason: Shortness of Breath/Wheezing Last Admin: 12/11/24 08:48 Dose: 3 ml Amphetamine/Dextroamphetamine (Dextroamphetamine/Amphetamine Xr 5 Mg Cap.Er.24h) 15 mg PO BID NAOMIE Calcium Carbonate (Calcium Carbonate 750 Mg Tab.Chew) 750 mg PO Q4H PRN PRN Reason: Heartburn Dextrose (Dextrose 50 % 25 Gm/50 Ml Syringe) 25 gm IVPUSH Q15M PRN; Protocol PRN Reason: per Hypoglycemia Standing Ord. Enoxaparin Sodium (Enoxaparin Sodium 40 Mg/0.4 Ml Syringe) 40 mg SUBCUT Q24H [facility] Last Admin: 12/11/24 03:37 Dose: Not Given Glucose (Glucose Gel 15 Gm Gel..Gram.) 15 gm PO Q15M PRN; Protocol PRN Reason: per Hypoglycemia Standing Ord. Lactated Ringer's (Lr) 1,000 mls @ 100 mls/hr IVCONT .Q10H [facility] Last Admin: 12/11/24 03:37 Dose: 100 mls/hr Piperacillin Sod/Tazobactam (Sod 4.5 gm/ Sodium Chloride) 100 mls @ 200 mls/hr IV Q6H [facility] Last Infusion: 12/11/24 08:26 Dose: Infused Insulin Glargine (Insulin Glargine,Hum.Rec.Anlog 100 Unit/Ml 10 Ml Vial) 10 unit SUBCUT BEDTIME [facility] Insulin Human Lispro (Insulin Lispro 100 Unit/Ml 3 Ml Vial) 0 unit SUBCUT QIDACHS [facility]; Protocol Last Admin: 12/11/24 07:42 Dose: Not Given Levothyroxine Sodium (Levothyroxine Sodium 150 Mcg Tablet) 150 mcg PO DAILY@0600 [facility] Magnesium Hydroxide (Milk Of Magnesia 30 Ml Oral.Susp) 30 ml PO DAILY PRN PRN Reason: Constipation Melatonin (Melatonin 3 Mg Tablet) 6 mg PO BEDTIME PRN PRN Reason: Insomnia Non-Formulary Medication (Itraconazole [Sporanox]) 200 mg PO BIDWM [facility] Ondansetron HCl (Ondansetron Hcl 4 Mg/2 Ml Vial) 4 mg IVPUSH Q8H PRN PRN Reason: Nausea and Vomiting Oxycodone HCl (Oxycodone Hcl Immed Release 5 Mg Tablet) 5 mg PO Q4H PRN PRN Reason: Pain, Moderate(Pain Scale 4-6) Last Admin: 12/11/24 04:10 Dose: 5 mg Polyethylene Glycol (Polyethylene Glycol 3350 17 Gm Powd.Pack) 17 gm PO DAILY PRN PRN Reason: Constipation Prednisone (Prednisone 10 Mg Tablet) 10 mg PO BID NAOMIE Senna (Sennosides 8.6 Mg Tablet) 17.2 mg PO BEDTIME [facility] Sodium Chloride (0.9 % Sodium Chloride Flush 3 Ml Syringe) 3 ml IVFLUSH QSHIFT [facility] Last Admin: 12/11/24 08:27 Dose: Not Given Home Medications ?Medication ?Instructions ?Recorded ?Confirmed ?Last Taken ?Type dextroamphetamine-amphetamine ER 1 cap PO BID 12/11/24 12/11/24 Unknown History 15 mg 24hr capsule,extend release (Adderall XR) insulin glargine 100 unit/mL (3 10 unit subcut BEDTIME 12/11/24 12/11/24 Unknown History mL) subcutaneous pen (Lantus Solostar U-100 Insulin) insulin lispro protamine-lispro 10 unit subcut BIDWM 12/11/24 12/11/24 Unknown History 100 unit/mL (75-25) subcutaneous pen (Humalog Mix 75-25 KwikPen) itraconazole 100 mg capsule 200 mg PO BIDWM 12/11/24 12/11/24 12/10/24 08:00 History (Sporanox) levothyroxine 150 mcg tablet 150 mcg PO DAILY@0600 12/11/24 12/11/24 12/10/24 History prednisone 10 mg tablet 10 mg PO BID 12/11/24 12/11/24 Unknown History Physical Exam Vital Signs: Vital Signs: Last Vital Signs Temp 98.3 F 12/11/24 01:26 Pulse 98 12/11/24 01:26 Resp 12 12/11/24 01:26 BP 152/79 H 12/11/24 01:26 Pulse Ox 97 12/11/24 01:26 O2 Del Method Room Air 12/11/24 01:26 BMI result Body Mass Index 32.9 Const: General: cooperative and no acute distress Nutritional Appearance: well nourished Orientation/consciousness: patient oriented x3 Limitations: no limitations HEENT: Head: Yes normocephalic and Yes atraumatic Ears: hearing grossly normal bilaterally Resp: Effort & Inspection: normal respiratory effort, no audible wheezes, no cough and no respiratory distress Cardio: Jugular venous distension: no JVD GI: Inspection: Yes normal to inspection Skin: Other: Warm, dry, no rash Neuro: General: patient oriented x3 Extrem: Other: Left leg with extensive skin thickening and erythema from thigh to ankle. Normal range of motion at knee, ankle and toes. Normal sensation at dorsum and normal strength with flexion extension at the ankle. Palpation of the calf and thigh revealed soft compartments with only superficial skin thickening. General: Yes no clubbing, cyanosis or edema Results Labs 12/11/24 05:39 12/11/24 05:39 Labs: Abnormal lab results 12/10/24 12/11/24 12/11/24 Range/Units 21:56 05:39 07:36 WBC 17.3 H 15.0 H (4.8-10.8) X10*3/uL Plt Count 144 L D (160-400) X10*3/uL Immature Gran % (Auto) 1.3 H 1.8 H (0.0-0.4) % Neut % (Auto) 88.5 H 81.6 H (45-73) % Lymph % (Auto) 5.4 L 9.8 L (20-40) % Lymph # (Auto) 0.9 L (1.2-4.9) X10*3/uL Abs Immat Gran (auto) 0.23 H 0.27 H (0.00-0.03) X10*3/uL Absolute Neuts (auto) 15.3 H 12.2 H (2.0-8.3) x10*3/uL BUN 21 H (9-16) mg/dL POC Glucose 139 H (60-115) mg/dL Random Glucose 169 H 173 H (60-115) mg/dL AST 38 H (5-37) U/L ALT 70 H 44 H (0-40) U/L Total Protein 6.0 L (6.5-8.0) g/dL 12/11/24 Range/Units 11:47 WBC (4.8-10.8) X10*3/uL Plt Count (160-400) X10*3/uL Immature Gran % (Auto) (0.0-0.4) % Neut % (Auto) (45-73) % Lymph % (Auto) (20-40) % Lymph # (Auto) (1.2-4.9) X10*3/uL Abs Immat Gran (auto) (0.00-0.03) X10*3/uL Absolute Neuts (auto) (2.0-8.3) x10*3/uL BUN (9-16) mg/dL POC Glucose 154 H (60-115) mg/dL Random Glucose (60-115) mg/dL AST (5-37) U/L ALT (0-40) U/L Total Protein (6.5-8.0) g/dL Short CBC 12/10/24 12/11/24 Range/Units 21:56 05:39 WBC 17.3 H 15.0 H (4.8-10.8) X10*3/uL Hgb 16.6 14.3 (14.0-18.0) g/dl Hct 50.0 43.6 (42.0-52.0) % Plt Count 229 144 L D (160-400) X10*3/uL BMP 12/10/24 12/11/24 21:56 05:39 Sodium 140 137 Potassium 3.6 3.9 Chloride 99 104 Carbon Dioxide 27 25 BUN 21 H 16 Creatinine 1.11 0.89 Calcium 9.7 D 8.5 D Liver Function 12/10/24 12/11/24 Range/Units 21:56 05:39 Total Bilirubin 0.6 0.6 (0.0-1.0) mg/dL AST 38 H 32 (5-37) U/L ALT 70 H 44 H (0-40) U/L Alkaline Phosphatase 95 79 (39-117) U/L Albumin 4.6 3.5 (3.5-5.0) g/dL All other labs normal. Assessment and Plan (1) Diabetic ulcer of ankle associated with diabetes mellitus due to underlying condition: Status: Acute (2) Left leg cellulitis: Status: Acute Plan 49-year-old male patient with a history of diabetes presenting with extensive cellulitis of the left leg. He reports being on no antibiotics until admission to the hospital. Examination today revealed soft compartments in the left leg with no evidence of neurovascular impairment and normal strength/sensation in the foot. Agree with antibiotics, leg elevation. We will continue to follow along with you during his hospitalization. Procedures Date of Service Date of Service: 12/11/24
[2024-12-11] MEDS: Amphetamine Mixed Salts 10 MG TABLET PO (12:34)
[2024-12-11] MEDS: oxyCODONE HCl Immed Release 5 MG TABLET 10 MG PO ×2 (12:35→20:10)
--- NOTE | 2024-12-11 12:45 | MHC.CM.PN ---
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
[2024-12-11 15:20] VITALS: BP 141/67; PULSE 92; RESP 15; TEMP 36.8; O2SAT 95
[2024-12-11 16:04] LABS: Glucose, Whole Blood 190 mg/dL (60-115)
--- NOTE | 2024-12-11 16:40 | PC.NURSE ---
Pt wants to speak with provider with regards to plan of care and make known some of his concerns . I have requested Md Muñiz to come see the pt at 12:19 and again at 15:58. I have informed the pt of this .
[2024-12-11 19:19] VITALS: BP 162/85; PULSE 97; RESP 16; TEMP 37.1; O2SAT 98
[2024-12-11] MEDS: Insulin Glargine,Hum.rec.anlog 100 UNIT/ML 10 ML VIAL 10 UNIT SUBCUT (20:11)
[2024-12-11 20:26] LABS: Glucose, Whole Blood 94 mg/dL (60-115)
[2024-12-12 03:08] VITALS: BP 154/86; PULSE 89; RESP 18; TEMP 36.6; O2SAT 93
[2024-12-12] MEDS: 0.9 % Sodium Chloride Flush 3 ML SYRINGE IVFLUSH (05:10)
[2024-12-12 07:22] VITALS: BP 166/88; PULSE 87; RESP 18; TEMP 37.2; O2SAT 95
[2024-12-12 07:24] LABS: Glucose, Whole Blood 126 mg/dL (60-115)
[2024-12-12] MEDS: oxyCODONE HCl Immed Release 5 MG TABLET 10 MG PO (08:07)
[2024-12-12] MEDS: Dextroamphetamine/Amphetamine XR 5 MG CAP.ER.24H 15 MG PO (08:08)
[2024-12-12 11:19] LABS: Glucose, Whole Blood 201 mg/dL (60-115)
--- NOTE | 2024-12-12 11:33 | MHC.CM.PN ---
Patient not medically cleared for dc at this time. Per PT, no skilled PT indicated at this time. CM will continue to follow.
--- NOTE | 2024-12-12 11:35 | PC.NURSE ---
bilateral hands noted to be swollen Md Muñiz notified , IVF stopped
--- NOTE | 2024-12-12 11:43 | PC.NURSE ---
Pt voiced concerns about having to be in the hospital for due to personal obligations. Md Carr notified and educated pt that its not in his best interest at this time. Pt is aware we can not hold him hear , and that if he chooses to leave it will be AMA. Pt verbalized understanding .
--- NOTE | 2024-12-12 13:35 | P.PNIM_ITS ---
Subjective Subjective Date of Service: 12/12/24 Interval History: Cellulitis left lower leg Review of Systems leg erythema/swelling seems similar rom seems improving no fevers Review of Systems: Yes all other systems are reviewed and are negative Physical Exam 2 Exam: Exam: Appearance: Alert.? Oriented X3.? cvs: rrr, [id number] , no murmur res: clear to auscultation ,no rhonchii or wheezing abd: no rebound or guarding ,nt, bs present. Extremities: Mild to moderate edema in lower extremities, PT and DP pulses palpable +2m left leg bright red, small openings in the lower leg only, chronic ecchymotic changes to the right knee area only, both feet cool to the touch pulses palpable. neuro: axo3 , nonfocal. Vital Signs: Vital Signs: Last Vital Signs Temp 99.0 F 12/12/24 07:22 Pulse 87 12/12/24 07:22 Resp 18 12/12/24 07:22 BP 166/88 H 12/12/24 07:22 Pulse Ox 95 12/12/24 07:22 O2 Del Method Room Air 12/12/24 07:22 BMI result Body Mass Index 32.9 Objective Data Active Medications Acetaminophen (Acetaminophen 325 Mg Tablet) 650 mg PO Q6H PRN PRN Reason: Pain, Mild 1-3,fever,headache Albuterol/Ipratropium (Albuterol/Iprat 2.5/0.5mg 3 Ml Ampul.Neb) 3 ml INHALE Q4H PRN PRN Reason: Shortness of Breath/Wheezing Last Admin: 12/11/24 08:48 Dose: 3 ml Documented By: DELMAR Amphetamine/Dextroamphetamine (Dextroamphetamine/Amphetamine Xr 5 Mg Cap.Er.24h) 15 mg PO BID [facility] Last Admin: 12/12/24 08:08 Dose: 15 mg Documented By: DELMAR Calcium Carbonate (Calcium Carbonate 750 Mg Tab.Chew) 750 mg PO Q4H PRN PRN Reason: Heartburn Dextrose (Dextrose 50 % 25 Gm/50 Ml Syringe) 25 gm IVPUSH Q15M PRN; Protocol PRN Reason: per Hypoglycemia Standing Ord. Enoxaparin Sodium (Enoxaparin Sodium 40 Mg/0.4 Ml Syringe) 40 mg SUBCUT Q24H [facility] Last Admin: 12/12/24 03:07 Dose: Not Given Documented By: TATIANA Non-Admin Reason: Patient Refused Glucose (Glucose Gel 15 Gm Gel..Gram.) 15 gm PO Q15M PRN; Protocol PRN Reason: per Hypoglycemia Standing Ord. Lactated Ringer's (Lr) 1,000 mls @ 100 mls/hr IVCONT .Q10H [facility] Last Admin: 12/12/24 11:31 Dose: Not Given Documented By: DELMAR Non-Admin Reason: order stoped Piperacillin Sod/Tazobactam (Sod 4.5 gm/ Sodium Chloride) 100 mls @ 200 mls/hr IV Q6H [facility] Last Infusion: 12/12/24 12:34 Dose: Infused Documented By: DELMAR Insulin Glargine (Insulin Glargine,Hum.Rec.Anlog 100 Unit/Ml 10 Ml Vial) 10 unit SUBCUT BEDTIME [facility] Last Admin: 12/11/24 20:11 Dose: 10 unit Documented By: TATIANA Insulin Human Lispro (Insulin Lispro 100 Unit/Ml 3 Ml Vial) 0 unit SUBCUT QIDACHS [facility]; Protocol Last Admin: 12/12/24 11:47 Dose: 4 unit Documented By: DELMAR Levothyroxine Sodium (Levothyroxine Sodium 150 Mcg Tablet) 150 mcg PO DAILY@0600 [facility] Last Admin: 12/12/24 05:10 Dose: 150 mcg Documented By: TATIANA Magnesium Hydroxide (Milk Of Magnesia 30 Ml Oral.Susp) 30 ml PO DAILY PRN PRN Reason: Constipation Melatonin (Melatonin 3 Mg Tablet) 6 mg PO BEDTIME PRN PRN Reason: Insomnia Non-Formulary Medication (Itraconazole [Sporanox]) 200 mg PO BIDWM [facility] Ondansetron HCl (Ondansetron Hcl 4 Mg/2 Ml Vial) 4 mg IVPUSH Q8H PRN PRN Reason: Nausea and Vomiting Oxycodone HCl (Oxycodone Hcl Immed Release 5 Mg Tablet) 10 mg PO Q4H PRN PRN Reason: Pain, Moderate(Pain Scale 4-6) Last Admin: 12/12/24 08:07 Dose: 10 mg Documented By: DELMAR Polyethylene Glycol (Polyethylene Glycol 3350 17 Gm Powd.Pack) 17 gm PO DAILY PRN PRN Reason: Constipation Prednisone (Prednisone 10 Mg Tablet) 10 mg PO BID [facility] Last Admin: 12/12/24 08:08 Dose: 10 mg Documented By: DELMAR Senna (Sennosides 8.6 Mg Tablet) 17.2 mg PO BEDTIME [facility] Last Admin: 12/11/24 20:10 Dose: 17.2 mg Documented By: TATIANA Sodium Chloride (0.9 % Sodium Chloride Flush 3 Ml Syringe) 3 ml IVFLUSH QSHIFT [facility] Last Admin: 12/12/24 05:10 Dose: 3 ml Documented By: TATIANA Labs 12/11/24 05:39 12/11/24 05:39 Labs: Laboratory Results - last 24 hr 12/11/24 12/11/24 12/12/24 15:59 20:21 07:21 POC Glucose 190 H 94 126 H 12/12/24 11:15 POC Glucose 201 H Microbiology Microbiology Results: Microbiology 12/10/24 22:16 Blood Culture - Preliminary Blood - Venous No growth after 24 hours. 12/10/24 21:56 Blood Culture - Preliminary Blood - Venous No growth after 24 hours. Assessment and Plan (1) Cellulitis: Status: Acute Plan 49-year-old male with past medical history IDDM II, hypothyroidism, brain aneurysm/ AVM with coil embolization at [facility] 2014 resulting in coma and stroke, peripheral vascular disease has upcoming appointment with vascular for 1st time, pulmonary sporotricosis, severe persistent asthma, previous tobacco user quit 2017, hyperlipidemia, Pityriasis lichenoides, lumbar degenerative disc disease, uses tanning beds presents to the emergency department with complaints of redness worsening in the left lower extremity. Patient has chronic wound issues in the left lower extremity and follows with wound care clinic once a week. Patient was in the tanning bed longer than usual approximately 2 days prior which may have caused increased redness to the area. Patient being admitted for cellulitis without evidence of necrotizing fasciitis or abscess. Patient does not meet criteria for sepsis on admission. Cellulitis left lower leg, history of chronic wound involving left lower leg follows with Wound Care Clinic Patient is started on vanco and Zosyn, received 1 dose of clindamycin. no subcutaneous gas on CT scan, small joint effusion noted on CT. Blood cultures pending Oxycodone prn for pain seen by general surgery-leg elevation ,antibiotics ortho surgery:No pain with axial loading of the left knee, antibiotics for treatment of cellulitis,No aspiration indicated at this time,Weight-bearing as tolerated on left lower extremity Encourage range of motion of the left knee. wound care,Infectious disease eval pending . Small joint effusion Orthopedics consulted for evaluation and need for aspiration Patient is not on blood thinners IDDM Sliding scale insulin a.c. and HS Diabetic diet COPD/asthma Patient stopped smoking 2017 Duo nebs p.r.n. Patient not requiring oxygen at this time DVT prophylaxis: Lovenox. Ongoing need: Cellulitis left lower leg- minimal improvement yet,need iv antibiotics , monitoring renal function electrolytes,Infectious disease eval pending Quality Stroke Does the patient have a stroke diagnosis?: No Reason for No Anti-thrombotic by Day Two: N/A - Med Ordered VTE Prior VTE?: No VTE Risk Level:: Medical - moderate - high VTE Device Contraindication: Procedure Contraindicated VTE Drug Contraindication: N/A - Med Ordered
--- NOTE | 2024-12-12 14:20 | W.PM.IDCN ---
History of Present Illness Data of Consult Service Date: 12/12/24 Requesting physician: Bibiana Muñiz Primary Care Provider: MD BRUCE Cruz Reason for consult: LLE erythema He presents with bright redness and swelling LLE for couple days. He also had temperature of 100.9. He has had chronic LE ulcer and has been seen by Wound Care. He had superficial swab from area showing multiple organisms and no polys. He is also on itraconazole for sporotrichosis. He is somnolent today. Review of Systems Review of Systems: Yes all other systems are reviewed and are negative [facility] Past Medical History Medical History Blister of left lower extremity Varicose veins of bilateral lower extremities with other complications Left leg cellulitis Diabetic ulcer of ankle associated with diabetes mellitus due to underlying condition Ulcer of left ankle Overweight (BMI 25.0-29.9) Stroke Impaired fasting glucose Pure hypercholesterolemia Pityriasis lichenoides Poorly controlled persistent asthma Obesity (BMI 30-39.9) Cerebral arteriovenous malformation (AVM) Lumbar degenerative disc disease Acquired hypothyroidism Asthma Family History Family History Father Diabetes Mother No problems noted. Paternal Grandmother Lung cancer Family history: reviewed and not pertinent Surgical History Surgical History Status post coil embolization of cerebral aneurysm (~11/03/12) History of lumbar discectomy Social History Social History Household Members: Children Housing: Apartment Are you a primary respiratory care instructor to a significant other at home: No Do you presently have visiting nurse or other home services: No Alcohol intake: current Alcohol intake frequency: a few times a month Alcohol type: beer Patient Tobacco Use Status: Former Tobacco user Tobacco use type: Cigarette Cigarettes Per Day: 3 Years Smoked: 5 Smoked in Last 30 Days: No e-Cigarette/Vaping Use: Never Used Patient Interested in Nicotine Replacement: No Patient Given Instructions on How to Stop Smoking: No Second Hand Smoke Exposure: No Use of substances other than those prescribed or required for medical reasons: No Currently Displaying Signs/Symptoms of Drug Intoxication Withdrawal: No Have you been hit, kicked, punched, or otherwise hurt by someone within the past year? 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 Cognitive needs: No Hearing needs: No Vision needs: No Travel History Ebola Risk: Travel/Contact With Anyone From Affected Area/s: No Has Patient Experienced Ebola Symptoms: No Meds Allergies Allergy/AdvReac Type Severity Reaction Status Date / Time tezepelumab-ekko (From AdvReac Severe severe Verified 12/10/24 21:37 Tezspire) joint pains and weakness Active Medications: Current Medications Acetaminophen (Acetaminophen 325 Mg Tablet) 650 mg PO Q6H PRN PRN Reason: Pain, Mild 1-3,fever,headache Albuterol/Ipratropium (Albuterol/Iprat 2.5/0.5mg 3 Ml Ampul.Neb) 3 ml INHALE Q4H PRN PRN Reason: Shortness of Breath/Wheezing Last Admin: 12/11/24 08:48 Dose: 3 ml Amphetamine/Dextroamphetamine (Dextroamphetamine/Amphetamine Xr 5 Mg Cap.Er.24h) 15 mg PO BID [facility] Last Admin: 12/12/24 08:08 Dose: 15 mg Calcium Carbonate (Calcium Carbonate 750 Mg Tab.Chew) 750 mg PO Q4H PRN PRN Reason: Heartburn Dextrose (Dextrose 50 % 25 Gm/50 Ml Syringe) 25 gm IVPUSH Q15M PRN; Protocol PRN Reason: per Hypoglycemia Standing Ord. Enoxaparin Sodium (Enoxaparin Sodium 40 Mg/0.4 Ml Syringe) 40 mg SUBCUT Q24H [facility] Last Admin: 12/12/24 03:07 Dose: Not Given Glucose (Glucose Gel 15 Gm Gel..Gram.) 15 gm PO Q15M PRN; Protocol PRN Reason: per Hypoglycemia Standing Ord. Lactated Ringer's (Lr) 1,000 mls @ 100 mls/hr IVCONT .Q10H [facility] Last Infusion: 12/12/24 11:31 Dose: Infused Piperacillin Sod/Tazobactam (Sod 4.5 gm/ Sodium Chloride) 100 mls @ 200 mls/hr IV Q6H [facility] Last Infusion: 12/12/24 12:34 Dose: Infused Insulin Glargine (Insulin Glargine,Hum.Rec.Anlog 100 Unit/Ml 10 Ml Vial) 10 unit SUBCUT BEDTIME [facility] Last Admin: 12/11/24 20:11 Dose: 10 unit Insulin Human Lispro (Insulin Lispro 100 Unit/Ml 3 Ml Vial) 0 unit SUBCUT QIDACHS [facility]; Protocol Last Admin: 12/12/24 11:47 Dose: 4 unit Levothyroxine Sodium (Levothyroxine Sodium 150 Mcg Tablet) 150 mcg PO DAILY@0600 [facility] Last Admin: 12/12/24 05:10 Dose: 150 mcg Magnesium Hydroxide (Milk Of Magnesia 30 Ml Oral.Susp) 30 ml PO DAILY PRN PRN Reason: Constipation Melatonin (Melatonin 3 Mg Tablet) 6 mg PO BEDTIME PRN PRN Reason: Insomnia Non-Formulary Medication (Itraconazole [Sporanox]) 200 mg PO BIDWM [facility] Ondansetron HCl (Ondansetron Hcl 4 Mg/2 Ml Vial) 4 mg IVPUSH Q8H PRN PRN Reason: Nausea and Vomiting Oxycodone HCl (Oxycodone Hcl Immed Release 5 Mg Tablet) 10 mg PO Q4H PRN PRN Reason: Pain, Moderate(Pain Scale 4-6) Last Admin: 12/12/24 08:07 Dose: 10 mg Polyethylene Glycol (Polyethylene Glycol 3350 17 Gm Powd.Pack) 17 gm PO DAILY PRN PRN Reason: Constipation Prednisone (Prednisone 10 Mg Tablet) 10 mg PO BID [facility] Last Admin: 12/12/24 08:08 Dose: 10 mg Senna (Sennosides 8.6 Mg Tablet) 17.2 mg PO BEDTIME [facility] Last Admin: 12/11/24 20:10 Dose: 17.2 mg Sodium Chloride (0.9 % Sodium Chloride Flush 3 Ml Syringe) 3 ml IVFLUSH QSHIFT [facility] Last Admin: 12/12/24 05:10 Dose: 3 ml Home Medications ?Medication ?Instructions ?Recorded ?Confirmed ?Last Taken ?Type dextroamphetamine-amphetamine ER 1 cap PO BID 12/11/24 12/11/24 Unknown History 15 mg 24hr capsule,extend release (Adderall XR) insulin glargine 100 unit/mL (3 10 unit subcut BEDTIME 12/11/24 12/11/24 Unknown History mL) subcutaneous pen (Lantus Solostar U-100 Insulin) insulin lispro protamine-lispro 10 unit subcut BIDWM 12/11/24 12/11/24 Unknown History 100 unit/mL (75-25) subcutaneous pen (Humalog Mix 75-25 KwikPen) itraconazole 100 mg capsule 200 mg PO BIDWM 12/11/24 12/11/24 12/10/24 08:00 History (Sporanox) levothyroxine 150 mcg tablet 150 mcg PO DAILY@0600 12/11/24 12/11/24 12/10/24 History prednisone 10 mg tablet 10 mg PO BID 12/11/24 12/11/24 Unknown History Physical Exam Vital Signs: Vital Signs: Last Vital Signs Temp 99.0 F 12/12/24 07:22 Pulse 87 12/12/24 07:22 Resp 18 12/12/24 07:22 BP 166/88 H 12/12/24 07:22 Pulse Ox 95 12/12/24 07:22 O2 Del Method Room Air 12/12/24 07:22 BMI result Body Mass Index 32.9 Const: General: cooperative HEENT: Head: Yes normal to inspection Face and sinus: Yes normal facial exam Mouth: Normal oral and palatal mucosa present Teeth and gingiva: dentition normal Eyes: General: appearance normal, both eyes and all related structures Pupils: Equal, round and reactive pupils present Resp: Effort & Inspection: normal respiratory effort Cardio: Rate: regular rate Rhythm: regular rhythm GI: Palpation (GI): Soft to palpation and nontender : General: Yes no CVA tenderness Back/Spine/Pelvis: Back: no CVA tenderness Skin: General skin exam: no rashes or lesions noted Neuro: General: moves all extremities Cranial nerves: Yes Equal, round and reactive pupils present Extrem: Other: hot swollen LLE ulcer lower leg as well General: Yes normal to inspection Psych: Appearance: grossly normal Results Labs 12/11/24 05:39 12/11/24 05:39 Microbiology Microbiology Results: Microbiology 12/10/24 22:16 Blood - Venous Blood Culture - Preliminary No growth after 24 hours. 12/10/24 21:56 Blood - Venous Blood Culture - Preliminary No growth after 24 hours. Assessment and Plan (1) Diabetic ulcer of ankle associated with diabetes mellitus due to underlying condition: Status: Acute Plan He has been getting local care for lower extremity ulcer There hasnt been any OM noticed but MRI can be used to visualize more He has primarily cellulitis probable gram positive like staph or strep Superficial culture with no polys(serratia,staph aureus,Pseudomonas) not definitive for organism Would continue Zosyn Add Clindamycin back for decreasing bacterial burden (cant use linezolid due to interaction with itraconazole raise level. Po Clindamycin outpatient 450 tid and possible levaquin for a week.
[2024-12-12 15:49] VITALS: BP 136/69; PULSE 81; RESP 16; TEMP 36.4; O2SAT 96
[2024-12-12 16:00] LABS: Glucose, Whole Blood 191 mg/dL (60-115)
--- NOTE | 2024-12-12 16:25 | PC.NURSE ---
Pt wants to leave AMA . Dr Muñiz had a conversation with the pt. educate pt on the risk of leaving pt verberlized understanding pt states he would return to ER if things progressed , pt will be sent home with RX for abx.
--- NOTE | 2024-12-12 16:26 | P.DS_ITS ---
DS: Providers Provider Date of Service: 12/12/24 Date of admission: 12/11/24 02:19 Date of discharge: 12/12/24 Primary care physician: Rambo Qureshi MD Consults: 12/11/24 04:05 Consult to Infectious Diseases Routine Consulting Provider: [facility] Reason for consultation: Left lower extremity cellulitis no evidence of necrotizing fasciitis Has provider been notified: No Consult to Orthopedics Routine Consulting Provider: [facility] Orthopedic Surgeons Reason for consultation: Left knee effusion with cellulitis 12/11/24 10:06 Consult to General Surgery Routine Consulting Provider: [facility] General Surgeons Reason for consultation: Severe cellulitis/ compartment seems tight Has provider been notified: No 12/12/24 13:38 Consult to Wound Care Routine Reason for consultation: leg wound Has provider been notified: No Attending physician on discharge: Bibiana Muñiz Discharging clinician: Biibana Muñiz DS: Diagnosis Discharge Diagnosis (1) Diabetic ulcer of ankle associated with diabetes mellitus due to underlying condition: Status: Acute DS: Summary Hospital Course Hospital Course: Hpi:49-year-old male with past medical history IDDM II, hypothyroidism, brain aneurysm/ AVM with coil embolization at [facility] 2014 resulting in coma and stroke, peripheral vascular disease has upcoming appointment with vascular for 1st time, pulmonary sporotricosis, severe persistent asthma, previous tobacco user quit 2017, hyperlipidemia, Pityriasis lichenoides, lumbar degenerative disc disease, uses tanning beds presents to the emergency department with complaints of redness worsening in the left lower extremity. Patient initially states that he was using a tanning bed approximately 2 days ago and may have over stayed his time resulting in severe redness of both legs. Patient developed a fever today of 100.9 with chills and patient decided to be seen. Patient's leg changes in the lower left leg are chronic and he follows of wound care clinic once a week. Patient denies any chest pain, shortness of breath at rest or with exertion, nausea, vomiting, diarrhea or constipation. Patient is not having abdominal pain. What is new about his left leg is now it radiates above the knee to the left gluteus. Patient can bear weight but it is painful to walk. Patient is having moderate pain at rest. Patient does have cats at home but denies any cat scratches or obvious trauma or injury to the left lower extremity. The bluish purple color changes to the right leg are common and not new. Patient reports that often his leg will swell and he will experienced blisters which explain the current openings in the left leg. Workup in the ED included CT scan of the affected extremity which showed no signs of gas or necrotizing fasciitis. CT suggest cellulitis. No abscess present. There is a small joint effusion. Patient was started on vancomycin, Zosyn and clindamycin prior to CT scan results. Patient will continue on vanco and Zosyn. Patient does have a leukocytosis of 17.3 with no evidence of blood loss. LFTs mildly elevated. Hospital course: Patient was admitted forCellulitis left lower leg, history of chronic wound involving left lower leg follows with Wound Care Clinic: Patient was started on IV antibiotics, blood cultures sent,no subcutaneous gas on CT scan, small joint effusion noted on CT. Subsequently patient was seen by General surgery as well as orthopedics: Recommended to continue elevation leg and IV antibiotics, in addition seen by infectious disease recommended to continue IV antibiotics until leg cellulitis improvement, and (There hasnt been any OM noticed but MRI can be used to visualize more): Patient decided to leave against medical advice: Blood cultures pending,Patient was given clindamycin 450 mg p.o. t.i.d. and Levaquin 750 mg Q daily for 7 days. Patient refusing any further intervention and Patient understand that p.o. antibiotic is not as adequate as parental IV antibiotic therapy and also currently does not want further workup and wants to leave against medical advice. Patient says he does not want to stay further and want to leave against medical advice-risk of leaving against medical advice including limb loss, sepsis, including -discussed with him in detail he understand , he is alert oriented x3, still want to leave, signed out AMA. Patient was told to go to nearest emergency room to seek medical attention. plan: as above left ama. Above management discussed with the patient detail length he understand and in agreement with the above plan, time spent 50 minute, all questions answered, staff was present during conversation. Time Attestation Total time managing care of this patient today: 45 mintues. Discharge Coordination Time (in mins): 45 min Quality: Safe Use of Opioids Does Pt have an Active Cancer Diagnosis on the Problem List?: No Quality: Stroke Does the patient have a stroke diagnosis?: No Physical Exam Exam: Exam: refused Vital Signs: Vital Signs: Last Vital Signs Temp 97.5 F 12/12/24 15:49 Pulse 81 12/12/24 15:49 Resp 16 12/12/24 15:49 BP 136/69 12/12/24 15:49 Pulse Ox 96 12/12/24 15:49 O2 Del Method Room Air 12/12/24 15:49 BMI result Body Mass Index 32.9 DS: Data Data Completed and Pending Labs on day of discharge: Laboratory Results - last 24 hr 12/11/24 12/12/24 12/12/24 20:21 07:21 11:15 POC Glucose 94 126 H 201 H 12/12/24 15:57 POC Glucose 191 H Preliminary micro results at discharge 12/10/24 22:16 Blood Culture - Preliminary Blood - Venous No growth after 24 hours. 12/10/24 21:56 Blood Culture - Preliminary Blood - Venous No growth after [address] scan - abdomen: My impression: knee ct:1. Extensive subcutaneous stranding and fluid and skin thickening suggesting cellulitis. No subcutaneous gas to suggest gas-forming organism. No abscess.2. Small joint effusion. Knee xray:Extensive soft tissue swelling of the suprapatellar soft tissues Discharge Plan Discharge Anticipated Discharge Date/Time: 12/12/24 16:23 Patient Disposition: Left Against Medical Advice Discharge Diagnosis: Leg cellulitis Referrals: Rambo Qureshi MD [Primary Care Provider, Internal Medicine] - 1 Week Discharge Medications: New levofloxacin 750 mg Tablet 750 mg PO Q24H Qty: 6 0RF clindamycin HCl 150 mg Capsule 450 mg PO Q8H Qty: 21 0RF Continued albuterol sulfate 90 mcg/actuation HFA aerosol inhaler 2 puff inhalation 6XD PRN (Reason: shortness of breath or wheezing) 30 Days Qty: 1 6RF (DME) OptiChamber [facility] Spacer See Rx Instructions .ROUTE .COMPLEX Qty: 1 0RF Dose Instruction: USE DIRECTED Rx Instructions: USE DIRECTED (DME) FreeStyle Lite Strips Strip See Rx Instructions .Route Qty: 50 4RF Rx Instructions: As directed checks once a day (DME) blood-glucose meter [FreeStyle Lite Meter] Kit See Rx Instructions .Route Qty: 1 0RF Rx Instructions: As directed (DME) lancets [FreeStyle Lancets] 28 gauge misc See Rx Instructions .Route Qty: 50 4RF Rx Instructions: As directed checks once a day oxycodone 10 mg tablet 10 mg PO Q6-8H PRN (Reason: pain) 28 Days Qty: 112 0RF Rx Instructions: Partial Fill upon patient request (DME) pen needle, diabetic 32 gauge x 5/32 needle See Rx Instructions .ROUTE .MEDSUPPLY Qty: 150 5RF Rx Instructions: As directed 4 times a day itraconazole [Sporanox] 100 mg capsule 200 mg PO BIDWM Rx Instructions: must administer with a meal/food prednisone 10 mg tablet 10 mg PO BID Rx Instructions: Take 4 pills daily for 7 days, then go down by 1 tab every 7 days, currently patient is at 10 mg twice a day dextroamphetamine-amphetamine [Adderall XR] 15 mg capsule,extended release 24hr 1 cap PO BID insulin lispro protamin-lispro [Humalog Mix 75-25 KwikPen] 100 unit/mL (75-25) insulin pen 10 unit subcut BIDWM levothyroxine 150 mcg tablet 150 mcg PO DAILY@0600 insulin glargine [Lantus Solostar U-100 Insulin] 100 unit/mL (3 mL) insulin pen 10 unit subcut BEDTIME (DME) FreeStyle Rosalind 3 Plus Sensor Device See Rx Instructions .Route Qty: 2 4RF Rx Instructions: As directed change every 15 days Discharge Orders: Discharge Order (Routine); Ordered 12/12/24 Ordered By: Bibiana Muñiz Diet: Advance to usual diet Activity on Discharge: As tolerated Print Language: Singaporean Care Plan Goals: As below. Health Concerns: Patient signed AMA clindamycin 450 mg p.o. t.i.d. and Levaquin 750 mg Q daily for 7 days Plan of Treatment: As above. Assessment: As above. Patient Instructions: Cellulitis (ED)
== END 2024-12-12 17:05 | disposition left against medical advice (07) | DRG 383 ==
LOC: HO.ED 22:47 → HO.EDOVER 12-11 02:41 → HO.S3 12-11 07:02
PROVIDERS: Admitting Provider Nurse Practitioner Family; Emergency Provider Student in an Organized Health Care Education/Training Program; PCP Internal Medicine; Visit Provider Internal Medicine
DX: L03.116 Cellulitis of left lower limb (principal); L97.529 Non-pressure chronic ulcer of other part of left foot with unspecified severity; E11.622 Type 2 diabetes mellitus with other skin ulcer; J44.9 Chronic obstructive pulmonary disease, unspecified; Z87.891 Personal history of nicotine dependence; Z79.4 Long term (current) use of insulin; Z79.52 Long term (current) use of systemic steroids; Z79.890 Hormone replacement therapy; Z79.899 Other long term (current) drug therapy
CPT/HCPCS: 36415; 73562; 73701; 80053; 82947; 83605; 83735; 85025; 87040; 93005; 97161; 99285; J0736; J2543; J3373; J7120; Q9967

== ENCOUNTER → 2024-12-10 21:57 | Outpatient (BNV) | payer OTHER, SELFPAY | PROVIDERS: Admitting Provider Nurse Practitioner Family; Emergency Provider Student in an Organized Health Care Education/Training Program; PCP Internal Medicine; Visit Provider Internal Medicine Cardiovascular Disease | DX: R94.31 Abnormal electrocardiogram [ECG] [EKG] (principal); I10 Essential (primary) hypertension | CPT/HCPCS: 93010 ==

== ENCOUNTER → 2024-12-10 23:56 | Outpatient (BNV) | payer OTHER, SELFPAY | PROVIDERS: Emergency Provider Student in an Organized Health Care Education/Training Program; PCP Internal Medicine; Visit Provider Radiology Diagnostic Radiology | DX: M79.89 Other specified soft tissue disorders (principal) | CPT/HCPCS: 73562 ==

== ENCOUNTER → 2024-12-11 01:29 | Outpatient (BNV) | payer OTHER, SELFPAY | PROVIDERS: Admitting Provider Nurse Practitioner Family; Emergency Provider Student in an Organized Health Care Education/Training Program; PCP Internal Medicine; Visit Provider Radiology Diagnostic Radiology | DX: M11.262 Other chondrocalcinosis, left knee (principal); M25.462 Effusion, left knee | CPT/HCPCS: 73701 ==

== ENCOUNTER → 2024-12-11 02:19 | Outpatient (BNV) | payer OTHER, SELFPAY | PROVIDERS: Admitting Provider Nurse Practitioner Family; Emergency Provider Student in an Organized Health Care Education/Training Program; PCP Internal Medicine; Visit Provider Internal Medicine | DX: E11.622 Type 2 diabetes mellitus with other skin ulcer (principal); L97.309 Non-pressure chronic ulcer of unspecified ankle with unspecified severity | CPT/HCPCS: 99222 ==

== ENCOUNTER → 2024-12-11 02:19 | Outpatient (BNV) | payer OTHER, SELFPAY | PROVIDERS: Admitting Provider Nurse Practitioner Family; Emergency Provider Student in an Organized Health Care Education/Training Program; PCP Internal Medicine | DX: L03.116 Cellulitis of left lower limb (principal) | CPT/HCPCS: 99222 ==

== ENCOUNTER → 2024-12-11 02:19 | Outpatient (BNV) | payer OTHER, SELFPAY | PROVIDERS: Admitting Provider Nurse Practitioner Family; Emergency Provider Student in an Organized Health Care Education/Training Program; PCP Internal Medicine; Visit Provider Internal Medicine | DX: E11.621 Type 2 diabetes mellitus with foot ulcer (principal); L97.309 Non-pressure chronic ulcer of unspecified ankle with unspecified severity; Z53.29 Procedure and treatment not carried out because of patient's decision for other reasons | CPT/HCPCS: 99223; 99239; 99499 ==

== ENCOUNTER → 2024-12-11 02:19 | Outpatient (BNV) | payer OTHER, SELFPAY | PROVIDERS: Admitting Provider Nurse Practitioner Family; Emergency Provider Student in an Organized Health Care Education/Training Program; PCP Internal Medicine; Visit Provider Surgery | DX: E11.622 Type 2 diabetes mellitus with other skin ulcer (principal); L97.309 Non-pressure chronic ulcer of unspecified ankle with unspecified severity; L03.116 Cellulitis of left lower limb | CPT/HCPCS: 99222 ==

== ENCOUNTER 2024-12-29 15:31 | Outpatient (AMB) | payer OTHER, SELFPAY ==
--- OUTSIDE RECORDS SUMMARY | 2024-12-26 04:30 | XMS_ITS | Continuity of Care Document ---
Author Organization [facility] Address [address] [place] [address] Dr [address] [place] [address] Phone Care Team Providers Care Director Critical Care Name Role Phone Evens BOYLE, MOHAN, JOB, [...] Mi- [place] & [place] [facility], [address] [place] [address] Dr Ansari [address], [place], [id number], [place] tel:[phone] CVR - [place] Pain in left legCramp and spasmLocalized edemaNon-pressu re chronic ulcer of left ankle with unspecified severityPain in right lower legPain in left lower legPain in right legVenous insufficiency (chronic) (peripheral)Pru ritus, unspecifiedDiso rder of pigmentation, unspecified Nov-0 5 Evens BOYLE, MOHAN, JOB Graham. [address] [facility] [address], [place], [id number] , [place]. tel:[phone] Referring Provider: Rambo Qureshi MD, [address] [place] [address] [address], [place], [address]. tel:[phone] [facility], [address] [place] [address] [address], [place], [id number], [place] tel:[phone] CVR - [place] - [place] Chronic venous hypertension (idiopathic) with other complications of bilateral lower extremity Evens BOYLE, RVT, RPVI Santos. [address] [facility], [address], [facility] [place], [id number] , [place]. tel:[phone] Referring Provider: Rambo Qureshi MD, [address] [place] [address] Dr [address], [place], [address]. tel:[phone] Family History Family Member Type Diagnosis Age At Onset No Information Payers Payer name Insurance type Covered democrat ID Authorbenji rosado(s) [facility] [id number] Social History Type Description Quantity Date Captured [...]
[2024-12-29 15:36] VITALS: BP 160/108; PULSE 109; TEMP 36.4; O2SAT 97; BMI 31.2
--- NOTE | 2024-12-29 15:36 | MHC.PC.OV ---
Vital Signs 12/29/24 15:36 Height 5 ft 9 in Weight 211 lb 6 oz BMI 31.2 BP 160/108 H Blood Pressure Location Lt brachial Position Sitting Pulse 109 H Pulse Source Pulse Oximeter Temp 97.5 F Temp Source Temporal Artery Scan Pulse Oximetry (%) 97 Oxygen Delivery Method Room Air Intake Visit Reasons: [facility] [place] [facility] 12/14 Allergies tezepelumab-ekko (From Gabeindiraire) Adverse Reaction (Severe, Verified 12/29/24 15:52) severe joint pains and weakness Medication List - Last Reconciled 12/29/24 by TON Nick albuterol sulfate 90 mcg/actuation 2 puffs inhalation 6XD PRN 30 days blood sugar diagnostic (FreeStyle Lite Strips) As directed checks once a day blood-glucose meter (FreeStyle Lite Meter kit) As directed dextroamphetamine-amphetamine 15 mg ER (Adderall XR) 1 cap PO BID FreeStyle Rosalind 3 Plus Sensor (blood-glucose sensor) As directed change every 15 days NS inhalational spacing device (OptiChamber [facility] spacer) USE DIRECTED insulin glargine (Lantus Solostar U-100 Insulin) 10 units subcut BEDTIME insulin lispro protamin-lispro 100 unit/mL (75-25) (Humalog Mix 75-25 KwikPen) 10 units subcut BIDWM itraconazole (Sporanox) 200 mg PO BIDWM lancets (FreeStyle Lancets) As directed checks once a day levothyroxine 150 mcg PO DAILY@0600 oxycodone 10 mg PO Q6-8H PRN 28 days pen needle, diabetic As directed 4 times a day prednisone 10 mg PO DIRECTED Tobacco use date assessed: 10/27/24 Dental Screening Dental Screen Date: 12/29/24 Did you have a dental visit in the last 12 months?: Yes Did you have a dental problem in the last 6 months where you did not have access to dental care?: No Was dental information given to patient?: Patient has dentist HPI [facility] [place] 12/14 HPI Details The patient is a 49-year-old male presenting for a hospital follow-up for cellulitis and chronic disease management. The patient was recently hospitalized for approximately 2-3 days for cellulitis. During his stay, he received IV antibiotics and IV solutions, which he believes caused edema in his hands and feet due to high sodium content. He reports that his regular medications were not administered, which made him feel unwell, and he describes the experience as causing PTSD. The hospital recommended a longer stay for continued IV antibiotics, but the patient opted for discharge. He has a history of leg wounds with fluid seepage that required constant bandaging. Post-hospitalization, he has been managing his wound care by wearing a single compression sock for about four hours a day and then letting the wound air out overnight, which he feels has promoted healing better than the continuous wrapping recommended by his wound care provider. He reports the leg is now improved, with no more swelling or fluid. The patient has poorly controlled diabetes mellitus, with a recent HbA1c of 10.2%. He has a pending visit with an battery inspector to discuss management, including medications such as Mounjaro. He also has a history of elevated blood pressure readings. His medical history is also notable for a fungal lung infection, for which he uses an inhaler and prednisone. He takes atorvastatin for hyperlipidemia and is prescribed oxycodone for pain, which he is trying to wean off of. [facility] Medical History Blister of left lower extremity Varicose veins of bilateral lower extremities with other complications Left leg cellulitis Diabetic ulcer of ankle associated with diabetes mellitus due to underlying condition Ulcer of left ankle Overweight (BMI 25.0-29.9) Stroke Impaired fasting glucose Pure hypercholesterolemia Pityriasis lichenoides Poorly controlled persistent asthma Obesity (BMI 30-39.9) Cerebral arteriovenous malformation (AVM) Lumbar degenerative disc disease Acquired hypothyroidism Asthma Surgical History Status post coil embolization of cerebral aneurysm (~11/03/12) History of lumbar discectomy Family History Father Diabetes Mother No problems noted. 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 1. Little interest or pleasure in doing things: not at all 2. Feeling down, depressed, or hopeless: not at all 3. Trouble falling or staying asleep, or sleeping too much: not at all 4. Feeling tired or having little energy: not at all 5. Poor appetite or overeating: not at all 6. Feeling bad about yourself - or that you are a failure or have let yourself or your family down: not at all 7. Trouble concentrating on things, such as reading the newspaper or watching television: not at all 8. Moving or speaking so slowly that other people could have noticed. Or the opposite - being so fidgety or restless that you have been moving around a lot more than usual: not at all 9. Thoughts that you would be better off or of hurting yourself in some way: not at all Total score: 0 Depression Screening Interpretation: Negative Depression Screening Done: Yes Source: Developed by Drs. Santos Onofre, Britt Soares, Errol Manzanares and colleagues, with an educational antoinette from [employer]. Thrive Questionnaire Date Thrive assessed: 12/11/24 I am a: Patient What is your living situation today?: I have a steady place to live Within the past 12 months, did the food you bought not last and you didn't have the money to get more?: Sometimes True Within the past 12 months, did you worry whether your food would run out before you got money to buy more?: Never true Do you have trouble paying for medicines?: No Do you have trouble getting transportation to medical appointments?: No Do you have trouble paying your heating and electricity bill?: No Do you have trouble taking care of your child, family member or friend?: No Do you have trouble with day-to-day activities such as bathing, preparing meals, shopping, managing finances, etc.?: No Are you currently unemployed and looking for a job?: No Are you interested in more education?: No Please select the resources that you would like help with: None Currently or been in a relationship where the following occur: No concerns reported THRIVE Score: 1 AUDIT C Alcohol Use Questionnaire (AUDIT-C) 1. How often do you have a drink containing alcohol?: Monthly or less 2. How many drinks containing alcohol do you have on a typical day when you are drinking?: 1 or 2 3. How often do you have six or more drinks on one occasion?: Never Total Score: 1 MARIA DEL CARMEN-7 AMB Questionnaire MARIA DEL CARMEN-7 Date MARIA DEL CARMEN - 7 assessed: 10/27/24 Feeling nervous, anxious, or on edge: 0 = Not at all Not being able to stop or control worryin = Not at all Worrying too much about different things: 0 = Not at all Trouble relaxin = Several days Being so restless that it is hard to sit still: 0 = Not at all Becoming easily annoyed or irritable: 1 = Several days Feeling afraid as if something awful might happen: 0 = Not at all Total MARIA DEL CARMEN-7 score (0-4 normal; 5-9 mild; 10-14 moderate; 15-21 severe): 2 Source: Developed by Drs. Santos Onofre, Britt Soares, Errol Manzanares and colleagues, with an educational antoinette from [employer]. Review of Systems Const Denies chills, Reports fatigue, Denies fever(s) and Denies headache(s) ENT Denies dysphagia, Denies dizziness, Denies otalgia, Denies headache(s), Denies neck pain, Denies odynophagia and Denies sore throat Card Denies chest pain, Denies palpitations and Reports dyspnea on exertion (mild) Resp Denies chest congestion, Denies cough, Reports dyspnea on exertion (mild) and Denies wheezing GI Denies abdominal pain, Denies constipation, Denies dysphagia, Denies heartburn, Denies diarrhea, Denies nausea, Denies odynophagia and Denies vomiting Denies difficulty urinating, Denies dysuria, Reports nocturia and Reports urinary frequency Musc Reports back pain (over the lower back - chronic), Reports arthralgias (left knee, more recently on right knee (has torn meniscus)) and Denies neck pain Skin/Breast Details: (+) small open wound on the right lower leg - drains slightly off and on Denies rash and Reports wounds (Left leg) Neuro Denies dizziness and Denies headache(s) Psych Reports other (PTSD from being in the hospital) Endo Reports fatigue and Denies palpitations Aller/Immun Denies wheezing Physical exam (Primary Care) Vital Signs: Last Vital Signs Temp 97.5 F 12/29/24 15:36 Pulse 109 H 12/29/24 15:36 BP 160/108 H 12/29/24 15:36 Pulse Ox 97 12/29/24 15:36 Oxygen Delivery Method Room Air 12/29/24 15:36 BMI result Body Mass Index 31.2 Tobacco/Smoking Status: Tobacco use Status Tobacco use date assessed 10/27/24 12/29/24 15:43 Patient Tobacco Use Status Former Tobacco user 12/29/24 15:43 Tobacco use type Cigarette 12/29/24 15:43 e-Cigarette/Vaping Use Never Used 12/29/24 15:43 PHQ-9: PHQ-9 Score PHQ-9: Total score 0 12/29/24 18:02 Depression Screening Interpretation: Negative Thrive Assessment: Date of Thrive Assessment Date Thrive assessed 12/11/24 12/29/24 15:43 Currently or been in a relationship where the following occur: No concerns reported Const General: no acute distress and alert HENMT Throat: Yes posterior oropharynx normal and Yes tonsils normal (no TP congestion) Neck Neck: Yes supple and No lymphadenopathy Thyroid: Thyroid normal Resp Auscultation: clear to auscultation bilaterally, no crackles, no rales and no wheezes Cardio Rate: regular rate Rhythm: regular rhythm Heart sounds: no murmurs GI Palpation (GI): Soft to palpation and nontender Auscultation: normal bowel sounds General: Yes no CVA tenderness Back/Spine/Pelvis Back: no CVA tenderness Thoracic/Lumbar Spine: lumbar spinal tenderness Skin Other: (+) small open sore on the right lower leg, with minimal clear drainage noted from the sore Wounds: wounds noted (Left leg wound. Dressing intact (f/b wound care)) Extrem Other: (+) erythema with 2+ edema noted over the right lower extremity Right lower extremity: knee Details: tenderness Location: of the medial joint line; no swelling Left lower extremity: knee Details: tenderness Location: of the medial joint line; no swelling (at present) Coding Level of Care Code Est Pt Level 4 (89824) Diagnoses Elevated blood pressure reading without diagnosis of hypertension R03.0 Uncontrolled type 2 diabetes mellitus with hyperglycemia E11.65 Diabetes mellitus type: type 2 Cellulitis L03.116 Laterality: left Site of cellulitis: extremity Site of cellulitis of extremity: lower extremity Lumbar degenerative disc disease M51.36 Time Spent (min) 36 Assessment & Plan Assessment & Plan (1) Elevated blood pressure reading without diagnosis of hypertension: Code(s): R03.0 - Elevated blood-pressure reading, without diagnosis of hypertension Category: Medical Plan: The patient's blood pressure was elevated in the office. The long-term risks of uncontrolled hypertension, including heart failure, kidney disease, cardiomegaly, and stroke, were discussed, particularly in the context of his strenuous exercise regimen. The patient agreed to start a low dose of lisinopril 5 mg daily as a temporary measure while working on lifestyle modifications like diet and salt reduction. A follow-up visit for a blood pressure check is scheduled in four weeks. (2) Uncontrolled diabetes mellitus with hyperglycemia: Code(s): E11.65 - Type 2 diabetes mellitus with hyperglycemia Category: Medical Qualifiers: Diabetes mellitus type: type 2 Qualified Code(s): E11.65 - Type 2 diabetes mellitus with hyperglycemia Plan: The patient has poorly controlled Type 2 diabetes, with a recent HbA1c of 10.2%. He is motivated to make lifestyle changes to improve glycemic control. He has an upcoming appointment with an battery inspector to discuss comprehensive management, which may include medications like Mounjaro. (3) Cellulitis: Code(s): L03.90 - Cellulitis, unspecified Category: Medical Qualifiers: Laterality: left Site of cellulitis: extremity Site of cellulitis of extremity: lower extremity Qualified Code(s): L03.116 - Cellulitis of left lower limb Plan: Bilateral lower extremities. The patient presented for follow-up of cellulitis after a recent hospitalization where IV antibiotics were administered. The hospital staff had recommended a longer stay for IV therapy, suggesting they believed oral antibiotics would be insufficient. On examination, the leg is not warm, but there is some residual redness. Given the initial severity, a precautionary course of oral doxycycline for 10 days will be prescribed. (4) Lumbar degenerative disc disease: Code(s): M51.36 - Other intervertebral disc degeneration, lumbar region Category: Medical Plan: Reinforced activity and weight limits. The patient has a prescription for oxycodone that is due for a refill. The prescription will be refilled today. The patient expressed a desire to wean off the medication completely, and this goal was supported. Medications: New doxycycline monohydrate 100 mg PO BID 20 tabs 0RF 10 days lisinopril 5 mg PO DAILY 30 tabs 3RF Refilled oxycodone Partial Fill upon patient request 10 mg PO Q6-8H PRN 112 tabs 0RF pain 28 days
--- OUTSIDE RECORDS SUMMARY | 2024-12-29 18:25 | XMS_ITS | Patient Health Record ---
Author Organization [facility] Address [address] [address] Care Team Providers Care Beer Brewer Name Role Phone Jeanette Casillas Unavailable [phone] Allergies No Known Allergies Reason For Referral No Information Medications Medication SIG (Take, Route, Fr equency, Duration) Notes Start Date End Date Status Levothyroxine Sodium Active Adderall Active Encounters Encounter Location Date Provider Diagnosis [facility] [address] [address] 09/03/2024 Jeanette Casillas Cellulitis of right leg [...]
--- OUTSIDE RECORDS SUMMARY | 2024-12-29 18:25 | XMS_ITS | Data Portability ---
Author Organization [facility], [facility] [address] [place] [address] Care Team Providers Care Field Reimbursement Manager Name Role Phone IRMA PEPPER Primary Care Provider Assessment No assessment recorded. Plan of Treatment Reminders Order Date Submit Date Provider Last Modified By Organization Details Last Modified Time Details Appointments None recorded . Lab None recorded . Referral None recorded . Procedures None recorded . Surgeries repair tricep/b icep muscle/t endon (SURG) 2024 025 [email or web address] [place], [address], [place], [address], 5 09:32:10 Imaging XR, knee, 4 or more view - 217 2024 025 muna [facility], [address], [place], [address], 5 10:18:24 Medication Orders None recorded . Patient TargetsNo targets recorded. Patient InstructionsNo instructions recorded. Reason for Referral None Reported. Results Created Date Observation Date Name Description Value Unit Range Abnormal Flag Note LastModifiedBy Organization Detail LastModifiedTime 05/05/1905/04/2024 XR, elbow , 3 or more view [email or web address] ?Encry pted=s hAaTro YD8dLq bEUv6g %2BXZw aYqtaq 0bqfl% 2Fg9IQ a4ajBk vP9nXo QUaueC m3YtLR FvZlgJ JJ8mAn HZtai3 1m1033 AC0KqY nyHUaK lKiQtr MwF INTERFACE [facility] [address], [place], [address], 05/04/2024 14:14:40 05/05/19 25 05/04/2024 XR, elbow , 3 or more view [email or web address] ?Encry pted=s hAaTro YD8dLq bEUv6g %2BXZw aYqtaq 0bqfl% 2Fg9IQ a4ajBk vP9nXo QUaueC m3YtLR FvZlgJ JJ8mAn HZtai3 2q1806 AC0KqY nyHUaK lKiQtr MwF [facility]FACE [facility] [address], [place], [address], 05/04/2024 14:14:42 05/14/19 25 05/13/2024 MRI, elbow , w/o contr ast No observ ation record ed. [email or web address] [facility] [place] [address], [place], [address], 05/13/2024 14:10:11 05/24/19 25 05/23/2024 XR, knee, 4 or more view [email or web address] ?Encry pted=s hAaTro YD8dLq bEUv6g %2BXZw aYqtaq 0bqfl% 2Fg9IQ a4ajBk vP9nXo QUaueC m3YtLR FvZlgJ JJ8mAn HZtai3 2o9001 AC0KqY nSNUKG lKiQtr MwF INTERFACE [facility] [address], [place], [address], 05/23/2024 14:54:39 05/24/19 25 05/23/2024 XR, knee, 4 or more view [email or web address] ?Encry pted=s hAaTro YD8dLq bEUv6g %2BXZw aYqtaq 0bqfl% 2Fg9IQ a4ajBk vP9nXo QUaueC m3YtLR FvZlgJ JJ8mAn HZtai3 8q6060 AC0KqY nSNUKG lKiQtr MwF INTERFACE [facility] [address], [place], [address], 05/23/2024 14:54:41 Result Notes Documentation Provider Name and Address Organization Details Recorded Time Xr, Knee, 4 Or More View : [email or web address] Encrypted=oqZbRigMQ8hUehP Uv6g%6WPOosSreix4nqav%2Fg 1FBt1rqOujE3xKjSLaemEm3Cc SUPcWfxPMR8lEaGVoyl92p201 5RD6UtYqZEINRnElWkvRpQ Not Available [facility] 05/23/2024 14:54: 40 Xr, Knee, 4 Or More View : [email or web address] Encrypted=fwVwRrwUW9jEwiQ Uv6g%5LMZeuMcmoi2ddln%2Fg 2AGa6rqJclN2eGiXVpzkIh5Lw ZJOgGpsCXM9tQtRUloq92t820 0EU9PlUlQGOMFfUjGwiKaV Not Available [facility] 05/23/2024 14:54: 42 Problems Name Problem SNOMED Code Status Onset Date Resolution Date Notes Provider Name and Address Organization Details Recorded Time Pain of right knee joint 5234379921109 00 Active 2024 Edgar Wharton PA-C [address], [place], [address], [facility] 14:38:41 Osteoarthri tis of right knee joint 2950652194540 00 Active 2024 Edgar Wharton PA-C [address], [place], [address], [facility] 15:35:01 Latent autoimmune diabetes mellitus in adult 462514619 Active 2024 Edgar Wharton PA-C [address], [place], [address], [facility] 16:50:59 Problem Notes None recorded. Procedures Surgical History Date Name Laterality Status Provider Name and Address Organization Details Recorded Time 5 Sports Knee 4&1 completed Edgar Wharton PA-C [address], [place], [address], [facility] 12/20/2024 16:04:27 5 Sports Knee 4&1 completed Edgar Wharton PA-C [address], [place], [address], [facility] 08/16/2024 06:13:00 5 Sports Knee 4&1 completed Edgar Wharton PA-C [address], [place], [address], [facility] 05/23/2024 15:34:50 5 Head or Neck Surgery completed JOVAN PEDROZA [facility] 06/29/2024 15:01:52 5 Knee Surgery completed JOVAN PEDROZA [facility] 06/29/2024 15:01:51 Imaging Results None recorded. Procedure Notes None recorded. Medical Equipment None Reported. Allergies No known drug allergies Medications Name Sig Start Date Stop Date Status Note LastModified by Organization Details LastModified Time silver sulfadiazin e 1 % topical cream APPLY 1.5 MM THICKNESS TOPICALLY DAILY FOR LEFT LOWER EXTREMITY ULCERS active Not Available Not Available No t Available prednisone 10 mg tablet TAKE 4 TABLETS DAILY FOR 7 DAYS. DECREASE BY 1 TABLET EVERY WEEK DIRECTED UNTIL FINISHED active Not Available Not Available No t Available doxycycline hyclate 100 mg capsule TAKE 1 CAPSULE BY MOUTH 2 TIMES DAILY FOR 7 DAYS 12/17 completed Not Available Not Available Not Available atorvastati n 10 mg tablet TAKE 1 TABLET BY MOUTH EVERY DAY AT BEDTIME active Not Available Not Available No t Available meloxicam 15 mg tablet TAKE 1 TABLET BY MOUTH EVERY DAY 05/04 completed Not Available Not Available Not Available FreeStyle Lancets 28 gauge USE TO TEST ONCE A DAY DIRECTED active Not Available Not Available No t Available prednisone 20 mg tablet TAKE 2 TABLETS BY MOUTH EVERY DAY active Not Available Not Available No t Available clindamycin HCl 150 mg capsule TAKE 3 CAPSULES (450 MG) BY MOUTH EVERY 8 HOURS active Not Available Not Available No t Available Sporanox 100 mg capsule TAKE 2 CAPSULES BY MOUTH TWICE DAILY WITH FOOD active Not Available Not Available No t Available doxycycline monohydrate 100 mg capsule TAKE 1 CAPSULE BY MOUTH TWICE A DAY FOR 10 DAYS active Not Available Not Available No t Available cephalexin 500 mg capsule 1 CAPSULE ORALLY EVERY 6 HRS 12/17 completed Not Available Not Available Not Available levothyroxi ne 150 mcg tablet TAKE 1 TABLET BY MOUTH EVERY MORNING active Not Available Not Available No t Available levofloxaci n 750 mg tablet TAKE 1 TABLET BY MOUTH EVERY DAY 12/17 completed Not Available Not Available Not Available amoxicillin 875 mg-potassiu m clavulanate 125 [...] 1 CAPSULE BY MOUTH TWICE A DAY MORNING AND AFTERNOON active Not Available Not Available No t Available insulin lispro protamine-l ispro 100 unit/mL (75-25) subcutaneou s pen INJECT 10 UNITS SUBCUTANE OUSLY 2 TIMES A DAY active Not Available Not Available [...] Not Available Not Available No t Available FreeStyle Lite Meter kit USE DIRECTED active Not Available Not Available No t Available FreeStyle Lite Strips USE TO TEST ONCE DAILY DIRECTED active Not Available Not Available No t Available Lantus Solostar U-100 Insulin 100 unit/mL (3 mL) subcutaneou s pen INJECT 10 UNITS (0.1 ML) SUBCUTANE OUSLY EVERY EVENING active Not Available Not Available No t Available oxycodone 10 mg tablet TAKE 1 TABLET BY MOUTH EVERY 6 TO 8 HOURS NEEDED FOR PAIN FOR 28 DAYS active Not Available Not Available No t Available OptiChamber Laura [facility] spacer USE DIRECTED active Not Available Not Available No t Available FreeStyle Rosalind 3 Plus Sensor device CHANGE SENSOR EVERY 15 DAYS DIRECTED active Not Available Not Available No t Available Patricia 2nd Gen Pen Needle 32 gauge x 5/32 USE 4 TIMES A DAY DIRECTED active Not Available Not Available No t Available Vitals Date Recorded Body height Body mass index (BMI) Body weight Provider Name and Address Organization Details Last Updated DateTime 05/18/2024 172.72 cm 31.6 kg/m2 85736.21 g STEVEN WILSON [facility] 05/18/2024 13:51:22 Date Recorded Body height Body mass index (BMI) Body weight Provider Name and Address Organization Details Last Updated DateTime 05/23/2024 172.72 cm 31.5 kg/m2 03101.62 g Edgar Wharton PA-C [address] [place] [address], [address], [facility] 05/23/2024 14:37:50 Date Recorded Body height Body mass index (BMI) Body weight Provider Name and Address Organization Details Last Updated DateTime 06/29/2024 172.72 cm 31.5 kg/m2 15797.62 g JOVAN PEDROZA [facility] 06/29/2024 15:01:58 Date Recorded Body height Body mass index (BMI) Body weight Provider Name and Address Organization Details Last Updated DateTime 08/16/2024 172.72 cm 31.5 kg/m2 05502.62 g Edgar Wharton PA-C [address], [place], [address], [facility] 08/16/2024 10:41:03 Date Recorded Body height Body mass index (BMI) Body weight Provider Name and Address Organization Details Last Updated DateTime 12/20/2024 172.72 cm 31.5 kg/m2 31604.62 g Edgar Wharton PA-C [address], [place], [address], [facility] 12/20/2024 15:51:08 Social History Question Answer Notes LastModified by Yidio Details LastModified Time Tobacco Smoking Status Never Smoker Edgar Wharton PA-C [address], [place], [address], [facility] 08/16/2024 10:41:46 What Is Your Relationship Status? Single Information not available 08/16/2024 Sex: Unknown Functional Status Question Answer Note LastModified by Yidio Details LastModified Time Do you use any illicit or recreational drugs? No Information not available 08/16/2024 What is your level of alcohol consumption? None [email or web address] Information not available 08/16/2024 Mental Status None recorded. Family History Nothing Reported. Medical History Condition Response Thyroid Problems Y Stroke Y Asthma Y Past Encounters Encounter ID Performer Location Encounter Start Date Encounter Closed Date Diagnosis/Indication Diagnosis SNOMED-CT Code Diagnosis ICD10 Code Diagnosis IMO Codes Diagnosis Note [id number] ZACHARY Juarez [facility] [address] [place] [address] 05/04/2024 13:49:28 05/12/2024 16:03:35 Pain of elbow region 10676862 M25.522 015699 [id number] ZACHARY Juarez [facility] [address] [place] [address] 05/18/2024 13:47:31 06/05/2024 13:52:04 [id number] ZACHARY Galo [facility] [address] [place] [place] [address] 05/23/2024 14:29:27 06/03/2024 10:18:24 Pain of right knee joint 4546771907 18879 M25.561 120560 Osteoarthr itis of right knee joint 5309796005 93502 M17.11 [id number] MD MARILYNN Cantrell [address] [place] [address] 06/29/2024 14:55:52 07/12/2024 12:27:08 Left triceps tendon tear 5617022723 6284701 S46.312D [id number] ZACHARY Galo [facility] [address] [place] [address] 08/16/2024 10:25:02 08/19/2024 08:28:48 Pain of right knee joint 3934374946 66899 M25.561 643090 Osteoarthr itis of right knee joint 4934997587 82655 M17.11 1202475 [id number] ZACHARY Gal[facility] [address] [place] [address] 12/20/2024 15:29:55 12/28/2024 10:36:19 Pain of right knee joint 8059584543 77106 M25.561 340169 Osteoarthr itis of right knee joint 4792418422 80711 M17.11 3709075 Latent aut oimmune diabetes mellitus in adult 651385214 E13.9 [id number] Health Concerns Section Related Observation LastModified by Organization Detai ls LastModified Time None Recorded Concern Status LastModified by Organization Details LastModified Time None Recorded Advance Directives Directive None Recorded Payers Insurance Date Sequence Insurance Name Policy Number Policy Hines Covered Member ID Hines Member ID Guarantor Name 12/28/2024 1 [facility] (MEDICAID HMO) LEDY Ang [id number] Van Ang Notes Date Note Type Note Provider Name and Address Organization Details Recorded Time 05/18/2024 text/html I am seeing the patient [...] his options. He will call Dr. Heaton's racing secretary if he decides to proceed with surgery. Patient examined discussed with Dr. Sudarshan Cross PA-C [address] [place] [address] [address], [place], [address], [facility] 05/18/2024 14:30:58 05/23/2024 text/html [...] oriented x3. Normal insight, affect, and grooming. 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 No spasticity [...] views ordered and independently reviewed previously at [facility] of the 4 views of the [...] of compliance regarding home exercises moving forward. \[employer] [facility] speech recognition administrative coordinator software was used to create portions of this document. An attempt at proofreading has been made to minimize errors. Please call for corrections Edgar Wharton PA-C [address] [place] [address] [address] [facility], [place], [address], [facility] 05/23/2024 15:35:21 06/29/2024 text/html ROS as noted [...] to the procedure. Gurwinder Heaton MD [address], [place], [address], [facility] 06/30/2024 10:16:59 08/16/2024 text/html I am seeing [...] views ordered and independently reviewed previously at [facility] of the 4 views of the [...] of compliance regarding home exercises moving forward. [employer] speech recognition administrative coordinator software was used to create portions of this document. An attempt at proofreading has been made to minimize errors. Please call for corrections Edgar Wharton PA-C [address], [place], [address], [facility] 08/16/2024 11:04:17 12/20/2024 text/html I am seeing the patient today under the supervision of Dr. Leger who was available but who did not [...] he comes in today for orthopedic evaluation. Clinical Update: Patient returns today for follow-up evaluation reporting increased pain in the right knee. He reports approximate 2-month benefit from previous injection. Symptoms are exacerbated with prolonged standing, he was recently hospitalized with cellulitis in his left leg, he is no longer taking antibiotics. Examination of the right knee demonstrates restricted range of motion good anterior-posterior stability no laxity valgus or varus stressing. Exquisite medial and the lateral joint line tenderness with patellofemoral crepitus noted, 1+ effusion, 4/5 strength. X-rays report: 4 views ordered and independently reviewed previously at [facility] of the 4 views of the [...] potential side effects after an injection today. Ultimately, we discussed about his candidacy for total knee arthroplasty considering his young age he would try to stay consistent with conservative measures. He has recent been diagnosed with diabetes and therefore trying to optimize his glycemic control and management. Additionally reemphasized the benefits of physical therapy, stressed the importance of compliance regarding home exercises moving forward. [employer] speech recognition administrative coordinator software was used to create portions of this document. An attempt at proofreading has been made to minimize errors. Please call for corrections Edgar Wharton PA-C [address] [place] [address] [address], [place], [address], [facility] 12/20/2024 16:51:22
== END 2024-12-29 16:30 | disposition home or self-care (01) ==
LOC: HO.HMCH 15:32
PROVIDERS: PCP Internal Medicine
DX: R03.0 Elevated blood-pressure reading, without diagnosis of hypertension (principal); E11.65 Type 2 diabetes mellitus with hyperglycemia; L03.116 Cellulitis of left lower limb; M51.369 Other intervertebral disc degeneration, lumbar region without mention of lumbar back pain or lower extremity pain

== ENCOUNTER → 2024-12-29 15:31 | Outpatient (BNVA) | payer OTHER, SELFPAY | PROVIDERS: PCP Internal Medicine | DX: E11.65 Type 2 diabetes mellitus with hyperglycemia (principal); R03.0 Elevated blood-pressure reading, without diagnosis of hypertension; L03.116 Cellulitis of left lower limb; M51.369 Other intervertebral disc degeneration, lumbar region without mention of lumbar back pain or lower extremity pain; Z79.891 Long term (current) use of opiate analgesic | CPT/HCPCS: 99212 ==

== ENCOUNTER 2025-01-02 08:10 | Outpatient (AMB) | payer OTHER, SELFPAY ==
--- OUTSIDE RECORDS SUMMARY | 2024-12-26 04:30 | XMS_ITS | Continuity of Care Document ---
Author Organization [facility] Address [address] [place] [address] Dr [address] [place] [address] Phone Care Team Providers Care High Risk Ob Name Role Phone Evens BOYLE, MOHAN, JOB, [...] Mi- [place] & [place] [facility], [address] [place] [address] Dr Ans[address], [place], [id number], [place] tel:[phone] CVR - [place] Pain in left legCramp and spasmLocalized edemaNon-pressu re chronic ulcer of left ankle with unspecified severityPain in right lower legPain in left lower legPain in right legVenous insufficiency (chronic) (peripheral)Pru ritus, unspecifiedDiso rder of pigmentation, unspecified Nov-0 5 Evens BOYLE, MOHAN, JOB Graham. [address] [facility] [address], [place], [id number] , [place]. tel:[phone] Referring Provider: Rambo Qureshi MD, [address] [place] [address] [address], [place], [address]. tel:[phone] [facility], [address] [place] [address] Dr [address], [place], [id number], [place] tel:[phone] CVR - [place] - [place] Chronic venous hypertension (idiopathic) with other complications of bilateral lower extremity Evens BOYLE, RVT, RPVI Santos. [address] [facility], [address], [facility] [place], [id number] , [place]. tel:[phone] Referring Provider: Rambo Qureshi MD, [address] [place] [address] Dr [address], [place], [address]. tel:[phone] Family History Family Member Type Diagnosis Age At Onset No Information Payers Payer name Insurance type Covered green party ID Authorbenji rosado(s) [facility] [place] [id number] Social History Type Description Quantity Date Captured [...] to Body mass index (BMI) 31.0-31.9, adult Lifestyle education Related to B sonia mass index (BMI) 31.0-31.9, adult Compression stocking usage as conservative measure Related to Non-pressure chronic ulcer of left ankle with unspecified severity Patient education booklet given Related to Non-pressure chronic ulcer of left ankle with unspecified severity Assessments Type Assessment Date No Information Patient Care Teams Name Effective Dates (start - stop) Status Members No Information
--- NOTE | 2025-01-02 08:12 | MHC.OFFVIS ---
Vital Signs 01/02/25 08:14 Height 5 ft 9 in Weight 214 lb 15.211 oz BMI 31.7 BP 172/106 H Blood Pressure Location Rt brachial Position Sitting Pulse 104 H Pulse Source Pulse Oximeter Pulse Oximetry (%) 98 Oxygen Delivery Method Room Air Intake Visit Reasons: f/u Type 2 Dm Intake Note: Patient present today for T2DM follow up. Last Diabetic Eye exam: Less than 1 year, [facility] Last Podiatry Visit: Does not see a Parquetry Layer Random Glucose: 148 mg/dl Hgb A1C: 9.2% 10/27/2024 Time Clerk Required: No Allergies tezepelumab-ekko ([facility]) Adverse Reaction (Severe, Verified 01/02/25 08:19) severe joint pains and weakness Medication List - Last Reconciled 01/02/25 by Santos Rodarte MD albuterol sulfate 90 mcg/actuation 2 puffs inhalation 6XD PRN 30 days blood sugar diagnostic (FreeStyle Lite Strips) As directed checks once a day blood-glucose meter (FreeStyle Lite Meter kit) As directed dextroamphetamine-amphetamine 15 mg ER (Adderall XR) 1 cap PO BID doxycycline monohydrate 100 mg PO BID 10 days FreeStyle Rosalind 3 Plus Sensor (blood-glucose sensor) As directed change every 15 days NS inhalational spacing device (OptiChamber Laura [facility] spacer) USE DIRECTED insulin glargine (Lantus Solostar U-100 Insulin) 10 units subcut BEDTIME insulin lispro protamin-lispro 100 unit/mL (75-25) (Humalog Mix 75-25 KwikPen) 10 units (0.1 mL) subcut BIDWM itraconazole (Sporanox) 200 mg PO BIDWM lancets (FreeStyle Lancets) As directed checks once a day levothyroxine 150 mcg PO DAILY@0600 lisinopril 5 mg PO DAILY oxycodone 10 mg PO Q6-8H PRN 28 days pen needle, diabetic As directed 4 times a day prednisone 10 mg PO DIRECTED HPI Comments Details: 49 YO M who is seen in consultation for T2DM at the request of PCP. Initially diagnosed with T2DM in 1 mo . Never saw specialist before Was initially started on treatment with insulin . Current regimen Lantus 10 units . 75/25 10 units BID Rosalind download shows he is using the sensor 89% of the time. Average glucose is 217 with G mi of 8.5% and variability 25.7%. 25% range with 48% hyperglycemia and 27% very hyperglycemic and no hypoglycemia. Pen shows persistent hyperglycemia throughout the day with increase after dinner No hypoglycemia Most recent A1C 9.2 on 10/27/2024, Family history of T2DM in father . Grandfather had Type 2 DM Has eyes checked yearly, last eye exam needs to make appt , denies retinopathy. Denies neuropathy, , Not sees podiatry. Denies nephropathy,Not on SAMSON/ARB. UAC [] as measured on []. Not Has HLD,Not on statin. Denies CAD. Had diabetes education. Edilson Antibodies are negative for type 1 diabetes Has appt with wound clinic tomorrow. Saw regional maintenance manager Taking atorvastatin [facility] Medical History Blister of left lower extremity Varicose veins of bilateral lower extremities with other complications Left leg cellulitis Diabetic ulcer of ankle associated with diabetes mellitus due to underlying condition Ulcer of left ankle Overweight (BMI 25.0-29.9) Stroke Impaired fasting glucose Pure hypercholesterolemia Pityriasis lichenoides Poorly controlled persistent asthma Obesity (BMI 30-39.9) Cerebral arteriovenous malformation (AVM) Lumbar degenerative disc disease Acquired hypothyroidism Asthma Surgical History Status post coil embolization of cerebral aneurysm (~11/03/12) History of lumbar discectomy Family History Father Diabetes Mother No problems noted. 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 Absence of acromegalic features. Neck exam reveals nl size thyroid about 15 gms. No thyroid nodules palpable. No carotid bruits present. Lungs CTA. Heart S1 S2, Reg R/R. No M/R/ G. Skin exam reveals absence of vitiligo or acanthosis nigricans. Abdominal exam reveals Soft NT/ND with NA BS. No organomegaly present. Neck Other: . Extrem Other: Visual exam of foot performed.Tense edema present. Both ankles bandaged followed by wound clinic No onchomycosis, no callouses.Pulses 2 + distally Sensation intact to monofilament exam. Vibratory sensation sensed is decreased with 128 Hz tuning fork Assessment & Plan Assessment & Plan (1) Uncontrolled diabetes mellitus with hyperglycemia: Code(s): E11.65 - Type 2 diabetes mellitus with hyperglycemia Category: Medical Qualifiers: Diabetes mellitus type: type 2 Qualified Code(s): E11.65 - Type 2 diabetes mellitus with hyperglycemia Plan: This is a 49-year-old white male with a history of type 2 diabetes being treated with basal and premixed insulin with poor glycemic control and no known microvascular or macrovascular complication. Plan is to increase the Lantus to 20 units and to start a G LP 1 namely Mounjaro 2.5 mg Q weekly. Went over side effects of Mounjaro including but not limited to nausea, vomiting and rare risk of pancreatitis. Prescribed Humalog insulin right now for point of cares over 200 as correction. However did tell patient that he be increases over meals, then start the Humalog at point of care greater than 150. We will ensure patient is taking 10 mg of atorvastatin and recheck lipid profile on that. Have patient follow up with primary care diabetes team in 4 weeks Orders: Orders Lipid Panel Today E78.00 - Pure hypercholesterolemia, unspecified Medications: New Mounjaro (tirzepatide) for 4 weeks 2.5 mg (0.5 mL) subcut QWEEK 2 mL 0RF NS insulin lispro (Humalog KwikPen (U-100) Insulin) subcutaneously 3 times a day; take 3 units for POC >200 and 5 units for POC>250 15 mL 0RF atorvastatin (Lipitor) 10 mg PO DAILY 30 tabs 5RF Changed From insulin glargine (Lantus Solostar U-100 Insulin) 10 units subcut BEDTIME To insulin glargine (Lantus Solostar U-100 Insulin) 20 units subcut BEDTIME Discontinued insulin lispro protamin-lispro 100 unit/mL (75-25) (Humalog Mix 75-25 KwikPen) Discontinued Reason: Doctor's Order 10 units (0.1 mL) subcut BIDWM 15 mL 0RF Coding Level of Care Code Est Pt Level 4 (51251) Complex EM visit Add On G2211 Diagnoses Uncontrolled type 2 diabetes mellitus with hyperglycemia E11.65 Diabetes mellitus type: type 2
[2025-01-02 08:14] VITALS: BP 172/106; PULSE 104; O2SAT 98; BMI 31.7
--- OUTSIDE RECORDS SUMMARY | 2025-01-02 08:31 | XMS_ITS | Data Portability ---
Author Organization [facility], [facility] Address [address] [place] [address] Care Team Providers Care Credit Portfolio Manager Name Role Phone IRMA PEPPER Primary Care Provider Assessment No assessment recorded. Plan of Treatment Reminders Order Date Submit Date Provider Last Modified By Organization Details Last Modified Time Details Appointments None recorded . Lab None recorded . Referral None recorded . Procedures None recorded . Surgeries repair tricep/b icep muscle/t endon (SURG) 2024 025 [email or web address] [facility], [address], [place], [address], 5 09:32:10 Imaging XR, knee, 4 or more view - 217 2024 025 [facility], [address], [place], [address], 5 10:18:24 Medication Orders None recorded . [...] a4ajBk vP9nXo QUaueC m3YtLR FvZlgJ JJ8mAn HZtai3 5e3041 AC0KqY nyHUaK lKiQtr MwF INTERFACE [facility] [address], [place], [address], 05/04/2024 14:14:40 05/05/19 25 05/04/2024 XR, elbow , 3 or more view [email or web address] ?Encry pted=s hAaTro YD8dLq bEUv6g %2BXZw aYqtaq 0bqfl% 2Fg9IQ a4ajBk vP9nXo QUaueC m3YtLR FvZlgJ JJ8mAn HZtai3 3r9355 AC0KqY nyHUaK lKiQtr MwF [facility] [address], [place], [address], 05/04/2024 14:14:42 05/14/19 25 05/13/2024 MRI, elbow , w/o contr ast No observ ation record ed. [email or web address] [facility] [address], [place], [address], 05/13/2024 14:10:11 05/24/19 25 05/23/2024 XR, knee, 4 or more view [email or web address] ?Encry pted=s hAaTro YD8dLq bEUv6g %2BXZw aYqtaq 0bqfl% 2Fg9IQ a4ajBk vP9nXo QUaueC m3YtLR FvZlgJ JJ8mAn HZtai3 3d6231 AC0KqY nSNUKG lKiQtr MwF INTERFACE [facility] [address], [place], [address], 05/23/2024 14:54:39 05/24/19 25 05/23/2024 XR, knee, 4 or more view http:/ [email or web address] ?Encry pted=s hAaTro YD8dLq bEUv6g %2BXZw aYqtaq 0bqfl% 2Fg9IQ a4ajBk vP9nXo QUaueC m3YtLR FvZlgJ JJ8mAn HZtai3 1l1142 AC0KqY nSNUKG lKiQtr MwF INTERFACE [facility] [address], [place], [address], 05/23/2024 14:54:41 Result Notes Documentation Provider Name and Address Organization Details Recorded Time Xr, Knee, 4 Or More View : [email or web address] Encrypted=zqYdRbcGM3yKtmS Uv6g%4FFPfoHvwlq8lqhq%2Fg 9CRd4llEdxL0zOdILehpKr6Ck DUDgQliFTT5pNiJLoqr69r042 2PG4BvLyZRUZSvNeYueYzY Not Available [facility] 05/23/2024 14:54: 40 Xr, Knee, 4 Or More View : [email or web address] Encrypted=czZhFfjLO8tEnfF Uv6g%1UZWozMzrux5aasr%2Fg 7SKa9qzFxvV8vVrREoqeRz1Hb XHBpNgfMQM1xNiRUsoo54g879 4DM4XbVeKKQEPmHjFuyLyD Not Available [facility] 05/23/2024 14:54: 42 Problems Name Problem SNOMED Code Status Onset Date Resolution Date Notes Provider Name and Address Organization Details Recorded Time Pain of right knee joint 1017164632476 00 Active 2024 Edgar Wharton PA-C [address], [place], [address], [facility] 14:38:41 Osteoarthri tis of right knee joint 3773850168775 00 Active 2024 Edgar Wharton PA-C [address], [place], [address], [facility] 15:35:01 Latent autoimmune diabetes mellitus in adult 593437231 Active 2024 Edgar Wharton PA-C [address], [place], [address], [facility] 16:50:59 Problem Notes None recorded. Procedures Surgical History Date Name Laterality Status Provider Name and Address Organization Details Recorded Time 5 Sports Knee 4&1 completed Edgar Wharton PA-C [address], [place], [address], [facility] 12/20/2024 16:04:27 5 Sports Knee 4&1 completed Edgar Wharton PA-C [address], [place], [address], [facility] 08/16/2024 06:13:00 5 Sports Knee 4&1 completed Edgar Wharton PA-C [address], [place], [address], [facility] 05/23/2024 15:34:50 5 Head or Neck Surgery completed JOVAN PEDROZA [facility] 06/29/2024 15:01:52 5 Knee Surgery completed JOVAN PEDROZA [facility] 06/29/2024 15:01:51 Imaging [...] Not Available No t Available [employer] Laura [facility] spacer USE DIRECTED active Not Available [...] Updated DateTime 05/18/2024 172.72 cm 31.6 kg/m2 23875.21 g STEVEN WILSON [facility] 05/18/2024 13:51:22 Date Recorded Body height Body mass index (BMI) Body weight Provider Name and Address Organization Details Last Updated DateTime 05/23/2024 172.72 cm 31.5 kg/m2 57612.62 g Edgar Wharton PA-C [address] [place] [address], [address], [facility] 05/23/2024 14:37:50 Date Recorded Body height Body mass index (BMI) Body weight Provider Name and Address Organization Details Last Updated DateTime 06/29/2024 172.72 cm 31.5 kg/m2 08001.62 g JOVAN PEDROZA [facility] 06/29/2024 15:01:58 Date Recorded Body height Body mass index (BMI) Body weight Provider Name and Address Organization Details Last Updated DateTime 08/16/2024 172.72 cm 31.5 kg/m2 44430.62 g Edgar Wharton PA-C [address], [place], [address], [facility] 08/16/2024 10:41:03 Date Recorded Body height Body mass index (BMI) Body weight Provider Name and Address Organization Details Last Updated DateTime 12/20/2024 172.72 cm 31.5 kg/m2 07211.62 g Edgar Wharton PA-C [address], [place], [address], [facility] 12/20/2024 15:51:08 Social History Question Answer Notes LastModified by [employer] Details LastModified Time Tobacco Smoking Status Never Smoker Edgar Wharton PA-C [address], [place], [address], [facility] 08/16/2024 10:41:46 What Is Your Relationship Status? Single Information not available 08/16/2024 Sex: Unknown Functional Status Question Answer Note LastModified by [employer] Details LastModified Time Do you use any illicit or recreational drugs? No Information not available 08/16/2024 What is your level of alcohol consumption? None [facility] Information not available 08/16/2024 Mental Status None recorded. Family History Nothing Reported. Medical History Condition Response Stroke Y Thyroid Problems Y Asthma Y Past Encounters Encounter ID Performer Location Encounter Start Date Encounter Closed Date Diagnosis/Indication Diagnosis SNOMED-CT Code Diagnosis ICD10 Code Diagnosis IMO Codes Diagnosis Note [id number] ZACHARY Juarez [facility] [address] [place] [address] 05/04/2024 13:49:28 05/12/2024 16:03:35 Pain of elbow region 91479277 M25.522 [id number] ZACHARY Juarez [facility] [address] [place] [address] 05/18/2024 13:47:31 06/05/2024 13:52:04 [id number] ZACHARY Galo [facility] [address] [place] [place] [address] 05/23/2024 14:29:27 06/03/2024 10:18:24 Pain of right knee joint 0755445263 68148 M25.561 788647 Osteoarthr itis of right knee joint 1521852106 45657 M17.11 [id number] MD MARILYNN Cantrell [address] [place] [address] 06/29/2024 14:55:52 07/12/2024 12:27:08 Left triceps tendon tear 0421020673 0284943 S46.312D [id number] ZACHARY Galo [facility] [address] [place] [address] 08/16/2024 10:25:02 08/19/2024 08:28:48 Pain of right knee joint 3770497223 66626 M25.561 979941 Osteoarthr itis of right knee joint 4616058957 22948 M17.11 [id number] Z[facility]ARY [facility] [address] [place] [address] 12/20/2024 15:29:55 12/28/2024 10:36:19 Pain of right knee joint 9367089570 89741 M25.561 [id number] Osteoarthr itis of right knee joint 2995494251 43025 M17.11 [id number] Latent aut oimmune diabetes mellitus in adult 826334940 E13.9 [id number] Health Concerns Section Related Observation LastModified by Organization Detai ls LastModified Time None Recorded Concern Status LastModified by Organization Details LastModified Time None Recorded Advance Directives Directive None Recorded Payers Insurance Date Sequence Insurance Name Policy Number Policy Hines Covered Member ID Hines Member ID Guarantor Name 12/28/2024 1 [facility] (MEDICAID HMO) LEDY Ang [id number] Van Ang Notes Date Note Type Note [...] his options. He will call Dr. Heaton's financial secretary if he decides to proceed with surgery. Patient examined discussed with Dr. Sudarshan Cross PA-C [address] [place] [address] [address], [place], [address], [facility] 05/18/2024 14:30:58 05/23/2024 text/html [...] oriented x3. Normal insight, affect, and grooming. DIRECTOR FAMILY: Gross motor coordination is intact. No spasticity [...] views ordered and independently reviewed previously at [facility] of the 4 views of the [...] of compliance regarding home exercises moving forward. \[employer] [facility] speech recognition ent physician software was used to create portions of this document. An attempt at proofreading has been made to minimize errors. Please call for corrections Edgar Wharton PA-C [address] [place] [address] Suite Formerly named [facility], [place], [address], [facility] 05/23/2024 15:35:21 06/29/2024 text/html ROS as noted [...] to the procedure. Gurwinder Heaton MD [address], [place], [address], [facility] 06/30/2024 10:16:59 08/16/2024 [...] views ordered and independently reviewed previously at [facility] of the 4 views of the [...] of compliance regarding home exercises moving forward. [employer] speech recognition ent physician software was used to create portions of this document. An attempt at proofreading has been made to minimize errors. Please call for corrections Edgar Wharton PA-C [address], [place], [address], [facility] 08/16/2024 11:04:17 12/20/2024 text/html I am seeing [...] views ordered and independently reviewed previously at [facility] of the 4 views of the [...] of compliance regarding home exercises moving forward. [employer] speech recognition ent physician software was used to create portions of this document. An attempt at proofreading has been made to minimize errors. Please call for corrections Edgar Wharton PA-C [address] [place] [address] [address], [place], [address], [facility] 12/20/2024 16:51:22
--- OUTSIDE RECORDS SUMMARY | 2025-01-02 08:32 | XMS_ITS | Patient Health Record ---
Author Organization [facility] Address [address] [address] Care Team Providers Care Telecom Billing Analyst Name Role Phone Jeanette Casillas Unavailable [phone] Allergies No Known Allergies Reason For Referral No Information Medications Medication SIG (Take, Route, Fr equency, Duration) Notes Start Date End Date Status Levothyroxine Sodium Active Adderall Active Encounters Encounter Location Date Provider Diagnosis [facility] [address] [address] 09/03/2024 Jeanette Casillas Cellulitis of right leg [...]
[2025-01-02 08:45] LABS: Glucose, Whole Blood 148 mg/dL (60-115)
== END 2025-01-02 08:48 | disposition home or self-care (01) ==
LOC: HO.ENCR 08:11
PROVIDERS: PCP Internal Medicine; Visit Provider Internal Medicine Endocrinology, Diabetes & Metabolism
DX: E11.65 Type 2 diabetes mellitus with hyperglycemia (principal)
CPT/HCPCS: 99214

== ENCOUNTER 2025-01-02 08:10 | Outpatient (AMB) | payer OTHER, SELFPAY ==
--- NOTE | 2025-01-02 08:55 | MHC.AMDMED ---
Intake Intake Visit Reasons: 30 min Allergies tezepelumab-ekko (From [facility]) Adverse Reaction (Severe, Verified 01/02/25 08:19) severe joint pains and weakness HPI Comprehensive Diabetes Asmnt Most Recent Diabetes Results: Creatinine, (0.5-1.4) 0.89 mg/dL 12/11/24 BUN, (9-16) 16 mg/dL 12/11/24 Sodium, (135-145) 137 mmol/L 12/11/24 Potassium, (3.3-5.1) 3.9 mmol/L 12/11/24 Chloride, (96-108) 104 mmol/L 12/11/24 Carbon Dioxide, (22-29) 25 mmol/L 12/11/24 Calcium, (8.4-10.2) 8.5 mg/dL Δ 12/11/24 AST, (5-37) 32 U/L 12/11/24 ALT, (0-40) 44 U/L H 12/11/24 Total Protein, (6.5-8.0) 6.0 g/dL L 12/11/24 Albumin, (3.5-5.0) 3.5 g/dL 12/11/24 [facility] Medical History Blister of left lower extremity Varicose veins of bilateral lower extremities with other complications Left leg cellulitis Diabetic ulcer of ankle associated with diabetes mellitus due to underlying condition Ulcer of left ankle Overweight (BMI 25.0-29.9) Stroke Impaired fasting glucose Pure hypercholesterolemia Pityriasis lichenoides Poorly controlled persistent asthma Obesity (BMI 30-39.9) Cerebral arteriovenous malformation (AVM) Lumbar degenerative disc disease Acquired hypothyroidism Asthma Surgical History Status post coil embolization of cerebral aneurysm (~11/03/12) History of lumbar discectomy Family History Father Diabetes Mother No problems noted. 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
== END 2025-01-02 09:32 | disposition home or self-care (01) ==
LOC: HO.ENCR 08:11
PROVIDERS: PCP Internal Medicine; Visit Provider Registered Nurse Diabetes Educator
DX: E11.65 Type 2 diabetes mellitus with hyperglycemia (principal)

== ENCOUNTER → 2025-01-02 08:10 | Outpatient (BNVA) | payer OTHER, SELFPAY | PROVIDERS: PCP Internal Medicine; Visit Provider Internal Medicine Endocrinology, Diabetes & Metabolism | DX: E11.65 Type 2 diabetes mellitus with hyperglycemia (principal); Z71.3 Dietary counseling and surveillance | CPT/HCPCS: 82947; 99211; 99212 ==

== ENCOUNTER 2025-01-09 15:32 | Outpatient (AMB) | payer OTHER, SELFPAY ==
--- NOTE | 2025-01-09 15:35 | MHC.OFFVIS ---
Vital Signs 01/09/25 15:36 Height 5 ft 9 in Weight 210 lb BMI 31.0 BP 170/94 H Blood Pressure Location Lt brachial Position Sitting Pulse 97 Pulse Source Pulse Oximeter Pulse Oximetry (%) 100 Oxygen Delivery Method Room Air Intake Visit Reasons: Asthma Allergies tezepelumab-ekko (From Tezspire) Adverse Reaction (Severe, Verified 01/09/25 15:41) severe joint pains and weakness HPI HPI Asthma: Details: 49-year-old gentleman, former 20+pack-year smoker, quit 2018, followed for moderate persistent asthma.? He was tried on Xolair with some, but still suboptimal improvement of his asthma symptoms, he was switched to Tezspire with no significant changes. He continues on Symbicort albuterol MDI. Patient had bronchoscopy with lavage growing sporotrichos. He continues itraconazole with slow improvement in his symptoms. He recently was hospitalized for lower extremity cellulitis, now resolved. [facility] Medical History Blister of left lower extremity Varicose veins of bilateral lower extremities with other complications Left leg cellulitis Diabetic ulcer of ankle associated with diabetes mellitus due to underlying condition Ulcer of left ankle Overweight (BMI 25.0-29.9) Stroke Impaired fasting glucose Pure hypercholesterolemia Pityriasis lichenoides Poorly controlled persistent asthma Obesity (BMI 30-39.9) Cerebral arteriovenous malformation (AVM) Lumbar degenerative disc disease Acquired hypothyroidism Asthma Surgical History Status post coil embolization of cerebral aneurysm (~11/03/12) History of lumbar discectomy Family History Father Diabetes Mother No problems noted. 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 Cognitive needs: No Hearing needs: No Vision needs: No Review of Systems Const Denies daytime sleepiness, Denies excessive sweating, Denies fatigue, Denies fever(s), Denies lethargy, Denies malaise, Denies night sweats, Denies snoring and Denies weight loss Eyes Denies blurry vision and Denies itchy eyes ENT Denies nasal congestion, Denies post nasal drip, Denies sinus pain, Denies sinus pressure and Denies other ( Thrush) Card Denies chest pain, Denies pedal edema, Denies dyspnea, Denies orthopnea and Denies paroxysmal nocturnal dyspnea Resp Denies cough, Denies hemoptysis, Denies excessive phlegm production, Denies dyspnea, Denies snoring and Denies wheezing GI Denies abdominal pain and Denies heartburn Musc Denies myalgias, Denies arthralgias and Denies joint swelling Skin/Breast Denies rash Neuro Denies memory loss and Denies seizure-like activity Psych Denies abnormal sleep pattern, Denies anxiety and Denies memory loss Endo Denies excessive sweating, Denies fatigue and Denies heat intolerance Dom/Lymph Denies easy bruising Aller/Immun Denies itchy eyes, Denies seasonal rhinorrhea and Denies wheezing Physical Exam Vital Signs: Last Vital Signs Pulse 97 01/09/25 15:36 BP 170/94 H 01/09/25 15:36 Pulse Ox 100 01/09/25 15:36 Oxygen Delivery Method Room Air 01/09/25 15:36 BMI result Body Mass Index 31.0 Const General: no acute distress and alert Nutritional Appearance: not obese Orientation/consciousness: Other orientation findings ( oriented) HEENT Head: Yes atraumatic Eyes General: appearance normal, both eyes and all related structures Sclerae: sclerae normal EOM: EOMs intact bilaterally Neck Neck: Yes supple Lymphatic: no lymphadenopathy noted Resp Effort & Inspection: normal respiratory effort and no use of accessory muscles Auscultation: clear to auscultation bilaterally Cardio Rate: regular rate Rhythm: regular rhythm Heart sounds: no gallops, no murmurs and no rubs Skin General skin exam: other ( warm) Extrem General: No clubbing, No cyanosis and No edema Assessment & Plan Assessment & Plan (1) Severe persistent asthma: Code(s): J45.50 - Severe persistent asthma, uncomplicated Category: Medical Plan: Well controlled on current regimen of Symbicort and albuterol MDI. Continue current regimen. 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 Continue with itraconazole. Follow-up sputum cultures pending. Coding Level of Care Code Est Pt Level 4 (86330) Complex EM visit Add On G2211 Diagnoses Severe persistent asthma J45.50 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
[2025-01-09 15:36] VITALS: BP 170/94; PULSE 97; O2SAT 100; BMI 31.0
--- OUTSIDE RECORDS SUMMARY | 2025-01-10 06:06 | XMS_ITS | Continuity of Care Document ---
Author Organization [facility], [facility] Clinical Address [address] [place] [address] Care Team Providers Care Fashion Stylist Name Role Phone IRMA PEPPER Primary Care Provider Assessment No assessment recorded. Plan of Treatment Reminders Order Date Submit Date Provider Last Modified By Organization Details Last Modified Time Details Appointments None record ed. Lab None record ed. Referral None record ed. Procedures None record ed. Surgeries None record ed. Imaging None record ed. Medication Orders None record ed. Patient TargetsNo targets recorded. Patient InstructionsNo instructions recorded. Reason for Referral None Reported. Problems Name Problem SNOMED Code Status Onset Date Resolution Date Notes Provider Name and Address Organization Details Recorded Time Pain of right knee joint 5135134878187 00 Active 2024 Edgar Wharton PA-C [address], [place], [address], [facility] 5 14:38:41 Osteoarthri tis of right knee joint 8458355752491 00 Active 2024 Edgar Wharton PA-C [address], [place], [address], [facility] 5 15:35:01 Latent autoimmune diabetes mellitus in adult 900109369 Active 2024 Edgar Wharton PA-C [address], [place], [address], [facility] 5 16:50:59 Problem Notes None recorded. Procedures Surgical History Date Name Laterality Status Provider Name and Address Organization Details Recorded Time 5 Sports Knee 4&1 completed Edgar Wharton PA-C [address], [place], [address], [facility] 12/20/2024 16:04:27 5 Sports Knee 4&1 completed Edgar Wharton PA-C [address], [place], [address], [facility] 08/16/2024 06:13:00 5 Sports Knee 4&1 completed Edgar Wharton PA-C [address], [place], [address], [facility] 05/23/2024 15:34:50 5 Head or Neck Surgery completed JOVAN PEDROZA [facility] 06/29/2024 15:01:52 5 Knee Surgery completed JOVAN PEDROZA [facility] 06/29/2024 15:01:51 Imaging Results None recorded. Procedure [...] Not Available No t Available Kaylynn Sanchez [facility] spacer USE DIRECTED active Not Available [...] Updated DateTime 12/20/2024 172.72 cm 31.5 kg/m2 63956.62 g Edgar Wharton PA-C [address] [facility], [place], [address], [facility] 12/20/2024 15:51:08 Social History Question Answer Notes LastModified by [employer] Details LastModified Time Tobacco Smoking Status Never Smoker Edgar Wharton PA-C [address], [place], [address], [facility] 08/16/2024 10:41:46 What Is Your Relationship Status? Single [email or web address] Information not available 08/16/2024 Sex: Unknown Functional Status Question Answer Note LastModified by [employer] Details LastModified Time Do you use any illicit or recreational drugs? No Information not available 08/16/2024 What is your level of alcohol consumption? None Information not available 08/16/2024 Mental Status None recorded. Family History Nothing Reported. Medical History Condition Response Stroke Y Thyroid Problems Y Asthma Y Past Encounters Encounter ID Performer Location Encounter Start Date Encounter Closed Date Diagnosis/Indication Diagnosis SNOMED-CT Code Diagnosis ICD10 Code Diagnosis IMO Codes Diagnosis Note [id number] [place] [address] 12/20/2024 15:29:55 12/28/2024 10:36:19 Pain of right knee joint 3968350097 40472 M25.561 574578 Osteoarthr itis of right knee joint 7897780347 51549 M17.11 5828014 Latent aut oimmune diabetes mellitus in adult 486164308 E13.9 9750742 Health Concerns Section Related Observation LastModified by Organization Detai ls LastModified Time None Recorded Concern Status LastModified by Organization Details LastModified Time None Recorded Payers Encounter Date Sequence Insurance Name Policy Number Policy Hines Covered Member ID Hines Member ID Guarantor Name 12/20/2024 1 [facility] HE[facility] NET PLAN (MEDICAID HMO) LEDY Van Ang [id number] Van Ang Notes Date Note Type Note Provider Name and Address Organization Details Recorded Time 12/20/2024 text/html I am seeing the patient [...] views ordered and independently reviewed previously at [facility] of the 4 views of the right [...] of compliance regarding home exercises moving forward. [employer] speech recognition group reservations coordinator software was used to create portions of this document. An attempt at proofreading has been made to minimize errors. Please call for corrections Edgar Wharton PA-C [address] [place], [place] [address] [address], [place], [address], [facility] [place] [facility] 12/20/2024 16:51:22
--- OUTSIDE RECORDS SUMMARY | 2025-01-10 06:06 | XMS_ITS | Data Portability ---
Author Organization [facility], [facility] Address [address] [place] [address] Care Team Providers Care Recovery Analyst Name Role Phone IRMA PEPPER Primary Care Provider [phone] Assessment No assessment recorded. Plan of Treatment Reminders Order Date Submit Date Provider Last Modified By Organization Details Last Modified Time Details Appointments None recorded . Lab None recorded . Referral None recorded . Procedures None recorded . Surgeries repair tricep/b icep muscle/t endon (SURG) 2024 025 [email or web address] [place], [address], [place], [address], 5 09:32:10 Imaging XR, knee, 4 or more view - 217 2024 025 [facility]una [facility], [address], [place], [address], 5 10:18:24 Medication Orders None recorded . [...] a4ajBk vP9nXo QUaueC m3YtLR FvZlgJ JJ8mAn HZtai3 0o3485 AC0KqY nyHUaK lKiQtr MwF INTERFACE [facility] [address], [place], [address], 05/04/2024 14:14:40 05/05/19 25 05/04/2024 XR, elbow , 3 or more view http:/ [email or web address] ?Encry pted=s hAaTro YD8dLq bEUv6g %2BXZw aYqtaq 0bqfl% 2Fg9IQ a4ajBk vP9nXo QUaueC m3YtLR FvZlgJ JJ8mAn HZtai3 0p7078 AC0KqY nyHUaK lKiQtr MwF INTERFACE [facility] [address], [place], [address], 05/04/2024 14:14:42 05/14/19 25 05/13/2024 MRI, elbow , w/o contr ast No observ ation record ed. [email or web address] [facility] [address], [place], [address], 05/13/2024 14:10:11 05/24/19 25 05/23/2024 XR, knee, 4 or more view [email or web address]:/ [email or web address] ?Encry pted=s hAaTro YD8dLq bEUv6g %2BXZw aYqtaq 0bqfl% 2Fg9IQ a4ajBk vP9nXo QUaueC m3YtLR FvZlgJ JJ8mAn HZtai3 0x5327 AC0KqY nSNUKG lKiQtr MwF INTERFACE [facility] [address], [place], [address], 05/23/2024 14:54:39 05/24/19 25 05/23/2024 XR, knee, 4 or more view http:/ [email or web address] ?Encry pted=s hAaTro YD8dLq bEUv6g %2BXZw aYqtaq 0bqfl% 2Fg9IQ a4ajBk vP9nXo QUaueC m3YtLR FvZlgJ JJ8mAn HZtai3 7i1660 AC0KqY nSNUKG lKiQtr MwF INTERFACE [facility] [address], [place], [address], 05/23/2024 14:54:41 Result Notes Documentation Provider Name and Address Organization Details Recorded Time Xr, Knee, 4 Or More View : [email or web address]? Encrypted=ygNtNtvFM6fOppQ Uv6g%3ZCGgtJzqzv6sjpi%2Fg 3ATp1jrXcjY6kSeBAlniPf7Op BTQsSgnDRC1ySwEYstz66b052 0TX4SxXhYXUDDmMcChaNaS Not Available [facility] 05/23/2024 14:54: 40 Xr, Knee, 4 Or More View : [email or web address] Encrypted=odWfWyzWD2nDzzD Uv6g%9KVUooWjdgq9cfwn%2Fg 8VSk8gqTirK5jXaAKjgqUq4So ZAVxGztPSM9lNoNKahb41k572 0FH9XfMmQTMTGlGjAgwIjU Not Available [facility] 05/23/2024 14:54: 42 Problems Name Problem SNOMED Code Status Onset Date Resolution Date Notes Provider Name and Address Organization Details Recorded Time Pain of right knee joint 5467799462067 00 Active 2024 Edgar Wharton PA-C [address], [place], [address], [facility] 14:38:41 Osteoarthri tis of right knee joint 1667379249402 00 Active 2024 Edgar Wharton PA-C [address], [place], [address], [facility] 15:35:01 Latent autoimmune diabetes mellitus in adult 894931443 Active 2024 Edgar Wharton PA-C [address], [place], [address], [facility] 16:50:59 Problem Notes None recorded. Procedures Surgical History Date Name Laterality Status Provider Name and Address Organization Details Recorded Time 5 Sports Knee 4&1 completed Edgar Wharton PA-C [address], [place], [address], [facility] 12/20/2024 16:04:27 5 Sports Knee 4&1 completed Edgar Wharton PA-C [address], [place], [address], [facility] 08/16/2024 06:13:00 5 Sports Knee 4&1 completed Edgar Wharton PA-C [address], [place], [address], [facility] 05/23/2024 15:34:50 5 Head or Neck Surgery completed JOVAN PEDROZA [facility] 06/29/2024 15:01:52 5 Knee Surgery completed JOVAN PEDROZA [facility] 06/29/2024 15:01:51 Imaging [...] Not Available No t Available [employer] Laura [facility] spacer USE DIRECTED active [...] Updated DateTime 05/18/2024 172.72 cm 31.6 kg/m2 33278.21 g STEVEN WILSON [facility] 05/18/2024 13:51:22 Date Recorded Body height Body mass index (BMI) Body weight Provider Name and Address Organization Details Last Updated DateTime 05/23/2024 172.72 cm 31.5 kg/m2 10278.62 g Edgar Wharton PA-C [address] [place] [address], [address], [facility] 05/23/2024 14:37:50 Date Recorded Body height Body mass index (BMI) Body weight Provider Name and Address Organization Details Last Updated DateTime 06/29/2024 172.72 cm 31.5 kg/m2 34842.62 g JOVAN PEDROZA [facility] 06/29/2024 15:01:58 Date Recorded Body height Body mass index (BMI) Body weight Provider Name and Address Organization Details Last Updated DateTime 08/16/2024 172.72 cm 31.5 kg/m2 07608.62 g Edgar Wharton PA-C [address], [place], [address], [facility] 08/16/2024 10:41:03 Date Recorded Body height Body mass index (BMI) Body weight Provider Name and Address Organization Details Last Updated DateTime 12/20/2024 172.72 cm 31.5 kg/m2 25474.62 g Edgar Wharton PA-C [address], [place], [address], [facility] 12/20/2024 15:51:08 Social History Question Answer Notes LastModified by [employer] Details LastModified Time Tobacco Smoking Status Never Smoker Edgar Wharton PA-C [address], [place], [address], [facility] 08/16/2024 10:41:46 What Is Your Relationship Status? Single Information not available 08/16/2024 Sex: Unknown Functional Status Question Answer Note LastModified by [employer] Details LastModified Time Do you use any illicit or recreational drugs? No Information not available 08/16/2024 What is your level of alcohol consumption? None [email or web address] Information not available 08/16/2024 Mental Status None recorded. Family History Nothing Reported. Medical History Condition Response Stroke Y Thyroid Problems Y Asthma Y Past Encounters Encounter ID Performer Location Encounter Start Date Encounter Closed Date Diagnosis/Indication Diagnosis SNOMED-CT Code Diagnosis ICD10 Code Diagnosis IMO Codes Diagnosis Note [id number] ZACHARY Juarez [facility] [address] [place] [address] 05/04/2024 13:49:28 05/12/2024 16:03:35 Pain of elbow region 77360800 M25.522 453930 [id number] ZACHARY Juarez [facility] [address] [place] [address] 05/18/2024 13:47:31 06/05/2024 13:52:04 [id number] ZACHARY Galo [facility] [address] [place] [place] [address] 05/23/2024 14:29:27 06/03/2024 10:18:24 Pain of right knee joint 3772448922 33407 M25.561 333312 Osteoarthr itis of right knee joint 9613689193 80781 M17.11 [id number] MD MARILYNN Cantrell [address] [place] [address] 06/29/2024 14:55:52 07/12/2024 12:27:08 Left triceps tendon tear 3052969082 3519057 S46.312D [id number] ZACHARY Galo [facility] [address] [place] [address] 08/16/2024 10:25:02 08/19/2024 08:28:48 Pain of right knee joint 8964059986 43029 M25.561 691631 Osteoarthr itis of right knee joint 9231395691 93334 M17.11 [id number] [id number] [facility] [address] [place] [address] 12/20/2024 15:29:55 12/28/2024 10:36:19 Pain of right knee joint 9291461406 82359 M25.561 806839 Osteoarthr itis of right knee joint 9592821469 33101 M17.11 2486786 Latent aut oimmune diabetes mellitus in adult 956186555 E13.9 6099635 Health Concerns Section Related Observation LastModified by Organization Detai ls LastModified Time None Recorded Concern Status LastModified by Organization Details LastModified Time None Recorded Advance Directives Directive None Recorded Payers Insurance Date Sequence Insurance Name Policy Number Policy Hines Covered Member ID Hines Member ID Guarantor Name 12/28/2024 1 [facility] NET PLAN (MEDICAID HMO) LEDY Ang [id number] Van Ang Notes Date Note Type Note [...] his options. He will call Dr. Heaton's senior financial reporting accountant if he decides to proceed with surgery. Patient examined discussed with Dr. Sudarshan Cross PA-C [address] [place] [address] [address], [place], [address], [facility] 05/18/2024 14:30:58 05/23/2024 text/html [...] oriented x3. Normal insight, affect, and grooming. 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 No spasticity [...] views ordered and independently reviewed previously at [facility] of the 4 views of the [...] of compliance regarding home exercises moving forward. \[employer] [facility] speech recognition account receivable associate software was used to create portions of this document. An attempt at proofreading has been made to minimize errors. Please call for corrections Edgar Wharton PA-C [address] [place] [address] Suite [facility], [place], [address], [facility] 05/23/2024 15:35:21 06/29/2024 text/html ROS [...] to the procedure. Gurwinder Heaton MD [address], [place], [address], [facility] 06/30/2024 10:16:59 [...] views ordered and independently reviewed previously at [facility] of the 4 views of the [...] of compliance regarding home exercises moving forward. [employer] speech recognition account receivable associate software was used to create portions of this document. An attempt at proofreading has been made to minimize errors. Please call for corrections Edgar Wharton PA-C [address], [place], [address], [facility] 08/16/2024 11:04:17 12/20/2024 text/html I [...] views ordered and independently reviewed previously at [facility] of the 4 views of the [...] of compliance regarding home exercises moving forward. [employer] speech recognition account receivable associate software was used to create portions of this document. An attempt at proofreading has been made to minimize errors. Please call for corrections Edgar Wharton PA-C [address] [place] [address] [address], [place], [address], [facility] 12/20/2024 16:51:22
== END 2025-01-09 15:57 | disposition home or self-care (01) ==
LOC: HO.HPS 15:32
PROVIDERS: PCP Internal Medicine; Visit Provider Internal Medicine Pulmonary Disease
DX: J45.50 Severe persistent asthma, uncomplicated (principal); A00-B99 Certain infectious and parasitic diseases
CPT/HCPCS: 99214

== ENCOUNTER → 2025-01-09 15:32 | Outpatient (BNVA) | payer OTHER, SELFPAY | PROVIDERS: PCP Internal Medicine; Visit Provider Internal Medicine Pulmonary Disease | DX: J45.50 Severe persistent asthma, uncomplicated (principal); A00-B99 Certain infectious and parasitic diseases | CPT/HCPCS: 99212 ==

== ENCOUNTER 2025-01-25 09:33 | Outpatient (AMB) | payer OTHER, SELFPAY ==
--- OUTSIDE RECORDS SUMMARY | 2024-12-26 04:30 | XMS_ITS | Continuity of Care Document ---
Author Organization [facility] Address [address] [place] [address] Dr [address] [place] [address] Phone Care Team Providers Care International Logistics Coordinator Name Role Phone Evens BOYLE, MOHAN, JOB, [...] Mi- [place] & [place] [facility], [address] [place] [address] Dr Ans[address], [place], [id number], [place] tel:[phone] CVR - [place] Pain in left legCramp and spasmLocalized edemaNon-pressu re chronic ulcer of left ankle with unspecified severityPain in right lower legPain in left lower legPain in right legVenous insufficiency (chronic) (peripheral)Pru ritus, unspecifiedDiso rder of pigmentation, unspecified Nov-0 5 Evens BOYLE, MOHAN, JOB Graham. [address] [facility] [address], [place], [id number] , [place]. tel:[phone] Referring Provider: Rambo Qureshi MD, [address] [place] [address] [address], [place], [address]. tel:[phone] [facility], [address] [place] [address] Dr [address], [place], [id number], [place] tel:[phone] CVR - [place] - [place] Chronic venous hypertension (idiopathic) with other complications of bilateral lower extremity Evens BOYLE, RVT, RPVI Santos. [address] [facility], [address], [place], [place], [id number] , [place]. tel:[phone] Referring Provider: Rambo Qureshi MD, [address] [place] [address] Dr [address], [place], [address]. tel:[phone] Family History Family Member Type Diagnosis Age At Onset No Information Payers Payer name Insurance type Covered republican ID Authorbenji rosado(s) [facility] [id number] Social History Type Description Quantity Date Captured [...] Of Treatment Date Type Action Status Goal Tobacco cessation counseling completed Goal Diet education completed Referral Ordered: Weight management: Referral to physician timeframe: 3 Months (related to Body mass index (BMI) 31.0-31.9, adult) ordered History Of Present Illness Encounter Date Complaint History Of Prese nt Illness No Information Functional Status Date Functional Assessmen t No Information Instructions Date Instruction Additional Infor mation Patient education booklet given Related to Non-pressure chronic ulcer of left ankle with unspecified severity Compression stocking usage as conservative measure Related to Non-pressure chronic ulcer of left ankle with unspecified severity Lifestyle education Related to B sonia mass index (BMI) 31.0-31.9, adult Giving Encouragement to exercise Related to Body mass index (BMI) 31.0-31.9, adult Diet education Related to Body mass index (BMI) 31.0-31.9, adult Assessments Type Assessment Date No Information Patient Care Teams Name Effective Dates (start - stop) Status Members No Information
[2025-01-25 09:35] VITALS: BMI 31.2
--- NOTE | 2025-01-25 09:35 | A.OFFVIS_ITS ---
VS Expanded 01/25/25 09:35 01/25/25 12:47 Height 5 ft 9 in 5 ft 9 in Weight 211 lb 211 lb BMI 31.2 31.2 Intake Visit Reasons: Type 2 Dm Allergies tezepelumab-ekko (From [facility]) Adverse Reaction (Severe, Verified 01/09/25 15:41) severe joint pains and weakness Nutrition Presentation Details: Pt presents for MNT for T2DM Pt reports always maintaining physically active Typical meal intake Reports high-fiber cereals B: cereals wheat chex and milk full fat L: Cauliflower crust pizza, water D: Chicken and mashed potatoes or a burger snack: Cereal physical activity weights 5 x/wk , 30- 60 min Food frequency Fruits 1 a day Vegetables 3 times a week Fish: 0 Dairy: 3 to 4 times a day eoth-- smoking: --- HMW-Ocliecg-Zc.Jeor Equation Height: 5 ft 9 in Weight: 211 lb Resting Metabolic Rate: 1805.58 Calculated Activity Level: Moderate Activity Calories Needed to Maintain Weight: 2798.65 Diagnosis Nutrition problem #1: food nutri know defi As related to (etiology) #1: lack of nutrit education As evidenced by (sign/symptom) #1: abnormal lab values and knowledge deficit of diet [facility] Medical History Blister of left lower extremity Varicose veins of bilateral lower extremities with other complications Left leg cellulitis Diabetic ulcer of ankle associated with diabetes mellitus due to underlying condition Ulcer of left ankle Overweight (BMI 25.0-29.9) Stroke Impaired fasting glucose Pure hypercholesterolemia Pityriasis lichenoides Poorly controlled persistent asthma Obesity (BMI 30-39.9) Cerebral arteriovenous malformation (AVM) Lumbar degenerative disc disease Acquired hypothyroidism Asthma Surgical History Status post coil embolization of cerebral aneurysm (~11/03/12) History of lumbar discectomy Family History Father Diabetes Mother No problems noted. 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 Cognitive needs: No Hearing needs: No Vision needs: No Assessment & Plan Assessment & Plan (1) Diabetic ulcer of ankle associated with diabetes mellitus due to underlying condition: Code(s): E08.622 - Diabetes mellitus due to underlying condition with other skin ulcer; L97.309 - Non-pressure chronic ulcer of unspecified ankle with unspecified severity Category: Medical Plan: current wt: 96 kg ( ) est kcal needs as per MSJ: 2800 est protein needs as per 1 g/kg BW: 100 est fluid needs as per 30 ml/kg BW: 2900 Recommended fiber > 12 g /day and gradually increase up to 25-28 g /day or as tolerated Recommended sodium intake: Less than 2300 mg per day unless otherwise specified by DrImtiaz Nutrition topics discussed : Reviewed (R), Pt verbalized understanding (V) , not applicable (N/A) R, : Healthy Plate Method Concept: R, : Carbohydrates: food sources of carbohydrates, relationship of carbohydrates to blood glucose, fatty liver GI health. Recommended total amount of carbohydrates per meals and snack. Differences between simple carbohydrates and complex carbohydrates R, : Lean protein foods including vegan , vegetarian sources of protein. Benefits of protein (including but not limited to healing, nutritional value , benefits in weight loss, glucose control R, V, N/A: Fats : Source of fats, benefits of fats. Difference between saturated and unsaturated fats. Saturated fats and its contribution to inflammation R, : Fiber: food sources and role of fiber in the diet (including but not limited to its role as a prebiotic, benefits in constipation, role in IBS , role in glucose control and cholesterol level) R, : Hydration: role of hydration and prevention of dehydration or over hydration. Foods and water content. R, V, N/A: Vitamins and Minerals in foods and supplements R, V, N/A: Interpreting food labels, including serving size, macronutrients, vitamins, minerals, allergens, ingredient list , % daily value Patient Instructions: Keep hydrated , choosing water, low sugar beverages - see list of options follow healthy plate method at dinner Carbohydrates at bedtime to 30 g and include lean protein: See list of snack ideas Coding Level of Care Code Nutr Indiv Intake (19993) Diagnoses Diabetic ulcer of ankle associated with diabetes mellitus due to underlying condition E08.622; L97.309 Time Spent (min) 30
[2025-01-25 12:47] VITALS: BMI 31.2
== END 2025-01-25 10:18 | disposition home or self-care (01) ==
LOC: HO.ENCR 09:33
PROVIDERS: PCP Internal Medicine; Visit Provider Dietitian, Registered
DX: E08.622 Diabetes mellitus due to underlying condition with other skin ulcer (principal); L97.309 Non-pressure chronic ulcer of unspecified ankle with unspecified severity

== ENCOUNTER → 2025-01-25 09:33 | Outpatient (BNVA) | payer OTHER, SELFPAY | PROVIDERS: PCP Internal Medicine; Visit Provider Dietitian, Registered | DX: L97.329 Non-pressure chronic ulcer of left ankle with unspecified severity (principal); E08.622 Diabetes mellitus due to underlying condition with other skin ulcer; Z71.3 Dietary counseling and surveillance | CPT/HCPCS: 97802 ==

== ENCOUNTER 2025-01-30 17:23 | Outpatient (REF) | payer OTHER, SELFPAY ==
--- OUTSIDE RECORDS SUMMARY | 2024-12-26 04:30 | XMS_ITS | Continuity of Care Document ---
Author Organization [facility] Address [address] [place] [address] [address] [place] [id number] Phone Care Team Providers Care Hog Confinement System Manager Name Role Phone Evens BOYLE, MOHAN, JOB, Santos Unavailable U navailable Procedures Procedure Date Offic Cons New/estab Mod 40 Mi- CT & [place] Duplex Scan-extrem Veins; Comp- CT & [place] Advance Directives Directive Yes / No Effective Date File Name No Information Encounters Encounter Description Practice Location Reason(s) For Visit Diagnoses Date Provider Providers Copied on Encounter Offic Cons New/estab Mod 40 Mi- [place] & [place] [facility], [address] [place] [address] [address], [place], [id number], [place] tel:[phone] [facility] - [place] Pain in left legCramp and spasmLocalized edemaNon-pressu re chronic ulcer of left ankle with unspecified severityPain in right lower legPain in left lower legPain in right legVenous insufficiency (chronic) (peripheral)Pru ritus, unspecifiedDiso rder of pigmentation, unspecified Nov-0 5 Evens BOYLE, MOHAN, JOB Graham. [address] [facility] [address], [place], [id number] , [place]. tel:[phone] Referring Provider: Rambo Qureshi MD, [address] [place] [address] [address], [place], [address]. tel:[phone] [facility], [address] [place] [address] [address], [place], [id number], [place] tel:[phone] [facility] - [place] Chronic venous hypertension (idiopathic) with other complications of bilateral lower extremity Evens BOYLE, RVT, RPVI Santos. [address] [facility], [address], [place], [place], [id number] , [place]. tel:[phone] Referring Provider: Rambo Qureshi MD, [address] [place] [address] [address], [place], [address]. tel:[phone] Family History Family Member Type Diagnosis Age At Onset No Information Payers Payer name Insurance type Covered constitution party ID Authorbenji rosado(s) [id number] Social History Type Description Quantity Date Captured Comments Alcohol Use Details Unknown Caffeine Use Details Unknown Tobacco Use Status No Information Smoking Status Former Smoker Non-Smoking Tobacco Use Details : No Details Available : No Details Available Sex Male Vital Signs Date / Time: Height Weight BMI Pulse Rate Blood Pressure Temperature Respiratory Rate Body Surface Area Head Circumference Head Circ. Percentile Wt./Shailesh. Percentile BMI percentile Pulse Ox Inhaled Ox 95.250 kg (210.00 lbs) 31.1 4 kg/m eter (2) 188/117 mm[Hg] Chief Complaint And Reason For Visit No Information Reason For Referral Reason For Referral No Information Plan Of Treatment Date Type Action Status Goal Diet education completed Goal Tobacco cessation counseling completed Referral Ordered: Weight management: Referral to physician timeframe: 3 Months (related to Body mass index (BMI) 31.0-31.9, adult) ordered History Of Present Illness Encounter Date Complaint History Of Prese nt Illness No Information Functional Status Date Functional Assessmen t No Information Instructions Date Instruction Additional Infor mation Diet education Related to Body mass index (BMI) 31.0-31.9, adult Giving Encouragement to exercise Related to Body mass index (BMI) 31.0-31.9, adult Patient education booklet given Related to Non-pressure chronic ulcer of left ankle with unspecified severity Compression stocking usage as conservative measure Related to Non-pressure chronic ulcer of left ankle with unspecified severity Lifestyle education Related to B sonia mass index (BMI) 31.0-31.9, adult Assessments Type Assessment Date No Information Patient Care Teams Name Effective Dates (start - stop) Status Members No Information
--- OUTSIDE RECORDS SUMMARY | 2025-01-31 02:23 | XMS_ITS | Continuity of Care Document ---
Author Organization [facility], [facility] [place] Clinical Address [address] [place] [address] Care Team Providers Care Steward/Stewardess Economy Class Name Role Phone IRMA PEPPER Primary Care Provider [phone] Assessment No assessment recorded. Plan of Treatment [...] Recorded Time Pain of right knee joint 0473239807084 00 Active 2024 Edgar Wharton PA-C [address], [place], [address], [facility] 5 14:38:41 Osteoarthri tis of right knee joint 1263814723210 00 Active 2024 Edgar hWarton PA-C [address], [place], [address], [facility] 5 15:35:01 Latent autoimmune diabetes mellitus in adult 154575947 Active 2024 Edgar Wharton PA-C [address], [place], [address], [facility] 5 16:50:59 Problem Notes None recorded. Procedures Surgical History Date Name Laterality Status Provider Name and Address Organization Details Recorded Time 5 Sports Knee 4&1 completed Edgar Wharton PA-C [address], [place], [address], [facility] 12/20/2024 16:04:27 5 Sports Knee 4&1 completed Edgar Wharton PA-C [address], [place], [address], [facility] 08/16/2024 06:13:00 5 Sports Knee 4&1 completed Edgar Wharton PA-C [address], [place], [address], [facility] 05/23/2024 15:34:50 5 Head or Neck Surgery completed JOVAN PEDROZA [facility] 06/29/2024 15:01:52 5 Knee Surgery completed JOVAN PEDROZA [facility] 06/29/2024 15:01:51 Imaging Results None recorded. Procedure [...] Not Available No t Available Kaylynn Sanchez [facility] spacer USE DIRECTED active Not Available [...] Updated DateTime 12/20/2024 172.72 cm 31.5 kg/m2 05564.62 g Edgar Wharton PA-C [address] [facility], [place], [address], [facility] 12/20/2024 15:51:08 Social History Question Answer Notes LastModified by Citelighter Details LastModified Time Tobacco Smoking Status Never Smoker Edgar Wharton PA-C [address], [place], [address], [facility] 08/16/2024 10:41:46 What Is Your Relationship Status? Single [email or web address] Information not available 08/16/2024 Sex: Unknown Functional Status Question Answer Note LastModified by Citelighter Details LastModified Time Do you use any [...] ICD10 Code Diagnosis IMO Codes Diagnosis Note [id number] [place] [address] 12/20/2024 15:29:55 12/28/2024 10:36:19 Pain of right knee joint 9237765463 77078 M25.561 774581 Osteoarthr itis of right knee joint 3326766776 15904 M17.11 7637478 Latent aut oimmune diabetes mellitus in adult 026326127 E13.9 [id number] Health Concerns Section Related Observation LastModified by Organization Detai ls LastModified Time None Recorded Concern Status LastModified by Organization Details LastModified Time None Recorded Payers Encounter Date Sequence Insurance Name Policy Number Policy Hines Covered Member ID Hines Member ID Guarantor Name 12/20/2024 1 [facility] HEALTH NET PLAN (MEDICAID HMO) LEDY Van Ang [id number] Van Ang Notes Date Note Type Note [...] views ordered and independently reviewed previously at [facility] of the 4 views of the right [...] of compliance regarding home exercises moving forward. Tyche speech recognition production illustrator software was used to create portions of this document. An attempt at proofreading has been made to minimize errors. Please call for corrections Edgar Wharton PA-C [address] [place], [place] [address] [address], [place], [address], [facility] 12/20/2024 16:51:22
--- OUTSIDE RECORDS SUMMARY | 2025-01-31 02:23 | XMS_ITS | Data Portability ---
Author Organization [facility], [facility] [address] [place] [address] Care Team Providers Care Deliverer Outside Name Role Phone IRMA PEPPER Primary Care Provider Assessment No assessment recorded. Plan of Treatment Reminders Order Date Submit Date Provider Last Modified By Organization Details Last Modified Time Details Appointments None recorded . Lab None recorded . Referral None recorded . Procedures None recorded . Surgeries repair tricep/b icep muscle/t endon (SURG) 2024 025 [email or web address] [place], [address], [place], [address], 5 09:32:10 Imaging XR, knee, 4 or more view - 217 2024 025 [email or web address], [address], [place], [address], 5 10:18:24 Medication Orders None recorded . [...] a4ajBk vP9nXo QUaueC m3YtLR FvZlgJ JJ8mAn HZtai3 3v5330 AC0KqY nyHUaK lKiQtr MwF INTERFACE [facility] [address], [place], [address], 05/04/2024 14:14:40 05/05/19 25 05/04/2024 XR, elbow , 3 or more view [email or web address] ?Encry pted=s hAaTro YD8dLq bEUv6g %2BXZw aYqtaq 0bqfl% 2Fg9IQ a4ajBk vP9nXo QUaueC m3YtLR FvZlgJ JJ8mAn HZtai3 7y5043 AC0KqY nyHUaK lKiQtr MwF INTER[facility] [address], [place], [address], 05/04/2024 14:14:42 05/14/19 25 05/13/2024 MRI, elbow , w/o contr ast No observ ation record ed. [facility] [address], [place], [address], 05/13/2024 14:10:11 05/24/19 25 05/23/2024 XR, knee, 4 or more view [email or web address] ?Encry pted=s hAaTro YD8dLq bEUv6g %2BXZw aYqtaq 0bqfl% 2Fg9IQ a4ajBk vP9nXo QUaueC m3YtLR FvZlgJ JJ8mAn HZtai3 8f1403 AC0KqY nSNUKG lKiQtr MwF INTERFACE [facility] [address], [place], [address], 05/23/2024 14:54:39 05/24/19 25 05/23/2024 XR, knee, 4 or more view http:/ [email or web address] ?Encry pted=s hAaTro YD8dLq bEUv6g %2BXZw aYqtaq 0bqfl% 2Fg9IQ a4ajBk vP9nXo QUaueC m3YtLR FvZlgJ JJ8mAn HZtai3 0c4988 AC0KqY nSNUKG lKiQtr MwF INTERFACE [facility] [address], [place], [address], 05/23/2024 14:54:41 Result Notes Documentation Provider Name and Address Organization Details Recorded Time Xr, Knee, 4 Or More View : [email or web address] Encrypted=bdFiIzqRG9vOftE Uv6g%4WGOngAjkxz3scra%2Fg 2SYq8maXwaI6fTjQLjbvJc2Na EJThPaeALN2xCxTXpyn88g957 6TV8IkWlRETDVjZaXqlCbI Not Available [facility] 05/23/2024 14:54: 40 Xr, Knee, 4 Or More View : [email or web address] Encrypted=wgIiGgwIY3bLusQ Uv6g%6YOTkcEkfem3ivqv%2Fg 8FIp5mtVojB9cXdTBsulXk0Qm QJRcGboCFF8xPcMXhne95s734 6RJ2JdXtOMMULcLhOtkApY Not Available [facility] 05/23/2024 14:54: 42 Problems Name Problem SNOMED Code Status Onset Date Resolution Date Notes Provider Name and Address Organization Details Recorded Time Pain of right knee joint 4285505848611 00 Active 2024 Edgar Wharton PA-C [address], [place], [address], [facility] 14:38:41 Osteoarthri tis of right knee joint 5608550923401 00 Active 2024 Edgar Wharton PA-C [address], [place], [address], [facility] 15:35:01 Latent autoimmune diabetes mellitus in adult 247397765 Active 2024 Edgar Wharton PA-C [address], [place], [address], [facility] 16:50:59 Problem Notes None recorded. Procedures Surgical History Date Name Laterality Status Provider Name and Address Organization Details Recorded Time 5 Sports Knee 4&1 completed Edgar Wharton PA-C [address], [place], [address], [facility] 12/20/2024 16:04:27 5 Sports Knee 4&1 completed Edgar Wharton PA-C [address], [place], [address], [facility] 08/16/2024 06:13:00 5 Sports Knee 4&1 completed Edgar Wharton PA-C [address], [place], [address], [facility] 05/23/2024 15:34:50 5 Head or Neck Surgery completed JOVAN PEDROZA [facility] 06/29/2024 15:01:52 5 Knee Surgery completed JOVAN PEDROZA [facility] 06/29/2024 15:01:51 Imaging [...] Available No t Available [employer] Laura [facility] spacer USE DIRECTED active Not [...] Updated DateTime 05/18/2024 172.72 cm 31.6 kg/m2 56153.21 g STEVEN WILSON [facility] 05/18/2024 13:51:22 Date Recorded Body height Body mass index (BMI) Body weight Provider Name and Address Organization Details Last Updated DateTime 05/23/2024 172.72 cm 31.5 kg/m2 85167.62 g Edgar Wharton PA-C [address] [place] [address], [address], [facility] 05/23/2024 14:37:50 Date Recorded Body height Body mass index (BMI) Body weight Provider Name and Address Organization Details Last Updated DateTime 06/29/2024 172.72 cm 31.5 kg/m2 84622.62 g JOVAN PEDROZA [facility] 06/29/2024 15:01:58 Date Recorded Body height Body mass index (BMI) Body weight Provider Name and Address Organization Details Last Updated DateTime 08/16/2024 172.72 cm 31.5 kg/m2 96637.62 g Edgar Wharton PA-C [address], [place], [address], [facility] 08/16/2024 10:41:03 Date Recorded Body height Body mass index (BMI) Body weight Provider Name and Address Organization Details Last Updated DateTime 12/20/2024 172.72 cm 31.5 kg/m2 27724.62 g Edgar Wharton PA-C [address], [place], [address], [facility] 12/20/2024 15:51:08 Social History Question Answer Notes LastModified by EncrypTix Details LastModified Time Tobacco Smoking Status Never Smoker Edgar Wharton PA-C [address], [place], [address], [facility] 08/16/2024 10:41:46 What Is Your Relationship Status? Single Information not available 08/16/2024 Sex: Unknown Functional Status Question Answer Note LastModified by EncrypTix Details LastModified Time Do you use any illicit or recreational drugs? No Information not available 08/16/2024 What is your level of alcohol consumption? None [email or web address] Information not available 08/16/2024 Mental Status None recorded. Family History Nothing Reported. Medical History Condition Response Thyroid Problems Y Stroke Y Asthma Y Past Encounters Encounter ID Performer Location Encounter Start Date Encounter Closed Date Diagnosis/Indication Diagnosis SNOMED-CT Code Diagnosis ICD10 Code Diagnosis IMO Codes Diagnosis Note [id number] ZACHARY Juarez [facility] [address] [place] [address] 05/04/2024 13:49:28 05/12/2024 16:03:35 Pain of elbow region 07335550 M25.522 050559 [id number] ZACHARY Juarez [facility] [address] [place] [address] 05/18/2024 13:47:31 06/05/2024 13:52:04 [id number] ZACHARY Galo [facility] [address] [place] [place] [address] 05/23/2024 14:29:27 06/03/2024 10:18:24 Pain of right knee joint 9217319389 24574 M25.561 813517 Osteoarthr itis of right knee joint 0926015115 03313 M17.11 [id number] MD MARILYNN Cantrell [address] [place] [address] 06/29/2024 14:55:52 07/12/2024 12:27:08 Left triceps tendon tear 2981927445 6302465 S46.312D [id number] ZACHARY [facility] [address] [place] [address] 08/16/2024 10:25:02 08/19/2024 08:28:48 Pain of right knee joint 3878869065 96119 M25.561 933023 Osteoarthr itis of right knee joint 5209433068 24307 M17.11 4903483 [id number] Z[facility]ARY [facility] [address] [place] [address] 12/20/2024 15:29:55 12/28/2024 10:36:19 Pain of right knee joint 4390817259 23398 M25.561 528442 Osteoarthr itis of right knee joint 4969054438 25822 M17.11 9732901 Latent aut oimmune diabetes mellitus in adult 078508722 E13.9 4527739 Health Concerns Section Related Observation LastModified by Organization Detai ls LastModified Time None Recorded Concern Status LastModified by Organization Details LastModified Time None Recorded Advance Directives Directive None Recorded Payers Insurance Date Sequence Insurance Name Policy Number Policy Hines Covered Member ID Hines Member ID Guarantor Name 12/28/2024 1 [facility] (MEDICAID HMO) LEDY Ang [id number] Van Ang Notes Date Note Type Note [...] his options. He will call Dr. Heaton's special education secretary if he decides to proceed with surgery. Patient examined discussed with Dr. Sudarshan Cross PA-C [address] [place] [address] [address], [place], [address], [facility] 05/18/2024 14:30:58 05/23/2024 text/html [...] oriented x3. Normal insight, affect, and grooming. 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 No spasticity [...] views ordered and independently reviewed previously at [facility] of the 4 views of [...] of compliance regarding home exercises moving forward. \[facility]io [facility] speech recognition beater and pulper feeder software was used to create portions of this document. An attempt at proofreading has been made to minimize errors. Please call for corrections Edgar Wharton PA-C [address] [place] [address] [address] [facility], [place], [address], [facility] [place] [facility] 05/23/2024 15:35:21 06/29/2024 text/html ROS as [...] to the procedure. Gurwinder Heaton MD [address], [place], [address], [facility] 06/30/2024 10:16:59 08/16/2024 text/html [...] views ordered and independently reviewed previously at [facility] of the 4 views of [...] of compliance regarding home exercises moving forward. sMedio speech recognition beater and pulper feeder software was used to create portions of this document. An attempt at proofreading has been made to minimize errors. Please call for corrections Edgar Wharton PA-C [address], [place], [address], [facility] 08/16/2024 11:04:17 12/20/2024 text/html I am [...] views ordered and independently reviewed previously at [facility] of the 4 views of [...] of compliance regarding home exercises moving forward. sMedio speech recognition beater and pulper feeder software was used to create portions of this document. An attempt at proofreading has been made to minimize errors. Please call for corrections Edgar Wharton PA-C [address] [place] [address] [address], [place], [address], [facility] [place] [facility] 12/20/2024 16:51:22
== END 2025-01-30 17:24 | disposition home or self-care (01) ==
LOC: HO.LNP 17:23
PROVIDERS: Visit Provider Internal Medicine Pulmonary Disease
DX: R05.9 Cough, unspecified (principal)
CPT/HCPCS: 87070; 87205

== ENCOUNTER 2025-02-02 08:37 | Outpatient (AMB) | payer OTHER, SELFPAY ==
--- NOTE | 2025-02-02 08:39 | A.OFFVIS_ITS ---
Vital Signs 02/02/25 08:40 Height 5 ft 9 in Weight 211 lb 10.3 oz BMI 31.3 BP 128/80 Blood Pressure Location Rt brachial Position Sitting Pulse 74 Pulse Source Pulse Oximeter Pulse Oximetry (%) 96 Oxygen Delivery Method Room Air Intake Visit Reasons: f/u Type 2 Dm Intake Note: Patient presents today for a follow-up on Type 2 Diabetes Mellitus: Last Diabetic eye exam was on: Less than 1 year, [facility] Last Podiatry exam was on: 01/17/2025, Patient was seen at Wound Care for Venous Leg ulcer, (Patient stated he cancelled next appt with wound care center) Most recent HbA1c: 7.9%, 02/02/2025 Random Glucose: 179 mg/dL Surfacing Technician Required: No Accompanied by: Self / Same As Patient Allergies tezepelumab-ekko ([facility] Adverse Reaction (Severe, Verified 02/02/25 08:52) severe joint pains and weakness HPI Comments Details: 49 YO M who is seen in consultation for T2DM at the request of PCP. Initially diagnosed with T2DM in 1 mo . Never saw specialist before Was initially started on treatment with insulin Current regimen Lantus 20 units-not taking. He misunderstand directions at last visit Mounjaro 2.5mg weekly-taking Humalog 3-4 units with meals-taking Rosalind download 14 day GMI 8.0% 35% range with 65% high no hypoglycemia. A1C today is 7.9% from A1C 9.2 on 10/27/2024, Family history of T2DM in father . Grandfather had Type 2 DM Has eyes checked yearly, last eye exam needs to make appt , denies retinopathy. Denies neuropathy, , Not sees podiatry. Denies nephropathy,Not on SAMSON/ARB. UAC [] as measured on []. Not Has HLD,Not on statin. Denies CAD. Had diabetes education. Edilson Antibodies are negative for type 1 diabetes Has appt with wound clinic tomorrow. Saw interior specialist Taking atorvastatin ROS CONSTITUTIONAL: Denies weight loss, fever and chills. HEENT: Denies changes in vision and hearing. RESPIRATORY: Denies SOB and cough. CV: Denies palpitations and CP GI: Denies abdominal pain, nausea, vomiting and diarrhea. : Denies dysuria and urinary frequency. MSK: Denies new myalgia and joint pain. SKIN: Denies rash and pruritus. NEUROLOGICAL: Denies headache PSYCHIATRIC: Denies recent changes in mood. PHYSICAL EXAM: GENERAL: Alert and oriented x 3. NAD EYES: EOMI. Anicteric. HENT: Moist mucous membranes. No scleral icterus. No cervical lymphadenopathy. LUNGS: Clear to auscultation bilaterally. CARDIOVASCULAR: Regular rate and rhythm. No murmur. No JVD. ABDOMEN: Soft, non-tender +bs EXTREMITIES: No edema. Non-tender. SKIN: No rashes or lesions. Warm. NEUROLOGIC: No focal neurological deficits. CN II-XII grossly intact PSYCHIATRIC: Cooperative. Appropriate mood and affect [facility] Medical History Blister of left lower extremity Varicose veins of bilateral lower extremities with other complications Left leg cellulitis Diabetic ulcer of ankle associated with diabetes mellitus due to underlying condition Ulcer of left ankle Overweight (BMI 25.0-29.9) Stroke Impaired fasting glucose Pure hypercholesterolemia Pityriasis lichenoides Poorly controlled persistent asthma Obesity (BMI 30-39.9) Cerebral arteriovenous malformation (AVM) Lumbar degenerative disc disease Acquired hypothyroidism Asthma Surgical History Status post coil embolization of cerebral aneurysm (~11/03/12) History of lumbar discectomy Family History Father Diabetes Mother No problems noted. 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 Cognitive needs: No Hearing needs: No Vision needs: No Physical Exam Vital Signs: Last Vital Signs Pulse 74 02/02/25 08:40 BP 128/80 02/02/25 08:40 Pulse Ox 96 02/02/25 08:40 Oxygen Delivery Method Room Air 02/02/25 08:40 BMI result Body Mass Index 31.3 Results AMB Hemoglobin A1c AMB Hemoglobin A1c 7.9 % Last Edit by FABIAN Zapata on 02/02/25 08:52 Results Reviewed Results Reviewed: Laboratory Last Values Glucose (Clinic) 179 mg/dL (60-115) H 02/02/25 08:43 Hgb A1c (Clinic) 7.9 % (4.0-6.0) H 02/02/25 08:51 Assessment & Plan Assessment & Plan (1) Uncontrolled diabetes mellitus with hyperglycemia: Code(s): E11.65 - Type 2 diabetes mellitus with hyperglycemia Category: Medical Qualifiers: Diabetes mellitus type: type 2 Qualified Code(s): E11.65 - Type 2 diabetes mellitus with hyperglycemia Plan 49 year old male for diabetic follow up Good improvement in A1C but still not at goal There was a misunderstanding from his directions last visit. He has not been taking the Lantus We will restart this at 10 units, increase mounjaro to 5u and hold short acting insulin at the moment Treat hypoglycemia by rules of 15s Follow up in 3 months or sooner as needed Orders: Orders AMB Hemoglobin A1c Today E08.622 - Diabetes mellitus due to underlying condition with other skin ulcer, L97.309 - Non-pressure chronic ulcer of unspecified ankle with unspecified severity Medications: New Mounjaro (tirzepatide) 5 mg (0.5 mL) subcut QWEEK 6 mL 3RF NS insulin lispro (Humalog KwikPen (U-100) Insulin) Take 3 times daily with meals For BG<200 take 0 units For BG>200 take 3 units For BG>250 take 5 units 1 sliding scale dose subcut USEASDIRECTD 15 mL 0RF Discontinued Mounjaro (tirzepatide) for 4 weeks Discontinued Reason: Doctor's Order 2.5 mg (0.5 mL) subcut QWEEK 2 mL 1RF NS Coding Level of Care Code Est Pt Level 4 (46791) Diagnoses Uncontrolled type 2 diabetes mellitus with hyperglycemia E11.65 Diabetes mellitus type: type 2
[2025-02-02 08:40] VITALS: BP 128/80; PULSE 74; O2SAT 96; BMI 31.3
[2025-02-02 08:49] LABS: Glucose, Whole Blood 179 mg/dL (60-115)
== END 2025-02-02 09:06 | disposition home or self-care (01) ==
LOC: HO.ENCR 08:38
PROVIDERS: PCP Internal Medicine; Visit Provider Internal Medicine
DX: E08.622 Diabetes mellitus due to underlying condition with other skin ulcer (principal); L97.309 Non-pressure chronic ulcer of unspecified ankle with unspecified severity; E11.65 Type 2 diabetes mellitus with hyperglycemia

== ENCOUNTER → 2025-02-02 08:37 | Outpatient (BNVA) | payer OTHER, SELFPAY | PROVIDERS: PCP Internal Medicine; Visit Provider Internal Medicine | DX: E11.65 Type 2 diabetes mellitus with hyperglycemia (principal); E11.622 Type 2 diabetes mellitus with other skin ulcer; L97.329 Non-pressure chronic ulcer of left ankle with unspecified severity | CPT/HCPCS: 82947; 83036; 99212 ==